=== PATIENT | female | born 1955 | race Caucasian/White ===

== ENCOUNTER 2024-10-19 10:37 | Emergency (ER) | payer MEDICARE, MEDICAID, SELFPAY ==
[2024-10-19] VITALS (18 sets, daily range): BP systolic 134–159; BP diastolic 71–91; PULSE 70–93; RESP 16–22; TEMP 36.4; O2SAT 94–100
--- NOTE | ~2024-10-19 | US_ITS ---
EXAMINATION: US right upper quadrant DATE: 10/19/2024 16:01 INDICATION: cholelithiasis TECHNIQUE: Multiple grayscale and Doppler ultrasound images of the right upper quadrant were obtained . COMPARISON: CT abdomen pelvis, same date. FINDINGS: The pancreas is not well visualized. The liver is normal with normal echogenicity and echot exture. No surface nodularity. Normal hepatopetal flow in the main portal vein. Multiple gallstones. Gallbladder wall thickness 4 mm. No pericholecystic fluid. The common bile duct measures 3 mm. There was no sonographic Castellanos sign. IMPRESSION: Cholelithiasis with gallbladder wall thickening. Negative sonographic Castellanos sign. Reviewed, dictated and finalized at location K. IMPRESSION: Cholelithiasis with gallbladder wall thickening. Negative sonographic Castellanos si gn.
--- NOTE | ~2024-10-19 | CT_ITS ---
EXAMINATION: CT abdomen pelvis w con DATE: 10/19/2024 13:56 INDICATION: epigastric pain TECHNIQUE: Computed tomography (CT) of the abdomen and pelvis was performed with 100 mL Omnipaque-350 intravenous contrast. Automated exposure control and iterative reconstruction technique were employe d. The dose-length product was 1720.79 mGy-cm. COMPARISON: None. FINDINGS: Exam is limited by beam hardening from arm down positioning, motion, and body habitus. Lower thorax: Coronary artery calcification. Mild cardiomegaly. Septal thickening. Segmental left bas ilar consolidation. Minimal dependent right basilar atelectasis. Small volume bilateral pleural fluid collections with pleural thickening on the left. Liver: Normal. Biliary/Gallbladder: Cholelithiasis. Possible gallbladder wall thickening, noting that evaluation is limited by above-mentioned artifacts. No bile duct dilation. Pancreas: Fatty replacement. Spleen: Normal. Adrenals:No mass. Kidneys: No suspicious mass, obstructing stone, or hydronephrosis. GI tract: No small or large bowel dilation. Normal appendix. Diverticulosis without diverticulitis. Mesentery/Peritoneum: No ascites, mass, or free air. Retroperitoneum: No mass. Atherosclerotic calcifications of intra-abdominal arterial vessels. Pelvis: Distended urinary bladder without wall thickening. Absent uterus. Bilateral ovaries not confi dently identified. Soft Tissues: Soft tissues and body wall unremarkable. Bones: No acute osseous finding. Multilevel severe degenerative disc disease and facet arthropathy. Multilevel severe bilateral neural foraminal narrowing and central canal narrowing secondary to degen erative changes. IMPRESSION: Mild interstitial edema. Segmental left basilar atelectasis/consolidation. Small bilateral pleural effusions. The left effusion is accompanied by pleural thickening. Cholelithiasis, with possible gallbladder wall thickening. Consider right upper quadrant ultrasound. Distended urinary bladder, correlate for symptoms of urinary retention. Reviewed, dictated and finalized at location K.
--- NOTE | 2024-10-19 10:41 | ECG_ITS ---
Test Date: 2024-10-19 10:44:47 Measurements Intervals [place] Rate: 80 P: 67 ND: 167 QRS: 3 QRSD: 88 T: 64 QT: 372 QTc: 430 Interpretive Statements SINUS RHYTHM INFERIOR MYOCARDIAL INFARCTION , PROBABLY OLD [40+ ms Q WAVE AND/OR ST/T ABNORMALITY IN II/aVF] No previous ECG available for comparison Electronically Signed On 10-19-2024 16:06:06 CDT by Charo Day
--- OUTSIDE RECORDS SUMMARY | 2024-10-19 10:52 | XMS_ITS ---
Author Organization [facility] Care Team Providers Care Student Life Vice President Name Role Phone Jami Fried Unavailable Unavailable Jack Castillo Unavailable Unavailable Allergies and adverse reactions Code CodeSystem Substance Reaction Severity StartDate Concern Status 6809 RXNORM metFORMIN Unknown 01/09/2023 active 3355 RXNORM Diclofenac Unknown 01/09/2023 active Care Team Name Role Address Phone Organization Dates Jack Castillo PCP [address] [place], [place], [facility], [facility] (Office): : [facility] 02/25/2023 - 03/29/2023 Jami Fried Attending Physician [address] [place] [address], [facility] (Office): [facility] 02/25/2023 - 03/29/2023 Immunizations Immunization Status Vaccine Details Vaccine Code CodeSystem Edgardo e Notes Influenza completed Influenza, high- dose, split virus, quadrivalent, injectable, preservative free lotNumber: [id number] expiry: 12/16/2023 Mfg: [employer] Given 0.5 ml Left Deltoid intramuscularly 197 CVX created date: 03/27/2023 consent date: 03/27/2023 administered date: 03/27/2023 Influenza cancelled Influenza, high- dose, split virus, quadrivalent, injectable, preservative free 197 CVX created date: 01/10/2023 consent date: 01/10/2023 Prevnar 20 completed Pneumococcal conjugate vaccine 20-valent (PCV20), polysaccharide [id number] conjugate, adjuvant, preservative free 216 CVX created date: 01/10/2023 consent date: 01/10/2023 administered date: 01/16/2023 Mental Status Section Date Assessment Total Score Description 03/29/2023 BIMS 15 cognitively int act CAM 0 No delirium ind icated PHQ-9 14 moderate depres reinaldo 02/21/2023 CAM 0 No delirium ind icated Problems Problem # Description Date of onset Resolved Date Code CodeSystem Concern Status 1 COVID-19 03/18/[address] active 2 INFECTION FOLLOWING A PROCEDURE, OTHER SURGICAL SITE, SUBSEQUENT ENCOUNTER 02/01/[address] active 3 ANXIETY DISORDER, UNSPECIFIED 01/11/[address] active 4 ANEMIA, UNSPECIFIED 01/10/[address] active 5 CHRONIC KIDNEY DISEASE, STAGE 3 UNSPECIFIED 01/10/[address] active 6 CONSTIPATION, UNSPECIFIED 01/10/[address] active 7 DEPRESSION, UNSPECIFIED 01/10/[address] active 8 DIVERTICULOSIS OF INTESTINE, PART UNSPECIFIED, WITHOUT PERFORATION OR ABSCESS WITHOUT BLEEDING 01/10/[address] active 9 ESSENTIAL (PRIMARY) HYPERTENSION 01/10/[address] active 10 FATTY (CHANGE OF) LIVER, NOT ELSEWHERE CLASSIFIED 01/10/[address] active 11 GOUT, UNSPECIFIED 01/10/[address] active 12 HYPOKALEMIA 01/10/[address] active 13 HYPOTHYROIDISM, UNSPECIFIED 01/10/[address] active 14 MORBID (SEVERE) OBESITY DUE TO EXCESS CALORIES 01/10/[address] active 15 OTHER INTERVERTEBRAL DISC DEGENERATION, LUMBAR REGION 01/10/[address] active 16 OVERACTIVE BLADDER 01/10/[address] active 17 PERIPHERAL VASCULAR DISEASE, UNSPECIFIED 01/10/[address] active 18 PERSONAL HISTORY OF COVID-19 01/10/[address] active 19 TYPE 2 DIABETES MELLITUS WITHOUT COMPLICATIONS 01/10/[address] active 20 UNSPECIFIED ASTHMA, UNCOMPLICATED 01/10/[address] active 21 ARTHRITIS DUE TO OTHER BACTERIA, RIGHT KNEE 01/09/[address] active 22 INFECTION FOLLOWING A PROCEDURE, OTHER SURGICAL SITE, SUBSEQUENT ENCOUNTER 01/09/20 23 01/31/[address] completed 23 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, SUBSEQUENT ENCOUNTER 01/09/[address] active Reason for Referral No Reasons for Referral Entered Social History Social History Observation Description Start Date End Date Code Code System Current Smoking Status Tobacco smoking consumption unknown 982190224 SNOMED CT Sex Assigned At Female 1955 15973-6 [facility] Vital Signs Code Code System Vitals Name Values and Units Timing Information 9279-1 [facility] Respiratory Rate Value=18.0 Units=/m in 03/29/2023 8462-4 [facility] Blood Pressure-Diastolic Value=72 Un its=mmHg 03/29/2023 8480-6 [facility] Blood Pressure-Systolic Qveck=301 Un its=mmHg 03/29/2023 8310-5 [facility] Body Temperature Value=98.2 Units= F 03/29/2023 8867-4 [facility] Heart rate Value=80.0 Units=/min 05/2023 30874-9 [facility] O2 % BldC Oximetry Value=97.0 Units= % 03/29/2023 12463-9 [facility] Pain Level Value=0.0 03/29/2023 73084-9 [facility] Weight Ofoov=784.8 Units=Lbs 04/2023 8302-2 [facility] Height Value=66.0 Units=Inches 02/25/2023 2339-0 [facility] Blood Sugar Dgcin=260.0 Units=mg/dL 02/05/2023
--- OUTSIDE RECORDS SUMMARY | 2024-10-19 10:52 | XMS_ITS | Encounter Summary ---
Author Organization [facility] Address [address] [place] [address] Care Team Providers Care Health Information Management Director Name Role Phone Lion Feliciano MD Primary Care Provider [phone] Encounter Details Date Type Department Care Team (Latest Contact Info) Description 10/13/2024 Scan [facility] Scanned, Doc Med Group Social History Tobacco Use Types Packs/Day Years Used Date Smoking Tobacco: Never Smokeless Tobacco: Never Alcohol Use Standard Drinks/Week Comments Not Currently 0 (1 standard drink = 0.6 oz pur e alcohol) OASIS D0700: Social Isolation Answer Da te Recorded Frequency of experiencing loneliness or isolatio n Rarely 02/22/2024 OASIS A1250: Transportation Answer Date Recorded Lack of Transportation (Medical) No 02/22/2024 Lack of Transportation (Non-Medical) Yes 02/22/2024 Patient Unable or Declines to Respond No 02/22/2024 OASIS B1300: Health Literacy Answer Edgardo e Recorded Frequency of needing help to read materials from doctor or pharmacy Rarely 02/22/2024 Humiliation, Afraid, Rape, and Kick questionnair e Answer Date Recorded Within the last year, have y ou been afraid of your partner or ex-partner? No 01/23/2023 Within the last year, have y ou been humiliated or emotionally abused in other ways by your partner or ex-partner? No Within the last year, have y ou been kicked, hit, slapped, or otherwise physically hurt by your partner or ex-partner? No 01/23/2023 Within the last year, have y ou been raped or forced to have any kind of sexual activity by your partner or ex-partner? No 01/23/2023 Social Connection and Isolation Panel [NHANES] A nswer Date Recorded In a typical week, how many times do you talk on the phone with family, friends, or neighbors? Twice a week 01/23/2023 How often do you get together with friends or re latives? Twice a week 01/23/2023 How often do you attend yarsani or sabianism serv ices? Never 01/23/2023 Do you belong to any clubs o r organizations such as yarsani groups, unions, fraternal or athletic groups, or school groups? No 01/23/2023 How often do you attend meet ings of the clubs or organizations you belong to? Never 01/23/2023 Are you , , di vorced, , never , or living with a partner? 01/23/2023 AUDIT-C Answer Date Recorded Q1: How often do you have a drink containing alc ohol? Monthly or less 01/23/2023 Q2: How many drinks containi ng alcohol do you have on a typical day when you are drinking? 1 or 2 01/23/2023 Q3: How often do you have si x or more drinks on one occasion? Never 01/23/2023 Overall Financial Resource Strain (CARDIA) Answe r Date Recorded How hard is it for you to pa y for the very basics like food, housing, medical care, and heating? Not hard at all 01/23/2023 [facility] - Occupational Stress Questionnaire Answer Date Recorded Do you feel stress - tense, restless, nervous, or anxious, or unable to sleep at night because your mind is troubled all the time - these days? Rather much 01/23/2023 Exercise Vital Sign Answer Date Recorde d On average, how many days pe r week do you engage in moderate to strenuous exercise (like a brisk walk)? 0 days 01/23/2023 On average, how many minutes do you engage in exercise at this level? 0 min 01/23/2023 Hunger Vital Sign Answer Date Recorded Within the past 12 months, y ou worried that your food would run out before you got the money to buy more. Never true 01/24/20 23 Within the past 12 months, t he food you bought just didn't last and you didn't have money to get more. Never true 01/23/2023 PRAPARE - Transportation Answer Date Re corded In the past 12 months, has l ack of transportation kept you from medical appointments or from getting medications? No 01/2023 In the past 12 months, has l ack of transportation kept you from meetings, work, or from getting things needed for daily living? No 01/23/2023 Housing Stability Vital Sign Answer Edgardo e Recorded In the last 12 months, was t here a time when you were not able to pay the mortgage or rent on time? No 01/23/2023 In the last 12 months, how many places have you lived? 1 01/23/2023 In the last 12 months, was t here a time when you did not have a steady place to sleep or slept in a correction (including now)? 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 [employer] Gender Identity Not on file Sexual Orientation Not on file documented as of this encounter Functional Status * Are you deaf or do you have serious difficulty hearing Answer Date of Assessment Author Status No 01/23/2023 9:51 PM Crissy Reyes RN Active * Are you blind or do you have serious difficulty seeing, even when wearing glasses? Answer Date of Assessment Author Status No 01/23/2023 9:51 PM Crissy Reyes RN Active * Do you have serious difficulty walking or climbing stairs? Answer Date of Assessment Author Status Yes 01/23/2023 9:51 PM Crissy Reyes RN Active * Do you have difficulty dressing or bathing? Answer Date of Assessment Author Status Yes 01/23/2023 9:51 PM Crissy Reyes RN Active * Because of a physical, mental, or emotional condition, do you have difficulty doing errands alone such as visiting a doctor's office or shopping? Answer Date of Assessment Author Status Yes 01/23/2023 9:51 PM CDT Schniepp, Crissy M, RN Active documented as of this encounter Mental Status * Because of a physical, mental, or emotional condition, do you have serious difficulty concentrating, remembering, or making decisions? Answer Entry Date Author Status No 01/23/2023 9:51 PM CDT Crissy Torres RN Active documented in this encounter Plan of Treatment Not on file documented as of this encounter Visit Diagnoses Not on filedocumented in this encounter Care Teams Health Information Management Director Relationship Specialty Start Date End Date Lion Feliciano MD [address] [place] [id number] PCP - General INTERNAL MEDICINE 12/26/22 documented as of this encounter
--- OUTSIDE RECORDS SUMMARY | 2024-10-19 10:52 | XMS_ITS | Encounter Summary ---
Author Organization [facility] Address [address] [facility] [address] [place] [address] Phone Care Team Providers Care Snow Blower Name Role Phone Lion Feliciano MD Primary Care Provider [phone] Encounter Details Date Type Department Care Team (Late Contact Info) Description 10/16/2024 Orders Only [facility] [address] [place] [address] July May [address] [place] [address] Social History Tobacco Use Types Packs/Day Years Used Date Smoking Tobacco: Never Smokeless Tobacco: Never Tobacco Cessation:Counseling Given: Not Answered Alcohol Use Standard Drinks/Week Comments Never 0 (1 standard drink = 0.6 oz pur e alcohol) Comments Unknown Sex and Gender Information Value Date Recorded Sex Assigned at Not on file Legal Sex Female 10:59 AM EDT Gender Identity Not on file Sexual Orientation Not on file documented as of this encounter Plan of Treatment Upcoming Encounters Date Type Department Care Team (Late Contact Info) Description 10/21/2024 2:00 PM CDT Office Visit [facility] [address] [place] [address] Pasha Wilhelm MD [address] [place] [address] documented as of this encounter Visit Diagnoses Not on filedocumented in this encounter Care Teams Snow Blower Relationship Specialty Start Date End Date Lion Feliciano MD [address] [place] [id number] PCP - General Internal Medicine 10/01/24 documented as of this encounter
--- OUTSIDE RECORDS SUMMARY | 2024-10-19 10:52 | XMS_ITS | Clinical Summary ---
Author Organization [facility] Address [address] [place] [address] Care Team Providers Care Verifying Machine Operator Name Role Phone Lion Feliciano MD Primary Care Provider [phone] Allergies Active Allergy Reactions Criticality Noted Date Comments Diclofenac Sodium Unknown Low 12/26/2022 Pt does not recall reaction. Is not entirely sure if she is allergic or not. Can take Ibuprofen and Naproxen without issues. Metformin Hcl Unknown 12/26/2022 12/26/22 - attempted to clarify with pt, she does not recall why but they took her off medication. Medications docusate sodium (COLACE) 100 MG capsuleIndicat ions:constipat ion Take 1 capsule by mouth 2 (two) times daily as needed for Constipation. Indications: constipation Active ferrous sulfate EC 324 (65 Fe) MG tabletIndicati ons:supplement Take 1 tablet by mouth 3 (three) times daily with meals. Indications: supplement Active metoprolol tartrate (LOPRESSOR) 50 MG tabletIndicati ons:HTN Take 1 tablet by mouth 2 (two) times daily. Indications: HTN Active cilostazol (PLETAL) 100 MG tabletIndicati ons:antiplatel et Take 1 tablet by mouth 2 (two) times daily. Indications: antiplatelet Active levothyroxine (SYNTHROID) 50 MCG tabletIndicati ons:hypothyroi dism Take 50 mcg by mouth see administration instructions. Indications: hypothyroidism Mon, Tu, Wed, Th, Sun, 4 Active levothyroxine (SYNTHROID) 100 MCG tabletIndicati ons:hypothyroi dism Take 100 mcg by mouth see administration instructions. Indications: hypothyroidism Sunday 4 Active allopurinol (ZYLOPRIM) 100 MG tabletIndicati ons:gout Take 2 tablets by mouth daily. Indications: gout Active oxybutynin XL (DITROPAN-XL) 5 MG 24 hr tabletIndicati ons:bladder spasms Take 1 tablet by mouth daily. Indications: bladder spasms Active nystatin (MYCOSTATIN) powderIndicati ons:gaulding/r edness Apply topically 2 (two) times daily. 15 g 3 Active Additional Information Patient not taking.Reported on 02/27/2023 hydrocortisone (CORTIZONE) 1 % creamIndicatio ns:itching/red ness Apply topically 2 (two) times daily. Indications: itching/redness Active fluticasone propionate (FLONASE) 50 MCG/ACT nasal sprayIndicatio ns:allergies 1 spray by Each Nostril route daily. Indications: allergies 3 Active potassium chloride CR (KLOR-CON M) 20 MEQ tabletIndicati ons:supplement Take 20 mEq by mouth daily. Indications: supplement 3 Active traMADol (ULTRAM) 50 MG tabletIndicati ons:pain Take 50 mg by mouth 2 (two) times daily. Indications: pain 3 Active cyclobenzaprin e (FLEXERIL) 10 MG tabletIndicati ons:muscle relaxer Take 10 mg by mouth 3 (three) times daily. Indications: muscle relaxer 3 Active acetaminophen CR (TYLENOL) 650 MG Tab CR 8 hr tabletIndicati ons:mild pain Take 650 mg by mouth 3 (three) times daily as needed (mild pain). Indications: mild pain 3 Active lactobacillus (CULTURELLE) capsuleIndicat ions:bowel health Take 1 capsule by mouth daily. Indications: bowel health 3 Active Magnesium Oxide 400 MG CapIndications :supplement Take 400 mg by mouth 3 (three) times daily. Indications: supplement 3 Active zolpidem (AMBIEN) 10 MG tabletIndicati ons:Restless Sleep Take 10 mg by mouth nightly as needed for Sleep. Indications: Restless Sleep 3 Active ALPRAZolam (XANAX) 0.5 MG tabletIndicati ons:Anxiety Take 0.5 mg by mouth daily as needed for Anxiety. Indications: Feeling Anxious 3 Active escitalopram (LEXAPRO) 20 MG tabletIndicati ons:Depression Take 20 mg by mouth daily. Indications: Depression 4 Active metFORMIN (GLUCOPHAGE) 500 MG tabletIndicati ons:Diabetes Take 500 mg by mouth 2 (two) times daily with meals. Indications: Diabetes 4 Active Esomeprazole Magnesium 20 MG PackIndication s:Stomach Take one tablet by mouth Daily for Stomach Indications: Stomach 4 Active aspirin 325 MG tabletIndicati ons:Antiplatle t Take 325 mg by mouth daily. Indications: Antiplatlet 4 Active vancomycin 750 mg in sodium chloride 0.9 % SOLN 250 mLIndications: Infection Admisnter 750mg in Elastomir Ball via PICC line once Daily for 6 weeks. 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, subsequent encounter 02/28/2023 Hypertension 02/28/2023 Hypothyroidism 02/28/2023 Diabetes mellitus, type II ([facility]) Peripheral vascular disease, unspecified 023 Rash 01/23/2023 Acute heart failure with pre served ejection fraction (HFpEF) ([facility]) 01/18/2023 Septic arthritis ([facility]) 12/26/2022 Encounters Date Type Department Care Team Description 10/13/2024 Scan [facility] INFO SRVCS Scanned, Doc Med Group from Last 3 Months Immunizations Immunization Administration Dates Next Due Influenza (Generic) 06/18/2019,05/18/2012 Family History Medical History Relation Comments Hypertension Mother Relation Status Comments Mother Social History Tobacco Use Types Packs/Day Years Used Date Smoking Tobacco: Never Smokeless Tobacco: Never Tobacco Cessation:Counseling Given: No Alcohol Use Standard Drinks/Week Comments Not Currently [...] week 01/23/2023 How often do you attend sabianist or faith serv ices? Never 01/23/2023 Do you belong to any clubs o r organizations such as sabianist groups, unions, fraternal or athletic groups, or [...] and heating? Not hard at all 01/23/2023 [facility] - Occupational Stress Questionnaire Answer Date Recorded [...] place to sleep or slept in a skilled nursing (including now)? 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 Gender Identity Not on file Sexual Orientation Not on file Last Filed Vital Signs Vital Sign Reading Time Taken Comments Blood Pressure 122/62 02/22/2024 2:12 PM CDT Pulse 72 02/22/2024 2:12 PM CDT Temperature 36.3 C (97.4 F) 02/22/2024 2:12 PM CDT Respiratory Rate 18 02/22/2024 2:12 PM CDT Oxygen Saturation 98% 02/22/2024 2:12 PM CDT Inhaled Oxygen Concentration - - Weight 148.8 kg (328 lb) 04/05/2023 12: 06 PM CDT per pt report Height 167.6 cm (5' 6 ) 03/21/2023 10:0 7 AM CDT Body Mass Index 52.94 03/21/2023 10:07 AM CDT Plan of Treatment Health Maintenance Due Date Last Done Comments Kidney Health Evaluation 1953 Diabetes: Retinopathy Eye Exam 1971 Hepatitis C 1971 DTaP, Tdap and Td Vaccines ( 1 - Tdap) 02/27/1972 Mammogram Screening 1993 Zoster Vaccines (1 of 2) 2003 RSV Immunization or 60+ Years (1 - Risk 60-74 years 1-dose series) 2013 Annual Medicare Wellness Visit 2018 Dexa Scan (General) 2018 Hemoglobin A1C 08/08/2023 02/05/2023, 12/26/2022 Lipid Panel 12/28/2023 12/27/2022 Colorectal Cancer Screening FIT/FOBT (1 Year) 01/20/2024 01/19/2023 COVID-19 Vaccine (2 - 2023-2 5 season) 2024 11/24/2020 PHQ-2 ([facility]) 06/18/2024 Pneumococcal Vaccine: 50+ Years Completed 01/16/2023 Meningococcal B Vaccine Aged Out No l onger eligible based on patient's age to complete this topic Meningococcal Vaccine Aged Out No primo paz eligible based on patient's age to complete this topic RSV Immunizations Under 20 Months Aged Out No longer eligible b ased on patient's age to complete this topic Medical Devices Implanted Type Area Transport Coordinator Device Identifier Shelf Expiration Date Model / Serial / Lot Cement Bone Refobacin - [id number] Implanted:Qty: 2 on 12/30/2022 by Yoel Saldaña MD at [facility] Cement Implant Right: Knee [employer] [id number] 01/15/2025 [id number] / / [id number] Cement Bone Refobacin - [id number] Implanted:Qty: 1 on 12/30/2022 by Yoel Saldaña MD at [facility] Cement Implant Right: Knee [employer] [id number] 12/15/2024 [id number] / / [id number] Xtrafix 11mm Bar X 250mm Implanted:Qty: 1 on 12/30/2022 by Yoel Saldaña MD at [facility] Right: Knee [employer] [id number] / / Procedures Procedure Name Priority Date/Time Associated Diagnosis Comments HEMOGLOBIN, GLYCOSYLATED Routine 02/05/2023 7:20 AM CDT Antibiotics causing adverse effect in therapeutic use OCCULT BLOOD, FECES Routine 01/19/2023 1 :00 PM CDT LIPID PANEL Routine 12/27/2022 5:14 AM CDT from Last 3 Months or Most Recently Relevant to Health Maintenance Results * HEMOGLOBIN, GLYCOSYLATED (02/05/2023 7:20 AM CDT) HGB A1C 5.1 <5.7 % 02/05/2023 10:[address] [facility] Comment: INCREASED RISK OF DIABETES <5.7% NON-DIABETES 5.7-6.4% INCREASED RISK FOR FUTURE DIABETES > OR = 6.5 CONSISTENT WITH DIABETES STANDARDS OF MEDICAL CARE IN DIABETES-2010 DIABETES CARE, 33(SUPP 1): S1-S61,2010 ESTIMATED AVG GLUCOSE 100 mg/dL 02/05/2023 10:[address] [facility] 02/05/2023 7:20 AM CDT us Jack Castillo MD LABORATORY Final Resul t [facility] [address] [place] [address], * OCCULT BLOOD, FECES (01/19/2023 1:00 PM CDT) OCCULT BLOOD FECAL NEGATIVE NEGATIVE 01/19/2023 2:[address] [facility] STOOL SPECIMEN / Unknown 01/19/2023 1:00 PM CDT us Lupillo Engel MD BODY FLUIDS AND STOOLS ORDERABLES Final Result Performing Organization Address [facility]/ZIP Co de Phone Number [facility] [address] [place] [address], * (ABNORMAL) LIPID PANEL (12/27/2022 5:14 AM CDT) CHOLESTEROL 117 MG/DL 12/27/2022 6:[address] [facility] Comment:DESIRABLE: <200 TRIGLYCERIDES 122 MG/DL 12/27/2022 6:[address] [facility] Comment:<150 NORMAL HDL 36(L) >49 MG/DL 12/27/2022 6:[address] [facility] LDL (CALCULATED) 57 MG/DL 12/28/19 6:[address] [facility] Comment:<100 OPTIMAL VLDL CALCULATION 24 MG/DL 12/28/19 6:[address] [facility] Comment:REFERENCE RANGE NOT ESTABLISHED CHOL/HDL RATIO 3.2 12/27/2022 6:[address] [facility] Comment:REFERENCE RANGE NOT ESTABLISHED LDL/HDL 1.6 12/27/2022 6:[address] [facility] Comment:REFERENCE RANGE NOT ESTABLISHED NON HDL CHOLESTEROL 81 MG/DL 12/27/2022 6:[address] [facility] Comment:REFERENCE RANGE NOT ESTABLISHED 12/27/2022 5:14 AM CDT Brien Glez MD LABORATORY Final Result [facility] [address] [place] [address], [id number] from Last 3 Months or Most Recently Relevant to Health Maintenance Insurance [facility] Advance Directives Documents on File Type Date Recorded Patient Liquor Rectifier Expl anation Advance Directives and Living Will 01/19/2023 10:27 AM 01/12/2023 POLST * Full Code (Latest Code Status on File) Date Activated Date Inactivated Comments 01/17/2024 1:47 PM * Full Code Date Activated Date Inactivated Comments 04/03/2023 5:32 PM 05/08/2023 1:16 PM * Full Code Date Activated Date Inactivated Comments 01/18/2023 7:10 PM 01/22/2023 4:14 PM * Full Code Date Activated Date Inactivated Comments 12/26/2022 6:55 PM 01/09/2023 2:52 PM Care Teams Verifying Machine Operator Relationship Specialty Start Date End Date Lion Feliciano MD [address] [place] [address] PCP - General INTERNAL MEDICINE 12/26/22
--- OUTSIDE RECORDS SUMMARY | 2024-10-19 10:52 | XMS_ITS | Clinical Summary ---
Author Organization [facility] Address [address] [facility] [address] [place] [address] Phone Care Team Providers Care Monitoring Specialist Name Role Phone Lion Feliciano MD Primary Care Provider [phone] Allergies Active Allergy Reactions Criticality Noted Date Comments Diclofenac Other (see comments) Low 12/26/2022 Pt does not recall reaction. Is not entirely sure if she is allergic or not. Can take Ibuprofen and Naproxen without issues. Metformin Hcl Other (see comments) 12/26/2022 12/26/22 - attempted to clarify with pt, she does not recall why but they took her off medication. Medications acetaminophen (TYLENOL 8 HOUR) 650 MG 8 hr tablet Take 650 mg by mouth 3 times daily as needed 3 Active allopurinol (ZYLOPRIM) 100 MG tablet Take 200 mg by mouth 1 (one) time each day Active ALPRAZolam (XANAX) 0.5 MG tablet Take 0.5 mg by mouth if needed 3 Active aspirin 325 MG tablet Take 325 mg by mouth in the morning. 4 Active cilostazol (PLETAL) 100 MG tablet Take 100 mg by mouth in the morning and 100 mg in the evening. Active cyclobenzaprin e (FLEXERIL) 10 MG tablet Take 10 mg by mouth in the morning and 10 mg at noon and 10 mg in the evening. Active Docusate Sodium (DSS) 100 MG capsule Take 1 capsule by mouth 2 times daily as needed Active escitalopram (LEXAPRO) 20 MG tablet Take 20 mg by mouth 1 (one) time each day Active ferrous sulfate 324 (65 Fe) MG EC tablet Take 324 mg by mouth in the morning and 324 mg at noon and 324 mg in the evening. Active fluticasone (FLONASE) 50 MCG/ACT nasal spray Administer 1 spray into affected nostril(s) in the morning. 3 Active Lactobacillus Rhamnosus, GG, capsule Take 1 capsule by mouth in the morning. 3 Active levothyroxine (SYNTHROID, LEVOTHROID) 50 MCG tablet Take 50 mcg by mouth 1 (one) time each day TAKE 1 TABLET BY MOUTH ONCE DAILY SUNDAY THRU SUNDAY AND TAKE 2 TABS ON SATURDAYS AND SUNDAYS Active levothyroxine (SYNTHROID, LEVOTHROID) 100 MCG tablet Take 100 mcg by mouth Take 100 mcg by mouth see administration instructions. Indications: hypothyroidism Sunday 4 Active losartan (COZAAR) 50 MG tablet Take 50 mg by mouth 1 (one) time each day 5 Active MAGnesium-Oxid e 400 (240 Mg) MG tablet Take 1 tablet by mouth in the morning and 1 tablet at noon and 1 tablet in the evening. 5 Active metFORMIN (GLUCOPHAGE) 500 MG tablet Take 500 mg by mouth in the morning and 500 mg in the evening. 4 Active metoprolol tartrate (LOPRESSOR) 50 MG tablet Take 50 mg by mouth in the morning and 50 mg in the evening. Active oxybutynin (DITROPAN) 5 MG tablet Take 5 mg by mouth 1 (one) time each day 5 Active potassium chloride (KLOR-CON M20) 20 MEQ CR tablet Take 20 mEq by mouth 1 (one) time each day Active traMADol (ULTRAM) 50 MG tablet Take 50 mg by mouth in the morning and 50 mg in the evening. Active Active Problems Problem Noted Date Diagnosed Date Urinary tract infectious disease 10/16/2024 Acute heart failure co-occur rent with normal ejection fraction 01/18/2023 Chronic kidney disease stage 3 01/09/2023 Hypertension 01/09/2023 Type 2 diabetes mellitus 01/09/2023 Resolved Problems Problem Noted Date Diagnosed Date Resolved Date Hypercalcemia 10/16/2024 10/16/2024 Hypoglycemia 10/16/2024 10/16/2024 Infection following a proced ure, other surgical site, subsequent encounter 02/28/2023 05/0 06/2024 Surgical site infection 01/31/2023 05/0 06/2024 Rash 01/23/2023 10/16/2024 Anxiety disorder 01/10/2023 10/16/2024 Anemia 01/09/2023 10/16/2024 Constipation 01/09/2023 10/16/2024 COVID-19 01/09/2023 10/16/2024 Degeneration of lumbar intervertebral disc 01/09/2023 10/16/2024 Depressive disorder 01/09/2023 10/17/19 Diverticular disease 01/09/2023 025 Gout 01/09/2023 10/16/2024 Peripheral vascular disease 01/09/2023 10/16/2024 Hypokalemia 01/09/2023 10/16/2024 Hypothyroidism 01/09/2023 10/16/2024 Morbid obesity 01/09/2023 10/16/2024 Overactive urinary bladder 01/09/2023 0 10/16/2024 Steatotic liver disease 01/09/2023 0506/2024 Uncomplicated asthma 01/09/2023 025 Other mechanical complicatio n of internal right knee prosthesis, subsequent encounter 01/08/2023 10/16/2024 Infective arthritis 12/26/2022 10/17/19 Encounters Date Type Department Care Team Description 10/16/2024 Orders Only [facility] [address] [place] [id number] July May 10/07/2024 Telephone [facility] [address] [place] [id number] Pasha Wilhelm MD from Last 3 Months Immunizations Immunization Administration Dates Next Due Influenza, Unspecified 06/18/2019,05/18/2012 Social History Tobacco Use Types Packs/Day Years [...] on file Sexual Orientation Not on file Plan of Treatment Upcoming Encounters Date Type Department Care Team (Late st Contact Info) Description 10/21/2024 2:00 PM CDT Office Visit [facility] [address] [place] [address] Pasha Wilhelm MD [address] [place] [address] Health Maintenance Due Date Last Done Comments Breast Cancer Screening 1955 Pneumococcal Vaccine: 50+ Years (1 of 2 - PCV) 02/27/1972 Colorectal Cancer Screening: Annual FOBT 2002 Colorectal Cancer Screening: Colonoscopy 2002 Colorectal Cancer Screening: Sigmoidoscopy 2002 Diabetes: Hemoglobin A1C 10/01/2024 02/05/2023 Diabetes: Ophthalmology Exam 10/01/2024 Diabetes: Pedal Pulse Checked 10/01/2024 Diabetes: Sensory Foot Exam 10/01/2024 Diabetes: Visual Foot Exam 10/01/2024 Influenza Vaccine (Season Ended) 2025 06/18/2019, 05/18/2012 Hepatitis B Vaccine Aged Out No longe r eligible based on patient's age to complete this topic Insurance Medicare Member Subscriber Plan / Payer (Ef fective 2024-Present) Name:Ashley Gardner Relation to Subscriber:Self Name:Ashley Gardner Payer ID:[id number] (NAIC) Type:Not on file Address: [place] [phone] Medicare Member Subscriber Plan / Payer (Ef fective 2024-) Name:Ashley Gardner Angel Relation to Subscriber:Self Name:Ashley Gardner Payer ID:[id number] (NAIC) Type:Not on file Address: [place] [phone] [facility] [place] [address] Care Teams Monitoring Specialist Relationship Specialty Start Date End Date Lion Feliciano MD [address] [address] PCP - General Internal Medicine 10/01/24
[2024-10-19] MEDS: ONDANSETRON INJ 4 MG/2 ML VIAL IV PUSH (10:55)
[2024-10-19] MEDS: SODIUM CHLORIDE 0.9% IV 1,000 ML 999 ML IV CONT (10:56)
[2024-10-19 11:18] LABS: Basophils Percent Auto 0.1 % (0.2-1.2); Eosinophils Percent Auto 0.1 % (0-4.4); Hematocrit 36.9 % (37.0-47.0); Hemoglobin 11.7 g/dL (12.0-15.0); Immature Granulocyte Absolute 0.07 K/mm3 (0.00-0.031); Immature Granulocyte Percent A 0.5 % (0-0.5); Lymphocytes Absolute Auto 1.14 K/mm3 (0.9-3.2); Lymphocytes Percent Auto 7.8 % (18.3-44.2); Mean Corpuscular HGB Conc 31.7 g/dl (32-36); Mean Corpuscular Hemoglobin 31.7 pg (26-34); Mean Platelet Volume 10.2 fl (7.4-10.4); Monocytes Absolute Auto 0.6 K/mm3 (0.1-0.6); Monocytes Percent Auto 4.3 % (2.6-8.5); Neutrophils Absolute Auto 12.7 K/mm3 (1.3-6.7); Neutrophils Percent Auto 87.2 % (45.5-73.1); Platelet Count Result 261 k/mm3 (150-375); Red Blood Count 3.69 M/mm3 (4.2-5.4); Red Cell Distribution Width 16.6 % (11.5-14.5); White Blood Count 14.6 K/mm3 (4.5-10.0)
[2024-10-19 11:37] LABS: Alanine Aminotransferase 12 U/L (6-35); Albumin Level 3.5 g/dL (3.5-5.1); Alkaline Phosphatase 109 U/L (38-126); Anion Gap 8 mmol/L (4-12); Aspartate Amino Transferase 26 U/L (14-36); Bilirubin,Total 0.4 mg/dL (0.2-1.3); Blood Urea Nitrogen 14 mg/dL (7-17); Calcium 8.9 mg/dL (8.4-10.2); Carbon Dioxide 28 mmol/L (22-30); Chloride 98 mmol/L (98-107); Estimated CRCL calculation 57 ml/min; Estimated Glomerular Filt Rate 47; Glucose 126 mg/dL (65-110); Lipase 51 U/L (23-300); Potassium 4.4 mmol/L (3.4-5.0); Sodium 134 mmol/L (137-145)
[2024-10-19 11:37] LABS: Lactic Acid Reflex 1.6 mmol/L (0.7-2.0)
[2024-10-19] MEDS: BELLADONNA ALK/PHENOB ELIX 10 ML, MAG HYDROX/ALUMINUM HYD/SIMETH 30 ML, LIDOCAINE 2% VI... PO (11:59)
--- NOTE | 2024-10-19 16:58 | ED.GENADULT ---
HPI - General Adult General Chief complaint: Nausea/Vomiting/Diarrhea Stated complaint: N/V Time Seen by Provider: 10/19/24 10:40 Related Data Allergies Allergy/AdvReac Type Severity Reaction Status Date / Time No Known Allergies Allergy Verified 10/19/24 10:38 [facility] Past Medical History Medical History (Updated 10/19/24 @ 17:10 by Juan J Nixon MD) Spinal stenosis Depression Hypertension Gout Diverticulitis Cognitive communication deficit Anxiety Hyperlipidemia Hypothyroidism C. difficile colitis Surgical History Surgical History (Updated 10/19/24 @ 17:07 by Juan J Nixon MD) History of knee replacement, total Right Exam Narrative: GENERAL: Chronically ill-appearing, morbidly obese, and in no acute distress. HEAD: Normocephalic, atraumatic. ENT: Mucous membranes moist. NECK: Supple. CHEST: Clear to auscultation. No respiratory distress. HEART: Regular rate and rhythm. Normal peripheral pulses. ABDOMEN: Soft, nontender, nondistended. EXTREMITIES: Normal range of motion. No edema. SKIN: Warm, dry, no rash. NEURO: Alert and oriented x3. PSYCH: Normal mood and affect. Course Course Emergency Course: Abdomen remains soft nontender. Patient with cholelithiasis and gallbladder wall thickening. Discussed with General surgery. Refer for outpatient follow-up. Patient had a GI cocktail which improved her discomfort in her chest. Recommend low-fat diet. Discharge with pain control and nausea control. Vital Signs Vital signs: Vital Signs Temperature 97.6 F 10/19/24 10:38 Pulse Rate 87 10/19/24 10:38 Respiratory Rate 20 10/19/24 10:38 Blood Pressure 159/73 H 10/19/24 10:38 Pulse Oximetry 96 10/19/24 10:38 Oxygen Delivery Room Air 10/19/24 10:38 Temperature 97.6 F 10/19/24 10:38 Pulse Rate 84 10/19/24 13:02 Respiratory Rate 21 H 10/19/24 13:02 Blood Pressure 154/74 H 10/19/24 13:02 Pulse Oximetry 97 10/19/24 13:02 Oxygen Delivery Room Air 10/19/24 10:38 Medical Decision Making Vital Signs Vital Signs: Vital Signs Temperature 97.6 F 10/19/24 10:38 Pulse Rate 87 10/19/24 10:38 Respiratory Rate 20 10/19/24 10:38 Blood Pressure 159/73 H 10/19/24 10:38 Pulse Oximetry 96 10/19/24 10:38 Oxygen Delivery Room Air 10/19/24 10:38 Temperature 97.6 F 10/19/24 10:38 Pulse Rate 84 10/19/24 13:02 Respiratory Rate 21 H 10/19/24 13:02 Blood Pressure 154/74 H 10/19/24 13:02 Pulse Oximetry 97 10/19/24 13:02 Oxygen Delivery Room Air 10/19/24 10:38 Lab Data 10/19/24 11:01 10/19/24 11:01 Labs: Lab Results 10/19/24 10/19/24 Range/Units 11:01 11:11 WBC 14.6 H (4.5-10.0) K/mm3 RBC 3.69 L (4.2-5.4) M/mm3 Hgb 11.7 L (12.0-15.0) g/dL Hct 36.9 L (37.0-47.0) % MCV 100.0 (80-100) fl MCH 31.7 (26-34) pg MCHC 31.7 L (32-36) g/dl RDW 16.6 H (11.5-14.5) % Plt Count 261 (150-375) k/mm3 MPV 10.2 (7.4-10.4) fl Immature Gran % (Auto) 0.5 (0-0.5) % Neut % (Auto) 87.2 H (45.5-73.1) % Lymph % (Auto) 7.8 L (18.3-44.2) % [place] % (Auto) 4.3 (2.6-8.5) % Eos % (Auto) 0.1 (0-4.4) % Baso % (Auto) 0.1 L (0.2-1.2) % Lymph # (Auto) 1.14 (0.9-3.2) K/mm3 [place] # (Auto) 0.6 (0.1-0.6) K/mm3 Eos # (Auto) 0.0 (0-0.3) K/mm3 Baso # (Auto) 0.0 (0.0-0.1) K/mm3 Abs Immat Gran (auto) 0.07 H (0.00-0.031) K/mm3 Absolute Neuts (auto) 12.7 H (1.3-6.7) K/mm3 Absolute Nucleated RBC 0.000 (0.0-0.012) K/mm3 Nucleated RBC % 0.0 (0.0-0.2) % Sodium 134 L (137-145) mmol/L Potassium 4.4 (3.4-5.0) mmol/L Chloride 98 (98-107) mmol/L Carbon Dioxide 28 (22-30) mmol/L Anion Gap 8 (4-12) mmol/L BUN 14 (7-17) mg/dL Creatinine 1.15 H (0.7-1.0) mg/dL Estim Creat Clear Calc 57 ml/min Estimated GFR 47 L (59 - ) Glucose 126 H (65-110) mg/dL Lactic Acid 1.6 (0.7-2.0) mmol/L Calcium 8.9 (8.4-10.2) mg/dL Total Bilirubin 0.4 (0.2-1.3) mg/dL AST 26 (14-36) U/L ALT 12 (6-35) U/L Alkaline Phosphatase 109 (38-126) U/L Total Protein 7.0 (6.3-8.2) g/dL Albumin 3.5 (3.5-5.1) g/dL Lipase 51 (23-300) U/L Imaging Data Radiologist's impression: ITS Impressions Abdomen/Pelvis CT 10/19/24 14:57 IMPRESSION: Mild interstitial edema. Segmental left basilar atelectasis/consolidation. Small bilateral pleural effusions. The left effusion is accompanied by pleural thickening. Cholelithiasis, with possible gallbladder wall thickening. Consider right upper quadrant ultrasound. Distended urinary bladder, correlate for symptoms of urinary retention. Upper Quadrant Ultrasound 10/19/24 16:42 IMPRESSION: Cholelithiasis with gallbladder wall thickening. Negative sonographic Castellanos sign. Discharge Plan Discharge Clinical Impression: Cholelithiasis, Nausea & vomiting Patient Disposition: Home Condition: Stable Instructions: Gallstones (ED), Low Fat Diet (ED) Additional Instructions: Return to the emergency department if you develop severe abdominal pain, severe nausea and vomiting to the point where you are unable to keep down fluids, if you develop chest pain or difficulty breathing, blood in your stool, dizziness or fainting, or if you develop any other new or concerning symptoms as these could be signs of more serious medical illness. Try to stay well hydrated. Patient Language: Macedonian Prescriptions: New hydrocodone-acetaminophen 5-325 mg tablet 1 tablet PO Q6H PRN (Reason: pain) Qty: 12 0RF ondansetron 4 mg tablet,disintegrating 4 mg PO Q6H PRN (Reason: nausea and vomiting) Qty: 10 0RF Follow-up/Referrals: UNKNOWN,DOCTOR [Primary Care Provider] - Lux Jimenez MD [Physician] - 1 Week
== END 2024-10-19 18:41 | disposition home or self-care (01) ==
PROVIDERS: Emergency Provider Emergency Medicine
DX: K80.20 Calculus of gallbladder without cholecystitis without obstruction (principal); R11.2 Nausea with vomiting, unspecified; I10 Essential (primary) hypertension; E78.5 Hyperlipidemia, unspecified; E03.9 Hypothyroidism, unspecified; M10.9 Gout, unspecified; M48.00 Spinal stenosis, site unspecified; Z86.19 Personal history of other infectious and parasitic diseases; Z96.651 Presence of right artificial knee joint
CPT/HCPCS: 36415; 74177; 76705; 80053; 83605; 83690; 85025; 93005; 96361; 96374; 99284; A9270; J2405; J7030; Q9967

== ENCOUNTER 2024-10-20 06:33 | Inpatient (IN) | payer MEDICARE, MEDICAID, SELFPAY ==
[2024-10-20] VITALS (19 sets, daily range): BP systolic 135–173; BP diastolic 72–91; PULSE 86–108; RESP 12–22; TEMP 36.1–36.5; O2SAT 95–100; BMI 51.7
--- NOTE | ~2024-10-20 | NM_ITS ---
EXAMINATION: NM hepatobiliary w pharm DATE: 10/21/2024 13:10 INDICATION: Cholelithiasis and epigastric pain COMPARISON: None. TECHNIQUE: 4.9 mCi Tc-99 mebrofenin (Choletec) was administered intravenously. Scintigraphic images of the abdomen were obtained for one hour. 3 morphine was administered by slow intravenous infusion, and imaging was continued for 30 minutes. Gallbladder ejection fraction was calculated by the technol ogist. FINDINGS: There is normal clearance of radiotracer from the blood pool. There is homogeneous tracer uptake by t he liver. Activity progresses to the gallbladder and bowel. No gallbladder activity identified eithe r in the initial 60 minutes of imaging on the 30 minutes following morphine administration consistent with acute cholecystitis. IMPRESSION: 1. No evident gallbladder activity consistent with acute cholecystitis. Reviewed, dictated and finalized at location A.
--- NOTE | ~2024-10-20 | CT_ITS ---
CTA chest Ordering provider: Akash Walden PA-C History: 69 years Female with . chest pain . Comparison: None. Technique: CT angiogram chest was performed following timed intravenous injection of contrast. Thin s lice axial images and reformatted coronal images were obtained. Three dimensional reformatted images of the chest were also obtained using a [employer] workstation. . Automated exposure control and iterati ve reconstruction technique were employed. The dose-length product was 1002.14 mGy-cm. 100 mL Omnipaque 350 was given IV. Findings: PULMONARY ARTERIES: No pulmonary embolus. VISUALIZED THORACIC INLET: Normal. Retropharyngeal position of the carotid arteries. MEDIASTINUM: Aorta/coronary arteries: Mild atheromatous disease. Heart/other: The heart is not enlarged. Lymph nodes: No mediastinal or hilar adenopathy. LUNGS: Bilateral pleural effusion more on the right side with adjacent atelectasis. Small nodule seen in the right lower lobe measuring 6 mm. 6 months follow-up CT is advised. No pulmonary masses. No pneumotho rax. Narrowing of the trachea and main bronchi. VISUALIZED UPPER ABDOMEN: Small sliding hiatus hernia. Atrophic pancreas. Small cyst in the right kid cristina. Otherwise, the visualized upper abdomen is normal. MUSCULOSKELETAL: Soft tissues: The superficial soft tissues are normal. Bones: Severe degenerative changes of the spine. Severe bilateral shoulder osteoarthritic changes. IMPRESSION: 1. No pulmonary embolus or aortic dissection seen. 2. Moderate Bilateral pleural effusion with adjacent atelectasis versus pneumonia. 3. Tracheobronchomalacia. 4. Nodule in the right lower lobe. 6 months follow-up CT is advised. Reviewed, dictated and finalized at location A. IMPRESSION: 1. No pulmonary embolus or aortic dissection seen. 2. Moderate Bilateral pleural effusion with adjacent atelectasis versus pneumo sridevi. 3. Tracheobronchomalacia. 4. Nodule in the right lower lobe. 6 months follow-up CT is advised.
--- NOTE | ~2024-10-20 | US_ITS ---
EXAMINATION: US perc cholecystostomy w imag DATE: 10/21/2024 16:45 INDICATION: Acute cholecystitis TECHNIQUE: The procedure including the risks and benefits was discussed with the patient. Risks discu ssed included bleeding including hemorrhage and bile peritonitis. Oral and written consent were obtai josseline. The patient was confirmed to be receiving appropriate antibiotic coverage. The skin overlying t he liver and gallbladder was prepped and draped in usual sterile fashion. Anesthetic was administere d with 1% lidocaine subcutaneously. An 8.5 Fr catheter was inserted into the gallbladder by trocar t echnique. The metal stiffener and trocar needle were removed, and the pigtail tip was locked. Bile wa s aspirated and sent for culture. The catheter was stitched to the skin with suture. Sterile dressing was applied. The catheter was then attached to gravity drainage. There were no immediate complicatio ns. FINDINGS: The gallbladder is dilated with echogenic and shadowing stones and sludge, consistent with acute cholecystitis. Ultrasound images demonstrate the catheter entering into the gallbladder. 50 mL bile was aspirated and sent to lab for Gram stain and cultures. Final images show decreased size of the gallbladder. The tube is obscured by the gallstones. IMPRESSION: 1. Successful ultrasound-guided cholecystostomy tube placement. 2. 50 mL bile was sent for aerobic, anaerobic, and fungal cultures. 3. The catheter will be managed by Dr. Marquez. A catheter cholangiogram may be performed not less than 48 hours after tube placement if clinically indicated to assess cystic duct patency. If cholecystec janeth is not eventually performed and the infectious episode has resolved, the tube may be removed ove r a guidewire, preferably not less than 3 weeks after placement to allow time for a mature catheter t ract to form to prevent bile leakage and peritonitis. Reviewed, dictated and finalized at location A. IMPRESSION: 1. Successful ultrasound-guided cholecystostomy tube placement. 2. 50 mL bile was sent for aerobic, anaerobic, and fungal cultures. 3. The catheter will be managed by Dr. Marquez. A catheter cholangiogram may be p erformed not less than 48 hours after tube placement if clinically indicated to assess cystic duct patency. If cholecystectomy is not eventually performed an d the infectious episode has resolved, the tube may be removed over a guidewire , preferably not less than 3 weeks after placement to allow time for a mature c atheter tract to form to prevent bile leakage and peritonitis.
--- NOTE | 2024-10-20 05:47 | ECG_ITS ---
Test Date: 2024-10-20 05:51:26 Measurements Intervals [place] Rate: 96 P: 58 NH: 174 QRS: -3 QRSD: 91 T: 91 QT: 296 QTc: 375 Interpretive Statements SINUS RHYTHM NONSPECIFIC ST & T-WAVE ABNORMALITY Compared to ECG 10/19/2024 10:44:47 T-wave abnormality now present Myocardial infarct finding no longer present Electronically Signed On 10-20-2024 06:43:04 CDT by Taiwo Chacon M.D.
[2024-10-20 06:06] LABS: Basophils Percent Auto 0.2 % (0.2-1.2); Eosinophils Absolute Auto 0.1 K/mm3 (0-0.3); Eosinophils Percent Auto 0.5 % (0-4.4); Hematocrit 37.2 % (37.0-47.0); Hemoglobin 11.5 g/dL (12.0-15.0); Immature Granulocyte Absolute 0.09 K/mm3 (0.00-0.031); Immature Granulocyte Percent A 0.6 % (0-0.5); Lymphocytes Absolute Auto 1.25 K/mm3 (0.9-3.2); Lymphocytes Percent Auto 8.4 % (18.3-44.2); Mean Corpuscular HGB Conc 30.9 g/dl (32-36); Mean Corpuscular Hemoglobin 31.2 pg (26-34); Mean Corpuscular Volume 100.8 fl (80-100); Mean Platelet Volume 9.6 fl (7.4-10.4); Monocytes Absolute Auto 0.7 K/mm3 (0.1-0.6); Neutrophils Absolute Auto 12.8 K/mm3 (1.3-6.7); Neutrophils Percent Auto 85.3 % (45.5-73.1); Platelet Count Result 235 k/mm3 (150-375); Red Blood Count 3.69 M/mm3 (4.2-5.4); Red Cell Distribution Width 16.8 % (11.5-14.5); White Blood Count 14.9 K/mm3 (4.5-10.0)
[2024-10-20 06:15] LABS: Lactic Acid Reflex 0.8 mmol/L (0.7-2.0)
[2024-10-20 06:16] LABS: Alanine Aminotransferase 10 U/L (6-35); Albumin Level 3.4 g/dL (3.5-5.1); Alkaline Phosphatase 103 U/L (38-126); Anion Gap 5 mmol/L (4-12); Aspartate Amino Transferase 29 U/L (14-36); Bilirubin,Total 0.4 mg/dL (0.2-1.3); Blood Urea Nitrogen 13 mg/dL (7-17); Calcium 8.8 mg/dL (8.4-10.2); Carbon Dioxide 29 mmol/L (22-30); Chloride 99 mmol/L (98-107); Estimated CRCL calculation 58 ml/min; Estimated Glomerular Filt Rate 47; Glucose 105 mg/dL (65-110); Lipase 43 U/L (23-300); Potassium 4.5 mmol/L (3.4-5.0); Sodium 133 mmol/L (137-145)
[2024-10-20 06:25] LABS: INR 1.1; Partial Thromboplastin Time 32.9 Seconds (22.3-36.8); Prothrombin Time 14.3 Seconds (11.1-14.7)
--- OUTSIDE RECORDS SUMMARY | 2024-10-20 07:12 | XMS_ITS | Encounter Summary ---
Author Organization [facility] Address [address] [place] [address] Care Team Providers Care Car Shagger Name Role Phone Lion Feliciano MD Primary Care Provider [phone] Encounter Details Date Type Department Care Team [...] week 01/23/2023 How often do you attend roman catholic or mandaeism serv ices? Never 01/23/2023 Do you belong to any clubs o r organizations such as roman catholic groups, unions, fraternal or athletic groups, or [...] and heating? Not hard at all 01/23/2023 [facility] - Occupational Stress [...] place to sleep or slept in a usp (including now)? 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
--- OUTSIDE RECORDS SUMMARY | 2024-10-20 07:12 | XMS_ITS ---
Author Organization [facility] Care Team Providers Care Acute Care Nursing Assistant Name Role Phone Jaim Fried Unavailable Unavailable Jack Castillo Unavailable Unavailable Allergies and adverse reactions Code CodeSystem Substance Reaction Severity StartDate Concern Status 6809 RXNORM metFORMIN Unknown 01/09/2023 active 3355 RXNORM Diclofenac Unknown 01/09/2023 active Care Team Name Role Address Phone Organization Dates Jack Castillo PCP [address], [place], [facility], [facility] (Office): : [facility] 02/25/2023 - 03/29/2023 Jami Fried Attending Physician [address] [place] [address], [facility] (Office): [facility] 02/25/2023 - 03/29/2023 Immunizations Immunization Status Vaccine Details Vaccine Code CodeSystem Edgardo e Notes Influenza completed Influenza, high- dose, split virus, quadrivalent, injectable, preservative free lotNumber: [id number] expiry: 12/16/2023 Mfg: [employer] Given 0.5 ml Left Deltoid intramuscularly 197 CVX created date: 03/27/2023 consent date: 03/27/2023 administered date: 03/27/2023 Influenza cancelled Influenza, high- dose, split virus, quadrivalent, injectable, preservative free 197 CVX created date: 01/10/2023 consent date: 01/10/2023 Prevnar 20 completed Pneumococcal conjugate vaccine 20-valent (PCV20), polysaccharide DOT631 conjugate, adjuvant, preservative free 216 CVX created date: 01/10/2023 consent date: 01/10/2023 administered date: 01/16/2023 Mental Status Section Date Assessment Total Score Description 03/29/2023 BIMS 15 cognitively int act CAM 0 No delirium ind icated PHQ-9 14 moderate depres reinaldo 02/21/2023 CAM 0 No delirium ind icated Problems Problem # Description Date of onset Resolved Date Code CodeSystem Concern Status 1 COVID-19 03/18/[address] active 2 INFECTION FOLLOWING A PROCEDURE, OTHER SURGICAL SITE, SUBSEQUENT ENCOUNTER 02/01/[address] active 3 ANXIETY DISORDER, UNSPECIFIED 01/11/[address] active 4 ANEMIA, UNSPECIFIED 01/10/[address] active 5 CHRONIC KIDNEY DISEASE, STAGE 3 UNSPECIFIED 01/10/[address] active 6 CONSTIPATION, UNSPECIFIED 01/10/[address] active 7 DEPRESSION, UNSPECIFIED 01/10/[address] active 8 DIVERTICULOSIS OF INTESTINE, PART UNSPECIFIED, WITHOUT PERFORATION OR ABSCESS WITHOUT BLEEDING 01/10/[address] active 9 ESSENTIAL (PRIMARY) HYPERTENSION 01/10/[address] active 10 FATTY (CHANGE OF) LIVER, NOT ELSEWHERE CLASSIFIED 01/10/[address] active 11 GOUT, UNSPECIFIED 01/10/[address] active 12 HYPOKALEMIA 01/10/[address] active 13 HYPOTHYROIDISM, UNSPECIFIED 01/10/[address] active 14 MORBID (SEVERE) OBESITY DUE TO EXCESS CALORIES 01/10/[address] active 15 OTHER INTERVERTEBRAL DISC DEGENERATION, LUMBAR REGION 01/10/[address] active 16 OVERACTIVE BLADDER 01/10/[address] active 17 PERIPHERAL VASCULAR DISEASE, UNSPECIFIED 01/10/[address] active 18 PERSONAL HISTORY OF COVID-19 01/10/[address] active 19 TYPE 2 DIABETES MELLITUS WITHOUT COMPLICATIONS 01/10/[address] active 20 UNSPECIFIED ASTHMA, UNCOMPLICATED 01/10/[address] active 21 ARTHRITIS DUE TO OTHER BACTERIA, RIGHT KNEE 01/09/[address] active 22 INFECTION FOLLOWING A PROCEDURE, OTHER SURGICAL SITE, SUBSEQUENT ENCOUNTER 01/09/20 23 01/31/[address] completed 23 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, SUBSEQUENT ENCOUNTER 01/09/[address] active Reason for Referral No Reasons for Referral Entered Social History Social History Observation Description Start Date End Date Code Code System Current Smoking Status Tobacco smoking consumption unknown 036176005 SNOMED CT Sex Assigned At Female 1955 92512-3 [facility] Vital Signs Code Code System Vitals Name Values and Units Timing Information 9279-1 [facility] Respiratory Rate Value=18.0 Units=/m in 03/29/2023 8462-4 [facility] Blood Pressure-Diastolic Value=72 Un its=mmHg 03/29/2023 8480-6 [facility] Blood Pressure-Systolic Agrxs=746 Un its=mmHg 03/29/2023 8310-5 [facility] Body Temperature Value=98.2 Units= F 03/29/2023 8867-4 [facility] Heart rate Value=80.0 Units=/min 05/2023 04000-4 [facility] O2 % BldC Oximetry Value=97.0 Units= % 03/29/2023 14447-8 [facility] Pain Level Value=0.0 03/29/2023 97926-1 [facility] Weight Yvpri=895.8 Units=Lbs 04/2023 8302-2 [facility] Height Value=66.0 Units=Inches 02/25/2023 2339-0 [facility] Blood Sugar Swgsc=188.0 Units=mg/dL 02/05/2023
--- OUTSIDE RECORDS SUMMARY | 2024-10-20 07:12 | XMS_ITS | Clinical Summary ---
Author Organization [facility] Address [address] [place] [address] Care Team Providers Care Heavy Equipment Engine Mechanic Name Role Phone Lion Feliciano MD Primary Care Provider [phone] Allergies Active Allergy Reactions Criticality Noted Date [...] 02/28/2023 Hypothyroidism 02/28/2023 Diabetes mellitus, type II ([facility]) Peripheral vascular disease, unspecified 023 Rash 01/23/2023 Acute heart failure with pre served ejection fraction (HFpEF) ([facility]) 01/18/2023 Septic arthritis ([facility]) 12/26/2022 Encounters Date Type Department Care Team [...] week 01/23/2023 How often do you attend buddhism or presybeterian serv ices? Never 01/23/2023 Do you belong to any clubs o r organizations such as buddhism groups, unions, fraternal or athletic groups, or [...] and heating? Not hard at all 01/23/2023 [facility]ational Stress Questionnaire Answer [...] place to sleep or slept in a custodial (including now)? 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 Device Identifier Shelf Expiration Date Model / Serial / Lot Cement Bone Refobacin - [id number] Implanted:Qty: 2 on 12/30/2022 by Yoel Saldaña MD at [facility] Cement Implant Right: Knee [employer] [id number] 01/15/2025 [id number] / / [id number] Cement Bone Refobacin - [id number] Implanted:Qty: 1 on 12/30/2022 by Yoel Saldaña MD at [facility] Cement Implant Right: Knee [employer] [id number] 12/15/2024 [id number] / / [id number] Xtrafix 11mm Bar X 250mm Implanted:Qty: 1 on 12/30/2022 by Yoel Saldaña MD at [facility] Right: Knee [employer] [id number] / [...] 5.1 <5.7 % 02/05/2023 10:40 AM CDT [facility] Comment: INCREASED RISK OF DIABETES <5.7% NON-DIABETES 5.7-6.4% INCREASED RISK FOR FUTURE DIABETES > OR = 6.5 CONSISTENT WITH DIABETES STANDARDS OF MEDICAL CARE IN DIABETES-2010 DIABETES CARE, 33(SUPP 1): S1-S61,2010 ESTIMATED AVG GLUCOSE 100 mg/dL 02/05/2023 10:40 AM CDT [facility] 02/05/2023 7:20 AM CDT us Jack Castillo MD LABORATORY Final Resul t [facility] [address] [place] [address], * OCCULT BLOOD, FECES (01/19/2023 1:00 PM CDT) OCCULT BLOOD FECAL NEGATIVE NEGATIVE 01/19/2023 2:01 PM CDT [facility] STOOL SPECIMEN / Unknown 01/19/2023 1:00 PM CDT us Lupillo Engel MD BODY FLUIDS AND STOOLS ORDERABLES Final Result Performing Organization Address [facility]/ZIP Co de Phone Number [facility] [address] [place] [address], * (ABNORMAL) LIPID PANEL (12/27/2022 5:14 AM CDT) CHOLESTEROL 117 MG/DL 12/27/2022 6:27 AM CDT [facility] Comment:DESIRABLE: <200 TRIGLYCERIDES 122 MG/DL 12/27/2022 6:27 AM CDT [facility] Comment:<150 NORMAL HDL 36(L) >49 MG/DL 12/27/2022 6:27 AM CDT [facility] LDL (CALCULATED) 57 MG/DL 12/28/19 6:27 AM CDT [facility] Comment:<100 OPTIMAL VLDL CALCULATION 24 MG/DL 12/28/19 6:27 AM CDT [facility] Comment:REFERENCE RANGE NOT ESTABLISHED CHOL/HDL RATIO 3.2 12/27/2022 6:27 AM CDT [facility] Comment:REFERENCE RANGE NOT ESTABLISHED LDL/HDL 1.6 12/27/2022 6:27 AM CDT [facility] Comment:REFERENCE RANGE NOT ESTABLISHED NON HDL CHOLESTEROL 81 MG/DL 12/27/2022 6:27 AM CDT [facility] Comment:REFERENCE RANGE NOT ESTABLISHED 12/27/2022 5:14 AM CDT Brien Glez MD LABORATORY Final Result [facility] [address] 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
--- OUTSIDE RECORDS SUMMARY | 2024-10-20 07:12 | XMS_ITS | Encounter Summary ---
Author Organization [facility] Address [address] [facility] [facility] [address] [place] [address] Phone Care Team Providers Care Electronic Train Control Technician Name Role Phone Lion Feliciano MD Primary Care Provider [phone] Encounter Details Date Type Department Care Team (Late Contact Info) Description 10/16/2024 Orders Only [facility] [address] [place] [address] July May [address] [place] [address] Social History Tobacco Use Types [...] [facility] [address] [place] [address] Pasha Wilhelm MD [address] [place] [address] documented as of this encounter Visit Diagnoses Not on filedocumented in this encounter Care Teams Electronic Train Control Technician Relationship Specialty Start Date End Date Lion Feliciano MD [address] [place] [address] PCP - General Internal Medicine 10/01/24 documented as of this encounter
--- OUTSIDE RECORDS SUMMARY | 2024-10-20 07:13 | XMS_ITS | Clinical Summary ---
Author Organization [facility] Address [address] [facility] [address] [place] [address] Phone Care Team Providers Care Leno Sewer Name Role Phone Lion Feliciano MD Primary Care Provider [phone] Allergies Active Allergy Reactions Criticality Noted Date [...] [facility] [address] [place] [address] July May 10/07/2024 Telephone [facility] [address] [place] [address] Pasha Wilhelm MD from Last 3 Months [...] [facility] [address] [place] [address] Pasha Wilhelm MD [address] [place] [address] Health Maintenance Due Date Last [...] 2024-Present) Name:Ashley Gardner Relation to Subscriber:Self Name:Ashley Gradner Payer ID:[id number] (NAIC) Type:Not on file Address: [place] [phone] Medicare Member Subscriber Plan / Payer (Ef fective 2024-) Name:Ashley Gardner Angel Relation to Subscriber:Self Name:Ashley Gardner Payer ID:[id number] (NAIC) Type:Not on file Address: [place] [phone] Medicare [facility] [place] [address] Care Teams Leno Sewer Relationship Specialty Start Date End Date Lion Feliciano MD [address] [place] [address] [address] PCP - General Internal Medicine 10/01/24
--- NOTE | 2024-10-20 07:19 | ED_ITS ---
HPI - Abdominal Pain General Chief Complaint: Abdominal Pain Stated Complaint: EPIGASTRIC PAIN, GALLSTONES DX YESTERDAY Time Seen by Provider: 10/20/24 07:00 History of Present Illness HPI narrative: 69-year-old female presenting with abdominal pain. Patient was here yesterday and diagnosed with cholelithiasis and was able to be discharged home with plans for outpatient management. Unfortunately, she has continued to have uncontrollable pain and vomiting. States that despite taking the prescribed medications she has been unable to keep anything down. Related Data Allergies Allergy/AdvReac Type Severity Reaction Status Date / Time No Known Allergies Allergy Verified 10/19/24 10:38 Review of Systems 2 Review of Systems: All systems reviewed & are unremarkable except as noted in HPI and below PMFSH Past Medical History Medical History Asthma Type 2 diabetes mellitus Fatty liver Overactive bladder Peripheral vascular disease Anemia Chronic kidney disease Spinal stenosis Depression Hypertension Gout Diverticulitis Cognitive communication deficit Anxiety Hyperlipidemia Hypothyroidism C. difficile colitis Surgical History Surgical History History of hysterectomy History of knee replacement, total Right Exam 2 Narrative: GENERAL: Ill-appearing but nontoxic, no acute distress HEAD: Normocephalic, atraumatic. EYES: PERRLA and EOMI. ENT: Mucous membranes tacky NECK: Supple. CHEST: Clear to auscultation. No respiratory distress. HEART: Regular rate and rhythm. ABDOMEN: Soft, +RUQ/epigastric tenderness w/o guarding or rebound EXTREMITIES: Normal range of motion. SKIN: Warm, dry, no rash. NEURO: Alert and oriented x3. PSYCH: Normal mood and affect. Course Vital Signs Vital signs: Vital Signs Temperature 97.7 F 10/20/24 05:41 Pulse Rate 95 10/20/24 05:41 Respiratory Rate 14 10/20/24 05:41 Blood Pressure 173/91 H 10/20/24 05:41 Pulse Oximetry 98 10/20/24 05:41 Oxygen Delivery Room Air 10/20/24 05:41 Temperature 97.7 F 10/20/24 05:41 Pulse Rate 99 10/20/24 07:16 Respiratory Rate 17 10/20/24 07:16 Blood Pressure 162/81 H 10/20/24 07:16 Pulse Oximetry 99 10/20/24 07:16 Oxygen Delivery Room Air 10/20/24 05:41 MDM - Abdominal Pain MDM Narrative Medical decision making narrative: 69-year-old female presenting with abdominal pain. She was a here yesterday with the same symptoms. Imaging showed cholelithiasis with gallbladder wall thickening. Her symptoms were well controlled and plan was for outpatient management. Unfortunately, her symptoms have returned despite using the p.o. medications. States she has been unable to keep anything down. Spoke with surgery who will follow along. Spoke with medicine was accepted her for admission. IV antibiotics and fluids are ongoing. Differential Diagnosis Differential diagnosis: Likely abdominal pain, acute appendicitis, diverticulitis, gastroenteritis, pancreatitis and other (Cholecystitis) Medical Records Attestation: I reviewed the patient's medical records. Lab Data Attestation: I reviewed the patient's lab results. 10/20/24 05:54 10/20/24 05:54 Labs: Lab Results 10/20/24 10/20/24 Range/Units 05:49 05:54 WBC 14.9 H (4.5-10.0) K/mm3 RBC 3.69 L (4.2-5.4) M/mm3 Hgb 11.5 L (12.0-15.0) g/dL Hct 37.2 (37.0-47.0) % MCV 100.8 H (80-100) fl MCH 31.2 (26-34) pg MCHC 30.9 L (32-36) g/dl RDW 16.8 H (11.5-14.5) % Plt Count 235 (150-375) k/mm3 MPV 9.6 (7.4-10.4) fl Immature Gran % (Auto) 0.6 H (0-0.5) % Neut % (Auto) 85.3 H (45.5-73.1) % Lymph % (Auto) 8.4 L (18.3-44.2) % Beadle % (Auto) 5.0 (2.6-8.5) % Eos % (Auto) 0.5 (0-4.4) % Baso % (Auto) 0.2 (0.2-1.2) % Lymph # (Auto) 1.25 (0.9-3.2) K/mm3 Beadle # (Auto) 0.7 H (0.1-0.6) K/mm3 Eos # (Auto) 0.1 (0-0.3) K/mm3 Baso # (Auto) 0.0 (0.0-0.1) K/mm3 Abs Immat Gran (auto) 0.09 H (0.00-0.031) K/mm3 Absolute Neuts (auto) 12.8 H (1.3-6.7) K/mm3 Absolute Nucleated RBC 0.000 (0.0-0.012) K/mm3 Nucleated RBC % 0.0 (0.0-0.2) % PT 14.3 (11.1-14.7) Seconds INR 1.1 APTT 32.9 (22.3-36.8) Seconds Sodium 133 L (137-145) mmol/L Potassium 4.5 (3.4-5.0) mmol/L Chloride 99 (98-107) mmol/L Carbon Dioxide 29 (22-30) mmol/L Anion Gap 5 (4-12) mmol/L BUN 13 (7-17) mg/dL Creatinine 1.14 H (0.7-1.0) mg/dL Estim Creat Clear Calc 58 ml/min Estimated GFR 47 L (59 - ) Glucose 105 (65-110) mg/dL Lactic Acid 0.8 (0.7-2.0) mmol/L Calcium 8.8 (8.4-10.2) mg/dL Total Bilirubin 0.4 (0.2-1.3) mg/dL AST 29 (14-36) U/L ALT 10 (6-35) U/L Alkaline Phosphatase 103 (38-126) U/L Total Protein 7.0 (6.3-8.2) g/dL Albumin 3.4 L (3.5-5.1) g/dL Lipase 43 (23-300) U/L Critical Care Time Critical Care Time Critical Care Time: No Discharge Plan Discharge Clinical Impression: Cholelithiasis with acute cholecystitis Patient Disposition: Still a Patient Condition: Stable Instructions: Antibiotic Form Patient Language: New [place]al[place] Prescriptions: No Action hydrocodone-acetaminophen 5-325 mg tablet 1 tablet PO Q6H PRN (Reason: pain) Qty: 12 0RF ondansetron 4 mg tablet,disintegrating 4 mg PO Q6H PRN (Reason: nausea and vomiting) Qty: 10 0RF Follow-up/Referrals: usman rodriguez [Other]
[2024-10-20] MEDS: SODIUM CHLORIDE 0.9% IV 1,000 ML 999 ML IV CONT (07:42)
[2024-10-20] MEDS: ONDANSETRON INJ 4 MG/2 ML VIAL IV PUSH (07:42)
[2024-10-20] MEDS: MORPHINE SULFATE (*CRX) 4 MG/ML INJ IV PUSH (09:44)
--- NOTE | 2024-10-20 10:16 | P.CONGS_ITS ---
Assessment and Plan Assessment and plan (1) Cholelithiasis with acute cholecystitis: Code(s): K80.00 - Calculus of gallbladder with acute cholecystitis without obstruction Status: Acute Assessment and Plan: Patient presents with epigastric abdominal pain, nausea, vomiting x 5 days. She was brought into the ED yesterday and discharged back to the group home, but rebounded back to the ED today for abdominal pain. CT scan and ultrasound yesterday showed cholelithiasis with gallbladder wall thickening. Her exam reveals focal tenderness in the RUQ. Her clinical picture correlates with acute cholecystitis. I discussed the case with Dr. Marquez in detail. I then spoke with the patient and her via phone, regarding options of proceeding with a laparoscopic cholecystectomy, possible open, versus attempting more conservative treatment with antibiotics percutaneous cholecystostomy tube placement. We discussed that she has increased risks for surgery given her morbid obesity and multiple comorbidities. She would also have an increased risk for conversion to an open procedure. We discussed the risks of bile leak and bile duct injury, liver/bowel injury, bleeding, and infection. We also discussed the details of more conservative treatment, which would involve antibiotics and percutaneous cholecystostomy tube placement. Both the patient and the has been would prefer to proceed with surgery. Will start IV antibiotics, keep her NPO, and continue IV fluids. Dr. Marquez will add her onto the surgery schedule accordingly. (2) Morbid obesity: Code(s): E66.01 - Morbid (severe) obesity due to excess calories Status: Chronic (3) Fatty liver: Code(s): K76.0 - Fatty (change of) liver, not elsewhere classified Status: Chronic (4) Type 2 diabetes mellitus: Code(s): E11.9 - Type 2 diabetes mellitus without complications Status: Chronic (5) Peripheral vascular disease: Code(s): I73.9 - Peripheral vascular disease, unspecified Status: Chronic (6) Asthma: Code(s): J45.909 - Unspecified asthma, uncomplicated Status: Chronic (7) Chronic kidney disease: Code(s): N18.9 - Chronic kidney disease, unspecified Status: Chronic (8) Anemia: Code(s): D64.9 - Anemia, unspecified Status: Chronic Plan I have discussed the patient's case and plan of care with Dr. Marquez. History of Present Illness Consult details Consult date: 05/05/25 Reason for consult: other (Cholecystitis) Requesting physician: Indu Jerome MD Narrative: This is a 69-year-old female with PMH of cognitive impairment, type 2 DM, fatty liver, HTN, CKD, PVD, morbid obesity, and multiple other medical problems, who we have been asked to see in surgical consultation for cholecystitis. The patient resides at [facility]. She is a poor historian, therefore history is obtained by review of the EMR, partially from the patient, and partially from discussion with her via phone with the patient's permission. She previously lived at home with her and was independent up until about a year ago. 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 Since then, she has been in rehab trying to regain strength and mobility. Her states she has not been ambulatory for the past year. Over the past 5 days, the patient has had nausea, vomiting, and abdominal pain. She cannot give any details regarding her recent symptoms. Her reports she has actually been having issues with not eating well over the past 2 weeks. She was brought into the ED yesterday for nausea, vomiting, and epigastric pain. Workup showed [place] [id number], normal LFTs, and CT scan and right upper quadrant ultrasound demonstrating cholelithiasis and gallbladder wall thickening. She was discharged with antiemetics and pain medication. She was brought back today for persistent abdominal pain. She is now seen in the ED and is having difficulty even concentrating on our conversation due to the pain. She reports feeling very uncomfortable and nauseous. She is dry heaving during our conversation. She reports her pain is in the epigastric area. Labs were repeated and showed normal LFTs and white blood cell count still at 14,900. Review of Systems 2 Review of Systems: ROS unobtainable: Yes unobtainable due to mental status PMFSH Past Medical History Medical History Asthma Type 2 diabetes mellitus Fatty liver Overactive bladder Peripheral vascular disease Anemia Chronic kidney disease Spinal stenosis Depression Hypertension Gout Diverticulitis Cognitive communication deficit Anxiety Hyperlipidemia Hypothyroidism C. difficile colitis Surgical History Surgical History History of hysterectomy History of knee replacement, total Right Meds Home Medications and Allergies Home Medications Medication Instructions Recorded Confirmed Type hydrocodone 5 mg-acetaminophen 325 1 tablet PO Q6H PRN pain #12 tabs 10/19/24 Rx mg tablet ondansetron 4 mg disintegrating 4 mg PO Q6H PRN nausea and 10/19/24 Rx tablet vomiting #10 tabs Allergies Allergy/AdvReac Type Severity Reaction Status Date / Time No Known Allergies Allergy Verified 10/19/24 10:38 Vital Signs Vital Signs - 24 hr 10/20/24 05:41 10/20/24 06:01 10/20/24 06:31 Temperature 97.7 F Pulse Rate 95 104 H 98 Respiratory Rate 14 17 18 Blood Pressure 173/91 H 160/79 H 165/86 H Pulse Oximetry 98 Oxygen Delivery Room Air 10/20/24 06:46 10/20/24 07:01 10/20/24 07:16 Temperature Pulse Rate 98 98 99 Respiratory Rate 17 18 17 Blood Pressure 156/82 H 161/85 H 162/81 H Pulse Oximetry 98 99 Oxygen Delivery Exam 2 Const: General: awake and uncomfortable (Due to pain) Nutritional Appearance: obese centrally obese Orientation/consciousness: confusion (Answers orientation questions appropriately, but confused with history) HENMT: Head: normocephalic and atraumatic Ears: hearing grossly normal bilaterally Mouth: Yes moist mucous membranes Eyes: General: appearance normal, both eyes and all related structures P upils: Equal, round and reactive pupils present Neck: Neck: normal visual inspection and full ROM Resp: Effort & Inspection: no respiratory distress Auscultation: clear to auscultation bilaterally Cardio: Rate: regular rate Rhythm: regular rhythm Peripheral pulses: P eripheral pulses 2+ throughout GI: Inspection: non-distended, Pannus present and obesity GI Palp: Yes Soft to palpation, Yes Tenderness to palpation present (GI) (focal RUQ tenderness), Yes Guarding due to palpation present (GI) (RUQ), No Rebound tenderness present and Yes Other GI palpation findings present (limited due to body habitus) A uscultation: normal bowel sounds Skin: General skin exam: normal color Neuro: General: moves all extremities and no focal motor deficits Speech: n ormal speech Motor exam (neuro): 5/5 motor strength present throughout Extrem: General: normal to inspection and edema (scarring on bilateral knees from previous surgery) bilateral (mild diffuse) Psych: Insight: Poor insight present (Psych) Judgement: Poor judgement present (Psych) Results Labs 10/20/24 05:54 10/20/24 05:54 Labs: Abnormal lab results 10/20/24 Range/Units 05:54 WBC 14.9 H (4.5-10.0) K/mm3 RBC 3.69 L (4.2-5.4) M/mm3 Hgb 11.5 L (12.0-15.0) g/dL MCV 100.8 H (80-100) fl MCHC 30.9 L (32-36) g/dl RDW 16.8 H (11.5-14.5) % Immature Gran % (Auto) 0.6 H (0-0.5) % Neut % (Auto) 85.3 H (45.5-73.1) % Lymph % (Auto) 8.4 L (18.3-44.2) % Zavala # (Auto) 0.7 H (0.1-0.6) K/mm3 Abs Immat Gran (auto) 0.09 H (0.00-0.031) K/mm3 Absolute Neuts (auto) 12.8 H (1.3-6.7) K/mm3 Sodium 133 L (137-145) mmol/L Creatinine 1.14 H (0.7-1.0) mg/dL Estimated GFR 47 L (59 - ) Albumin 3.4 L (3.5-5.1) g/dL Diabetes panel 10/20/24 Range/Units 05:54 Sodium 133 L (137-145) mmol/L Potassium 4.5 (3.4-5.0) mmol/L Chloride 99 (98-107) mmol/L Carbon Dioxide 29 (22-30) mmol/L BUN 13 (7-17) mg/dL Creatinine 1.14 H (0.7-1.0) mg/dL Glucose 105 (65-110) mg/dL Calcium 8.8 (8.4-10.2) mg/dL AST 29 (14-36) U/L ALT 10 (6-35) U/L Alkaline Phosphatase 103 (38-126) U/L Total Protein 7.0 (6.3-8.2) g/dL Albumin 3.4 L (3.5-5.1) g/dL Calcium panel 10/20/24 Range/Units 05:54 Calcium 8.8 (8.4-10.2) mg/dL Albumin 3.4 L (3.5-5.1) g/dL Pituitary panel 10/20/24 Range/Units 05:54 Sodium 133 L (137-145) mmol/L Potassium 4.5 (3.4-5.0) mmol/L Chloride 99 (98-107) mmol/L Carbon Dioxide 29 (22-30) mmol/L BUN 13 (7-17) mg/dL Creatinine 1.14 H (0.7-1.0) mg/dL Glucose 105 (65-110) mg/dL Calcium 8.8 (8.4-10.2) mg/dL Adrenal panel 10/20/24 Range/Units 05:54 Sodium 133 L (137-145) mmol/L Potassium 4.5 (3.4-5.0) mmol/L Chloride 99 (98-107) mmol/L Carbon Dioxide 29 (22-30) mmol/L BUN 13 (7-17) mg/dL Creatinine 1.14 H (0.7-1.0) mg/dL Glucose 105 (65-110) mg/dL Calcium 8.8 (8.4-10.2) mg/dL Total Bilirubin 0.4 (0.2-1.3) mg/dL AST 29 (14-36) U/L ALT 10 (6-35) U/L Alkaline Phosphatase 103 (38-126) U/L Total Protein 7.0 (6.3-8.2) g/dL Albumin 3.4 L (3.5-5.1) g/dL All other labs normal.
[2024-10-20] MEDS: cefTRIAXone 2 GM/NS 100 ML 2 GM/100 ML BAG IVPB (11:21)
--- NOTE | 2024-10-20 11:40 | P.HP_ITS ---
H&P: HPI History of Present Illness Date/Time: 10/20/24 11:40 Chief Complaint: Abdominal pain Narrative: 69-year-old female presenting with abdominal pain. Patient was here yesterday and diagnosed with cholelithiasis and was able to be discharged home with plans for outpatient management. Unfortunately, she has continued to have uncontrollable pain and vomiting. States that despite taking the prescribed med ications she has been unable to keep anything down. Review of Systems Review of Systems: - CONSTITUTIONAL: Denies weight loss, fe juliet and chills. - HEENT: Denies changes in vision and he aring - RESPIRATORY: Denies SOB and cough. - CV: Denies palpitations and CP. - GI: Reports abdominal pain, nausea, v omiting and denies diarrhea. - : Denies dysuria and urinary frequen cy. - MSK: Denies myalgia and joint pain. - SKIN: Denies rash and pruritus. - NEUROLOGICAL: Denies headache and sync ope. - PSYCHIATRIC: Denies recent changes in mood. Denies anxiety and depression. [facility] Past Medical History Medical History Asthma Type 2 diabetes mellitus Fatty liver Overactive bladder Peripheral vascular disease Anemia Chronic kidney disease Spinal stenosis Depression Hypertension Gout Diverticulitis Cognitive communication deficit Anxiety Hyperlipidemia Hypothyroidism C. difficile colitis Surgical History Surgical History History of hysterectomy History of knee replacement, total Right Meds Home Medications and Allergies Home Medications Medication Instructions Recorded Confirmed Type hydrocodone 5 mg-acetaminophen 325 1 tablet PO Q6H PRN pain #12 tabs 10/19/24 Rx mg tablet ondansetron 4 mg disintegrating 4 mg PO Q6H PRN nausea and 10/19/24 Rx tablet vomiting #10 tabs Allergies Allergy/AdvReac Type Severity Reaction Status Date / Time No Known Allergies Allergy Verified 10/19/24 10:38 Vital Signs Vital Signs - 24 hr 10/20/24 05:41 10/20/24 06:01 10/20/24 06:31 Temperature 97.7 F Pulse Rate 95 104 H 98 Respiratory Rate 14 17 18 Blood Pressure 173/91 H 160/79 H 165/86 H Pulse Oximetry 98 Oxygen Delivery Room Air 10/20/24 06:46 10/20/24 07:01 10/20/24 07:16 Temperature Pulse Rate 98 98 99 Respiratory Rate 17 18 17 Blood Pressure 156/82 H 161/85 H 162/81 H Pulse Oximetry 98 99 Oxygen Delivery 10/20/24 07:31 10/20/24 07:46 10/20/24 08:01 Temperature Pulse Rate 95 97 99 Respiratory Rate 16 19 12 Blood Pressure 157/82 H 170/82 H 156/77 H Pulse Oximetry 96 100 Oxygen Delivery 10/20/24 08:16 10/20/24 08:31 10/20/24 08:46 Temperature Pulse Rate 108 H 97 95 Respiratory Rate 20 17 17 Blood Pressure 135/80 140/72 155/79 H Pulse Oximetry 96 98 99 Oxygen Delivery 10/20/24 09:01 10/20/24 09:16 10/20/24 09:31 Temperature Pulse Rate 97 97 93 Respiratory Rate 19 20 21 H Blood Pressure 157/79 H 158/80 H 167/82 H Pulse Oximetry 98 97 Oxygen Delivery 10/20/24 10:16 10/20/24 11:01 Temperature Pulse Rate 91 95 Respiratory Rate 13 18 Blood Pressure 167/73 H 164/83 H Pulse Oximetry 96 100 Oxygen Delivery Exam Narrative: GENERAL: Ill-appearing but nontoxic, no acute distress HEAD: Normocephalic, atraumatic. EYES: PERRLA and EOMI. ENT: Mucous membranes tacky NECK: Supple. CHEST: Clear to auscultation. No respiratory distress. HEART: Regular rate and rhythm. ABDOMEN: Soft, +RUQ/epigastric tenderness w/o guarding or rebound EXTREMITIES: Normal range of motion. SKIN: Warm, dry, no rash. NEURO: Alert and oriented x3. PSYCH: Normal mood and affect. H&P: Results Labs Labs: Short CBC 10/20/24 Range/Units 05:54 WBC 14.9 H (4.5-10.0) K/mm3 Hgb 11.5 L (12.0-15.0) g/dL Hct 37.2 (37.0-47.0) % Plt Count 235 (150-375) k/mm3 BMP 10/20/24 05:54 Sodium 133 L Potassium 4.5 Chloride 99 Carbon Dioxide 29 BUN 13 Creatinine 1.14 H Glucose 105 Calcium 8.8 Liver Function 05/05/25 Range/Units 05:54 Total Bilirubin 0.4 (0.2-1.3) mg/dL AST 29 (14-36) U/L ALT 10 (6-35) U/L Alkaline Phosphatase 103 (38-126) U/L Albumin 3.4 L (3.5-5.1) g/dL Assessment and Plan Assessment and plan (1) Cholelithiasis with acute cholecystitis: Code(s): K80.00 - Calculus of gallbladder with acute cholecystitis without obstruction Status: Acute (2) Chronic kidney disease: Code(s): N18.9 - Chronic kidney disease, unspecified Status: Chronic (3) Anemia: Code(s): D64.9 - Anemia, unspecified Status: Chronic (4) Asthma: Code(s): J45.909 - Unspecified asthma, uncomplicated Status: Chronic (5) Type 2 diabetes mellitus: Code(s): E11.9 - Type 2 diabetes mellitus without complications Status: Chronic (6) Peripheral vascular disease: Code(s): I73.9 - Peripheral vascular disease, unspecified Status: Chronic (7) Morbid obesity: Code(s): E66.01 - Morbid (severe) obesity due to excess calories Status: Chronic Plan 69-year-old female presenting with abdominal pain. Patient was here yesterday and diagnosed with cholelithiasis and was able to be discharged home with plans for outpatient management. Unfortunately, she has continued to have uncontrollable pain and vomiting. States that despite taking the prescribed medications she has been unable to keep anything down. Her vitals were stable except for mild hypertension. Imaging showed cholelithiasis with gallbladder wall thickening. IV fluids started. Laboratory workup revealed WBC of 14.9 hemoglobin of 11.5 sodium mildly low at 133 creatinine 1.14. Lactate was normal lipase was normal LFTs were within normal limit. General surgery has been consulted. IV antibiotics started along with IV fluid keep NPO. IV analgesics and anti emetics Acute cholecystitis Asthma Type 2 diabetes and SSI Overactive bladder Peripheral vascular disease CKD stage 3 Spinal stenosis Anxiety depression Hypertension Hyperlipidemia Hypothyroidism DVT prophylaxis SCDs Code status full code Hospitalist MIPS Advance Care Plan I have confirmed that the patient's Advanced Care Plan is present, code status is documented, or surrogate decision maker is listed in patient medical record.: Yes Medication Reconciliation I have utilized all available resources to obtain, update and review the patients current medications (includes all prescriptions, OTC, herbals, cannabis, and nutritional supplements).: Yes
[2024-10-20] MEDS: metroNIDAZOLE 500 MG/ISO 100ML 500 MG/100 ML BAG 100 MG IVPB (11:42)
[2024-10-20 12:18] LABS: Hemoglobin A1C 4.8 % (<5.7)
--- NOTE | 2024-10-20 12:24 | WPDHPUPDATE1 ---
History and Physical Update Update Date/Time: 10/20/24 12:24 History and Physical has been reviewed, including an updated exam of the patient. There are NO changes in the patient's condition. Risks, benefits, and alternatives have been discussed and questions answered. Patient agrees to proceed with procedure.
[2024-10-20 12:37] LABS: Glucose Point of Care 95 mg/dl (65-105)
[2024-10-20] MEDS: MORPHINE SULFATE (*CRX) 2 MG/ML INJ IV PUSH ×2 (13:42→20:17)
[2024-10-20 16:58] LABS: Glucose Point of Care 84 mg/dl (65-105)
[2024-10-20] MEDS: DEXTROSE 5%/0.9% SOD CHL 1,000 ML 100 ML IV CONT (17:30)
[2024-10-20 21:18] LABS: Glucose Point of Care 104 mg/dl (65-105)
[2024-10-21] LABS: Glucose Point of Care 108 mg/dl (65-105)
[2024-10-21] MEDS: DEXTROSE 5%/0.9% SOD CHL 1,000 ML 100 ML IV CONT ×2 (03:33→19:18)
[2024-10-21 04:21] VITALS: BP 154/77; PULSE 98; RESP 20; TEMP 36.5; O2SAT 98
[2024-10-21] MEDS: ONDANSETRON INJ 4 MG/2 ML VIAL IV PUSH ×3 (05:23→19:57)
[2024-10-21] MEDS: MORPHINE SULFATE (*CRX) 2 MG/ML INJ IV PUSH ×4 (05:24→19:57)
[2024-10-21 06:41] LABS: Basophils Percent Auto 0.2 % (0.2-1.2); Eosinophils Absolute Auto 0.3 K/mm3 (0-0.3); Eosinophils Percent Auto 2.3 % (0-4.4); Hematocrit 33.6 % (37.0-47.0); Hemoglobin 10.1 g/dL (12.0-15.0); Immature Granulocyte Absolute 0.08 K/mm3 (0.00-0.031); Immature Granulocyte Percent A 0.7 % (0-0.5); Lymphocytes Absolute Auto 1.07 K/mm3 (0.9-3.2); Lymphocytes Percent Auto 9.7 % (18.3-44.2); Mean Corpuscular HGB Conc 30.1 g/dl (32-36); Mean Corpuscular Hemoglobin 31.2 pg (26-34); Mean Corpuscular Volume 103.7 fl (80-100); Mean Platelet Volume 10.3 fl (7.4-10.4); Monocytes Absolute Auto 0.7 K/mm3 (0.1-0.6); Monocytes Percent Auto 6.4 % (2.6-8.5); Neutrophils Absolute Auto 8.9 K/mm3 (1.3-6.7); Neutrophils Percent Auto 80.7 % (45.5-73.1); Platelet Count Result 203 k/mm3 (150-375); Red Blood Count 3.24 M/mm3 (4.2-5.4); Red Cell Distribution Width 16.9 % (11.5-14.5)
[2024-10-21 06:45] LABS: Glucose Point of Care 97 mg/dl (65-105)
[2024-10-21 06:51] LABS: Alanine Aminotransferase 11 U/L (6-35); Albumin Level 2.9 g/dL (3.5-5.1); Alkaline Phosphatase 76 U/L (38-126); Anion Gap 5 mmol/L (4-12); Aspartate Amino Transferase 22 U/L (14-36); Bilirubin,Total 0.2 mg/dL (0.2-1.3); Blood Urea Nitrogen 12 mg/dL (7-17); Calcium 8.1 mg/dL (8.4-10.2); Carbon Dioxide 25 mmol/L (22-30); Chloride 104 mmol/L (98-107); Estimated CRCL calculation 61 ml/min; Estimated Glomerular Filt Rate 50; Glucose 99 mg/dL (65-110); Magnesium 2.1 mg/dL (1.6-2.3); Potassium 4.2 mmol/L (3.4-5.0); Sodium 134 mmol/L (137-145)
[2024-10-21 07:48] VITALS: RESP 20; O2SAT 98
[2024-10-21 08:23] LABS: Glucose Point of Care 94 mg/dl (65-105)
[2024-10-21 09:03] VITALS: O2SAT 94
--- NOTE | 2024-10-21 11:17 | P.PNIM_ITS ---
Progress Note: A&P Assessment and Plan (1) Cholelithiasis with acute cholecystitis: Code(s): K80.00 - Calculus of gallbladder with acute cholecystitis without obstruction Status: Acute (2) Chronic kidney disease: Code(s): N18.9 - Chronic kidney disease, unspecified Status: Chronic (3) Anemia: Code(s): D64.9 - Anemia, unspecified Status: Chronic (4) Asthma: Code(s): J45.909 - Unspecified asthma, uncomplicated Status: Chronic (5) Type 2 diabetes mellitus: Code(s): E11.9 - Type 2 diabetes mellitus without complications Status: Chronic (6) Peripheral vascular disease: Code(s): I73.9 - Peripheral vascular disease, unspecified Status: Chronic (7) Morbid obesity: Code(s): E66.01 - Morbid (severe) obesity due to excess calories Status: Chronic Plan 69-year-old female presenting with abdominal pain. Patient was here yesterday and diagnosed with cholelithiasis and was able to be discharged home with plans for outpatient management. Unfortunately, she has continued to have uncontrollable pain and vomiting. States that despite taking the prescribed medications she has been unable to keep anything down. Her vitals were stable except for mild hypertension. Imaging showed cholelithiasis with gallbladder wall thickening. IV fluids started. Laboratory workup revealed WBC of 14.9 hemoglobin of 11.5 sodium mildly low at 133 creatinine 1.14. Lactate was normal lipase was normal LFTs were within normal limit. General surgery has been consulted. IV antibiotics started along with IV fluid keep NPO. IV analgesics and anti emetics. S surgery planning to do HIDA scan and cholecystostomy tube placement. Acute cholecystitis Asthma Type 2 diabetes and SSI Overactive bladder Peripheral vascular disease CKD stage 3 Spinal stenosis Anxiety depression Hypertension Hyperlipidemia Hypothyroidism DVT prophylaxis SCDs Code status full code Subjective Date/time seen: 10/21/24 11:17 Interval history: Patient continues to have right upper quadrant pain and nausea. No vomiting. Remains NPO. Plan for cholecystostomy tube placement. Review of Systems Review of Systems: All systems reviewed & are unremarkable except as noted in HPI and below Exam Narrative: GENERAL: Ill-appearing but nontoxic, no acute distress HEAD: Normocephalic, atraumatic. EYES: PERRLA and EOMI. ENT: Mucous membranes tacky NECK: Supple. CHEST: Clear to auscultation. No respiratory distress. HEART: Regular rate and rhythm. ABDOMEN: Soft, +RUQ/epigastric tenderness w/o guarding or rebound EXTREMITIES: Normal range of motion. SKIN: Warm, dry, no rash. NEURO: Alert and oriented x3. PSYCH: Normal mood and affect. Objective Data Vital Signs Vital Signs: Vital Signs - 24 hr 10/20/24 12:37 10/20/24 12:37 10/20/24 19:57 Temperature 96.9 F L 97.7 F Pulse Rate 97 86 Respiratory Rate 22 H 20 Blood Pressure 158/73 H 147/80 H Pulse Oximetry 99 95 Oxygen Delivery Room Air 10/20/24 20:00 10/21/24 04:21 10/21/24 07:48 Temperature 97.7 F Pulse Rate 98 Respiratory Rate 20 20 Blood Pressure 154/77 H Pulse Oximetry 98 98 Oxygen Delivery Room Air Room Air 10/21/24 09:03 Temperature Pulse Rate Respiratory Rate Blood Pressure Pulse Oximetry 94 Oxygen Delivery Room Air Intake/Output Intake/Output: Intake & Output 10/18/24 10/19/24 10/20/24 10/21/24 23:59 23:59 23:59 23:59 Intake Total 1100 1000 Output Total 400 0 Balance 700 1000 Meds/Results Medications: Active Medications Generic Name Dose Route Start Last Admin Trade Name Freq PRN Reason Stop Dose Admin Dextrose 12.5 gm 10/20/24 11:43 Dextrose 50% 25 Gm/50 Ml Syringe IV PUSH PRN PRN Hypoglycemia Protocol Glucagon 1 mg 10/20/24 11:43 Glucagon For Inj 1 Mg Vial IM PRN PRN Hypoglycemia Protocol Glucose 15 gm 10/20/24 11:43 Glucose Oral Gel 15 Gm Of Glucse In 37.5 Gm Tube PO PRN PRN Hypoglycemia Protocol Dextrose 1,000 mls @ 100 mls/hr 10/20/24 11:43 Dextrose 5% 1,000 Ml IVPB PRN PRN Hypoglycemia Protocol Dextrose/Sodium Chloride 1,000 mls @ 100 mls/hr 10/20/24 15:20 10/21/24 03:33 Dextrose 5% Sodium Chloride 0.9% IV CONT 100 mls/hr .Q10H CYNDI Administration Insulin Aspart 2 - 5 units 10/20/24 12:00 10/21/24 08:23 Insulin Aspart (*Bkc) 100 Units/Ml SUB-Q Not Given TIDWM COUNTS INCLUDE 234 BEDS AT [facility] Protocol Insulin Aspart 1 - 2 units 10/20/24 21:00 10/20/24 20:19 Insulin Aspart (*Bkc) 100 Units/Ml SUB-Q Not Given HS COUNTS INCLUDE 234 BEDS AT THE [facility] Protocol Morphine Sulfate 2 mg 10/20/24 11:44 10/21/24 05:24 Morphine Sulfate (*Crx) 2 Mg/Ml Inj IV PUSH 2 mg Q4H PRN Administration Pain Ondansetron HCl 4 mg 10/20/24 11:45 10/21/24 05:23 Ondansetron Inj 4 Mg/2 Ml Vial IV PUSH 4 mg Q6H PRN Administration Nausea Tamsulosin HCl 0.4 mg 10/21/24 09:00 10/21/24 08:32 Tamsulosin Hcl 0.4 Mg Capsule PO Not Given QAM COUNTS INCLUDE 234 BEDS AT THE [facility] Labs Labs: Laboratory Results - last 24 hr 10/20/24 10/20/24 10/20/24 05:48 12:32 16:53 WBC RBC Hgb Hct MCV MCH MCHC RDW Plt Count MPV Immature Gran % (Auto) Neut % (Auto) Lymph % (Auto) [place] % (Auto) Eos % (Auto) Baso % (Auto) Lymph # (Auto) [place] # (Auto) Eos # (Auto) Baso # (Auto) Abs Immat Gran (auto) Absolute Neuts (auto) Absolute Nucleated RBC Nucleated RBC % Sodium Potassium Chloride Carbon Dioxide Anion Gap BUN Creatinine Estim Creat Clear Calc Estimated GFR Glucose POC Capillary Glucose 95 84 Hemoglobin A1c 4.8 Calcium Magnesium Total Bilirubin AST ALT Alkaline Phosphatase Total Protein Albumin 10/20/24 10/20/24 10/21/24 20:15 23:51 04:29 WBC RBC Hgb Hct MCV MCH MCHC RDW Plt Count MPV Immature Gran % (Auto) Neut % (Auto) Lymph % (Auto) [place] % (Auto) Eos % (Auto) Baso % (Auto) Lymph # (Auto) [place] # (Auto) Eos # (Auto) Baso # (Auto) Abs Immat Gran (auto) Absolute Neuts (auto) Absolute Nucleated RBC Nucleated RBC % Sodium Potassium Chloride Carbon Dioxide Anion Gap BUN Creatinine Estim Creat Clear Calc Estimated GFR Glucose POC Capillary Glucose 104 108 H 97 Hemoglobin A1c Calcium Magnesium Total Bilirubin AST ALT Alkaline Phosphatase Total Protein Albumin 10/21/24 10/21/24 06:33 08:20 WBC 11.0 H RBC 3.24 L Hgb 10.1 L Hct 33.6 L MCV 103.7 H MCH 31.2 MCHC 30.1 L RDW 16.9 H Plt Count 203 MPV 10.3 Immature Gran % (Auto) 0.7 H Neut % (Auto) 80.7 H Lymph % (Auto) 9.7 L [place] % (Auto) 6.4 Eos % (Auto) 2.3 Baso % (Auto) 0.2 Lymph # (Auto) 1.07 [place] # (Auto) 0.7 H Eos # (Auto) 0.3 Baso # (Auto) 0.0 Abs Immat Gran (auto) 0.08 H Absolute Neuts (auto) 8.9 H Absolute Nucleated RBC 0.000 Nucleated RBC % 0.0 Sodium 134 L Potassium 4.2 Chloride 104 Carbon Dioxide 25 Anion Gap 5 BUN 12 Creatinine 1.08 H Estim Creat Clear Calc 61 Estimated GFR 50 L Glucose 99 POC Capillary Glucose 94 Hemoglobin A1c Calcium 8.1 L Magnesium 2.1 Total Bilirubin 0.2 AST 22 ALT 11 Alkaline Phosphatase 76 Total Protein 6.0 L Albumin 2.9 L
[2024-10-21 11:26] LABS: Glucose Point of Care 99 mg/dl (65-105)
[2024-10-21] MEDS: metroNIDAZOLE 500 MG/ISO 100ML 500 MG/100 ML BAG 100 MG IVPB ×2 (13:45→21:09)
[2024-10-21 14:00] VITALS: BP 126/73; PULSE 115; RESP 20; O2SAT 99
[2024-10-21] MEDS: cefTRIAXone 2 GM/NS 100 ML 2 GM/100 ML BAG IVPB (14:44)
--- NOTE | 2024-10-21 14:58 | P.PNGS_ITS ---
Progress Note: A&P Assessment and Plan (1) Cholelithiasis with acute cholecystitis: Code(s): K80.00 - Calculus of gallbladder with acute cholecystitis without obstruction Status: Acute Assessment and Plan: will setup for perc salma tube, cont IV abx Subjective Subjective Date/Time Seen: 10/21/24 14:58 Interval history: more alert today, still quite uncomfortable Review of Systems Review of Systems: All systems reviewed & are unremarkable except as noted in HPI and below Exam Const: General: cooperative, no acute distress, ill appearing and uncomfortable Resp: Auscultation: clear to auscultation bilaterally Cardio: Rate: regular rate Rhythm: regular rhythm GI: Inspection: normal to inspection and distended GI Palp: Yes abdominal tenderness, Yes Soft to palpation, Yes Tenderness to palpation present (GI), No Guarding due to palpation present (GI) and No Rigid due to palpation Objective Data Vital Signs Vital Signs: Vital Signs - 24 hr 10/20/24 19:57 10/20/24 20:00 10/21/24 04:21 Temperature 36.5 C 36.5 C Pulse Rate 86 98 Respiratory Rate 20 20 Blood Pressure 147/80 H 154/77 H Pulse Oximetry 95 98 Oxygen Delivery Room Air 10/21/24 07:48 10/21/24 09:03 10/21/24 14:00 Temperature Pulse Rate 115 H Respiratory Rate 20 20 Blood Pressure 126/73 Pulse Oximetry 98 94 99 Oxygen Delivery Room Air Room Air Intake/Output Intake/Output: Intake & Output 10/18/24 10/19/24 10/20/24 10/21/24 23:59 23:59 23:59 23:59 Intake Total 1100 1878.3 Output Total 400 0 Balance 700 1878.3 Meds/Results Medications: Active Medications Generic Name Dose Route Start Last Admin Trade Name Freq PRN Reason Stop Dose Admin Allopurinol 200 mg 10/22/24 09:00 Allopurinol 100 Mg Tablet PO DAILY CYNDI Alprazolam 0.25 mg 10/21/24 21:00 Alprazolam (*Crx) 0.25 Mg Tablet PO HS CYNDI Bisacodyl 10 mg 10/21/24 11:18 Bisacodyl 10 Mg Suppository RECTAL DAILY PRN constipation Cilostazol 100 mg 10/21/24 17:00 Cilostazol 100 Mg Tablet PO BID CYNDI Dextrose 12.5 gm 10/20/24 11:43 Dextrose 50% 25 Gm/50 Ml Syringe IV PUSH PRN PRN Hypoglycemia Protocol Docusate Sodium 200 mg 10/21/24 11:18 Docusate Sodium 100 Mg Capsule PO Q12H PRN constipation Escitalopram Oxalate 20 mg 10/22/24 09:00 Escitalopram Oxalate 10 Mg Tablet PO DAILY CYNDI Ferrous Sulfate 325 mg 10/21/24 13:00 10/21/24 12:19 Ferrous Sulfate [address] BY MOUTH Not Given TID CYNDI Fluticasone Propionate 2 spray 10/22/24 09:00 Fluticasone Propionate 0.05% Na Spr 16 Gm Btl (*Bkc) NASAL DAILY CYNDI Glucagon 1 mg 10/20/24 11:43 Glucagon For Inj 1 Mg Vial IM PRN PRN Hypoglycemia Protocol Glucose 15 gm 10/20/24 11:43 Glucose Oral Gel 15 Gm Of Glucse In 37.5 Gm Tube PO PRN PRN Hypoglycemia Protocol Dextrose 1,000 mls @ 100 mls/hr 10/20/24 11:43 Dextrose 5% 1,000 Ml IVPB PRN PRN Hypoglycemia Protocol Dextrose/Sodium Chloride 1,000 mls @ 100 mls/hr 10/20/24 15:20 10/21/24 11:20 Dextrose 5% Sodium Chloride 0.9% IV CONT 0 mls/hr .Q10H CYNDI Infusion Ceftriaxone Sodium 2 gm in 100 mls @ 200 mls/hr 10/21/24 12:00 10/21/24 14:44 Rocephin 2 Gm/Ns 100 Ml IVPB 200 mls/hr Q24H CYNDI Administration Metronidazole 500 mg in 100 mls @ 100 mls/hr 10/21/24 14:00 10/21/24 14:44 Flagyl 500 Mg/Iso Soln 100 Ml IVPB Infused Q8H CYNDI Infusion Insulin Aspart 2 - 5 units 10/20/24 12:00 10/21/24 11:28 Insulin Aspart (*Bkc) 100 Units/Ml SUB-Q Not Given TIDWM CYNDI Protocol Insulin Aspart 1 - 2 units 10/20/24 21:00 10/20/24 20:19 Insulin Aspart (*Bkc) 100 Units/Ml SUB-Q Not Given HS CYNDI Protocol Levothyroxine Sodium 50 mcg 10/22/24 06:30 Levothyroxine Sodium 50 Mcg Tablet PO [id number] [facility] Levothyroxine Sodium 100 mcg 10/25/24 06:30 Levothyroxine Sodium 100 Mcg Tablet PO [email or web address] [facility] Loratadine 10 mg 10/22/24 09:00 Loratadine 10 Mg Tablet PO QAM [facility] Magnesium Citrate 296 ml 10/21/24 11:18 Magnesium Citrate 300 Ml Btl PO DAILY PRN constipation Magnesium Hydroxide 30 ml 10/21/24 11:18 Magnesium Hydroxide Susp 30 Ml Udc PO HS PRN constipation Magnesium Oxide 400 mg 10/21/24 13:00 10/21/24 12:19 Magnesium Oxide 400 Mg Tablet PO Not Given TID [facility] Metoprolol Tartrate 50 mg 10/21/24 17:00 Metoprolol Tartrate 50 Mg Tab PO BID [facility] Miscellaneous Information 1 each 10/22/24 09:00 Fleets Enema XX 10/23/24 08:59 DAILY [facility] Morphine Sulfate 2 mg 10/20/24 11:44 10/21/24 05:24 Morphine Sulfate (*Crx) 2 Mg/Ml Inj IV PUSH 2 mg Q4H PRN Administration Pain Ondansetron HCl 4 mg 10/20/24 11:45 10/21/24 12:45 Ondansetron Inj 4 Mg/2 Ml Vial IV PUSH 4 mg Q6H PRN Administration Nausea Ondansetron HCl 4 mg 10/21/24 11:18 Ondansetron Hcl Odt 4 Mg Tablet PO Q6H PRN nausea and vomiting Oxybutynin Chloride 5 mg 10/22/24 09:00 Oxybutynin Chloride Xl 5 Mg Tab.Er.24 PO DAILY [facility] Potassium Chloride 20 meq 10/22/24 09:00 Potassium Chloride 20 Meq Er Tablet PO DAILY [facility] Tamsulosin HCl 0.4 mg 10/21/24 09:00 10/21/24 08:32 Tamsulosin Hcl 0.4 Mg Capsule PO Not Given QAM [facility] Radiology Results: ITS Impressions Hepatobiliary Scan Nuclear Medicine 10/21/24 14:02 IMPRESSION: 1. No evident gallbladder activity consistent with acute cholecystitis. Labs Labs: Laboratory Results - last 24 hr 10/20/24 10/20/24 10/20/24 16:53 20:15 23:51 WBC RBC Hgb Hct MCV MCH MCHC RDW Plt Count MPV Immature Gran % (Auto) Neut % (Auto) Lymph % (Auto) [place] % (Auto) Eos % (Auto) Baso % (Auto) Lymph # (Auto) [place] # (Auto) Eos # (Auto) Baso # (Auto) Abs Immat Gran (auto) Absolute Neuts (auto) Absolute Nucleated RBC Nucleated RBC % Sodium Potassium Chloride Carbon Dioxide Anion Gap BUN Creatinine Estim Creat Clear Calc Estimated GFR Glucose POC Capillary Glucose 84 104 108 H Calcium Magnesium Total Bilirubin AST ALT Alkaline Phosphatase Total Protein Albumin 10/21/24 10/21/24 10/21/24 04:29 06:33 08:20 WBC 11.0 H RBC 3.24 L Hgb 10.1 L Hct 33.6 L MCV 103.7 H MCH 31.2 MCHC 30.1 L RDW 16.9 H Plt Count 203 MPV 10.3 Immature Gran % (Auto) 0.7 H Neut % (Auto) 80.7 H Lymph % (Auto) 9.7 L [place] % (Auto) 6.4 Eos % (Auto) 2.3 Baso % (Auto) 0.2 Lymph # (Auto) 1.07 [place] # (Auto) 0.7 H Eos # (Auto) 0.3 Baso # (Auto) 0.0 Abs Immat Gran (auto) 0.08 H Absolute Neuts (auto) 8.9 H Absolute Nucleated RBC 0.000 Nucleated RBC % 0.0 Sodium 134 L Potassium 4.2 Chloride 104 Carbon Dioxide 25 Anion Gap 5 BUN 12 Creatinine 1.08 H Estim Creat Clear Calc 61 Estimated GFR 50 L Glucose 99 POC Capillary Glucose 97 94 Calcium 8.1 L Magnesium 2.1 Total Bilirubin 0.2 AST 22 ALT 11 Alkaline Phosphatase 76 Total Protein 6.0 L Albumin 2.9 L 10/21/24 11:22 WBC RBC Hgb Hct MCV MCH MCHC RDW Plt Count MPV Immature Gran % (Auto) Neut % (Auto) Lymph % (Auto) [place] % (Auto) Eos % (Auto) Baso % (Auto) Lymph # (Auto) [place] # (Auto) Eos # (Auto) Baso # (Auto) Abs Immat Gran (auto) Absolute Neuts (auto) Absolute Nucleated RBC Nucleated RBC % Sodium Potassium Chloride Carbon Dioxide Anion Gap BUN Creatinine Estim Creat Clear Calc Estimated GFR Glucose POC Capillary Glucose 99 Calcium Magnesium Total Bilirubin AST ALT Alkaline Phosphatase Total Protein Albumin Imaging My impression: HIDA shows no GB activity
[2024-10-21 16:50] VITALS: PULSE 113
[2024-10-21] MEDS: METOPROLOL TARTRATE 50 MG TAB PO (16:50)
[2024-10-21 17:39] LABS: Glucose Point of Care 98 mg/dl (65-105)
[2024-10-21] MEDS: ALPRAZolam (*CRX) 0.25 MG TABLET PO (20:04)
[2024-10-21 20:33] VITALS: BP 125/69; PULSE 89; RESP 20; TEMP 36.8; O2SAT 92
[2024-10-21 21:15] LABS: Glucose Point of Care 97 mg/dl (65-105)
[2024-10-22] MEDS: MORPHINE SULFATE (*CRX) 2 MG/ML INJ IV PUSH ×4 (00:37→12:32)
[2024-10-22 01:30] LABS: Glucose Point of Care 97 mg/dl (65-105)
[2024-10-22 04:06] VITALS: BP 136/67; PULSE 92; RESP 20; TEMP 36.5; O2SAT 93
[2024-10-22] MEDS: ONDANSETRON INJ 4 MG/2 ML VIAL IV PUSH (04:12)
[2024-10-22 05:30] LABS: Glucose Point of Care 96 mg/dl (65-105)
[2024-10-22] MEDS: metroNIDAZOLE 500 MG/ISO 100ML 500 MG/100 ML BAG 100 MG IVPB ×3 (05:37→21:04)
[2024-10-22] MEDS: DEXTROSE 5%/0.9% SOD CHL 1,000 ML 100 ML IV CONT ×2 (05:37→17:52)
[2024-10-22] MEDS: LEVOTHYROXINE SODIUM 50 MCG TABLET PO (05:37)
[2024-10-22 06:16] LABS: Basophils Absolute Auto 0.1 K/mm3 (0.0-0.1); Basophils Percent Auto 0.6 % (0.2-1.2); Eosinophils Absolute Auto 0.3 K/mm3 (0-0.3); Eosinophils Percent Auto 3.7 % (0-4.4); Hematocrit 33.8 % (37.0-47.0); Hemoglobin 10.1 g/dL (12.0-15.0); Immature Granulocyte Absolute 0.08 K/mm3 (0.00-0.031); Lymphocytes Absolute Auto 1.06 K/mm3 (0.9-3.2); Lymphocytes Percent Auto 13.5 % (18.3-44.2); Mean Corpuscular HGB Conc 29.9 g/dl (32-36); Mean Corpuscular Volume 103.7 fl (80-100); Mean Platelet Volume 10.1 fl (7.4-10.4); Monocytes Absolute Auto 0.5 K/mm3 (0.1-0.6); Monocytes Percent Auto 5.7 % (2.6-8.5); Neutrophils Absolute Auto 5.9 K/mm3 (1.3-6.7); Neutrophils Percent Auto 75.5 % (45.5-73.1); Platelet Count Result 190 k/mm3 (150-375); Red Blood Count 3.26 M/mm3 (4.2-5.4); Red Cell Distribution Width 16.7 % (11.5-14.5); White Blood Count 7.9 K/mm3 (4.5-10.0)
[2024-10-22 06:29] LABS: Alanine Aminotransferase 9 U/L (6-35); Albumin Level 2.7 g/dL (3.5-5.1); Alkaline Phosphatase 78 U/L (38-126); Anion Gap 4 mmol/L (4-12); Aspartate Amino Transferase 19 U/L (14-36); Bilirubin,Total 0.2 mg/dL (0.2-1.3); Blood Urea Nitrogen 12 mg/dL (7-17); Carbon Dioxide 25 mmol/L (22-30); Chloride 107 mmol/L (98-107); Estimated CRCL calculation 52 ml/min; Estimated Glomerular Filt Rate 41; Glucose 101 mg/dL (65-110); Magnesium 2.2 mg/dL (1.6-2.3); Potassium 3.5 mmol/L (3.4-5.0); Sodium 136 mmol/L (137-145)
[2024-10-22 06:46] LABS: Anisocytosis 1+; Helmet Cells 1+; Platelet Estimate Adequate (Adequate)
[2024-10-22 06:47] LABS: Crenated RBC 1+; Schistocytes None Seen
--- NOTE | 2024-10-22 07:05 | PM.IMPN ---
Progress Note: A&P Assessment and Plan (1) Cholelithiasis with acute cholecystitis: Code(s): K80.00 - Calculus of gallbladder with acute cholecystitis without obstruction Status: Acute Assessment and Plan: Monitor vital signs, I and O's Monitor serum electrolytes and CBC IV pain management Gentle IV fluid resuscitation POD 1 Cholecystotomy, Gen Surg following Continue Flagyl and Rocephin Diet: Liquids, advance to low fat diabetic today (2) Chronic kidney disease: Code(s): N18.9 - Chronic kidney disease, unspecified Status: Chronic Assessment and Plan: -Creatinine: 1.28, GFR: 41, BUN: 12 -Trend renal function -trend electrolytes, correct as needed -Stable (3) Anemia: Code(s): D64.9 - Anemia, unspecified Status: Chronic Assessment and Plan: - Hgb 10.1 - transfuse if <7 - trend H&H - Stable (4) Asthma: Code(s): J45.909 - Unspecified asthma, uncomplicated Status: Chronic Assessment and Plan: - Oxygen requirement: None - Stable (5) Type 2 diabetes mellitus: Code(s): E11.9 - Type 2 diabetes mellitus without complications Status: Chronic Assessment and Plan: - hypoglycemia protocol - POC blood glucose ACHS - home medication - Metformin 500mg - A1C 4.8 (6) Morbid obesity: Code(s): E66.01 - Morbid (severe) obesity due to excess calories Status: Chronic Assessment and Plan: - BMI 51.7 kg/m Time Spent With Patient Time: -25 Subjective Date/time seen: 10/22/24 07:05 Interval history: 69-year-old female presenting with abdominal pain. Patient was here yesterday and diagnosed with cholelithiasis and was able to be discharged home with plans for outpatient management. 10/22/2024 Patient sitting comfortably in bed at time of exam. General surgery continues to follow. Physical exam and blood work continues to improve status post cholecystotomy tube placement on 10/21. Culture still pending at this time. Will attempt to advance diet to low-fat diabetic diet. Review of Systems Review of Systems: - CONSTITUTIONAL: Denies weight loss, fever and chills. - HEENT: Denies changes in vision and hearing - RESPIRATORY: Denies SOB and cough. - CV: Denies palpitations and CP. - GI: Improving abdominal pain, denies nausea, vomiting or diarrhea. - : Denies dysuria and urinary frequency. - MSK: Denies myalgia and joint pain. - SKIN: Denies rash and pruritus. - NEUROLOGICAL: Denies headache and syncope. - PSYCHIATRIC: Denies recent changes in mood. Denies anxiety and depression. All systems reviewed & are unremarkable except as noted in HPI and below Exam Narrative: GENERAL: Ill-appearing but nontoxic, no acute distress HEAD: Normocephalic, atraumatic. EYES: PERRLA and EOMI. ENT: Mucous membranes tacky NECK: Supple. CHEST: Clear to auscultation. No respiratory distress. HEART: Regular rate and rhythm. ABDOMEN: Soft, RUQ tenderness to palpation, but improved. No Rebound tenderness or guarding EXTREMITIES: Normal range of motion. SKIN: Warm, dry, no rash. NEURO: Alert and oriented x3. PSYCH: Normal mood and affect. Objective Data Vital Signs Vital Signs: Vital Signs - 24 hr 10/21/24 07:48 10/21/24 09:03 10/21/24 14:00 Temperature Pulse Rate 115 H Respiratory Rate 20 20 Blood Pressure 126/73 Pulse Oximetry 98 94 99 Oxygen Delivery Room Air Room Air 10/21/24 16:50 10/21/24 20:00 10/21/24 20:33 Temperature 98.2 F Pulse Rate 113 H 89 Respiratory Rate 20 Blood Pressure 125/69 Pulse Oximetry 92 Oxygen Delivery Room Air 10/22/24 04:06 Temperature 97.7 F Pulse Rate 92 Respiratory Rate 20 Blood Pressure 136/67 Pulse Oximetry 93 Oxygen Delivery Intake/Output Intake/Output: Intake & Output 10/19/24 10/20/24 10/21/24 10/22/24 23:59 23:59 23:59 23:59 Intake Total 1100 2300.0 1120 Output Total 400 620 380 Balance 700 1680.0 740 Meds/Results Medications: Active Medications Generic Name Dose Route Start Last Admin Trade Name Freq PRN Reason Stop Dose Admin Allopurinol 200 mg 10/22/24 09:00 Allopurinol 100 Mg Tablet PO DAILY CYNDI Alprazolam 0.25 mg 10/21/24 21:00 10/21/24 20:04 Alprazolam (*Crx) 0.25 Mg Tablet PO 0.25 mg HS CYNDI Administration Bisacodyl 10 mg 10/21/24 11:18 Bisacodyl 10 Mg Suppository RECTAL DAILY PRN constipation Cilostazol 100 mg 10/21/24 17:00 10/21/24 16:48 Cilostazol 100 Mg Tablet PO Not Given BID CYNDI Dextrose 12.5 gm 10/20/24 11:43 Dextrose 50% 25 Gm/50 Ml Syringe IV PUSH PRN PRN Hypoglycemia Protocol Docusate Sodium 200 mg 10/21/24 11:18 Docusate Sodium 100 Mg Capsule PO Q12H PRN constipation Escitalopram Oxalate 20 mg 10/22/24 09:00 Escitalopram Oxalate 10 Mg Tablet PO DAILY CYNDI Ferrous Sulfate 325 mg 10/21/24 13:00 10/21/24 16:48 Ferrous Sulfate [address] BY MOUTH Not Given TID CYNDI Fluticasone Propionate 2 spray 10/22/24 09:00 Fluticasone Propionate 0.05% Na Spr 16 Gm Btl (*Bkc) NASAL DAILY CYNDI Glucagon 1 mg 10/20/24 11:43 Glucagon For Inj 1 Mg Vial IM PRN PRN Hypoglycemia Protocol Glucose 15 gm 10/20/24 11:43 Glucose Oral Gel 15 Gm Of Glucse In 37.5 Gm Tube PO PRN PRN Hypoglycemia Protocol Dextrose 1,000 mls @ 100 mls/hr 10/20/24 11:43 Dextrose 5% 1,000 Ml IVPB PRN PRN Hypoglycemia Protocol Dextrose/Sodium Chloride 1,000 mls @ 100 mls/hr 10/20/24 15:20 10/22/24 05:37 Dextrose 5% Sodium Chloride 0.9% IV CONT 100 mls/hr .Q10H CYNDI Administration Ceftriaxone Sodium 2 gm in 100 mls @ 200 mls/hr 10/21/24 12:00 10/21/24 15:14 Rocephin 2 Gm/Ns 100 Ml IVPB Infused Q24H CYNDI Infusion Metronidazole 500 mg in 100 mls @ 100 mls/hr 10/21/24 14:00 10/22/24 05:37 Flagyl 500 Mg/Iso Soln 100 Ml IVPB 100 mls/hr Q8H CYNDI Administration Insulin Aspart 2 - 5 units 10/20/24 12:00 10/21/24 17:39 Insulin Aspart (*Bkc) 100 Units/Ml SUB-Q Not Given TIDWM [facility] Protocol Insulin Aspart 1 - 2 units 10/20/24 21:00 10/21/24 20:04 Insulin Aspart (*Bkc) 100 Units/Ml SUB-Q Not Given [facility] Protocol Levothyroxine Sodium 50 mcg 10/22/24 06:30 10/22/24 05:37 Levothyroxine Sodium 50 Mcg Tablet PO 50 mcg [id number] CYNDI Administration Levothyroxine Sodium 100 mcg 10/25/24 06:30 Levothyroxine Sodium 100 Mcg Tablet PO [id number] [facility] Loratadine 10 mg 10/22/24 09:00 Loratadine 10 Mg Tablet PO QAM [facility] Magnesium Citrate 296 ml 10/21/24 11:18 Magnesium Citrate 300 Ml Btl PO DAILY PRN constipation Magnesium Hydroxide 30 ml 10/21/24 11:18 Magnesium Hydroxide Susp 30 Ml Udc PO HS PRN constipation Magnesium Oxide 400 mg 10/21/24 13:00 10/21/24 16:48 Magnesium Oxide 400 Mg Tablet PO Not Given TID [facility] Metoprolol Tartrate 50 mg 10/21/24 17:00 10/21/24 16:50 Metoprolol Tartrate 50 Mg Tab PO 50 mg BID [facility] Administration Miscellaneous Information 1 each 10/22/24 09:00 Fleets Enema XX 10/23/24 08:59 DAILY [facility] Morphine Sulfate 2 mg 10/20/24 11:44 10/22/24 04:13 Morphine Sulfate (*Crx) 2 Mg/Ml Inj IV PUSH 2 mg Q4H PRN Administration Pain Ondansetron HCl 4 mg 10/20/24 11:45 10/22/24 04:12 Ondansetron Inj 4 Mg/2 Ml Vial IV PUSH 4 mg Q6H PRN Administration Nausea Ondansetron HCl 4 mg 10/21/24 11:18 Ondansetron Hcl Odt 4 Mg Tablet PO Q6H PRN nausea and vomiting Oxybutynin Chloride 5 mg 10/22/24 09:00 Oxybutynin Chloride Xl 5 Mg Tab.Er.24 PO DAILY [facility] Potassium Chloride 20 meq 10/22/24 09:00 Potassium Chloride 20 Meq Er Tablet PO DAILY [facility] Tamsulosin HCl 0.4 mg 10/21/24 09:00 10/21/24 08:32 Tamsulosin Hcl 0.4 Mg Capsule PO [facility] [place] [place] [facility] Impressions Hepatobiliary Scan Nuclear Medicine 10/21/24 14:02 IMPRESSION: 1. No evident gallbladder activity consistent with acute cholecystitis. Cholecystostomy 10/21/24 16:48 IMPRESSION: 1. Successful ultrasound-guided cholecystostomy tube placement. 2. 50 mL bile was sent for aerobic, anaerobic, and fungal cultures. 3. The catheter will be managed by Dr. Marquez. A catheter cholangiogram may be performed not less than 48 hours after tube placement if clinically indicated to assess cystic duct patency. If cholecystectomy is not eventually performed and the infectious episode has resolved, the tube may be removed over a guidewire, preferably not less than 3 weeks after placement to allow time for a mature catheter tract to form to prevent bile leakage and peritonitis. Labs Labs: Laboratory Results - last 24 hr 10/21/24 10/21/24 10/21/24 08:20 11:22 17:36 WBC RBC Hgb Hct MCV MCH MCHC RDW Plt Count MPV Immature Gran % (Auto) Neut % (Auto) Lymph % (Auto) [place] % (Auto) Eos % (Auto) Baso % (Auto) Lymph # (Auto) [place] # (Auto) Eos # (Auto) Baso # (Auto) Abs Immat Gran (auto) Absolute Neuts (auto) Absolute Nucleated RBC Band Neutrophils % Nucleated RBC % Platelet Estimate Anisocytosis Helmet Cells Crenated Cell Schistocytes Sodium Potassium Chloride Carbon Dioxide Anion Gap BUN Creatinine Estim Creat Clear Calc Estimated GFR Glucose POC Capillary Glucose 94 99 98 Calcium Magnesium Total Bilirubin AST ALT Alkaline Phosphatase Total Protein Albumin 10/21/24 10/21/24 10/22/24 20:03 23:47 04:21 WBC RBC Hgb Hct MCV MCH MCHC RDW Plt Count MPV Immature Gran % (Auto) Neut % (Auto) Lymph % (Auto) [place] % (Auto) Eos % (Auto) Baso % (Auto) Lymph # (Auto) [place] # (Auto) Eos # (Auto) Baso # (Auto) Abs Immat Gran (auto) Absolute Neuts (auto) Absolute Nucleated RBC Band Neutrophils % Nucleated RBC % Platelet Estimate Anisocytosis Helmet Cells Crenated Cell Schistocytes Sodium Potassium Chloride Carbon Dioxide Anion Gap BUN Creatinine Estim Creat Clear Calc Estimated GFR Glucose POC Capillary Glucose 97 97 96 Calcium Magnesium Total Bilirubin AST ALT Alkaline Phosphatase Total Protein Albumin 10/22/24 05:31 WBC 7.9 RBC 3.26 L Hgb 10.1 L Hct 33.8 L MCV 103.7 H MCH 31.0 MCHC 29.9 L RDW 16.7 H Plt Count 190 MPV 10.1 Immature Gran % (Auto) 1.0 H Neut % (Auto) 75.5 H Lymph % (Auto) 13.5 L [place] % (Auto) 5.7 Eos % (Auto) 3.7 Baso % (Auto) 0.6 Lymph # (Auto) 1.06 [place] # (Auto) 0.5 Eos # (Auto) 0.3 Baso # (Auto) 0.1 Abs Immat Gran (auto) 0.08 H Absolute Neuts (auto) 5.9 Absolute Nucleated RBC 0.000 Band Neutrophils % Not Reportable Nucleated RBC % 0.0 Platelet Estimate Adequate Anisocytosis 1+ Helmet Cells 1+ Crenated Cell 1+ Schistocytes None seen Sodium 136 L Potassium 3.5 Chloride 107 Carbon Dioxide 25 Anion Gap 4 BUN 12 Creatinine 1.28 H Estim Creat Clear Calc 52 Estimated GFR 41 L Glucose 101 POC Capillary Glucose Calcium 8.0 L Magnesium 2.2 Total Bilirubin 0.2 AST 19 ALT 9 Alkaline Phosphatase 78 Total Protein 6.0 L Albumin 2.7 L Quality VTE Prophylaxis VTE prophylaxis: mechanical ordered
[2024-10-22 07:36] LABS: Glucose Point of Care 77 mg/dl (65-105)
[2024-10-22] MEDS: MAGNESIUM OXIDE 400 MG TABLET PO ×3 (09:36→17:50)
[2024-10-22] MEDS: POTASSIUM CHLORIDE 20 MEQ ER TABLET PO (09:36)
[2024-10-22] MEDS: TAMSULOSIN HCL 0.4 MG CAPSULE PO (09:36)
[2024-10-22] MEDS: LORATADINE 10 MG TABLET PO (09:36)
[2024-10-22] MEDS: FERROUS SULFATE 325 MG TABLET DR BY MOUTH ×3 (09:36→17:49)
[2024-10-22 09:37] VITALS: PULSE 92
[2024-10-22] MEDS: allopurinoL 100 MG TABLET 200 MG PO (09:37)
[2024-10-22] MEDS: METOPROLOL TARTRATE 50 MG TAB PO ×2 (09:37→17:50)
[2024-10-22] MEDS: oxyBUTYnin CHLORIDE XL 5 MG TAB.ER.24 PO (09:37)
[2024-10-22] MEDS: FLUTICASONE PROPIONATE 0.05% NA SPR 16 GM BTL (*BKC) 2 SPRAY NASAL (09:37)
[2024-10-22] MEDS: cilostazoL 100 MG TABLET PO ×2 (09:37→17:49)
[2024-10-22] MEDS: ESCITALOPRAM OXALATE 10 MG TABLET 20 MG PO (09:37)
--- NOTE | 2024-10-22 11:07 | P.PNGS_ITS ---
Progress Note: A&P Assessment and Plan (1) Cholelithiasis with acute cholecystitis: Code(s): K80.00 - Calculus of gallbladder with acute cholecystitis without obstruction Status: Acute Assessment and Plan: * S/p cholecystostomy tube placement 10/21/24. Monitor drain and continue IV antibiotics. WBC normalized. Cultures pending. Advance diet as tolerated to diabetic low fat diet. Plan I have discussed the patient's case and plan of care with Dr. Marquez. Subjective Subjective Date/Time Seen: 10/22/24 11:07 Patient reports: still having pain and tolerating liquids well Interval history: Patient is still having right upper quadrant pain. She appears more comfortable today. White blood cell count normal. No nausea or vomiting. Tolerating clear liquids well without issues. Cholecystostomy tube with nearly 400 cc out since placement yesterday. Exam Const: General: comfortable and no acute distress Nutritional Appearance: obese Orientation/consciousness: patient oriented x3 GI: Inspection: non-distended GI Palp: Yes Soft to palpation, Yes Tenderness to palpation present (GI) (Right upper quadrant, but improved), No Guarding due to palpation present (GI) and No Rebound tenderness present Auscultation: normal bowel sounds Other: Right upper quadrant cholecystostomy tube with bilious drainage Objective Data Vital Signs Vital Signs: Vital Signs - 24 hr 10/21/24 14:00 10/21/24 16:50 10/21/24 20:00 Temperature Pulse Rate 115 H 113 H Respiratory Rate 20 Blood Pressure 126/73 Pulse Oximetry 99 Oxygen Delivery Room Air 10/21/24 20:33 10/22/24 04:06 10/22/24 09:37 Temperature 98.2 F 97.7 F Pulse Rate 89 92 92 Respiratory Rate 20 20 Blood Pressure 125/69 136/67 Pulse Oximetry 92 93 Oxygen Delivery Intake/Output Intake/Output: Intake & Output 10/19/24 10/20/24 10/21/24 10/22/24 23:59 23:59 23:59 23:59 Intake Total 1100 2300.0 1120 Output Total 400 620 640 Balance 700 1680.0 480 Meds/Results Medications: Active Medications Generic Name Dose Route Start Last Admin Trade Name Freq PRN Reason Stop Dose Admin Allopurinol 200 mg 10/22/24 09:00 10/22/24 09:37 Allopurinol 100 Mg Tablet PO 200 mg DAILY CYNDI Administration Alprazolam 0.25 mg 10/21/24 21:00 10/21/24 20:04 Alprazolam (*Crx) 0.25 Mg Tablet PO 0.25 mg HS CYNDI Administration Bisacodyl 10 mg 10/21/24 11:18 Bisacodyl 10 Mg Suppository RECTAL DAILY PRN constipation Cilostazol 100 mg 10/21/24 17:00 10/22/24 09:37 Cilostazol 100 Mg Tablet PO 100 mg BID CYNDI Administration Dextrose 12.5 gm 10/20/24 11:43 Dextrose 50% 25 Gm/50 Ml Syringe IV PUSH PRN PRN Hypoglycemia Protocol Docusate Sodium 200 mg 10/21/24 11:18 Docusate Sodium 100 Mg Capsule PO Q12H PRN constipation Escitalopram Oxalate 20 mg 10/22/24 09:00 10/22/24 09:37 Escitalopram Oxalate 10 Mg Tablet PO 20 mg DAILY CYNDI Administration Ferrous Sulfate 325 mg 10/21/24 13:00 10/22/24 09:36 Ferrous Sulfate [address] BY MOUTH 325 mg TID CYNDI Administration Fluticasone Propionate 2 spray 10/22/24 09:00 10/22/24 09:37 Fluticasone Propionate 0.05% Na Spr 16 Gm Btl (*Bkc) NASAL 2 spray DAILY CYNDI Administration Glucagon 1 mg 10/20/24 11:43 Glucagon For Inj 1 Mg Vial IM PRN PRN Hypoglycemia Protocol Glucose 15 gm 10/20/24 11:43 Glucose Oral Gel 15 Gm Of Glucse In 37.5 Gm Tube PO PRN PRN Hypoglycemia Protocol Dextrose 1,000 mls @ 100 mls/hr 10/20/24 11:43 Dextrose 5% 1,000 Ml IVPB PRN PRN Hypoglycemia Protocol Dextrose/Sodium Chloride 1,000 mls @ 100 mls/hr 10/20/24 15:20 10/22/24 05:37 Dextrose 5% Sodium Chloride 0.9% IV CONT 100 mls/hr .Q10H CNYDI Administration Ceftriaxone Sodium 2 gm in 100 mls @ 200 mls/hr 10/21/24 12:00 10/21/24 15:14 Rocephin 2 Gm/Ns 100 Ml IVPB Infused Q24H CYNDI Infusion Metronidazole 500 mg in 100 mls @ 100 mls/hr 10/21/24 14:00 10/22/24 05:37 Flagyl 500 Mg/Iso Soln 100 Ml IVPB 100 mls/hr Q8H [facility] Administration Insulin Aspart 2 - 5 units 10/20/24 12:00 10/22/24 09:36 Insulin Aspart (*Bkc) 100 Units/Ml SUB-Q Not Given TIDWM [facility] Protocol Insulin Aspart 1 - 2 units 10/20/24 21:00 10/21/24 20:04 Insulin Aspart (*Bkc) 100 Units/Ml SUB-Q Not Given HS [facility] Protocol Levothyroxine Sodium 50 mcg 10/22/24 06:30 10/22/24 05:37 Levothyroxine Sodium 50 Mcg Tablet PO 50 mcg [id number] [facility] Administration Levothyroxine Sodium 100 mcg 10/25/24 06:30 Levothyroxine Sodium 100 Mcg Tablet PO [id number] [facility] Loratadine 10 mg 10/22/24 09:00 10/22/24 09:36 Loratadine 10 Mg Tablet PO 10 mg QAM [facility] Administration Magnesium Citrate 296 ml 10/21/24 11:18 Magnesium Citrate 300 Ml Btl PO DAILY PRN constipation Magnesium Hydroxide 30 ml 10/21/24 11:18 Magnesium Hydroxide Susp 30 Ml Udc PO HS PRN constipation Magnesium Oxide 400 mg 10/21/24 13:00 10/22/24 09:36 Magnesium Oxide 400 Mg Tablet PO 400 mg TID [facility] Administration Metoprolol Tartrate 50 mg 10/21/24 17:00 10/22/24 09:37 Metoprolol Tartrate 50 Mg Tab PO 50 mg BID [facility] Administration Miscellaneous Information 1 each 10/22/24 09:00 Fleets Enema XX 10/23/24 08:59 DAILY [facility] Morphine Sulfate 2 mg 10/20/24 11:44 10/22/24 09:42 Morphine Sulfate (*Crx) 2 Mg/Ml Inj IV PUSH 2 mg Q4H PRN Administration Pain Ondansetron HCl 4 mg 10/20/24 11:45 10/22/24 04:12 Ondansetron Inj 4 Mg/2 Ml Vial IV PUSH 4 mg Q6H PRN Administration Nausea Ondansetron HCl 4 mg 10/21/24 11:18 Ondansetron Hcl Odt 4 Mg Tablet PO Q6H PRN nausea and vomiting Oxybutynin Chloride 5 mg 10/22/24 09:00 10/22/24 09:37 Oxybutynin Chloride Xl 5 Mg Tab.Er.24 PO 5 mg DAILY CYNDI Administration Potassium Chloride 20 meq 10/22/24 09:00 10/22/24 09:36 Potassium Chloride 20 Meq Er Tablet PO 20 meq DAILY CYNDI Administration Tamsulosin HCl 0.4 mg 10/21/24 09:00 10/22/24 09:36 Tamsulosin Hcl 0.4 Mg Capsule PO 0.4 mg QAM CYNDI Administration Radiology Results: ITS Impressions Hepatobiliary Scan Nuclear Medicine 10/21/24 14:02 IMPRESSION: 1. No evident gallbladder activity consistent with acute cholecystitis. Cholecystostomy 10/21/24 16:48 IMPRESSION: 1. Successful ultrasound-guided cholecystostomy tube placement. 2. 50 mL bile was sent for aerobic, anaerobic, and fungal cultures. 3. The catheter will be managed by Dr. Marquez. A catheter cholangiogram may be performed not less than 48 hours after tube placement if clinically indicated to assess cystic duct patency. If cholecystectomy is not eventually performed and the infectious episode has resolved, the tube may be removed over a guidewire, preferably not less than 3 weeks after placement to allow time for a mature catheter tract to form to prevent bile leakage and peritonitis. Labs Labs: Laboratory Results - last 24 hr 10/21/24 10/21/24 10/21/24 11:22 17:36 20:03 WBC RBC Hgb Hct MCV MCH MCHC RDW Plt Count MPV Immature Gran % (Auto) Neut % (Auto) Lymph % (Auto) [place] % (Auto) Eos % (Auto) Baso % (Auto) Lymph # (Auto) [place] # (Auto) Eos # (Auto) Baso # (Auto) Abs Immat Gran (auto) Absolute Neuts (auto) Absolute Nucleated RBC Band Neutrophils % Nucleated RBC % Platelet Estimate Anisocytosis Helmet Cells Crenated Cell Schistocytes Sodium Potassium Chloride Carbon Dioxide Anion Gap BUN Creatinine Estim Creat Clear Calc Estimated GFR Glucose POC Capillary Glucose 99 98 97 Calcium Magnesium Total Bilirubin AST ALT Alkaline Phosphatase Total Protein Albumin 10/21/24 10/22/24 10/22/24 23:47 04:21 05:31 WBC 7.9 RBC 3.26 L Hgb 10.1 L Hct 33.8 L MCV 103.7 H MCH 31.0 MCHC 29.9 L RDW 16.7 H Plt Count 190 MPV 10.1 Immature Gran % (Auto) 1.0 H Neut % (Auto) 75.5 H Lymph % (Auto) 13.5 L [place] % (Auto) 5.7 Eos % (Auto) 3.7 Baso % (Auto) 0.6 Lymph # (Auto) 1.06 [place] # (Auto) 0.5 Eos # (Auto) 0.3 Baso # (Auto) 0.1 Abs Immat Gran (auto) 0.08 H Absolute Neuts (auto) 5.9 Absolute Nucleated RBC 0.000 Band Neutrophils % Not Reportable Nucleated RBC % 0.0 Platelet Estimate Adequate Anisocytosis 1+ Helmet Cells 1+ Crenated Cell 1+ Schistocytes None seen Sodium 136 L Potassium 3.5 Chloride 107 Carbon Dioxide 25 Anion Gap 4 BUN 12 Creatinine 1.28 H Estim Creat Clear Calc 52 Estimated GFR 41 L Glucose 101 POC Capillary Glucose 97 96 Calcium 8.0 L Magnesium 2.2 Total Bilirubin 0.2 AST 19 ALT 9 Alkaline Phosphatase 78 Total Protein 6.0 L Albumin 2.7 L 10/22/24 07:28 WBC RBC Hgb Hct MCV MCH MCHC RDW Plt Count MPV Immature Gran % (Auto) Neut % (Auto) Lymph % (Auto) [place] % (Auto) Eos % (Auto) Baso % (Auto) Lymph # (Auto) [place] # (Auto) Eos # (Auto) Baso # (Auto) Abs Immat Gran (auto) Absolute Neuts (auto) Absolute Nucleated RBC Band Neutrophils % Nucleated RBC % Platelet Estimate Anisocytosis Helmet Cells Crenated Cell Schistocytes Sodium Potassium Chloride Carbon Dioxide Anion Gap BUN Creatinine Estim Creat Clear Calc Estimated GFR Glucose POC Capillary Glucose 77 Calcium Magnesium Total Bilirubin AST ALT Alkaline Phosphatase Total Protein Albumin
[2024-10-22 11:21] LABS: Glucose Point of Care 119 mg/dl (65-105)
[2024-10-22] MEDS: cefTRIAXone 2 GM/NS 100 ML 2 GM/100 ML BAG IVPB (12:16)
[2024-10-22 14:00] VITALS: BP 119/52; PULSE 81; RESP 20; TEMP 35.9; O2SAT 94
[2024-10-22 16:43] LABS: Glucose Point of Care 108 mg/dl (65-105)
[2024-10-22 17:50] VITALS: PULSE 81
[2024-10-22] MEDS: HYDROcodone/acetaminophen (*CRX) 5-325 MG TABLET 1 TAB PO (17:57)
[2024-10-22] MEDS: ALPRAZolam (*CRX) 0.25 MG TABLET PO (21:05)
[2024-10-22 21:13] LABS: Glucose Point of Care 134 mg/dl (65-105)
[2024-10-22 21:53] VITALS: PULSE 68; RESP 20; O2SAT 94
[2024-10-22 22:00] VITALS: BP 129/63; PULSE 82; RESP 18; TEMP 36.3; O2SAT 97
[2024-10-23] MEDS: DEXTROSE 5%/0.9% SOD CHL 1,000 ML 100 ML IV CONT ×2 (05:48→18:35)
[2024-10-23] MEDS: metroNIDAZOLE 500 MG/ISO 100ML 500 MG/100 ML BAG 100 MG IVPB (05:49)
[2024-10-23] MEDS: LEVOTHYROXINE SODIUM 50 MCG TABLET PO (05:51)
[2024-10-23] MEDS: HYDROcodone/acetaminophen (*CRX) 10-325 MG TABLET 1 TAB PO ×2 (05:51→12:10)
[2024-10-23 06:00] VITALS: BP 143/77; PULSE 80; RESP 18; TEMP 36.4; O2SAT 100
[2024-10-23 06:25] LABS: Glucose Point of Care 104 mg/dl (65-105)
--- NOTE | 2024-10-23 07:03 | P.PNIM_ITS ---
Progress Note: A&P Assessment and Plan (1) Cholelithiasis with acute cholecystitis: Code(s): K80.00 - Calculus of gallbladder with acute cholecystitis without obstruction Status: Acute Assessment and Plan: * Monitor vital signs, I and O's * Monitor serum electrolytes and CBC * IV pain management * Gentle IV fluid resuscitation * POD 2 Cholecystotomy, Gen Surg following * Continue Flagyl and Rocephin * Diet: Liquids, advance to low fat diabetic today * GI consulted, appreciate recommendations (2) Epigastric pain: Code(s): R10.13 - Epigastric pain Status: Acute Assessment and Plan: * Diagnosed with cholelithiasis upon arrival to ED on 10/19, originally disch arged but came back to ER on 10/20 * Cholecystotomy tube on 10/21, continues to complain of epigastric abdominal pain with meals * CTA: No PE or aortic dissection, moderate bilateral pleural effusion with adjacent atelectasis versus pneumonia, tracheobronchomalacia, nodule in the right lower lobe, recommend 6 months follow-up CT * EKG: NSR * Maalox ordered * GI consulted, pending at this time, appreciate recommendations (3) Chronic kidney disease: Code(s): N18.9 - Chronic kidney disease, unspecified Status: Chronic Assessment and Plan: -Creatinine: 1.28, GFR: 41, BUN: 12 -Trend renal function -trend electrolytes, correct as needed -Stable (4) Anemia: Code(s): D64.9 - Anemia, unspecified Status: Chronic Assessment and Plan: - Hgb 10.1 - transfuse if <7 - trend H&H - Stable (5) Asthma: Code(s): J45.909 - Unspecified asthma, uncomplicated Status: Chronic Assessment and Plan: - Oxygen requirement: None - Stable (6) Type 2 diabetes mellitus: Code(s): E11.9 - Type 2 diabetes mellitus without complications Status: Chronic Assessment and Plan: - hypoglycemia protocol - POC blood glucose ACHS - home medication - Metformin 500mg - A1C 4.8 (7) Morbid obesity: Code(s): E66.01 - Morbid (severe) obesity due to excess calories Status: Chronic Assessment and Plan: - BMI 51.7 kg/m Subjective Date/time seen: 10/23/24 07:03 Interval history: 69-year-old female presenting with abdominal pain. Patient was here yesterday and diagnosed with cholelithiasis and was able to be discharged home with plans for outpatient management. 10/23/2024 Patient sitting in bed at time of exam. General surgery continues to follow. Patient continues to endorse substernal/epigastric pain with eating/swallowing. Will switch Protonix to her Prevacid as she takes this at home. Will also add Tums today for additional support. Nursing staff reported that patient's pain had worsened, CTA, EKG and GI consult were ordered. CTA negative for PE or aortic dissection, but showed moderate pleural effusion the adjacent atelectasis versus pneumonia, tracheobronchomalacia, and nodule in the right lower lobe, recommend follow-up in 6 months. GI to determine if the EGD is next step, we will keep patient NPO until decision is made. Review of Systems Review of Systems: - CONSTITUTIONAL: Denies weight loss, fe juliet and chills. - HEENT: Denies changes in vision and he aring - RESPIRATORY: Denies SOB and cough. - CV: Denies palpitations and CP. - GI: Improving abdominal pain, denies nausea, vomiting or diarrhea. - : Denies dysuria and urinary frequen cy. - MSK: Denies myalgia and joint pain. - SKIN: Denies rash and pruritus. - NEUROLOGICAL: Denies headache and sync ope. - PSYCHIATRIC: Denies recent changes in mood. Denies anxiety and depression. All systems reviewed & are unremarkable except as noted in HPI and below Exam Narrative: GENERAL: Ill-appearing but nontoxic, no acute distress HEAD: Normocephalic, atraumatic. EYES: PERRLA and EOMI. ENT: Mucous membranes tacky NECK: Supple. CHEST: Clear to auscultation. No respiratory distress. HEART: Regular rate and rhythm. ABDOMEN: Soft, RUQ tenderness to palpation, but improved. No Rebound tenderness or guarding EXTREMITIES: Normal range of motion. SKIN: Warm, dry, no rash. NEURO: Alert and oriented x3. PSYCH: Normal mood and affect. Objective Data Vital Signs Vital Signs: Vital Signs - 24 hr 10/22/24 09:37 10/22/24 09:40 10/22/24 14:00 Temperature 96.7 F L Pulse Rate 92 81 Respiratory Rate 20 Blood Pressure 119/52 L Pulse Oximetry 94 Oxygen Delivery Room Air Fraction of Inspired Oxygen 10/22/24 17:50 10/22/24 20:00 10/22/24 21:53 Temperature Pulse Rate 81 68 Respiratory Rate 20 Blood Pressure Pulse Oximetry 94 Oxygen Delivery Room Air Room Air Fraction of Inspired Oxygen 21 10/22/24 22:00 10/23/24 06:00 Temperature 97.3 F L 97.5 F L Pulse Rate 82 80 Respiratory Rate 18 18 Blood Pressure 129/63 143/77 H Pulse Oximetry 97 100 Oxygen Delivery Fraction of Inspired Oxygen Intake/Output Intake/Output: Intake & Output 10/20/24 10/21/24 10/22/24 10/23/24 23:59 23:59 23:59 23:59 Intake Total 1100 2300.0 2420 1000 Output Total 400 620 910 250 Balance 700 1680.0 1510 750 Meds/Results Medications: Active Medications Generic Name Dose Route Start Last Admin Trade Name Freq PRN Reason Stop Dose Admin Acetaminophen 650 mg 10/22/24 14:00 Acetaminophen 325 Mg Tablet PO Q4H PRN Mild Pain (1-3) or Fever Hydrocodone Bitart/Acetaminophen 1 tab 10/22/24 14:00 10/22/24 17:57 Hydrocodone/Acetaminophen (*Crx) 5-325 Mg Tablet PO 1 tab Q4H PRN Administration Pain Rated 4-6 Hydrocodone Bitart/Acetaminophen 1 tab 10/22/24 14:00 10/23/24 05:51 Hydrocodone/Acetaminophen (*Crx) 10-325 Mg Tablet PO 1 tab Q6H PRN Administration Pain Rated 7-10 Allopurinol 200 mg 10/22/24 09:00 10/22/24 09:37 Allopurinol 100 Mg Tablet PO 200 mg DAILY [facility] Administration Alprazolam 0.25 mg 10/21/24 21:00 10/22/24 21:05 Alprazolam (*Crx) 0.25 Mg Tablet PO 0.25 mg HS [facility] Administration Bisacodyl 10 mg 10/21/24 11:18 Bisacodyl 10 Mg Suppository RECTAL DAILY PRN constipation Cilostazol 100 mg 10/21/24 17:00 10/22/24 17:49 Cilostazol 100 Mg Tablet PO 100 mg BID [facility] Administration Dextrose 12.5 gm 10/20/24 11:43 Dextrose 50% 25 Gm/50 Ml Syringe IV PUSH PRN PRN Hypoglycemia Protocol Docusate Sodium 200 mg 10/21/24 11:18 Docusate Sodium 100 Mg Capsule PO Q12H PRN constipation Escitalopram Oxalate 20 mg 10/22/24 09:00 10/22/24 09:37 Escitalopram Oxalate 10 Mg Tablet PO 20 mg DAILY [facility] Administration Ferrous Sulfate 325 mg 10/21/24 13:00 10/22/24 17:49 Ferrous Sulfate [address] BY MOUTH 325 mg TID [facility] Administration Fluticasone Propionate 2 spray 10/22/24 09:00 10/22/24 09:37 Fluticasone Propionate 0.05% Na Spr 16 Gm Btl (*Bkc) NASAL 2 spray DAILY [facility] Administration Glucagon 1 mg 10/20/24 11:43 Glucagon For Inj 1 Mg Vial IM PRN PRN Hypoglycemia Protocol Glucose 15 gm 10/20/24 11:43 Glucose Oral Gel 15 Gm Of Glucse In 37.5 Gm Tube PO PRN PRN Hypoglycemia Protocol Dextrose 1,000 mls @ 100 mls/hr 10/20/24 11:43 Dextrose 5% 1,000 Ml IVPB PRN PRN Hypoglycemia Protocol Dextrose/Sodium Chloride 1,000 mls @ 100 mls/hr 10/20/24 15:20 10/23/24 05:48 Dextrose 5% Sodium Chloride 0.9% IV CONT 100 mls/hr .Q10H [facility] Administration Ceftriaxone Sodium 2 gm in 100 mls @ 200 mls/hr 10/21/24 12:00 10/22/24 12:16 Rocephin 2 Gm/Ns 100 Ml IVPB 200 mls/hr Q24H [facility] Administration Metronidazole 500 mg in 100 mls @ 100 mls/hr 10/21/24 14:00 10/23/24 05:49 Flagyl 500 Mg/Iso Soln 100 Ml IVPB 100 mls/hr Q8H [facility] Administration Insulin Aspart 2 - 5 units 10/20/24 12:00 10/22/24 17:49 Insulin Aspart (*Bkc) 100 Units/Ml SUB-Q Not Given TIDWM [facility] Protocol Insulin Aspart 1 - 2 units 10/20/24 21:00 10/22/24 21:10 Insulin Aspart (*Bkc) 100 Units/Ml SUB-Q Not Given HS [facility] Protocol Levothyroxine Sodium 50 mcg 10/22/24 06:30 10/23/24 05:51 Levothyroxine Sodium 50 Mcg Tablet PO 50 mcg [id number] [facility] Administration Levothyroxine Sodium 100 mcg 10/25/24 06:30 Levothyroxine Sodium 100 Mcg Tablet PO [id number] [facility] Loratadine 10 mg 10/22/24 09:00 10/22/24 09:36 Loratadine 10 Mg Tablet PO 10 mg QAM [facility] Administration Magnesium Citrate 296 ml 10/21/24 11:18 Magnesium Citrate 300 Ml Btl PO DAILY PRN constipation Magnesium Hydroxide 30 ml 10/21/24 11:18 Magnesium Hydroxide Susp 30 Ml Udc PO HS PRN constipation Magnesium Oxide 400 mg 10/21/24 13:00 10/22/24 17:50 Magnesium Oxide 400 Mg Tablet PO 400 mg TID [facility] Administration Metoprolol Tartrate 50 mg 10/21/24 17:00 10/22/24 17:50 Metoprolol Tartrate 50 Mg Tab PO 50 mg BID [facility] Administration Miscellaneous Information 1 each 10/22/24 09:00 10/22/24 15:24 Fleets Enema XX 10/23/24 08:59 Not Given DAILY [facility] Morphine Sulfate 2 mg 10/20/24 11:44 10/22/24 12:32 Morphine Sulfate (*Crx) 2 Mg/Ml Inj IV PUSH 2 mg Q4H PRN Administration Pain Ondansetron HCl 4 mg 10/20/24 11:45 10/22/24 04:12 Ondansetron Inj 4 Mg/2 Ml Vial IV PUSH 4 mg Q6H PRN Administration Nausea Ondansetron HCl 4 mg 10/21/24 11:18 Ondansetron Hcl Odt 4 Mg Tablet PO Q6H PRN nausea and vomiting Oxybutynin Chloride 5 mg 10/22/24 09:00 10/22/24 09:37 Oxybutynin Chloride Xl 5 Mg Tab.Er.24 PO 5 mg DAILY [facility] Administration Potassium Chloride 20 meq 10/22/24 09:00 10/22/24 09:36 Potassium Chloride 20 Meq Er Tablet PO 20 meq DAILY [facility] Administration Tamsulosin HCl 0.4 mg 10/21/24 09:00 10/22/24 09:36 Tamsulosin Hcl 0.4 Mg Capsule PO 0.4 mg QAM [facility] Administration Radiology Results: ITS Impressions Hepatobiliary Scan Nuclear Medicine 10/21/24 14:02 IMPRESSION: 1. No evident gallbladder activity consistent with acute cholecystitis. Cholecystostomy 10/21/24 16:48 IMPRESSION: 1. Successful ultrasound-guided cholecystostomy tube placement. 2. 50 mL bile was sent for aerobic, anaerobic, and fungal cultures. 3. The catheter will be managed by Dr. Marquez. A catheter cholangiogram may be performed not less than 48 hours after tube placement if clinically indicated to assess cystic duct patency. If cholecystectomy is not eventually performed and the infectious episode has resolved, the tube may be removed over a guidewire, preferably not less than 3 weeks after placement to allow time for a mature catheter tract to form to prevent bile leakage and peritonitis. Labs Labs: Laboratory Results - last 24 hr 10/22/24 10/22/24 10/22/24 07:28 11:18 16:37 POC Capillary Glucose 77 119 H 108 H 10/22/24 10/23/24 21:07 06:21 POC Capillary Glucose 134 H 104
[2024-10-23 07:58] LABS: Glucose Point of Care 107 mg/dl (65-105)
[2024-10-23 08:00] LABS: Basophils Percent Auto 0.4 % (0.2-1.2); Eosinophils Absolute Auto 0.3 K/mm3 (0-0.3); Eosinophils Percent Auto 3.5 % (0-4.4); Hemoglobin 9.9 g/dL (12.0-15.0); Immature Granulocyte Absolute 0.07 K/mm3 (0.00-0.031); Immature Granulocyte Percent A 0.9 % (0-0.5); Lymphocytes Absolute Auto 0.92 K/mm3 (0.9-3.2); Lymphocytes Percent Auto 12.4 % (18.3-44.2); Mean Corpuscular Hemoglobin 31.3 pg (26-34); Mean Corpuscular Volume 104.4 fl (80-100); Mean Platelet Volume 10.2 fl (7.4-10.4); Monocytes Absolute Auto 0.4 K/mm3 (0.1-0.6); Monocytes Percent Auto 4.8 % (2.6-8.5); Neutrophils Absolute Auto 5.8 K/mm3 (1.3-6.7); Platelet Count Result 192 k/mm3 (150-375); Red Blood Count 3.16 M/mm3 (4.2-5.4); Red Cell Distribution Width 16.9 % (11.5-14.5); White Blood Count 7.4 K/mm3 (4.5-10.0)
[2024-10-23 08:15] LABS: Alanine Aminotransferase 8 U/L (6-35); Albumin Level 2.6 g/dL (3.5-5.1); Alkaline Phosphatase 77 U/L (38-126); Anion Gap 4 mmol/L (4-12); Aspartate Amino Transferase 15 U/L (14-36); Bilirubin,Total 0.2 mg/dL (0.2-1.3); Blood Urea Nitrogen 10 mg/dL (7-17); Carbon Dioxide 25 mmol/L (22-30); Chloride 109 mmol/L (98-107); Estimated CRCL calculation 55 ml/min; Estimated Glomerular Filt Rate 45; Glucose 109 mg/dL (65-110); Potassium 3.9 mmol/L (3.4-5.0); Sodium 138 mmol/L (137-145)
[2024-10-23 08:48] VITALS: PULSE 80
[2024-10-23] MEDS: PANTOPRAZOLE 40 MG TABLET PO (08:48)
[2024-10-23] MEDS: METOPROLOL TARTRATE 50 MG TAB PO ×2 (08:48→17:01)
[2024-10-23] MEDS: TAMSULOSIN HCL 0.4 MG CAPSULE PO (08:48)
[2024-10-23] MEDS: FERROUS SULFATE 325 MG TABLET DR BY MOUTH ×3 (08:52→17:01)
[2024-10-23] MEDS: POTASSIUM CHLORIDE 20 MEQ ER TABLET PO (08:52)
[2024-10-23] MEDS: ESCITALOPRAM OXALATE 10 MG TABLET 20 MG PO (08:52)
[2024-10-23] MEDS: LORATADINE 10 MG TABLET PO (08:52)
[2024-10-23] MEDS: cilostazoL 100 MG TABLET PO ×2 (08:53→17:00)
[2024-10-23] MEDS: MAGNESIUM OXIDE 400 MG TABLET PO ×3 (08:53→17:00)
[2024-10-23] MEDS: oxyBUTYnin CHLORIDE XL 5 MG TAB.ER.24 PO (08:53)
[2024-10-23] MEDS: allopurinoL 100 MG TABLET 200 MG PO (08:53)
[2024-10-23] MEDS: FLUTICASONE PROPIONATE 0.05% NA SPR 16 GM BTL (*BKC) 2 SPRAY NASAL (08:55)
--- NOTE | 2024-10-23 11:37 | P.PNGS_ITS ---
Progress Note: A&P Assessment and Plan (1) Cholelithiasis with acute cholecystitis: Code(s): K80.00 - Calculus of gallbladder with acute cholecystitis without obstruction Status: Acute Assessment and Plan: exam minimally improved, will advance to low fat diet, cont drain and abx Subjective Subjective Date/Time Seen: 10/23/24 11:37 Interval history: still c/o RUQ pain, slightly improved, patel clears but reports poor appetite Review of Systems Review of Systems: All systems reviewed & are unremarkable except as noted in HPI and below Exam Const: General: cooperative, no acute distress, tired appearing and uncomfortable Resp: Auscultation: clear to auscultation bilaterally Cardio: Rate: regular rate Rhythm: regular rhythm GI: Inspection: normal to inspection and non-distended GI Palp: Yes abdominal tenderness and Yes Soft to palpation Other: perc salma drain c bilious drainage Objective Data Vital Signs Vital Signs: Vital Signs - 24 hr 10/22/24 14:00 10/22/24 17:50 10/22/24 20:00 Temperature 35.9 C L Pulse Rate 81 81 Respiratory Rate 20 Blood Pressure 119/52 L Pulse Oximetry 94 Oxygen Delivery Room Air Fraction of Inspired Oxygen 10/22/24 21:53 10/22/24 22:00 10/23/24 06:00 Temperature 36.3 C L 36.4 C L Pulse Rate 68 82 80 Respiratory Rate 20 18 18 Blood Pressure 129/63 143/77 H Pulse Oximetry 94 97 100 Oxygen Delivery Room Air Fraction of Inspired Oxygen 21 10/23/24 08:48 10/23/24 09:00 Temperature Pulse Rate 80 Respiratory Rate Blood Pressure Pulse Oximetry Oxygen Delivery Room Air Fraction of Inspired Oxygen Intake/Output Intake/Output: Intake & Output 10/20/24 10/21/24 10/22/24 10/23/24 23:59 23:59 23:59 23:59 Intake Total 1100 2300.0 2420 1000 Output Total 400 620 910 250 Balance 700 1680.0 1510 750 Meds/Results Medications: Active Medications Generic Name Dose Route Start Last Admin Trade Name Freq PRN Reason Stop Dose Admin Acetaminophen 650 mg 10/22/24 14:00 Acetaminophen 325 Mg Tablet PO Q4H PRN Mild Pain (1-3) or Fever Hydrocodone Bitart/Acetaminophen 1 tab 10/22/24 14:00 10/22/24 17:57 Hydrocodone/Acetaminophen (*Crx) 5-325 Mg Tablet PO 1 tab Q4H PRN Administration Pain Rated 4-6 Hydrocodone Bitart/Acetaminophen 1 tab 10/22/24 14:00 10/23/24 05:51 Hydrocodone/Acetaminophen (*Crx) 10-325 Mg Tablet PO 1 tab Q6H PRN Administration Pain Rated 7-10 Allopurinol 200 mg 10/22/24 09:00 10/23/24 08:53 Allopurinol 100 Mg Tablet PO 200 mg DAILY [facility] Administration Alprazolam 0.25 mg 10/21/24 21:00 10/22/24 21:05 Alprazolam (*Crx) 0.25 Mg Tablet PO 0.25 mg HS [facility] Administration Bisacodyl 10 mg 10/21/24 11:18 Bisacodyl 10 Mg Suppository RECTAL DAILY PRN constipation Cilostazol 100 mg 10/21/24 17:00 10/23/24 08:53 Cilostazol 100 Mg Tablet PO 100 mg BID [facility] Administration Dextrose 12.5 gm 10/20/24 11:43 Dextrose 50% 25 Gm/50 Ml Syringe IV PUSH PRN PRN Hypoglycemia Protocol Docusate Sodium 200 mg 10/21/24 11:18 Docusate Sodium 100 Mg Capsule PO Q12H PRN constipation Escitalopram Oxalate 20 mg 10/22/24 09:00 10/23/24 08:52 Escitalopram Oxalate 10 Mg Tablet PO 20 mg DAILY [facility] Administration Ferrous Sulfate 325 mg 10/21/24 13:00 10/23/24 08:52 Ferrous Sulfate [address] BY MOUTH 325 mg TID [facility] Administration Fluticasone Propionate 2 spray 10/22/24 09:00 10/23/24 08:55 Fluticasone Propionate 0.05% Na Spr 16 Gm Btl (*Bkc) NASAL 2 spray DAILY [facility] Administration Glucagon 1 mg 10/20/24 11:43 Glucagon For Inj 1 Mg Vial IM PRN PRN Hypoglycemia Protocol Glucose 15 gm 10/20/24 11:43 Glucose Oral Gel 15 Gm Of Glucse In 37.5 Gm Tube PO PRN PRN Hypoglycemia Protocol Dextrose 1,000 mls @ 100 mls/hr 10/20/24 11:43 Dextrose 5% 1,000 Ml IVPB PRN PRN Hypoglycemia Protocol Dextrose/Sodium Chloride 1,000 mls @ 100 mls/hr 10/20/24 15:20 10/23/24 05:48 Dextrose 5% Sodium Chloride 0.9% IV CONT 100 mls/hr .Q10H [facility] Administration Ceftriaxone Sodium 2 gm in 100 mls @ 200 mls/hr 10/21/24 12:00 10/22/24 12:16 Rocephin 2 Gm/Ns 100 Ml IVPB 200 mls/hr Q24H [facility] Administration Metronidazole 500 mg in 100 mls @ 100 mls/hr 10/21/24 14:00 10/23/24 05:49 Flagyl 500 Mg/Iso Soln 100 Ml IVPB 100 mls/hr Q8H [facility] Administration Insulin Aspart 2 - 5 units 10/20/24 12:00 10/23/24 08:12 Insulin Aspart (*Bkc) 100 Units/Ml SUB-Q Not Given TIDWM [facility] Protocol Insulin Aspart 1 - 2 units 10/20/24 21:00 10/22/24 21:10 Insulin Aspart (*Bkc) 100 Units/Ml SUB-Q Not Given HS [facility] Protocol Levothyroxine Sodium 50 mcg 10/22/24 06:30 10/23/24 05:51 Levothyroxine Sodium 50 Mcg Tablet PO 50 mcg [id number] [facility] Administration Levothyroxine Sodium 100 mcg 10/25/24 06:30 Levothyroxine Sodium 100 Mcg Tablet PO [id number] [facility] Loratadine 10 mg 10/22/24 09:00 10/23/24 08:52 Loratadine 10 Mg Tablet PO 10 mg QAM [facility] Administration Magnesium Citrate 296 ml 10/21/24 11:18 Magnesium Citrate 300 Ml Btl PO DAILY PRN constipation Magnesium Hydroxide 30 ml 10/21/24 11:18 Magnesium Hydroxide Susp 30 Ml Udc PO HS PRN constipation Magnesium Oxide 400 mg 10/21/24 13:00 10/23/24 08:53 Magnesium Oxide 400 Mg Tablet PO 400 mg TID [facility] Administration Metoprolol Tartrate 50 mg 10/21/24 17:00 10/23/24 08:48 Metoprolol Tartrate 50 Mg Tab PO 50 mg BID [facility] Administration Morphine Sulfate 2 mg 10/20/24 11:44 10/22/24 12:32 Morphine Sulfate (*Crx) 2 Mg/Ml Inj IV PUSH 2 mg Q4H PRN Administration Pain Ondansetron HCl 4 mg 10/20/24 11:45 10/22/24 04:12 Ondansetron Inj 4 Mg/2 Ml Vial IV PUSH 4 mg Q6H PRN Administration Nausea Ondansetron HCl 4 mg 10/21/24 11:18 Ondansetron Hcl Odt 4 Mg Tablet PO Q6H PRN nausea and vomiting Oxybutynin Chloride 5 mg 10/22/24 09:00 10/23/24 08:53 Oxybutynin Chloride Xl 5 Mg Tab.Er.24 PO 5 mg DAILY [facility] Administration Pantoprazole Sodium 40 mg 10/23/24 09:00 10/23/24 08:48 Pantoprazole 40 Mg Tablet PO 11/22/24 08:59 40 mg QAM [facility] Administration Potassium Chloride 20 meq 10/22/24 09:00 10/23/24 08:52 Potassium Chloride 20 Meq Er Tablet PO 20 meq DAILY [facility] Administration Tamsulosin HCl 0.4 mg 10/21/24 09:00 10/23/24 08:48 Tamsulosin Hcl 0.4 Mg Capsule PO 0.4 mg QAM [facility] Administration Radiology Results: ITS Impressions Hepatobiliary Scan Nuclear Medicine 10/21/24 14:02 IMPRESSION: 1. No evident gallbladder activity consistent with acute cholecystitis. Cholecystostomy 10/21/24 16:48 IMPRESSION: 1. Successful ultrasound-guided cholecystostomy tube placement. 2. 50 mL bile was sent for aerobic, anaerobic, and fungal cultures. 3. The catheter will be managed by Dr. Marquez. A catheter cholangiogram may be performed not less than 48 hours after tube placement if clinically indicated to assess cystic duct patency. If cholecystectomy is not eventually performed and the infectious episode has resolved, the tube may be removed over a guidewire, preferably not less than 3 weeks after placement to allow time for a mature catheter tract to form to prevent bile leakage and peritonitis. Labs Labs: Laboratory Results - last 24 hr 10/22/24 10/22/24 10/23/24 16:37 21:07 06:21 WBC RBC Hgb Hct MCV MCH MCHC RDW Plt Count MPV Immature Gran % (Auto) Neut % (Auto) Lymph % (Auto) Cook % (Auto) Eos % (Auto) Baso % (Auto) Lymph # (Auto) Cook # (Auto) Eos # (Auto) Baso # (Auto) Abs Immat Gran (auto) Absolute Neuts (auto) Absolute Nucleated RBC Nucleated RBC % Sodium Potassium Chloride Carbon Dioxide Anion Gap BUN Creatinine Estim Creat Clear Calc Estimated GFR Glucose POC Capillary Glucose 108 H 134 H 104 Calcium Total Bilirubin AST ALT Alkaline Phosphatase Total Protein Albumin 10/23/24 10/23/24 07:45 07:49 WBC 7.4 RBC 3.16 L Hgb 9.9 L Hct 33.0 L MCV 104.4 H MCH 31.3 MCHC 30.0 L RDW 16.9 H Plt Count 192 MPV 10.2 Immature Gran % (Auto) 0.9 H Neut % (Auto) 78.0 H Lymph % (Auto) 12.4 L Cook % (Auto) 4.8 Eos % (Auto) 3.5 Baso % (Auto) 0.4 Lymph # (Auto) 0.92 Cook # (Auto) 0.4 Eos # (Auto) 0.3 Baso # (Auto) 0.0 Abs Immat Gran (auto) 0.07 H Absolute Neuts (auto) 5.8 Absolute Nucleated RBC 0.000 Nucleated RBC % 0.0 Sodium 138 Potassium 3.9 Chloride 109 H Carbon Dioxide 25 Anion Gap 4 BUN 10 Creatinine 1.19 H Estim Creat Clear Calc 55 Estimated GFR 45 L Glucose 109 POC Capillary Glucose 107 H Calcium 8.0 L Total Bilirubin 0.2 AST 15 ALT 8 Alkaline Phosphatase 77 Total Protein 6.0 L Albumin 2.6 L
[2024-10-23 12:08] LABS: Glucose Point of Care 122 mg/dl (65-105)
[2024-10-23] MEDS: cefTRIAXone 2 GM/NS 100 ML 2 GM/100 ML BAG IVPB (13:15)
[2024-10-23] MEDS: CALCIUM CARBONATE (TUMS) 500 MG (200 MG ELEMENTAL) PO (13:15)
--- NOTE | 2024-10-23 13:46 | ECG_ITS ---
Test Date: 2024-10-23 13:59:48 Measurements Intervals Interior Rate: 75 P: 56 NV: 192 QRS: -2 QRSD: 104 T: 23 QT: 408 QTc: 458 Interpretive Statements SINUS RHYTHM POSSIBLE ANTERIOR MYOCARDIAL INFARCTION , PROBABLY OLD [30 ms Q WAVE IN V3/V4, OR R < 0.2 mV IN V4] Compared to ECG 10/20/2024 05:51:26 Myocardial infarct finding now present T-wave abnormality no longer present Electronically Signed On 10-23-2024 14:16:36 CDT by Sydnee Belcher
[2024-10-23 14:00] VITALS: BP 122/72; PULSE 77; RESP 18; TEMP 36.4; O2SAT 100
--- NOTE | 2024-10-23 14:36 | WPDGICN ---
Assessment and Plan Assessment and plan (1) Epigastric pain: Code(s): R10.13 - Epigastric pain Status: Acute (2) Nausea: Code(s): R11.0 - Nausea Status: Acute (3) Morbid obesity: Code(s): E66.01 - Morbid (severe) obesity due to excess calories Status: Chronic (4) Cholelithiasis with acute cholecystitis: Qualifiers: Biliary obstruction: with biliary obstruction Qualified Code(s): K80.01 - Calculus of gallbladder with acute cholecystitis with obstruction Code(s): K80.00 - Calculus of gallbladder with acute cholecystitis without obstruction Status: Acute (5) Macrocytic anemia: Code(s): D53.9 - Nutritional anemia, unspecified Status: Acute (6) Appetite loss: Code(s): R63.0 - Anorexia Status: Acute (7) Constipation: Qualifiers: Constipation type: drug induced constipation Qualified Code(s): K59.03 - Drug induced constipation Code(s): K59.00 - Constipation, unspecified Status: Acute Plan 1. Epigastric pain/nausea/appetite loss: Patient unable to state she has ever had an EGD. Patient admits to longstanding history of abdominal pain. Labs today showed normal LFTs and normal lipase. Since her hospitalization she has been experiencing severe epigastric pain that she describes as a sharp burning sensation that increases with p.o. intake including foods, liquids or pills. She complains of frequent nausea but no vomiting. She was previously on Protonix but had no change in symptoms so has been changed back to Prevacid which she starts tomorrow. She complains of a decreased appetite but denies any early satiety or unexplained weight loss. DDX: Acid versus non acid reflux versus esophagitis versus peptic ulcer disease versus motility disorder versus pill esophagitis versus delayed gastric emptying NPO after midnight Plan for EGD tomorrow with Dr. Linder Continue acid suppression and antiemetic Further recommendations to follow endoscopy 2. Cholelithiasis/cholecystitis/cholecystostomy tube: CT showed cholelithiasis with gallbladder wall thickening. Surgery is on the patient's case. Gallbladder fluid positive for Enterococcus species. Patient had a cholecystostomy tube placed 10/22/2023 is currently on Flagyl and Rocephin. Patient's cholecystostomy tube draining dark green bile. Management per surgery 3. Macrocytic anemia: Labs today showed WBC 7, HGB 10, HCT 33, MCV 104, platelets 192. So signs of GI bleeding. Low protein and albumin may be dietary deficiency vs medication vs hypothyroidism. Will check B12 and folate, primary care team to supplement if deficient 4. Constipation: Patient states she has not had a bowel movement since admission on the . Patient is on opioid pain relievers and Zofran which are likely a contributing factor in combination with inactivity. CT on 10/19/2024 showed no small or large bowel dilation or signs of obstruction. Start Amitiza 24 mcg BID which patient should stay on as long as she is requiring opioid pain medications Thank you very much for allowing me to share in the care of this very nice patient. This report may have been done utilizing a voice recognition system. Attempts have been made to correct errors. However, there may be uncorrected grammatical, spelling, and recognition errors present. GI Consult Note Consult date/time: 10/23/24 14:36 Reason for consult: Epigastric pain HPI: Ashley Gardner is a 69 year old female with history of asthma, diabetes, fatty liver, PVD, CKD, spinal stenosis, depression, HTN, gout, diverticulitis, anxiety, HLD, hypothyroidism, history of C diff, and hysterectomy. Patient presented to the ER 10/20/2024 with complaints of abdominal pain. GI consulted for epigastric pain. Patient was seen in the ER 10/19/2024 at which time she was diagnosed with cholelithiasis and patient was discharged back to the intermediate with plans of outpatient management of gallstones. Patient presented back to the emergency room on the with worsening abdominal pain. Patient had a cholecystostomy tube placed 10/21/2024 but continues to complain of abdominal pain. Patient complains of severe epigastric pain that she describes as a burning stabbing sensation or a sharp pain. This pain occurs after any p.o. intake including food or liquids. She complains of frequent nausea without vomiting. She was previously on Protonix this admission but had no change in symptoms so was changed to Prevacid which she will restart tomorrow. She complains of a poor appetite and constipation. Patient states she has not had a bowel movement since her admission 3 days ago. Patient was unable to say if she has ever had a EGD. She denies bloating, odynophagia, dysphagia, regurgitation, unexplained weight loss, diarrhea, hematochezia, or melena. She denies any NSAID, aspirin, or anticoagulant use. She is a nondrinker nonsmoker denies marijuana use. ENDOSCOPY HISTORY: EGD: Patient does not believe she has ever had an EGD COLONOSCOPY: Per patient last colonoscopy around 5 years ago, results unknown LABS AND STOOL STUDIES: Labs 10/23/2024: Sodium 138, potassium 3.9, BUN 10, creatinine 1.19, GFR 45, calcium 8.0 WBC 7, HGB 10, HCT 33, MCV 104, platelets 192 Total bilirubin 0.2, AST 15, ALT 8, alkaline phosphatase 72, albumin 2.6 Lipase normal 43 IMAGING: Cholecystostomy : IMPRESSION: 1. Successful ultrasound-guided cholecystostomy tube placement. 2. 50 mL bile was sent for aerobic, anaerobic, and fungal cultures. 3. The catheter will be managed by Dr. Marquez. A catheter cholangiogram may be performed not less than 48 hours after tube placement if clinically indicated to assess cystic duct patency. If cholecystectomy is not eventually performed and the infectious episode has resolved, the tube may be removed over a guidewire, preferably not less than 3 weeks after placement to allow time for a mature catheter tract to form to prevent bile leakage and peritonitis. HIDA scan 10/21/2024: FINDINGS: There is normal clearance of radiotracer from the blood pool. There is homogeneous tracer uptake by the liver. Activity progresses to the gallbladder and bowel. No gallbladder activity identified either in the initial 60 minutes of imaging on the 30 minutes following morphine administration consistent with acute cholecystitis. IMPRESSION: 1. No evident gallbladder activity consistent with acute cholecystitis. [facility] ultrasound 10/19/2024: FINDINGS: The pancreas is not well visualized. The liver is normal with normal echogenicity and echotexture. No surface nodularity. Normal hepatopetal flow in the main portal vein. Multiple gallstones. Gallbladder wall thickness 4 mm. No pericholecystic fluid. The common bile duct measures 3 mm. There was no sonographic Castellanos sign. IMPRESSION: Cholelithiasis with gallbladder wall thickening. Negative sonographic Castellanos sign. CT abd/pelvis w/contrast 10/19/2024: FINDINGS: Exam is limited by beam hardening from arm down positioning, motion, and body habitus. Lower thorax: Coronary artery calcification. Mild cardiomegaly. Septal thickening. Segmental left basilar consolidation. Minimal dependent right basilar atelectasis. Small volume bilateral pleural fluid collections with pleural thickening on the left. Liver: Normal. Biliary/Gallbladder: Cholelithiasis. Possible gallbladder wall thickening, noting that evaluation is limited by above-mentioned artifacts. No bile duct dilation. Pancreas: Fatty replacement. Spleen: Normal. Adrenals:No mass. Kidneys: No suspicious mass, obstructing stone, or hydronephrosis. GI tract: No small or large bowel dilation. Normal appendix. Diverticulosis without diverticulitis. Mesentery/Peritoneum: No ascites, mass, or free air. Retroperitoneum: No mass. Atherosclerotic calcifications of intra-abdominal arterial vessels. Pelvis: Distended urinary bladder without wall thickening. Absent uterus. Bilateral ovaries not confidently identified. Soft Tissues: Soft tissues and body wall unremarkable. Bones: No acute osseous finding. Multilevel severe degenerative disc disease and facet arthropathy. Multilevel severe bilateral neural foraminal narrowing and central canal narrowing secondary to degenerative changes. IMPRESSION: Mild interstitial edema. Segmental left basilar atelectasis/consolidation. Small bilateral pleural effusions. The left effusion is accompanied by pleural thickening. Cholelithiasis, with possible gallbladder wall thickening. Consider right upper quadrant ultrasound. Distended urinary bladder, correlate for symptoms of urinary retention. Review of Systems Constitutional: Constitutional: Reports as per HPI ENT: Reports as per HPI Cardiovascular: Cardiovascular: Reports as per HPI, Denies chest pain and Denies dyspnea Respiratory: Respiratory: Denies cough, Denies dyspnea and Reports dyspnea on exertion Gastrointestinal: Gastrointestinal: Reports as per HPI Musculoskeletal: Musculoskeletal: Reports as per HPI Integumentary/Breasts: Skin/Breast: Reports as per HPI Psychiatric: Psychiatric: Reports as per HPI Endocrine: Endocrine: Reports no additional endocrine complaints Hematologic/Lymphatic: Hematologic/Lymphatic: Reports no additional hematologic/lymphatic complaints [facility], [facility] Past Medical History Medical History Asthma Type 2 diabetes mellitus Fatty liver Overactive bladder Peripheral vascular disease Anemia Chronic kidney disease Spinal stenosis Depression Hypertension Gout Diverticulitis Cognitive communication deficit Anxiety Hyperlipidemia Hypothyroidism C. difficile colitis Surgical History Surgical History History of hysterectomy History of knee replacement, total Right Social History Social History Smoking status: Unknown if ever smoked Alcohol intake: never Substance use: never Do You Feel Safe in your Home?: Yes Lack of Transportation: No Lack of Food: Never True Current Housing: I Have Housing Concerned About Future Housing: No Difficulty Paying Gas/Electric Bills: No Difficulty Paying for Meds: No Currently Unemployed: No Education: Don't Know Difficulty w/ Childcare or Family Care: No Spiritual care concerns: No Meds Home Medications and Allergies Home Medications Medication Instructions Recorded Confirmed Type hydrocodone 5 mg-acetaminophen 325 1 tablet PO Q6H PRN pain #12 tabs 10/19/24 10/20/24 Rx mg tablet ondansetron 4 mg disintegrating 4 mg PO Q6H PRN nausea and 10/19/24 10/20/24 Rx tablet vomiting #10 tabs Bacillus coagulans-inulin 1 1 cap PO DAILY 10/20/24 10/20/24 History billion cell-250 mg capsule allopurinol 100 mg tablet 200 mg PO DAILY 10/20/24 10/20/24 History alprazolam 0.5 mg tablet 0.25 mg PO HS 10/20/24 10/20/24 History biotin 1 mg capsule 1 mg PO DAILY 10/20/24 10/20/24 History bisacodyl 10 mg rectal suppository 10 mg RECTAL DAILY PRN constipation 10/20/24 10/20/24 History cetirizine 10 mg capsule 10 mg PO DAILY 10/20/24 10/20/24 History cilostazol 100 mg tablet 100 mg PO BID 10/20/24 10/20/24 History cinnamon bark 500 mg capsule 1,000 mg PO BID 10/20/24 10/20/24 History (Cinnamon) docusate sodium 100 mg capsule 200 mg PO Q12H PRN constipation 10/20/24 10/20/24 History (Colace) escitalopram oxalate 20 mg tablet 20 mg PO DAILY 10/20/24 10/20/24 History ferrous sulfate 324 mg (65 mg 325 mg PO TID 10/20/24 10/20/24 History iron) tablet,delayed release fluticasone propionate 50 2 spray intranasal DAILY 10/20/24 10/20/24 History mcg/actuation nasal spray,suspension levothyroxine 50 mcg tablet 50 mcg PO 5XW 10/20/24 10/20/24 History (Euthyrox) levothyroxine 50 mcg tablet 100 mcg PO .twice a week 10/20/24 10/20/24 History (Euthyrox) losartan 50 mg tablet 50 mg PO DAILY 10/20/24 10/20/24 History magnesium citrate 296 ml PO DAILY PRN constipation 10/20/24 10/20/24 History magnesium hydroxide 400 mg/5 mL 30 ml PO HS PRN constipation 10/20/24 10/20/24 History oral suspension (Milk of Magnesia) magnesium oxide 400 mg (241.3 mg 400 mg PO TID 10/20/24 10/20/24 History magnesium) tablet metformin 500 mg tablet 500 mg PO BID 10/20/24 10/20/24 History metoprolol tartrate 50 mg tablet 50 mg PO BID 10/20/24 10/20/24 History ondansetron 4 mg disintegrating 4 mg PO Q6H PRN nausea and vomiting 10/20/24 10/20/24 History tablet oxybutynin chloride 5 mg 5 mg PO DAILY 10/20/24 10/20/24 History tablet,extended release 24 hr potassium chloride 20 mEq 20 meq PO DAILY 10/20/24 10/20/24 History tablet,extended release(part/cryst) sodium phosphates 19 gram-7 118 ml RECTAL DAILY PRN 10/20/24 10/20/24 History gram/118 mL enema constipation lansoprazole 15 mg capsule,delayed 15 mg PO QAM 10/23/24 10/23/24 History release (Prevacid 24Hr) Allergies Allergy/AdvReac Type Severity Reaction Status Date / Time No Known Allergies Allergy Verified 10/19/24 10:38 Vital Signs Vital Signs - 24 hr 10/22/24 17:50 10/22/24 20:00 10/22/24 21:53 Temperature Pulse Rate 81 68 Respiratory Rate 20 Blood Pressure Pulse Oximetry 94 Oxygen Delivery Room Air Room Air Fraction of Inspired Oxygen 21 10/22/24 22:00 10/23/24 06:00 10/23/24 08:48 Temperature 97.3 F L 97.5 F L Pulse Rate 82 80 80 Respiratory Rate 18 18 Blood Pressure 129/63 143/77 H Pulse Oximetry 97 100 Oxygen Delivery Fraction of Inspired Oxygen 10/23/24 09:00 Temperature Pulse Rate Respiratory Rate Blood Pressure Pulse Oximetry Oxygen Delivery Room Air Fraction of Inspired Oxygen Exam Const: General: cooperative, healthy appearing, no acute distress, well developed, uncomfortable and obese Orientation/consciousness: oriented to person, oriented to place, oriented to time and patient oriented x3 HENMT: Head: normal to inspection, normocephalic and atraumatic Mouth: Yes Normal oral and palatal mucosa present and Yes moist mucous membranes Eyes: General: appearance normal, both eyes and all related structures Conjunctivae: conjunctivae normal Sclera: sclerae normal Pupils: Equal, round and reactive pupils present Neck: Neck: normal visual inspection Chest: Chest palpation & inspection: normal inspection of the chest Resp: Effort & Inspection: normal respiratory effort and able to speak in complete sentences Auscultation: clear to auscultation bilaterally Cardio: Jugular venous distension: no JVD Rate: regular rate Rhythm: regular rhythm Heart sounds: S1 normal heart sound present and S2 normal heart sound present GI: Inspection: normal to inspection GI Palp: Yes Soft to palpation and Yes No hepatosplenomegaly present Auscultation: normal bowel sounds Rectal Exam: deferred Other: Cholecystostomy tube and right upper quadrant draining dark green bile Skin: General skin exam: normal color and no rashes or lesions noted Other: bruising on stomach Neuro: General: oriented to person, oriented to place, oriented to time and patient oriented x3 Cranial nerves: Yes Equal, round and reactive pupils present Speech: normal speech Extrem: General: normal to inspection and no clubbing, cyanosis or edema Psych: Appearance: grossly normal and well kempt Affect: normal affect Results Labs 10/23/24 07:45 10/23/24 07:45 Labs: Short CBC 10/23/24 Range/Units 07:45 WBC 7.4 (4.5-10.0) K/mm3 Hgb 9.9 L (12.0-15.0) g/dL Hct 33.0 L (37.0-47.0) % Plt Count 192 (150-375) k/mm3 BMP 10/23/24 07:45 Sodium 138 Potassium 3.9 Chloride 109 H Carbon Dioxide 25 BUN 10 Creatinine 1.19 H Glucose 109 Calcium 8.0 L Liver Function 10/23/24 Range/Units 07:45 Total Bilirubin 0.2 (0.2-1.3) mg/dL AST 15 (14-36) U/L ALT 8 (6-35) U/L Alkaline Phosphatase 77 (38-126) U/L Albumin 2.6 L (3.5-5.1) g/dL
[2024-10-23] MEDS: MAG HYDROX/AL HYDROX/SIMETH 30 ML UDC PO (16:15)
[2024-10-23 17:01] VITALS: PULSE 80
[2024-10-23] MEDS: metroNIDAZOLE 500 MG TABLET PO ×2 (17:01→21:50)
[2024-10-23] MEDS: AMOXICILLIN/CLAVULANATE K 875-125 MG TAB 1 TABLET PO ×2 (17:01→23:59)
[2024-10-23 18:09] LABS: Glucose Point of Care 131 mg/dl (65-105)
[2024-10-23] MEDS: LUBIPROSTONE 24 MCG CAPSULE PO (18:10)
[2024-10-23] MEDS: ALPRAZolam (*CRX) 0.25 MG TABLET PO (20:25)
[2024-10-23 20:32] VITALS: BP 106/55; PULSE 76; RESP 20; TEMP 36.6; O2SAT 97
[2024-10-23 20:48] LABS: Glucose Point of Care 151 mg/dl (65-105)
[2024-10-24] VITALS (8 sets, daily range): BP systolic 90–127; BP diastolic 39–103; PULSE 77–95; RESP 16–22; TEMP 36.1–36.5; O2SAT 93–98
[2024-10-24] MEDS: DEXTROSE 5%/0.9% SOD CHL 1,000 ML 100 ML IV CONT ×2 (04:45→16:44)
[2024-10-24 04:59] LABS: Basophils Percent Auto 0.3 % (0.2-1.2); Eosinophils Absolute Auto 0.3 K/mm3 (0-0.3); Eosinophils Percent Auto 3.6 % (0-4.4); Hematocrit 31.2 % (37.0-47.0); Hemoglobin 9.6 g/dL (12.0-15.0); Immature Granulocyte Absolute 0.09 K/mm3 (0.00-0.031); Lymphocytes Absolute Auto 0.73 K/mm3 (0.9-3.2); Lymphocytes Percent Auto 8.4 % (18.3-44.2); Mean Corpuscular HGB Conc 30.8 g/dl (32-36); Mean Corpuscular Hemoglobin 31.9 pg (26-34); Mean Corpuscular Volume 103.7 fl (80-100); Mean Platelet Volume 10.2 fl (7.4-10.4); Monocytes Absolute Auto 0.6 K/mm3 (0.1-0.6); Monocytes Percent Auto 6.3 % (2.6-8.5); Neutrophils Percent Auto 80.4 % (45.5-73.1); Nucleated Red Blood Cells Perc 0.2 % (0.0-0.2); Platelet Count Result 196 k/mm3 (150-375); Red Blood Count 3.01 M/mm3 (4.2-5.4); Red Cell Distribution Width 16.7 % (11.5-14.5); White Blood Count 8.7 K/mm3 (4.5-10.0)
[2024-10-24 05:19] LABS: Alanine Aminotransferase 7 U/L (6-35); Albumin Level 2.4 g/dL (3.5-5.1); Alkaline Phosphatase 69 U/L (38-126); Anion Gap 4 mmol/L (4-12); Aspartate Amino Transferase 13 U/L (14-36); Bilirubin,Total 0.3 mg/dL (0.2-1.3); Blood Urea Nitrogen 8 mg/dL (7-17); Calcium 8.2 mg/dL (8.4-10.2); Carbon Dioxide 23 mmol/L (22-30); Chloride 111 mmol/L (98-107); Estimated CRCL calculation 58 ml/min; Estimated Glomerular Filt Rate 47; Glucose 117 mg/dL (65-110); Potassium 3.8 mmol/L (3.4-5.0); Sodium 138 mmol/L (137-145)
[2024-10-24 06:19] LABS: Folic Acid 8.7 ng/mL (2.76->20); Vitamin B12 > 1000.0 pg/mL (239-931)
--- NOTE | 2024-10-24 06:57 | PM.IMPN ---
Progress Note: A&P Assessment and Plan (1) Cholelithiasis with acute cholecystitis: Qualifiers: Biliary obstruction: with biliary obstruction Qualified Code(s): K80.01 - Calculus of gallbladder with acute cholecystitis with obstruction Code(s): K80.00 - Calculus of gallbladder with acute cholecystitis without obstruction Status: Acute Assessment and Plan: Monitor vital signs, I and O's Monitor serum electrolytes and CBC IV pain management Gentle IV fluid resuscitation POD 3 Cholecystotomy, Gen Surg following Continue Flagyl and Rocephin Diet: Liquids, advance to low fat diabetic today (2) Epigastric pain: Code(s): R10.13 - Epigastric pain Status: Acute Assessment and Plan: Diagnosed with cholelithiasis upon arrival to ED on 10/19, originally discharged but came back to ER on 10/20 Cholecystotomy tube on 10/21, continues to complain of epigastric abdominal pain with meals CTA: No PE or aortic dissection, moderate bilateral pleural effusion with adjacent atelectasis versus pneumonia, tracheobronchomalacia, nodule in the right lower lobe, recommend 6 months follow-up CT EKG: NSR Maalox ordered, symptoms resolved significantly GI consulted, recommend continuing as suppression, starting Amitiza 24 mcg b.i.d. and checking B12/folate EGD today: Reflux esophagitis, grade D. Few aphthous benign ulcers visualized in duodenal bulb. Multiple biopsies taken. (3) Chronic kidney disease: Code(s): N18.9 - Chronic kidney disease, unspecified Status: Chronic Assessment and Plan: -Creatinine: 1.13, GFR: 47, BUN: 8 -Trend renal function -trend electrolytes, correct as needed -Stable (4) Anemia: Code(s): D64.9 - Anemia, unspecified Status: Chronic Assessment and Plan: - Hgb 9.6 - transfuse if <7 - trend H&H - Stable (5) Asthma: Code(s): J45.909 - Unspecified asthma, uncomplicated Status: Chronic Assessment and Plan: - Oxygen requirement: None - Stable (6) Type 2 diabetes mellitus: Code(s): E11.9 - Type 2 diabetes mellitus without complications Status: Chronic Assessment and Plan: - hypoglycemia protocol - POC blood glucose ACHS - home medication - Metformin 500mg - A1C 4.8 (7) Morbid obesity: Code(s): E66.01 - Morbid (severe) obesity due to excess calories Status: Chronic Assessment and Plan: - BMI 51.7 kg/m Time Spent With Patient Time: Subjective Date/time seen: 10/24/24 06:57 Interval history: 69-year-old female presenting with abdominal pain. Patient was here yesterday and diagnosed with cholelithiasis and was able to be discharged home with plans for outpatient management. 10/24/2024 Patient sitting in bed at time of exam. Patient states that she is feeling much better today and her pain has mostly resolved. EGD today. Exam benign, recurrent continue low carb diet and antibiotics after procedure. Review of Systems Review of Systems: - CONSTITUTIONAL: Denies weight loss, fever and chills. - HEENT: Denies changes in vision and hearing - RESPIRATORY: Denies SOB and cough. - CV: Denies palpitations and CP. - GI: Improving abdominal pain, denies nausea, vomiting or diarrhea. - : Denies dysuria and urinary frequency. - MSK: Denies myalgia and joint pain. - SKIN: Denies rash and pruritus. - NEUROLOGICAL: Denies headache and syncope. - PSYCHIATRIC: Denies recent changes in mood. Denies anxiety and depression. All systems reviewed & are unremarkable except as noted in HPI and below Exam Narrative: GENERAL: Ill-appearing but nontoxic, no acute distress HEAD: Normocephalic, atraumatic. EYES: PERRLA and EOMI. ENT: Mucous membranes tacky NECK: Supple. CHEST: Clear to auscultation. No respiratory distress. HEART: Regular rate and rhythm. ABDOMEN: Soft, RUQ tenderness to palpation, but improved. No Rebound tenderness or guarding EXTREMITIES: Normal range of motion. SKIN: Warm, dry, no rash. NEURO: Alert and oriented x3. PSYCH: Normal mood and affect. Objective Data Vital Signs Vital Signs: Vital Signs - 24 hr 10/23/24 08:48 10/23/24 09:00 10/23/24 14:00 Temperature 97.5 F L Pulse Rate 80 77 Respiratory Rate 18 Blood Pressure 122/72 Pulse Oximetry 100 Oxygen Delivery Room Air 10/23/24 17:01 10/23/24 20:00 10/23/24 20:32 Temperature 97.8 F Pulse Rate 80 76 Respiratory Rate 20 Blood Pressure 106/55 L Pulse Oximetry 97 Oxygen Delivery Room Air 10/24/24 03:57 Temperature 97.7 F Pulse Rate 77 Respiratory Rate 20 Blood Pressure 124/63 Pulse Oximetry 98 Oxygen Delivery Intake/Output Intake/Output: Intake & Output 10/21/24 10/22/24 10/23/24 10/24/24 23:59 23:59 23:59 23:59 Intake Total 2300.0 2520 2000 1290 Output Total 961 356 6977 1030 Balance 1680.0 1610 640 260 Meds/Results Medications: Active Medications Generic Name Dose Route Start Last Admin Trade Name Freq PRN Reason Stop Dose Admin Acetaminophen 650 mg 10/22/24 14:00 Acetaminophen 325 Mg Tablet PO Q4H PRN Mild Pain (1-3) or Fever Hydrocodone Bitart/Acetaminophen 1 tab 10/22/24 14:00 10/22/24 17:57 Hydrocodone/Acetaminophen (*Crx) 5-325 Mg Tablet PO 1 tab Q4H PRN Administration Pain Rated 4-6 Hydrocodone Bitart/Acetaminophen 1 tab 10/22/24 14:00 10/23/24 12:10 Hydrocodone/Acetaminophen (*Crx) 10-325 Mg Tablet PO 1 tab Q6H PRN Administration Pain Rated 7-10 Allopurinol 200 mg 10/22/24 09:00 10/23/24 08:53 Allopurinol 100 Mg Tablet PO 200 mg DAILY CYNDI Administration Alprazolam 0.25 mg 10/21/24 21:00 10/23/24 20:25 Alprazolam (*Crx) 0.25 Mg Tablet PO 0.25 mg HS [facility]NDI Administration Amoxicillin/Clavulanate Potassium 1 tablet 10/23/24 14:30 10/23/24 23:59 Amoxicillin/Clavulanate K 875-125 Mg Tab PO 1 tablet Q12HR [facility] Administration Bisacodyl 10 mg 10/21/24 11:18 Bisacodyl 10 Mg Suppository RECTAL DAILY PRN constipation Calcium Carbonate 200 mg 10/23/24 13:00 10/23/24 13:15 Calcium Carbonate (Tums) 500 Mg (200 Mg Elemental) PO 200 mg Q6H PRN Administration Indigestion Cilostazol 100 mg 10/21/24 17:00 10/23/24 17:00 Cilostazol 100 Mg Tablet PO 100 mg BID CYNDI Administration Dextrose 12.5 gm 10/20/24 11:43 Dextrose 50% 25 Gm/50 Ml Syringe IV PUSH PRN PRN Hypoglycemia Protocol Docusate Sodium 200 mg 10/21/24 11:18 Docusate Sodium 100 Mg Capsule PO Q12H PRN constipation Escitalopram Oxalate 20 mg 10/22/24 09:00 10/23/24 08:52 Escitalopram Oxalate 10 Mg Tablet PO 20 mg DAILY [facility] Administration Ferrous Sulfate 325 mg 10/21/24 13:00 10/23/24 17:01 Ferrous Sulfate [address] BY MOUTH 325 mg TID [facility]I Administration Fluticasone Propionate 2 spray 10/22/24 09:00 10/23/24 08:55 Fluticasone Propionate 0.05% Na Spr 16 Gm Btl (*Bkc) NASAL 2 spray DAILY [facility] Administration Glucagon 1 mg 10/20/24 11:43 Glucagon For Inj 1 Mg Vial IM PRN PRN Hypoglycemia Protocol Glucose 15 gm 10/20/24 11:43 Glucose Oral Gel 15 Gm Of Glucse In 37.5 Gm Tube PO PRN PRN Hypoglycemia Protocol Dextrose 1,000 mls @ 100 mls/hr 10/20/24 11:43 Dextrose 5% 1,000 Ml IVPB PRN PRN Hypoglycemia Protocol Dextrose/Sodium Chloride 1,000 mls @ 100 mls/hr 10/20/24 15:20 10/24/24 04:45 Dextrose 5% Sodium Chloride 0.9% IV CONT 100 mls/hr .Q10H [facility] Administration Insulin Aspart 2 - 5 units 10/20/24 12:00 10/23/24 18:10 Insulin Aspart (*Bkc) 100 Units/Ml SUB-Q Not Given TIDWM [facility] Protocol Insulin Aspart 1 - 2 units 10/20/24 21:00 10/23/24 21:46 Insulin Aspart (*Bkc) 100 Units/Ml SUB-Q Not Given HS [facility] Protocol Lansoprazole 30 mg 10/24/24 06:30 Lansoprazole Odt 30 Mg Tab.Rap.Dr PO DAILY@30 [facility] Levothyroxine Sodium 50 mcg 10/22/24 06:30 10/23/24 05:51 Levothyroxine Sodium 50 Mcg Tablet PO 50 mcg MoTuWeThFr@0630 [facility] Administration Levothyroxine Sodium 100 mcg 10/25/24 06:30 Levothyroxine Sodium 100 Mcg Tablet PO SuSa@0630 [facility] Loratadine 10 mg 10/22/24 09:00 10/23/24 08:52 Loratadine 10 Mg Tablet PO 10 mg QAM [facility] Administration Lubiprostone 24 mcg 10/23/24 17:00 10/23/24 18:10 Lubiprostone 24 Mcg Capsule PO 24 mcg BID [facility] Administration Magnesium Citrate 296 ml 10/21/24 11:18 Magnesium Citrate 300 Ml Btl PO DAILY PRN constipation Magnesium Hydroxide 30 ml 10/21/24 11:18 Magnesium Hydroxide Susp 30 Ml Udc PO HS PRN constipation Magnesium Oxide 400 mg 10/21/24 13:00 10/23/24 17:00 Magnesium Oxide 400 Mg Tablet PO 400 mg TID [facility] Administration Metoprolol Tartrate 50 mg 10/21/24 17:00 10/23/24 17:01 Metoprolol Tartrate 50 Mg Tab PO 50 mg BID [facility] Administration Metronidazole 500 mg 10/23/24 14:00 10/23/24 21:50 Metronidazole 500 Mg Tablet PO 500 mg Q8HR [facility] Administration Morphine Sulfate 2 mg 10/20/24 11:44 10/22/24 12:32 Morphine Sulfate (*Crx) 2 Mg/Ml Inj IV PUSH 2 mg Q4H PRN Administration Pain Ondansetron HCl 4 mg 10/20/24 11:45 10/22/24 04:12 Ondansetron Inj 4 Mg/2 Ml Vial IV PUSH 4 mg Q6H PRN Administration Nausea Ondansetron HCl 4 mg 10/21/24 11:18 Ondansetron Hcl Odt 4 Mg Tablet PO Q6H PRN nausea and vomiting Oxybutynin Chloride 5 mg 10/22/24 09:00 10/23/24 08:53 Oxybutynin Chloride Xl 5 Mg Tab.Er.24 PO 5 mg DAILY [facility] Administration Potassium Chloride 20 meq 10/22/24 09:00 10/23/24 08:52 Potassium Chloride 20 Meq Er Tablet PO 20 meq DAILY [facility] Administration Tamsulosin HCl 0.4 mg 10/21/24 09:00 10/23/24 08:48 Tamsulosin Hcl 0.4 Mg Capsule PO 0.4 mg QAM [facility] Administration Radiology Results: ITS Impressions Hepatobiliary Scan Nuclear Medicine 10/21/24 14:02 IMPRESSION: 1. No evident gallbladder activity consistent with acute cholecystitis. Cholecystostomy 10/21/24 16:48 IMPRESSION: 1. Successful ultrasound-guided cholecystostomy tube placement. 2. 50 mL bile was sent for aerobic, anaerobic, and fungal cultures. 3. The catheter will be managed by Dr. Marquez. A catheter cholangiogram may be performed not less than 48 hours after tube placement if clinically indicated to assess cystic duct patency. If cholecystectomy is not eventually performed and the infectious episode has resolved, the tube may be removed over a guidewire, preferably not less than 3 weeks after placement to allow time for a mature catheter tract to form to prevent bile leakage and peritonitis. Chest CTA 10/23/24 14:42 IMPRESSION: 1. No pulmonary embolus or aortic dissection seen. 2. Moderate Bilateral pleural effusion with adjacent atelectasis versus pneumonia. 3. Tracheobronchomalacia. 4. Nodule in the right lower lobe. 6 months follow-up CT is advised. Labs Labs: Laboratory Results - last 24 hr 10/23/24 10/23/24 10/23/24 07:45 07:49 11:58 WBC 7.4 RBC 3.16 L Hgb 9.9 L Hct 33.0 L MCV 104.4 H MCH 31.3 MCHC 30.0 L RDW 16.9 H Plt Count 192 MPV 10.2 Immature Gran % (Auto) 0.9 H Neut % (Auto) 78.0 H Lymph % (Auto) 12.4 L [place] % (Auto) 4.8 Eos % (Auto) 3.5 Baso % (Auto) 0.4 Lymph # (Auto) 0.92 [place] # (Auto) 0.4 Eos # (Auto) 0.3 Baso # (Auto) 0.0 Abs Immat Gran (auto) 0.07 H Absolute Neuts (auto) 5.8 Absolute Nucleated RBC 0.000 Nucleated RBC % 0.0 Sodium 138 Potassium 3.9 Chloride 109 H Carbon Dioxide 25 Anion Gap 4 BUN 10 Creatinine 1.19 H Estim Creat Clear Calc 55 Estimated GFR 45 L Glucose 109 POC Capillary Glucose 107 H 122 H Calcium 8.0 L Total Bilirubin 0.2 AST 15 ALT 8 Alkaline Phosphatase 77 Total Protein 6.0 L Albumin 2.6 L Vitamin B12 Folate 10/23/24 10/23/24 10/24/24 18:06 20:36 04:46 WBC 8.7 RBC 3.01 L Hgb 9.6 L Hct 31.2 L MCV 103.7 H MCH 31.9 MCHC 30.8 L RDW 16.7 H Plt Count 196 MPV 10.2 Immature Gran % (Auto) 1.0 H Neut % (Auto) 80.4 H Lymph % (Auto) 8.4 L [place] % (Auto) 6.3 Eos % (Auto) 3.6 Baso % (Auto) 0.3 Lymph # (Auto) 0.73 L [place] # (Auto) 0.6 Eos # (Auto) 0.3 Baso # (Auto) 0.0 Abs Immat Gran (auto) 0.09 H Absolute Neuts (auto) 7.0 H Absolute Nucleated RBC 0.020 H Nucleated RBC % 0.2 Sodium 138 Potassium 3.8 Chloride 111 H Carbon Dioxide 23 Anion Gap 4 BUN 8 Creatinine 1.13 H Estim Creat Clear Calc 58 Estimated GFR 47 L Glucose 117 H POC Capillary Glucose 131 H 151 H Calcium 8.2 L Total Bilirubin 0.3 AST 13 L ALT 7 Alkaline Phosphatase 69 Total Protein 5.0 L Albumin 2.4 L Vitamin B12 > 1000.0 H Folate 8.7 Quality VTE Prophylaxis VTE prophylaxis: mechanical ordered
[2024-10-24] MEDS: FLUTICASONE PROPIONATE 0.05% NA SPR 16 GM BTL (*BKC) 2 SPRAY NASAL (07:45)
[2024-10-24 07:54] LABS: Glucose Point of Care 104 mg/dl (65-105)
--- NOTE | 2024-10-24 10:35 | P.PNGS_ITS ---
Progress Note: A&P Assessment and Plan (1) Cholelithiasis with acute cholecystitis: Qualifiers: Biliary obstruction: with biliary obstruction Qualified Code(s): K80.01 - Calculus of gallbladder with acute cholecystitis with obstruction Code(s): K80.00 - Calculus of gallbladder with acute cholecystitis without obstruction Status: Acute Assessment and Plan: exam benign, cont low fat diet after procedure, cont drain and abx (2) Epigastric pain: Code(s): R10.13 - Epigastric pain Status: Acute Assessment and Plan: GI planning EGD today to r/o other etiologies Subjective Subjective Date/Time Seen: 10/24/24 10:35 Interval history: feeling much better today, pain largely resolved Review of Systems Review of Systems: All systems reviewed & are unremarkable except as noted in HPI and below Exam Const: General: cooperative, comfortable, no acute distress, ill appearing and obese Resp: Auscultation: diminished lung sounds Cardio: Rate: regular rate Rhythm: regular rhythm GI: Inspection: normal to inspection, non-distended, Pannus present and obesity GI Palp: No abdominal tenderness and Yes Soft to palpation Objective Data Vital Signs Vital Signs: Vital Signs - 24 hr 10/23/24 14:00 10/23/24 17:01 10/23/24 20:00 Temperature 36.4 C L Pulse Rate 77 80 Respiratory Rate 18 Blood Pressure 122/72 Pulse Oximetry 100 Oxygen Delivery Room Air 10/23/24 20:32 10/24/24 03:57 10/24/24 07:55 Temperature 36.6 C 36.5 C Pulse Rate 76 77 Respiratory Rate 20 20 Blood Pressure 106/55 L 124/63 Pulse Oximetry 97 98 Oxygen Delivery Room Air Intake/Output Intake/Output: Intake & Output 10/21/24 10/22/24 10/23/24 10/24/24 23:59 23:59 23:59 23:59 Intake Total 2300.0 2520 2000 1290 Output Total 746 113 5061 1080 Balance 1680.0 1610 640 210 Meds/Results Medications: Active Medications Generic Name Dose Route Start Last Admin Trade Name Freq PRN Reason Stop Dose Admin Acetaminophen 650 mg 10/22/24 14:00 Acetaminophen 325 Mg Tablet PO Q4H PRN Mild Pain (1-3) or Fever Hydrocodone Bitart/Acetaminophen 1 tab 10/22/24 14:00 10/22/24 17:57 Hydrocodone/Acetaminophen (*Crx) 5-325 Mg Tablet PO 1 tab Q4H PRN Administration Pain Rated 4-6 Hydrocodone Bitart/Acetaminophen 1 tab 10/22/24 14:00 10/23/24 12:10 Hydrocodone/Acetaminophen (*Crx) 10-325 Mg Tablet PO 1 tab Q6H PRN Administration Pain Rated 7-10 Allopurinol 200 mg 10/22/24 09:00 10/23/24 08:53 Allopurinol 100 Mg Tablet PO 200 mg DAILY [facility] Administration Alprazolam 0.25 mg 10/21/24 21:00 10/23/24 20:25 Alprazolam (*Crx) 0.25 Mg Tablet PO 0.25 mg HS [facility] Administration Amoxicillin/Clavulanate Potassium 1 tablet 10/23/24 14:30 10/24/24 07:42 Amoxicillin/Clavulanate K 875-125 Mg Tab PO Not Given Q12HR [facility] Bisacodyl 10 mg 10/21/24 11:18 Bisacodyl 10 Mg Suppository RECTAL DAILY PRN constipation Calcium Carbonate 200 mg 10/23/24 13:00 10/23/24 13:15 Calcium Carbonate (Tums) 500 Mg (200 Mg Elemental) PO 200 mg Q6H PRN Administration Indigestion Cilostazol 100 mg 10/21/24 17:00 10/24/24 07:42 Cilostazol 100 Mg Tablet PO Not Given BID CYNDI Dextrose 12.5 gm 10/20/24 11:43 Dextrose 50% 25 Gm/50 Ml Syringe IV PUSH PRN PRN Hypoglycemia Protocol Docusate Sodium 200 mg 10/21/24 11:18 Docusate Sodium 100 Mg Capsule PO Q12H PRN constipation Escitalopram Oxalate 20 mg 10/22/24 09:00 10/23/24 08:52 Escitalopram Oxalate 10 Mg Tablet PO 20 mg DAILY [facility] Administration Ferrous Sulfate 325 mg 10/21/24 13:00 10/24/24 07:43 Ferrous Sulfate [address] BY MOUTH Not Given TID [facility] Fluticasone Propionate 2 spray 10/22/24 09:00 10/24/24 07:45 Fluticasone Propionate 0.05% Na Spr 16 Gm Btl (*Bkc) NASAL 2 spray DAILY [facility] Administration Glucagon 1 mg 10/20/24 11:43 Glucagon For Inj 1 Mg Vial IM PRN PRN Hypoglycemia Protocol Glucose 15 gm 10/20/24 11:43 Glucose Oral Gel 15 Gm Of Glucse In 37.5 Gm Tube PO PRN PRN Hypoglycemia Protocol Dextrose 1,000 mls @ 100 mls/hr 10/20/24 11:43 Dextrose 5% 1,000 Ml IVPB PRN PRN Hypoglycemia Protocol Dextrose/Sodium Chloride 1,000 mls @ 100 mls/hr 10/20/24 15:20 10/24/24 07:41 Dextrose 5% Sodium Chloride 0.9% IV CONT Not Given .Q10H [facility] Insulin Aspart 2 - 5 units 10/20/24 12:00 10/24/24 07:42 Insulin Aspart (*Bkc) 100 Units/Ml SUB-Q Not Given TIDWM [facility] Protocol Insulin Aspart 1 - 2 units 10/20/24 21:00 10/23/24 21:46 Insulin Aspart (*Bkc) 100 Units/Ml SUB-Q Not Given HS [facility] Protocol Lansoprazole 30 mg 10/24/24 06:30 10/24/24 07:42 Lansoprazole Odt 30 Mg Tab.Rap.Dr PO Not Given DAILY@0630 [facility] Levothyroxine Sodium 50 mcg 10/22/24 06:30 10/24/24 07:42 Levothyroxine Sodium 50 Mcg Tablet PO Not Given MoTuWeThFr@0630 [facility] Levothyroxine Sodium 100 mcg 10/25/24 06:30 Levothyroxine Sodium 100 Mcg Tablet PO SuSa@0630 [facility] Loratadine 10 mg 10/22/24 09:00 10/23/24 08:52 Loratadine 10 Mg Tablet PO 10 mg QAM [facility] Administration Lubiprostone 24 mcg 10/23/24 17:00 10/24/24 07:43 Lubiprostone 24 Mcg Capsule PO Not Given BID [facility]ND[facility] Magnesium Citrate 296 ml 10/21/24 11:18 Magnesium Citrate 300 Ml Btl PO DAILY PRN constipation Magnesium Hydroxide 30 ml 10/21/24 11:18 Magnesium Hydroxide Susp 30 Ml Udc PO HS PRN constipation Magnesium Oxide 400 mg 10/21/24 13:00 10/24/24 07:43 Magnesium Oxide 400 Mg Tablet PO Not Given TID CYNDI Metoprolol Tartrate 50 mg 10/21/24 17:00 10/24/24 07:43 Metoprolol Tartrate 50 Mg Tab PO Not Given BID [facility] Metronidazole 500 mg 10/23/24 14:00 10/24/24 07:41 Metronidazole 500 Mg Tablet PO Not Given Q8HR [facility] Morphine Sulfate 2 mg 10/20/24 11:44 10/22/24 12:32 Morphine Sulfate (*Crx) 2 Mg/Ml Inj IV PUSH 2 mg Q4H PRN Administration Pain Ondansetron HCl 4 mg 10/20/24 11:45 10/22/24 04:12 Ondansetron Inj 4 Mg/2 Ml Vial IV PUSH 4 mg Q6H PRN Administration Nausea Ondansetron HCl 4 mg 10/21/24 11:18 Ondansetron Hcl Odt 4 Mg Tablet PO Q6H PRN nausea and vomiting Oxybutynin Chloride 5 mg 10/22/24 09:00 10/23/24 08:53 Oxybutynin Chloride Xl 5 Mg Tab.Er.24 PO 5 mg DAILY [facility] Administration Potassium Chloride 20 meq 10/22/24 09:00 10/23/24 08:52 Potassium Chloride 20 Meq Er Tablet PO 20 meq DAILY [facility] Administration Tamsulosin HCl 0.4 mg 10/21/24 09:00 10/23/24 08:48 Tamsulosin Hcl 0.4 Mg Capsule PO 0.4 mg QAM [facility] Administration Radiology Results: ITS Impressions Hepatobiliary Scan Nuclear Medicine 10/21/24 14:02 IMPRESSION: 1. No evident gallbladder activity consistent with acute cholecystitis. Cholecystostomy 10/21/24 16:48 IMPRESSION: 1. Successful ultrasound-guided cholecystostomy tube placement. 2. 50 mL bile was sent for aerobic, anaerobic, and fungal cultures. 3. The catheter will be managed by Dr. Marquez. A catheter cholangiogram may be performed not less than 48 hours after tube placement if clinically indicated to assess cystic duct patency. If cholecystectomy is not eventually performed and the infectious episode has resolved, the tube may be removed over a guidewire, preferably not less than 3 weeks after placement to allow time for a mature catheter tract to form to prevent bile leakage and peritonitis. Chest CTA 10/23/24 14:42 IMPRESSION: 1. No pulmonary embolus or aortic dissection seen. 2. Moderate Bilateral pleural effusion with adjacent atelectasis versus pneumonia. 3. Tracheobronchomalacia. 4. Nodule in the right lower lobe. 6 months follow-up CT is advised. Labs Labs: Laboratory Results - last 24 hr 10/23/24 10/23/24 10/23/24 11:58 18:06 20:36 WBC RBC Hgb Hct MCV MCH MCHC RDW Plt Count MPV Immature Gran % (Auto) Neut % (Auto) Lymph % (Auto) [place] % (Auto) Eos % (Auto) Baso % (Auto) Lymph # (Auto) [place] # (Auto) Eos # (Auto) Baso # (Auto) Abs Immat Gran (auto) Absolute Neuts (auto) Absolute Nucleated RBC Nucleated RBC % Sodium Potassium Chloride Carbon Dioxide Anion Gap BUN Creatinine Estim Creat Clear Calc Estimated GFR Glucose POC Capillary Glucose 122 H 131 H 151 H Calcium Total Bilirubin AST ALT Alkaline Phosphatase Total Protein Albumin Vitamin B12 Folate 10/24/24 10/24/24 04:46 07:50 WBC 8.7 RBC 3.01 L Hgb 9.6 L Hct 31.2 L MCV 103.7 H MCH 31.9 MCHC 30.8 L RDW 16.7 H Plt Count 196 MPV 10.2 Immature Gran % (Auto) 1.0 H Neut % (Auto) 80.4 H Lymph % (Auto) 8.4 L [place] % (Auto) 6.3 Eos % (Auto) 3.6 Baso % (Auto) 0.3 Lymph # (Auto) 0.73 L [place] # (Auto) 0.6 Eos # (Auto) 0.3 Baso # (Auto) 0.0 Abs Immat Gran (auto) 0.09 H Absolute Neuts (auto) 7.0 H Absolute Nucleated RBC 0.020 H Nucleated RBC % 0.2 Sodium 138 Potassium 3.8 Chloride 111 H Carbon Dioxide 23 Anion Gap 4 BUN 8 Creatinine 1.13 H Estim Creat Clear Calc 58 Estimated GFR 47 L Glucose 117 H POC Capillary Glucose 104 Calcium 8.2 L Total Bilirubin 0.3 AST 13 L ALT 7 Alkaline Phosphatase 69 Total Protein 5.0 L Albumin 2.4 L Vitamin B12 > 1000.0 H Folate 8.7
[2024-10-24 11:25] LABS: Glucose Point of Care 109 mg/dl (65-105)
[2024-10-24] MEDS: LACTATED RINGERS 1,000 ML 150 ML IV CONT (12:29)
--- NOTE | 2024-10-24 12:30 | WPDANESEPPF ---
Anes - Initial Pre Proc Eval Procedure: Operation Date: 10/20/24 15:00 Proposed Procedures p Laparoscopic Cholecystectomy - Alexandra Marquez MD Operation Date: 10/24/24 15:00 Proposed Procedures p Esophagogastroduodenoscopy - Yakov Ragsdale MD Date/Time: 10/24/24 12:30 Surgeon: Akash Walden PA-C Pre Op Diagnosis: cholecystits Patient Data Age: 69 Gender: F Height: 1.65 m Weight: 141 kg Last Vital Signs Temp 97.7 F 10/24/24 03:57 Pulse 77 10/24/24 03:57 Resp 20 10/24/24 03:57 BP 124/63 10/24/24 03:57 Pulse Ox 98 10/24/24 03:57 O2 Del Method Room Air 10/24/24 10:27 FiO2 21 10/22/24 21:53 Allergies Allergy/AdvReac Type Severity Reaction Status Date / Time No Known Allergies Allergy Verified 10/24/24 12:31 Home Medications Medication Instructions Recorded Confirmed Type hydrocodone 5 mg-acetaminophen 325 1 tablet PO Q6H PRN pain #12 tabs 10/19/24 10/20/24 Rx mg tablet ondansetron 4 mg disintegrating 4 mg PO Q6H PRN nausea and 10/19/24 10/20/24 Rx tablet vomiting #10 tabs Bacillus coagulans-inulin 1 1 cap PO DAILY 10/20/24 10/20/24 History billion cell-250 mg capsule allopurinol 100 mg tablet 200 mg PO DAILY 10/20/24 10/20/24 History alprazolam 0.5 mg tablet 0.25 mg PO HS 10/20/24 10/20/24 History biotin 1 mg capsule 1 mg PO DAILY 10/20/24 10/20/24 History bisacodyl 10 mg rectal suppository 10 mg RECTAL DAILY PRN constipation 10/20/24 10/20/24 History cetirizine 10 mg capsule 10 mg PO DAILY 10/20/24 10/20/24 History cilostazol 100 mg tablet 100 mg PO BID 10/20/24 10/20/24 History cinnamon bark 500 mg capsule 1,000 mg PO BID 10/20/24 10/20/24 History (Cinnamon) docusate sodium 100 mg capsule 200 mg PO Q12H PRN constipation 10/20/24 10/20/24 History (Colace) escitalopram oxalate 20 mg tablet 20 mg PO DAILY 10/20/24 10/20/24 History ferrous sulfate 324 mg (65 mg 325 mg PO TID 10/20/24 10/20/24 History iron) tablet,delayed release fluticasone propionate 50 2 spray intranasal DAILY 10/20/24 10/20/24 History mcg/actuation nasal spray,suspension levothyroxine 50 mcg tablet 50 mcg PO 5XW 10/20/24 10/20/24 History (Euthyrox) levothyroxine 50 mcg tablet 100 mcg PO .twice a week 10/20/24 10/20/24 History (Euthyrox) losartan 50 mg tablet 50 mg PO DAILY 10/20/24 10/20/24 History magnesium citrate 296 ml PO DAILY PRN constipation 10/20/24 10/20/24 History magnesium hydroxide 400 mg/5 mL 30 ml PO HS PRN constipation 10/20/24 10/20/24 History oral suspension (Milk of Magnesia) magnesium oxide 400 mg (241.3 mg 400 mg PO TID 10/20/24 10/20/24 History magnesium) tablet metformin 500 mg tablet 500 mg PO BID 10/20/24 10/20/24 History metoprolol tartrate 50 mg tablet 50 mg PO BID 10/20/24 10/20/24 History ondansetron 4 mg disintegrating 4 mg PO Q6H PRN nausea and vomiting 10/20/24 10/20/24 History tablet oxybutynin chloride 5 mg 5 mg PO DAILY 10/20/24 10/20/24 History tablet,extended release 24 hr potassium chloride 20 mEq 20 meq PO DAILY 10/20/24 10/20/24 History tablet,extended release(part/cryst) sodium phosphates 19 gram-7 118 ml RECTAL DAILY PRN 10/20/24 10/20/24 History gram/118 mL enema constipation lansoprazole 15 mg capsule,delayed 15 mg PO QAM 10/23/24 10/23/24 History release (Prevacid 24Hr) Laboratory Tests 10/23/24 10/23/24 10/24/24 18:06 20:36 04:46 WBC 8.7 K/mm3 (4.5-10.0) RBC 3.01 L M/mm3 (4.2-5.4) Hgb 9.6 L g/dL (12.0-15.0) Hct 31.2 L % (37.0-47.0) MCV 103.7 H fl (80-100) MCH 31.9 pg (26-34) MCHC 30.8 L g/dl (32-36) RDW 16.7 H % (11.5-14.5) Plt Count 196 k/mm3 (150-375) MPV 10.2 fl (7.4-10.4) Immature Gran % (Auto) 1.0 H % (0-0.5) Neut % (Auto) 80.4 H % (45.5-73.1) Lymph % (Auto) 8.4 L % (18.3-44.2) Republic % (Auto) 6.3 % (2.6-8.5) Eos % (Auto) 3.6 % (0-4.4) Baso % (Auto) 0.3 % (0.2-1.2) Lymph # (Auto) 0.73 L K/mm3 (0.9-3.2) Republic # (Auto) 0.6 K/mm3 (0.1-0.6) Eos # (Auto) 0.3 K/mm3 (0-0.3) Baso # (Auto) 0.0 K/mm3 (0.0-0.1) Abs Immat Gran (auto) 0.09 H K/mm3 (0.00-0.031) Absolute Neuts (auto) 7.0 H K/mm3 (1.3-6.7) Absolute Nucleated RBC 0.020 H K/mm3 (0.0-0.012) Nucleated RBC % 0.2 % (0.0-0.2) Sodium 138 mmol/L (137-145) Potassium 3.8 mmol/L (3.4-5.0) Chloride 111 H mmol/L (98-107) Carbon Dioxide 23 mmol/L (22-30) Anion Gap 4 mmol/L (4-12) BUN 8 mg/dL (7-17) Creatinine 1.13 H mg/dL (0.7-1.0) Estim Creat Clear Calc 58 ml/min Estimated GFR 47 L (59 - ) Glucose 117 H mg/dL (65-110) POC Capillary Glucose 131 H mg/dl 151 H mg/dl (65-105) (65-105) Calcium 8.2 L mg/dL (8.4-10.2) Total Bilirubin 0.3 mg/dL (0.2-1.3) AST 13 L U/L (14-36) ALT 7 U/L (6-35) Alkaline Phosphatase 69 U/L (38-126) Total Protein 5.0 L g/dL (6.3-8.2) Albumin 2.4 L g/dL (3.5-5.1) Vitamin B12 > 1000.0 H pg/mL (239-931) Folate 8.7 ng/mL (2.76->20) 10/24/24 10/24/24 07:50 11:20 WBC RBC Hgb Hct MCV MCH MCHC RDW Plt Count MPV Immature Gran % (Auto) Neut % (Auto) Lymph % (Auto) Republic % (Auto) Eos % (Auto) Baso % (Auto) Lymph # (Auto) Republic # (Auto) Eos # (Auto) Baso # (Auto) Abs Immat Gran (auto) Absolute Neuts (auto) Absolute Nucleated RBC Nucleated RBC % Sodium Potassium Chloride Carbon Dioxide Anion Gap BUN Creatinine Estim Creat Clear Calc Estimated GFR Glucose POC Capillary Glucose 104 mg/dl 109 H mg/dl (65-105) (65-105) Calcium Total Bilirubin AST ALT Alkaline Phosphatase Total Protein Albumin Vitamin B12 Folate Patient hx anesthesia problems: none Family hx anesthesia problems: none Results Review: All pre-operative results and documents have been reviewed as part of the pre-operative evaluation. [facility] Past Medical History Medical History Asthma Type 2 diabetes mellitus Fatty liver Overactive bladder Peripheral vascular disease Anemia Chronic kidney disease Spinal stenosis Depression Hypertension Gout Diverticulitis Cognitive communication deficit Anxiety Hyperlipidemia Hypothyroidism C. difficile colitis Surgical History Surgical History History of hysterectomy History of knee replacement, total Right Social History Social History Smoking status: Unknown if ever smoked Alcohol intake: never Substance use: never Do You Feel Safe in your Home?: Yes Lack of Transportation: No Lack of Food: Never True Current Housing: I Have Housing Concerned About Future Housing: No Difficulty Paying Gas/Electric Bills: No Difficulty Paying for Meds: No Currently Unemployed: No Education: Don't Know Difficulty w/ Childcare or Family Care: No Spiritual care concerns: No Anes - Eval Final PreProcedure Day of Procedure 10/24/24 12:30 Patient weight: super morbidly obese Heart: regular rate and rhythm Lungs: clear to auscultation Airway: Mallampati scale class III Neurological: alert and oriented Last oral intake: >/= 8 hours ASA classification: IV Emergent: no Anesthetic plan: proceed Anesthesia type and monitoring: general GIVS and standard monitoring Results Review: All pre-operative results and documents have been reviewed as part of the pre-operative evaluation. Informed Consent: The patient's anesthetic plan and its attendant risks and benefits were discussed with the patient/family/POA. Questions were solicited and answers provided to the satisfaction of the patient/family/POA.
[2024-10-24] MEDS: BENZOCAINE (*SP) 60 ML SPRAY CAN (HURRICAINE) 1 SPRAY MUCOUS MEM (12:40)
[2024-10-24] MEDS: ESCITALOPRAM OXALATE 10 MG TABLET 20 MG PO (14:22)
[2024-10-24] MEDS: LORATADINE 10 MG TABLET PO (14:22)
[2024-10-24] MEDS: allopurinoL 100 MG TABLET 200 MG PO (14:22)
[2024-10-24] MEDS: POTASSIUM CHLORIDE 20 MEQ ER TABLET PO (14:23)
[2024-10-24] MEDS: oxyBUTYnin CHLORIDE XL 5 MG TAB.ER.24 PO (14:23)
[2024-10-24] MEDS: TAMSULOSIN HCL 0.4 MG CAPSULE PO (14:23)
[2024-10-24] MEDS: metroNIDAZOLE 500 MG TABLET PO ×2 (14:25→20:37)
[2024-10-24] MEDS: SUCRALFATE SUSP 100 MG/ML 10 ML UDC 1000 MG PO ×2 (16:44→20:35)
[2024-10-24] MEDS: METOPROLOL TARTRATE 50 MG TAB PO (16:45)
[2024-10-24] MEDS: MAGNESIUM OXIDE 400 MG TABLET PO (16:45)
[2024-10-24] MEDS: cilostazoL 100 MG TABLET PO (16:45)
[2024-10-24] MEDS: FERROUS SULFATE 325 MG TABLET DR BY MOUTH (16:46)
[2024-10-24] MEDS: LUBIPROSTONE 24 MCG CAPSULE PO (16:46)
[2024-10-24 17:25] LABS: Glucose Point of Care 150 mg/dl (65-105)
[2024-10-24] MEDS: PANTOPRAZOLE 40 MG TABLET PO (20:35)
[2024-10-24] MEDS: ALPRAZolam (*CRX) 0.25 MG TABLET PO (20:35)
[2024-10-24] MEDS: AMOXICILLIN/CLAVULANATE K 875-125 MG TAB 1 TABLET PO (20:35)
[2024-10-24] MEDS: HYDROcodone/acetaminophen (*CRX) 10-325 MG TABLET 1 TAB PO (20:41)
[2024-10-24 20:47] LABS: Glucose Point of Care 126 mg/dl (65-105)
[2024-10-25] MEDS: DEXTROSE 5%/0.9% SOD CHL 1,000 ML 100 ML IV CONT ×2 (02:50→13:24)
[2024-10-25 04:51] VITALS: BP 98/48; PULSE 78; RESP 20; TEMP 36.5; O2SAT 98
[2024-10-25] MEDS: LANSOPRAZOLE ODT 30 MG TAB.RAP.DR PO (06:16)
[2024-10-25] MEDS: metroNIDAZOLE 500 MG TABLET PO ×2 (06:16→13:25)
[2024-10-25] MEDS: SUCRALFATE SUSP 100 MG/ML 10 ML UDC 1000 MG PO ×4 (06:16→20:59)
[2024-10-25] MEDS: HYDROcodone/acetaminophen (*CRX) 10-325 MG TABLET 1 TAB PO ×2 (06:18→21:03)
[2024-10-25] MEDS: LEVOTHYROXINE SODIUM 100 MCG TABLET PO (06:21)
--- NOTE | 2024-10-25 07:05 | PM.IMPN ---
Progress Note: A&P Assessment and Plan (1) Cholelithiasis with acute cholecystitis: Qualifiers: Biliary obstruction: with biliary obstruction Qualified Code(s): K80.01 - Calculus of gallbladder with acute cholecystitis with obstruction Code(s): K80.00 - Calculus of gallbladder with acute cholecystitis without obstruction Status: Acute Assessment and Plan: Monitor vital signs, I and O's Monitor serum electrolytes and CBC IV pain management Gentle IV fluid resuscitation POD 3 Cholecystotomy, Gen Surg following Continue Flagyl and Rocephin Diet: Liquids, advance to low fat diabetic today (2) Epigastric pain: Code(s): R10.13 - Epigastric pain Status: Acute Assessment and Plan: Diagnosed with cholelithiasis upon arrival to ED on 10/19, originally discharged but came back to ER on 10/20 Cholecystotomy tube on 10/21, continues to complain of epigastric abdominal pain with meals CTA: No PE or aortic dissection, moderate bilateral pleural effusion with adjacent atelectasis versus pneumonia, tracheobronchomalacia, nodule in the right lower lobe, recommend 6 months follow-up CT EKG: NSR Maalox ordered, symptoms resolved significantly GI consulted, recommend continuing as suppression, starting Amitiza 24 mcg b.i.d. and checking B12/folate EGD today: Reflux esophagitis, grade D. Few aphthous benign ulcers visualized in duodenal bulb. Multiple biopsies taken. (3) Ulcerative esophagitis: Code(s): K22.10 - Ulcer of esophagus without bleeding Status: Acute Assessment and Plan: EGD report 10/24: Reflux esophagitis, grade D. No gastritis, a few aphthous benign ulcers in duodenal bulb Continue with Protonix Add Carafate w/ meals Advance diet as tolerated GI following (4) Chronic kidney disease: Code(s): N18.9 - Chronic kidney disease, unspecified Status: Chronic Assessment and Plan: -Creatinine: 1.13, GFR: 47, BUN: 8 -Trend renal function -trend electrolytes, correct as needed -Stable (5) Anemia: Code(s): D64.9 - Anemia, unspecified Status: Chronic Assessment and Plan: - Hgb 9.6 - transfuse if <7 - trend H&H - Stable (6) Asthma: Code(s): J45.909 - Unspecified asthma, uncomplicated Status: Chronic Assessment and Plan: - Oxygen requirement: None - Stable (7) Type 2 diabetes mellitus: Code(s): E11.9 - Type 2 diabetes mellitus without complications Status: Chronic Assessment and Plan: - hypoglycemia protocol - POC blood glucose ACHS - home medication - Metformin 500mg - A1C 4.8 (8) Morbid obesity: Code(s): E66.01 - Morbid (severe) obesity due to excess calories Status: Chronic Assessment and Plan: - BMI 51.7 kg/m Subjective Date/time seen: 10/25/24 07:05 Interval history: 69-year-old female presenting with abdominal pain. Patient was here yesterday and diagnosed with cholelithiasis and was able to be discharged home with plans for outpatient management. 10/25/2024 Patient sitting in bed at time of exam. EGD yesterday, showed severe erosive esophagitis Review of Systems Review of Systems: - CONSTITUTIONAL: Denies weight loss, fever and chills. - HEENT: Denies changes in vision and hearing - RESPIRATORY: Denies SOB and cough. - CV: Denies palpitations and CP. - GI: Improving abdominal pain, denies nausea, vomiting or diarrhea. - : Denies dysuria and urinary frequency. - MSK: Denies myalgia and joint pain. - SKIN: Denies rash and pruritus. - NEUROLOGICAL: Denies headache and syncope. - PSYCHIATRIC: Denies recent changes in mood. Denies anxiety and depression. All systems reviewed & are unremarkable except as noted in HPI and below Exam Narrative: GENERAL: Ill-appearing but nontoxic, no acute distress HEAD: Normocephalic, atraumatic. EYES: PERRLA and EOMI. ENT: Mucous membranes tacky NECK: Supple. CHEST: Clear to auscultation. No respiratory distress. HEART: Regular rate and rhythm. ABDOMEN: Soft, RUQ tenderness to palpation, but improved. No Rebound tenderness or guarding EXTREMITIES: Normal range of motion. SKIN: Warm, dry, no rash. NEURO: Alert and oriented x3. PSYCH: Normal mood and affect. Objective Data Vital Signs Vital Signs: Vital Signs - 24 hr 10/24/24 07:55 10/24/24 10:27 10/24/24 11:48 Temperature Pulse Rate Respiratory Rate Blood Pressure Pulse Oximetry Oxygen Delivery Room Air Room Air Room Air 10/24/24 12:34 10/24/24 12:42 10/24/24 12:52 Temperature 97 F L Pulse Rate 93 88 92 Respiratory Rate 20 22 H 20 Blood Pressure 127/103 H 90/39 L 99/44 L Pulse Oximetry 95 95 96 Oxygen Delivery Room Air Room Air Room Air 10/24/24 13:02 10/24/24 13:50 10/24/24 16:45 Temperature 97.6 F Pulse Rate 89 82 95 Respiratory Rate 16 18 Blood Pressure 119/60 Pulse Oximetry 96 97 Oxygen Delivery Room Air 10/24/24 20:00 10/24/24 20:27 10/25/24 04:51 Temperature 97.7 F 97.7 F Pulse Rate 79 78 Respiratory Rate 18 20 Blood Pressure 98/48 L 98/48 L Pulse Oximetry 93 98 Oxygen Delivery Room Air Intake/Output Intake/Output: Intake & Output 10/22/24 10/23/24 10/24/24 10/25/24 23:59 23:59 23:59 23:59 Intake Total 2520 1999 2290 1390 Output Total 910 1360 1941 740 Balance 1610 640 349 650 Meds/Results Medications: Active Medications Generic Name Dose Route Start Last Admin Trade Name Freq PRN Reason Stop Dose Admin Acetaminophen 650 mg 10/22/24 14:00 Acetaminophen 325 Mg Tablet PO Q4H PRN Mild Pain (1-3) or Fever Hydrocodone Bitart/Acetaminophen 1 tab 10/22/24 14:00 10/22/24 17:57 Hydrocodone/Acetaminophen (*Crx) 5-325 Mg Tablet PO 1 tab Q4H PRN Administration Pain Rated 4-6 Hydrocodone Bitart/Acetaminophen 1 tab 10/22/24 14:00 10/25/24 06:18 Hydrocodone/Acetaminophen (*Crx) 10-325 Mg Tablet PO 1 tab Q6H PRN Administration Pain Rated 7-10 Allopurinol 200 mg 10/22/24 09:00 10/24/24 14:22 Allopurinol 100 Mg Tablet PO 200 mg DAILY CYNDI Administration Alprazolam 0.25 mg 10/21/24 21:00 10/24/24 20:35 Alprazolam (*Crx) 0.25 Mg Tablet PO 0.25 mg HS CYNDI Administration Amoxicillin/Clavulanate Potassium 1 tablet 10/23/24 14:30 10/24/24 20:35 Amoxicillin/Clavulanate K 875-125 Mg Tab PO 1 tablet Q12HR CYNDI Administration Bisacodyl 10 mg 10/21/24 11:18 Bisacodyl 10 Mg Suppository RECTAL DAILY PRN constipation Calcium Carbonate 200 mg 10/23/24 13:00 10/23/24 13:15 Calcium Carbonate (Tums) 500 Mg (200 Mg Elemental) PO 200 mg Q6H PRN Administration Indigestion Cilostazol 100 mg 10/21/24 17:00 10/24/24 16:45 Cilostazol 100 Mg Tablet PO 100 mg BID CYNDI Administration Dextrose 12.5 gm 10/20/24 11:43 Dextrose 50% 25 Gm/50 Ml Syringe IV PUSH PRN PRN Hypoglycemia Protocol Docusate Sodium 200 mg 10/21/24 11:18 Docusate Sodium 100 Mg Capsule PO Q12H PRN constipation Escitalopram Oxalate 20 mg 10/22/24 09:00 10/24/24 14:22 Escitalopram Oxalate 10 Mg Tablet PO 20 mg DAILY CYNDI Administration Ferrous Sulfate 325 mg 10/21/24 13:00 10/24/24 16:46 Ferrous Sulfate [address] BY MOUTH 325 mg TID CYNDI Administration Fluticasone Propionate 2 spray 10/22/24 09:00 10/24/24 07:45 Fluticasone Propionate 0.05% Na Spr 16 Gm Btl (*Bkc) NASAL 2 spray DAILY CYNDI Administration Glucagon 1 mg 10/20/24 11:43 Glucagon For Inj 1 Mg Vial IM PRN PRN Hypoglycemia Protocol Glucose 15 gm 10/20/24 11:43 Glucose Oral Gel 15 Gm Of Glucse In 37.5 Gm Tube PO PRN PRN Hypoglycemia Protocol Dextrose 1,000 mls @ 100 mls/hr 10/20/24 11:43 Dextrose 5% 1,000 Ml IVPB PRN PRN Hypoglycemia Protocol Dextrose/Sodium Chloride 1,000 mls @ 100 mls/hr 10/20/24 15:20 10/25/24 02:50 Dextrose 5% Sodium Chloride 0.9% IV CONT 100 mls/hr .Q10H CYNDI Administration Insulin Aspart 2 - 5 units 10/20/24 12:00 10/24/24 17:29 Insulin Aspart (*Bkc) 100 Units/Ml SUB-Q Not Given TIDWM CYNDI Protocol Insulin Aspart 1 - 2 units 10/20/24 21:00 10/24/24 22:11 Insulin Aspart (*Bkc) 100 Units/Ml SUB-Q Not Given HS COUNT INCLUDES THE [facility] Protocol Lansoprazole 30 mg 10/24/24 06:30 10/25/24 06:16 Lansoprazole Odt 30 Mg Tab.Rap.Dr PO 30 mg DAILY@0630 COUNT INCLUDES THE [facility] Administration Levothyroxine Sodium 50 mcg 10/22/24 06:30 10/24/24 07:42 Levothyroxine Sodium 50 Mcg Tablet PO Not Given MoTuWeThFr@0630 COUNT INCLUDES THE [facility] Levothyroxine Sodium 100 mcg 10/25/24 06:30 10/25/24 06:21 Levothyroxine Sodium 100 Mcg Tablet PO 100 mcg SuSa@30 COUNT INCLUDES THE [facility] Administration Loratadine 10 mg 10/22/24 09:00 10/24/24 14:22 Loratadine 10 Mg Tablet PO 10 mg QAM COUNT INCLUDES THE [facility] Administration Lubiprostone 24 mcg 10/23/24 17:00 10/24/24 16:46 Lubiprostone 24 Mcg Capsule PO 24 mcg BID COUNT INCLUDES THE [facility] Administration Magnesium Citrate 296 ml 10/21/24 11:18 Magnesium Citrate 300 Ml Btl PO DAILY PRN constipation Magnesium Hydroxide 30 ml 10/21/24 11:18 Magnesium Hydroxide Susp 30 Ml Udc PO HS PRN constipation Magnesium Oxide 400 mg 10/21/24 13:00 10/24/24 16:45 Magnesium Oxide 400 Mg Tablet PO 400 mg TID COUNT INCLUDES THE [facility] Administration Metoprolol Tartrate 50 mg 10/21/24 17:00 10/24/24 16:45 Metoprolol Tartrate 50 Mg Tab PO 50 mg BID COUNT INCLUDES THE [facility] Administration Metronidazole 500 mg 10/23/24 14:00 10/25/24 06:16 Metronidazole 500 Mg Tablet PO 500 mg Q8HR COUNT INCLUDES THE [facility] Administration Morphine Sulfate 2 mg 10/20/24 11:44 10/22/24 12:32 Morphine Sulfate (*Crx) 2 Mg/Ml Inj IV PUSH 2 mg Q4H PRN Administration Pain Ondansetron HCl 4 mg 10/20/24 11:45 10/22/24 04:12 Ondansetron Inj 4 Mg/2 Ml Vial IV PUSH 4 mg Q6H PRN Administration Nausea Ondansetron HCl 4 mg 10/21/24 11:18 Ondansetron Hcl Odt 4 Mg Tablet PO Q6H PRN nausea and vomiting Oxybutynin Chloride 5 mg 10/22/24 09:00 10/24/24 14:23 Oxybutynin Chloride Xl 5 Mg Tab.Er.24 PO 5 mg DAILY CYNDI Administration Pantoprazole Sodium 40 mg 10/24/24 21:00 10/24/24 20:35 Pantoprazole 40 Mg Tablet PO 40 mg Q12HR CYNDI Administration Potassium Chloride 20 meq 10/22/24 09:00 10/24/24 14:23 Potassium Chloride 20 Meq Er Tablet PO 20 meq DAILY CYNDI Administration Sucralfate 1,000 mg 10/24/24 16:30 10/25/24 06:16 Sucralfate Susp 100 Mg/Ml 10 Ml Udc PO 1,000 mg ACHS CYNDI Administration Tamsulosin HCl 0.4 mg 10/21/24 09:00 10/24/24 14:23 Tamsulosin Hcl 0.4 Mg Capsule PO 0.4 mg QAM CYNDI Administration Radiology Results: ITS Impressions Hepatobiliary Scan Nuclear Medicine 10/21/24 14:02 IMPRESSION: 1. No evident gallbladder activity consistent with acute cholecystitis. Cholecystostomy 10/21/24 16:48 IMPRESSION: 1. Successful ultrasound-guided cholecystostomy tube placement. 2. 50 mL bile was sent for aerobic, anaerobic, and fungal cultures. 3. The catheter will be managed by Dr. Marquez. A catheter cholangiogram may be performed not less than 48 hours after tube placement if clinically indicated to assess cystic duct patency. If cholecystectomy is not eventually performed and the infectious episode has resolved, the tube may be removed over a guidewire, preferably not less than 3 weeks after placement to allow time for a mature catheter tract to form to prevent bile leakage and peritonitis. Chest CTA 10/23/24 14:42 IMPRESSION: 1. No pulmonary embolus or aortic dissection seen. 2. Moderate Bilateral pleural effusion with adjacent atelectasis versus pneumonia. 3. Tracheobronchomalacia. 4. Nodule in the right lower lobe. 6 months follow-up CT is advised. Labs Labs: Laboratory Results - last 24 hr 10/24/24 10/24/24 10/24/24 07:50 11:20 17:22 POC Capillary Glucose 104 109 H 150 H 10/24/24 20:31 POC Capillary Glucose 126 H Quality VTE Prophylaxis VTE prophylaxis: mechanical ordered
[2024-10-25 08:04] LABS: Alanine Aminotransferase 7 U/L (6-35); Albumin Level 2.4 g/dL (3.5-5.1); Alkaline Phosphatase 70 U/L (38-126); Anion Gap 5 mmol/L (4-12); Aspartate Amino Transferase 12 U/L (14-36); Bilirubin,Total 0.3 mg/dL (0.2-1.3); Blood Urea Nitrogen 5 mg/dL (7-17); Calcium 8.2 mg/dL (8.4-10.2); Carbon Dioxide 22 mmol/L (22-30); Chloride 112 mmol/L (98-107); Estimated CRCL calculation 60 ml/min; Estimated Glomerular Filt Rate 49; Glucose 108 mg/dL (65-110); Potassium 3.6 mmol/L (3.4-5.0); Sodium 139 mmol/L (137-145)
[2024-10-25 08:16] LABS: Basophils Percent Auto 0.6 % (0.2-1.2); Eosinophils Absolute Auto 0.3 K/mm3 (0-0.3); Eosinophils Percent Auto 4.2 % (0-4.4); Hematocrit 31.2 % (37.0-47.0); Hemoglobin 9.5 g/dL (12.0-15.0); Immature Granulocyte Absolute 0.12 K/mm3 (0.00-0.031); Immature Granulocyte Percent A 1.7 % (0-0.5); Lymphocytes Absolute Auto 1.11 K/mm3 (0.9-3.2); Mean Corpuscular HGB Conc 30.4 g/dl (32-36); Mean Corpuscular Hemoglobin 31.4 pg (26-34); Mean Platelet Volume 10.6 fl (7.4-10.4); Monocytes Absolute Auto 0.5 K/mm3 (0.1-0.6); Monocytes Percent Auto 6.9 % (2.6-8.5); Neutrophils Absolute Auto 4.9 K/mm3 (1.3-6.7); Neutrophils Percent Auto 70.6 % (45.5-73.1); Platelet Count Result 179 k/mm3 (150-375); Red Blood Count 3.03 M/mm3 (4.2-5.4); Red Cell Distribution Width 16.8 % (11.5-14.5); White Blood Count 6.9 K/mm3 (4.5-10.0)
[2024-10-25 08:30] LABS: Glucose Point of Care 110 mg/dl (65-105)
[2024-10-25] MEDS: ESCITALOPRAM OXALATE 10 MG TABLET 20 MG PO (09:48)
[2024-10-25] MEDS: oxyBUTYnin CHLORIDE XL 5 MG TAB.ER.24 PO (09:48)
[2024-10-25] MEDS: allopurinoL 100 MG TABLET 200 MG PO (09:48)
[2024-10-25 09:49] VITALS: PULSE 78
[2024-10-25] MEDS: cilostazoL 100 MG TABLET PO ×2 (09:49→16:40)
[2024-10-25] MEDS: AMOXICILLIN/CLAVULANATE K 875-125 MG TAB 1 TABLET PO ×2 (09:49→20:59)
[2024-10-25] MEDS: POTASSIUM CHLORIDE 20 MEQ ER TABLET PO (09:49)
[2024-10-25] MEDS: TAMSULOSIN HCL 0.4 MG CAPSULE PO (09:49)
[2024-10-25] MEDS: LUBIPROSTONE 24 MCG CAPSULE PO ×2 (09:49→16:40)
[2024-10-25] MEDS: FLUTICASONE PROPIONATE 0.05% NA SPR 16 GM BTL (*BKC) 2 SPRAY NASAL (09:49)
[2024-10-25] MEDS: FERROUS SULFATE 325 MG TABLET DR BY MOUTH ×3 (09:49→16:40)
[2024-10-25] MEDS: METOPROLOL TARTRATE 50 MG TAB PO ×2 (09:49→16:40)
[2024-10-25] MEDS: LORATADINE 10 MG TABLET PO (09:49)
[2024-10-25] MEDS: PANTOPRAZOLE 40 MG TABLET PO ×2 (09:49→20:59)
[2024-10-25] MEDS: MAGNESIUM OXIDE 400 MG TABLET PO ×3 (09:50→16:40)
--- NOTE | 2024-10-25 11:25 | WPDGIPROGNO ---
Progress Note: A&P Assessment and Plan (1) Ulcerative esophagitis: Code(s): K22.10 - Ulcer of esophagus without bleeding Status: Acute Assessment and Plan: noted ulcerative esophagitis, this can explain part of symptom, she also has cholecystitis for which she has right now cholecystostomy tube managed by surgical team continue with protonix bid, also carafate with meals diet as tolerated, still poor appetite (2) Epigastric pain: Code(s): R10.13 - Epigastric pain Status: Acute (3) Nausea: Code(s): R11.0 - Nausea Status: Acute (4) Cholelithiasis with acute cholecystitis: Qualifiers: Biliary obstruction: with biliary obstruction Qualified Code(s): K80.01 - Calculus of gallbladder with acute cholecystitis with obstruction Code(s): K80.00 - Calculus of gallbladder with acute cholecystitis without obstruction Status: Acute (5) Morbid obesity: Code(s): E66.01 - Morbid (severe) obesity due to excess calories Status: Chronic (6) Type 2 diabetes mellitus: Code(s): E11.9 - Type 2 diabetes mellitus without complications Status: Chronic (7) Anemia: Code(s): D64.9 - Anemia, unspecified Status: Chronic Subjective Date/time seen: 10/25/24 11:25 Interval history: egd with severe erosive esophagitis still with discomfort after eating also pain at site of cholecystostomy tube Review of Systems Review of Systems: All systems reviewed & are unremarkable except as noted in HPI and below Exam Const: General: cooperative, comfortable, no acute distress, ill appearing and obese HENMT: Face/Nose/Sinus: Normal nares present Eyes: Sclera: sclerae normal Neck: Neck: supple Resp: Auscultation: diminished lung sounds Cardio: Rate: regular rate Rhythm: regular rhythm GI: Inspection: normal to inspection, non-distended, Pannus present and obesity GI Palp: No abdominal tenderness, Yes Soft to palpation and Yes Tenderness to palpation present (GI) (epigastric, ruq, no rebound) Other: tube in place Skin: General skin exam: normal color Neuro: Speech: normal speech Extrem: General: normal to inspection Psych: Affect: Anxious affect present Objective Data Vital Signs Vital Signs: Vital Signs - 24 hr 10/24/24 11:48 10/24/24 12:34 10/24/24 12:42 Temperature 97 F L Pulse Rate 93 88 Respiratory Rate 20 22 H Blood Pressure 127/103 H 90/39 L Pulse Oximetry 95 95 Oxygen Delivery Room Air Room Air Room Air 10/24/24 12:52 10/24/24 13:02 10/24/24 13:50 Temperature 97.6 F Pulse Rate 92 89 82 Respiratory Rate 20 16 18 Blood Pressure 99/44 L 119/60 Pulse Oximetry 96 96 97 Oxygen Delivery Room Air Room Air 10/24/24 16:45 10/24/24 20:00 10/24/24 20:27 Temperature 97.7 F Pulse Rate 95 79 Respiratory Rate 18 Blood Pressure 98/48 L Pulse Oximetry 93 Oxygen Delivery Room Air 10/25/24 04:51 10/25/24 09:49 Temperature 97.7 F Pulse Rate 78 78 Respiratory Rate 20 Blood Pressure 98/48 L Pulse Oximetry 98 Oxygen Delivery Intake/Output Intake/Output: Intake & Output 10/22/24 10/23/24 10/24/24 10/25/24 23:59 23:59 23:59 23:59 Intake Total 2520 1999 2290 1630 Output Total 910 1360 1941 740 Balance 1610 640 349 890 Meds/Results Medications: Active Medications Generic Name Dose Route Start Last Admin Trade Name Freq PRN Reason Stop Dose Admin Acetaminophen 650 mg 10/22/24 14:00 Acetaminophen 325 Mg Tablet PO Q4H PRN Mild Pain (1-3) or Fever Hydrocodone Bitart/Acetaminophen 1 tab 10/22/24 14:00 10/22/24 17:57 Hydrocodone/Acetaminophen (*Crx) 5-325 Mg Tablet PO 1 tab Q4H PRN Administration Pain Rated 4-6 Hydrocodone Bitart/Acetaminophen 1 tab 10/22/24 14:00 10/25/24 06:18 Hydrocodone/Acetaminophen (*Crx) 10-325 Mg Tablet PO 1 tab Q6H PRN Administration Pain Rated 7-10 Allopurinol 200 mg 10/22/24 09:00 10/25/24 09:48 Allopurinol 100 Mg Tablet PO 200 mg DAILY CYNDI Administration Alprazolam 0.25 mg 10/21/24 21:00 10/24/24 20:35 Alprazolam (*Crx) 0.25 Mg Tablet PO 0.25 mg HS CYNDI Administration Amoxicillin/Clavulanate Potassium 1 tablet 10/23/24 14:30 10/25/24 09:49 Amoxicillin/Clavulanate K 875-125 Mg Tab PO 1 tablet Q12HR CYNDI Administration Bisacodyl 10 mg 10/21/24 11:18 Bisacodyl 10 Mg Suppository RECTAL DAILY PRN constipation Calcium Carbonate 200 mg 10/23/24 13:00 10/23/24 13:15 Calcium Carbonate (Tums) 500 Mg (200 Mg Elemental) PO 200 mg Q6H PRN Administration Indigestion Cilostazol 100 mg 10/21/24 17:00 10/25/24 09:49 Cilostazol 100 Mg Tablet PO 100 mg BID CYNDI Administration Dextrose 12.5 gm 10/20/24 11:43 Dextrose 50% 25 Gm/50 Ml Syringe IV PUSH PRN PRN Hypoglycemia Protocol Docusate Sodium 200 mg 10/21/24 11:18 Docusate Sodium 100 Mg Capsule PO Q12H PRN constipation Escitalopram Oxalate 20 mg 10/22/24 09:00 10/25/24 09:48 Escitalopram Oxalate 10 Mg Tablet PO 20 mg DAILY CYNDI Administration Ferrous Sulfate 325 mg 10/21/24 13:00 10/25/24 09:49 Ferrous Sulfate [address] BY MOUTH 325 mg TID CYNDI Administration Fluticasone Propionate 2 spray 10/22/24 09:00 10/25/24 09:49 Fluticasone Propionate 0.05% Na Spr 16 Gm Btl (*Bkc) NASAL 2 spray DAILY CYNDI Administration Glucagon 1 mg 10/20/24 11:43 Glucagon For Inj 1 Mg Vial IM PRN PRN Hypoglycemia Protocol Glucose 15 gm 10/20/24 11:43 Glucose Oral Gel 15 Gm Of Glucse In 37.5 Gm Tube PO PRN PRN Hypoglycemia Protocol Dextrose 1,000 mls @ 100 mls/hr 10/20/24 11:43 Dextrose 5% 1,000 Ml IVPB PRN PRN Hypoglycemia Protocol Dextrose/Sodium Chloride 1,000 mls @ 100 mls/hr 10/20/24 15:20 10/25/24 02:50 Dextrose 5% Sodium Chloride 0.9% IV CONT 100 mls/hr .Q10H CYNDI Administration Insulin Aspart 2 - 5 units 10/20/24 12:00 10/25/24 09:47 Insulin Aspart (*Bkc) 100 Units/Ml SUB-Q Not Given TIDWM [facility] Protocol Insulin Aspart 1 - 2 units 10/20/24 21:00 10/24/24 22:11 Insulin Aspart (*Bkc) 100 Units/Ml SUB-Q Not Given HS [facility] Protocol Lansoprazole 30 mg 10/24/24 06:30 10/25/24 06:16 Lansoprazole Odt 30 Mg Tab.Rap.Dr PO 30 mg DAILY@0630 [facility] Administration Levothyroxine Sodium 50 mcg 10/22/24 06:30 10/24/24 07:42 Levothyroxine Sodium 50 Mcg Tablet PO Not Given MoTuWeThFr@0630 [facility] Levothyroxine Sodium 100 mcg 10/25/24 06:30 10/25/24 06:21 Levothyroxine Sodium 100 Mcg Tablet PO 100 mcg SuSa@0630 [facility] Administration Loratadine 10 mg 10/22/24 09:00 10/25/24 09:49 Loratadine 10 Mg Tablet PO 10 mg QAM [facility] Administration Lubiprostone 24 mcg 10/23/24 17:00 10/25/24 09:49 Lubiprostone 24 Mcg Capsule PO 24 mcg BID [facility] Administration Magnesium Citrate 296 ml 10/21/24 11:18 Magnesium Citrate 300 Ml Btl PO DAILY PRN constipation Magnesium Hydroxide 30 ml 10/21/24 11:18 Magnesium Hydroxide Susp 30 Ml Udc PO HS PRN constipation Magnesium Oxide 400 mg 10/21/24 13:00 10/25/24 09:50 Magnesium Oxide 400 Mg Tablet PO 400 mg TID [facility] Administration Metoprolol Tartrate 50 mg 10/21/24 17:00 10/25/24 09:49 Metoprolol Tartrate 50 Mg Tab PO 50 mg BID [facility] Administration Metronidazole 500 mg 10/23/24 14:00 10/25/24 06:16 Metronidazole 500 Mg Tablet PO 500 mg Q8HR [facility] Administration Morphine Sulfate 2 mg 10/20/24 11:44 10/22/24 12:32 Morphine Sulfate (*Crx) 2 Mg/Ml Inj IV PUSH 2 mg Q4H PRN Administration Pain Ondansetron HCl 4 mg 10/20/24 11:45 10/22/24 04:12 Ondansetron Inj 4 Mg/2 Ml Vial IV PUSH 4 mg Q6H PRN Administration Nausea Ondansetron HCl 4 mg 10/21/24 11:18 Ondansetron Hcl Odt 4 Mg Tablet PO Q6H PRN nausea and vomiting Oxybutynin Chloride 5 mg 10/22/24 09:00 10/25/24 09:48 Oxybutynin Chloride Xl 5 Mg Tab.Er.24 PO 5 mg DAILY CYNDI Administration Pantoprazole Sodium 40 mg 10/24/24 21:00 10/25/24 09:49 Pantoprazole 40 Mg Tablet PO 40 mg Q12HR [facility] Administration Potassium Chloride 20 meq 10/22/24 09:00 10/25/24 09:49 Potassium Chloride 20 Meq Er Tablet PO 20 meq DAILY CYNDI Administration Sucralfate 1,000 mg 10/24/24 16:30 10/25/24 06:16 Sucralfate Susp 100 Mg/Ml 10 Ml Udc PO 1,000 mg ACHS CY[facility]I Administration Tamsulosin HCl 0.4 mg 10/21/24 09:00 10/25/24 09:49 Tamsulosin Hcl 0.4 Mg Capsule PO 0.4 mg QAM CYNDI Administration Radiology Results: ITS Impressions Hepatobiliary Scan Nuclear Medicine 10/21/24 14:02 IMPRESSION: 1. No evident gallbladder activity consistent with acute cholecystitis. Cholecystostomy 10/21/24 16:48 IMPRESSION: 1. Successful ultrasound-guided cholecystostomy tube placement. 2. 50 mL bile was sent for aerobic, anaerobic, and fungal cultures. 3. The catheter will be managed by Dr. Marquez. A catheter cholangiogram may be performed not less than 48 hours after tube placement if clinically indicated to assess cystic duct patency. If cholecystectomy is not eventually performed and the infectious episode has resolved, the tube may be removed over a guidewire, preferably not less than 3 weeks after placement to allow time for a mature catheter tract to form to prevent bile leakage and peritonitis. Chest CTA 10/23/24 14:42 IMPRESSION: 1. No pulmonary embolus or aortic dissection seen. 2. Moderate Bilateral pleural effusion with adjacent atelectasis versus pneumonia. 3. Tracheobronchomalacia. 4. Nodule in the right lower lobe. 6 months follow-up CT is advised. Labs Labs: Laboratory Results - last 24 hr 10/24/24 10/24/24 10/24/24 11:20 17:22 20:31 WBC RBC Hgb Hct MCV MCH MCHC RDW Plt Count MPV Immature Gran % (Auto) Neut % (Auto) Lymph % (Auto) [place] % (Auto) Eos % (Auto) Baso % (Auto) Lymph # (Auto) [place] # (Auto) Eos # (Auto) Baso # (Auto) Abs Immat Gran (auto) Absolute Neuts (auto) Absolute Nucleated RBC Nucleated RBC % Sodium Potassium Chloride Carbon Dioxide Anion Gap BUN Creatinine Estim Creat Clear Calc Estimated GFR Glucose POC Capillary Glucose 109 H 150 H 126 H Calcium Total Bilirubin AST ALT Alkaline Phosphatase Total Protein Albumin 10/25/24 10/25/24 07:28 08:09 WBC 6.9 RBC 3.03 L Hgb 9.5 L Hct 31.2 L MCV 103.0 H MCH 31.4 MCHC 30.4 L RDW 16.8 H Plt Count 179 MPV 10.6 H Immature Gran % (Auto) 1.7 H Neut % (Auto) 70.6 Lymph % (Auto) 16.0 L [place] % (Auto) 6.9 Eos % (Auto) 4.2 Baso % (Auto) 0.6 Lymph # (Auto) 1.11 [place] # (Auto) 0.5 Eos # (Auto) 0.3 Baso # (Auto) 0.0 Abs Immat Gran (auto) 0.12 H Absolute Neuts (auto) 4.9 Absolute Nucleated RBC 0.000 Nucleated RBC % 0.0 Sodium 139 Potassium 3.6 Chloride 112 H Carbon Dioxide 22 Anion Gap 5 BUN 5 L Creatinine 1.09 H Estim Creat Clear Calc 60 Estimated GFR 49 L Glucose 108 POC Capillary Glucose 110 H Calcium 8.2 L Total Bilirubin 0.3 AST 12 L ALT 7 Alkaline Phosphatase 70 Total Protein 5.0 L Albumin 2.4 L
[2024-10-25 11:43] LABS: Glucose Point of Care 131 mg/dl (65-105)
--- NOTE | 2024-10-25 12:11 | P.PNGS_ITS ---
Progress Note: A&P Assessment and Plan (1) Cholelithiasis with acute cholecystitis: Qualifiers: Biliary obstruction: with biliary obstruction Qualified Code(s): K80.01 - Calculus of gallbladder with acute cholecystitis with obstruction Code(s): K80.00 - Calculus of gallbladder with acute cholecystitis without obstruction Status: Acute Assessment and Plan: exam benign, continue drain and antibiotics, low-fat diet (2) Ulcerative esophagitis: Code(s): K22.10 - Ulcer of esophagus without bleeding Status: Acute Assessment and Plan: continue PPI and Carafate per GI Subjective Subjective Date/Time Seen: 10/25/24 12:11 Interval history: reports significant upper abdominal pain with eating and drinking, otherwise pain largely resolved Review of Systems Review of Systems: All systems reviewed & are unremarkable except as noted in HPI and below Exam Const: General: cooperative, no acute distress, uncomfortable and obese Resp: Auscultation: clear to auscultation bilaterally Cardio: Rate: regular rate Rhythm: regular rhythm GI: Inspection: normal to inspection and non-distended GI Palp: No abdominal tenderness and Yes Soft to palpation Other: cholecystostomy tube with bilious drainage Objective Data Vital Signs Vital Signs: Vital Signs - 24 hr 10/24/24 12:34 10/24/24 12:42 10/24/24 12:52 Temperature 36.1 C L Pulse Rate 93 88 92 Respiratory Rate 20 22 H 20 Blood Pressure 127/103 H 90/39 L 99/44 L Pulse Oximetry 95 95 96 Oxygen Delivery Room Air Room Air Room Air 10/24/24 13:02 10/24/24 13:50 10/24/24 16:45 Temperature 36.4 C Pulse Rate 89 82 95 Respiratory Rate 16 18 Blood Pressure 119/60 Pulse Oximetry 96 97 Oxygen Delivery Room Air 10/24/24 20:00 10/24/24 20:27 10/25/24 04:51 Temperature 36.5 C 36.5 C Pulse Rate 79 78 Respiratory Rate 18 20 Blood Pressure 98/48 L 98/48 L Pulse Oximetry 93 98 Oxygen Delivery Room Air 10/25/24 09:49 Temperature Pulse Rate 78 Respiratory Rate Blood Pressure Pulse Oximetry Oxygen Delivery Intake/Output Intake/Output: Intake & Output 10/22/24 10/23/24 10/24/24 10/25/24 23:59 23:59 23:59 23:59 Intake Total 2520 1999 2290 1630 Output Total 910 1360 1941 740 Balance 1610 535 146 890 Meds/Results Medications: Active Medications Generic Name Dose Route Start Last Admin Trade Name Freq PRN Reason Stop Dose Admin Acetaminophen 650 mg 10/22/24 14:00 Acetaminophen 325 Mg Tablet PO Q4H PRN Mild Pain (1-3) or Fever Hydrocodone Bitart/Acetaminophen 1 tab 10/22/24 14:00 10/22/24 17:57 Hydrocodone/Acetaminophen (*Crx) 5-325 Mg Tablet PO 1 tab Q4H PRN Administration Pain Rated 4-6 Hydrocodone Bitart/Acetaminophen 1 tab 10/22/24 14:00 10/25/24 06:18 Hydrocodone/Acetaminophen (*Crx) 10-325 Mg Tablet PO 1 tab Q6H PRN Administration Pain Rated 7-10 Allopurinol 200 mg 10/22/24 09:00 10/25/24 09:48 Allopurinol 100 Mg Tablet PO 200 mg DAILY CYNDI Administration Alprazolam 0.25 mg 10/21/24 21:00 10/24/24 20:35 Alprazolam (*Crx) 0.25 Mg Tablet PO 0.25 mg HS CYNDI Administration Amoxicillin/Clavulanate Potassium 1 tablet 10/23/24 14:30 10/25/24 09:49 Amoxicillin/Clavulanate K 875-125 Mg Tab PO 1 tablet Q12HR CYNDI Administration Bisacodyl 10 mg 10/21/24 11:18 Bisacodyl 10 Mg Suppository RECTAL DAILY PRN constipation Calcium Carbonate 200 mg 10/23/24 13:00 10/23/24 13:15 Calcium Carbonate (Tums) 500 Mg (200 Mg Elemental) PO 200 mg Q6H PRN Administration Indigestion Cilostazol 100 mg 10/21/24 17:00 10/25/24 09:49 Cilostazol 100 Mg Tablet PO 100 mg BID CYNDI Administration Dextrose 12.5 gm 10/20/24 11:43 Dextrose 50% 25 Gm/50 Ml Syringe IV PUSH PRN PRN Hypoglycemia Protocol Docusate Sodium 200 mg 10/21/24 11:18 Docusate Sodium 100 Mg Capsule PO Q12H PRN constipation Escitalopram Oxalate 20 mg 10/22/24 09:00 10/25/24 09:48 Escitalopram Oxalate 10 Mg Tablet PO 20 mg DAILY CYNDI Administration Ferrous Sulfate 325 mg 10/21/24 13:00 10/25/24 09:49 Ferrous Sulfate [address] BY MOUTH 325 mg TID CYNDI Administration Fluticasone Propionate 2 spray 10/22/24 09:00 10/25/24 09:49 Fluticasone Propionate 0.05% Na Spr 16 Gm Btl (*Bkc) NASAL 2 spray DAILY CYNDI Administration Glucagon 1 mg 10/20/24 11:43 Glucagon For Inj 1 Mg Vial IM PRN PRN Hypoglycemia Protocol Glucose 15 gm 10/20/24 11:43 Glucose Oral Gel 15 Gm Of Glucse In 37.5 Gm Tube PO PRN PRN Hypoglycemia Protocol Dextrose 1,000 mls @ 100 mls/hr 10/20/24 11:43 Dextrose 5% 1,000 Ml IVPB PRN PRN Hypoglycemia Protocol Dextrose/Sodium Chloride 1,000 mls @ 100 mls/hr 10/20/24 15:20 10/25/24 02:50 Dextrose 5% Sodium Chloride 0.9% IV CONT 100 mls/hr .Q10H CYNDI Administration Insulin Aspart 2 - 5 units 10/20/24 12:00 10/25/24 09:47 Insulin Aspart (*Bkc) 100 Units/Ml SUB-Q Not Given TIDWM [facility] Protocol Insulin Aspart 1 - 2 units 10/20/24 21:00 10/24/24 22:11 Insulin Aspart (*Bkc) 100 Units/Ml SUB-Q Not Given HS [facility] Protocol Lansoprazole 30 mg 10/24/24 06:30 10/25/24 06:16 Lansoprazole Odt 30 Mg Tab.Rap.Dr PO 30 mg DAILY@0630 [facility] Administration Levothyroxine Sodium 50 mcg 10/22/24 06:30 10/24/24 07:42 Levothyroxine Sodium 50 Mcg Tablet PO Not Given MoTuWeThFr@0630 [facility] Levothyroxine Sodium 100 mcg 10/25/24 06:30 10/25/24 06:21 Levothyroxine Sodium 100 Mcg Tablet PO 100 mcg SuSa@0630 CYNDI Administration Loratadine 10 mg 10/22/24 09:00 10/25/24 09:49 Loratadine 10 Mg Tablet PO 10 mg QAM CYNDI Administration Lubiprostone 24 mcg 10/23/24 17:00 10/25/24 09:49 Lubiprostone 24 Mcg Capsule PO 24 mcg BID CYNDI Administration Magnesium Citrate 296 ml 10/21/24 11:18 Magnesium Citrate 300 Ml Btl PO DAILY PRN constipation Magnesium Hydroxide 30 ml 10/21/24 11:18 Magnesium Hydroxide Susp 30 Ml Udc PO HS PRN constipation Magnesium Oxide 400 mg 10/21/24 13:00 10/25/24 09:50 Magnesium Oxide 400 Mg Tablet PO 400 mg TID CYNDI Administration Metoprolol Tartrate 50 mg 10/21/24 17:00 10/25/24 09:49 Metoprolol Tartrate 50 Mg Tab PO 50 mg BID CYNDI Administration Metronidazole 500 mg 10/23/24 14:00 10/25/24 06:16 Metronidazole 500 Mg Tablet PO 500 mg Q8HR CYNDI Administration Morphine Sulfate 2 mg 10/20/24 11:44 10/22/24 12:32 Morphine Sulfate (*Crx) 2 Mg/Ml Inj IV PUSH 2 mg Q4H PRN Administration Pain Ondansetron HCl 4 mg 10/20/24 11:45 10/22/24 04:12 Ondansetron Inj 4 Mg/2 Ml Vial IV PUSH 4 mg Q6H PRN Administration Nausea Ondansetron HCl 4 mg 10/21/24 11:18 Ondansetron Hcl Odt 4 Mg Tablet PO Q6H PRN nausea and vomiting Oxybutynin Chloride 5 mg 10/22/24 09:00 10/25/24 09:48 Oxybutynin Chloride Xl 5 Mg Tab.Er.24 PO 5 mg DAILY CYNDI Administration Pantoprazole Sodium 40 mg 10/24/24 21:00 10/25/24 09:49 Pantoprazole 40 Mg Tablet PO 40 mg Q12HR CYNDI Administration Potassium Chloride 20 meq 10/22/24 09:00 10/25/24 09:49 Potassium Chloride 20 Meq Er Tablet PO 20 meq DAILY CYNDI Administration Sucralfate 1,000 mg 10/24/24 16:30 10/25/24 06:16 Sucralfate Susp 100 Mg/Ml 10 Ml Udc PO 1,000 mg ACHS CYNDI Administration Tamsulosin HCl 0.4 mg 10/21/24 09:00 10/25/24 09:49 Tamsulosin Hcl 0.4 Mg Capsule PO 0.4 mg QAM CYNDI Administration Radiology Results: ITS Impressions Hepatobiliary Scan Nuclear Medicine 10/21/24 14:02 IMPRESSION: 1. No evident gallbladder activity consistent with acute cholecystitis. Cholecystostomy 10/21/24 16:48 IMPRESSION: 1. Successful ultrasound-guided cholecystostomy tube placement. 2. 50 mL bile was sent for aerobic, anaerobic, and fungal cultures. 3. The catheter will be managed by Dr. Marquez. A catheter cholangiogram may be performed not less than 48 hours after tube placement if clinically indicated to assess cystic duct patency. If cholecystectomy is not eventually performed and the infectious episode has resolved, the tube may be removed over a guidewire, preferably not less than 3 weeks after placement to allow time for a mature catheter tract to form to prevent bile leakage and peritonitis. Chest CTA 10/23/24 14:42 IMPRESSION: 1. No pulmonary embolus or aortic dissection seen. 2. Moderate Bilateral pleural effusion with adjacent atelectasis versus pneumonia. 3. Tracheobronchomalacia. 4. Nodule in the right lower lobe. 6 months follow-up CT is advised. Labs Labs: Laboratory Results - last 24 hr 10/24/24 10/24/24 10/25/24 17:22 20:31 07:28 WBC 6.9 RBC 3.03 L Hgb 9.5 L Hct 31.2 L MCV 103.0 H MCH 31.4 MCHC 30.4 L RDW 16.8 H Plt Count 179 MPV 10.6 H Immature Gran % (Auto) 1.7 H Neut % (Auto) 70.6 Lymph % (Auto) 16.0 L [place] % (Auto) 6.9 Eos % (Auto) 4.2 Baso % (Auto) 0.6 Lymph # (Auto) 1.11 [place] # (Auto) 0.5 Eos # (Auto) 0.3 Baso # (Auto) 0.0 Abs Immat Gran (auto) 0.12 H Absolute Neuts (auto) 4.9 Absolute Nucleated RBC 0.000 Nucleated RBC % 0.0 Sodium 139 Potassium 3.6 Chloride 112 H Carbon Dioxide 22 Anion Gap 5 BUN 5 L Creatinine 1.09 H Estim Creat Clear Calc 60 Estimated GFR 49 L Glucose 108 POC Capillary Glucose 150 H 126 H Calcium 8.2 L Total Bilirubin 0.3 AST 12 L ALT 7 Alkaline Phosphatase 70 Total Protein 5.0 L Albumin 2.4 L 10/25/24 10/25/24 08:09 11:33 WBC RBC Hgb Hct MCV MCH MCHC RDW Plt Count MPV Immature Gran % (Auto) Neut % (Auto) Lymph % (Auto) [place] % (Auto) Eos % (Auto) Baso % (Auto) Lymph # (Auto) [place] # (Auto) Eos # (Auto) Baso # (Auto) Abs Immat Gran (auto) Absolute Neuts (auto) Absolute Nucleated RBC Nucleated RBC % Sodium Potassium Chloride Carbon Dioxide Anion Gap BUN Creatinine Estim Creat Clear Calc Estimated GFR Glucose POC Capillary Glucose 110 H 131 H Calcium Total Bilirubin AST ALT Alkaline Phosphatase Total Protein Albumin
[2024-10-25] MEDS: HYDROcodone/acetaminophen (*CRX) 5-325 MG TABLET 1 TAB PO (13:25)
[2024-10-25 14:00] VITALS: BP 96/55; PULSE 80; RESP 18; TEMP 36.1; O2SAT 97
[2024-10-25 16:38] VITALS: BP 112/58; PULSE 77
[2024-10-25 16:40] VITALS: PULSE 77
[2024-10-25 17:00] LABS: Glucose Point of Care 120 mg/dl (65-105)
[2024-10-25 20:49] LABS: Glucose Point of Care 125 mg/dl (65-105)
[2024-10-25] MEDS: ALPRAZolam (*CRX) 0.25 MG TABLET PO (20:58)
[2024-10-25 22:00] VITALS: BP 111/89; PULSE 74; RESP 18; TEMP 36.3; O2SAT 95
[2024-10-26] MEDS: metroNIDAZOLE 500 MG TABLET PO ×4 (00:49→21:13)
[2024-10-26] MEDS: DEXTROSE 5%/0.9% SOD CHL 1,000 ML 100 ML IV CONT ×2 (00:49→22:32)
[2024-10-26 05:14] LABS: Basophils Percent Auto 0.4 % (0.2-1.2); Eosinophils Absolute Auto 0.3 K/mm3 (0-0.3); Eosinophils Percent Auto 3.9 % (0-4.4); Hematocrit 31.3 % (37.0-47.0); Hemoglobin 9.7 g/dL (12.0-15.0); Immature Granulocyte Absolute 0.12 K/mm3 (0.00-0.031); Immature Granulocyte Percent A 1.5 % (0-0.5); Lymphocytes Absolute Auto 1.36 K/mm3 (0.9-3.2); Lymphocytes Percent Auto 17.5 % (18.3-44.2); Mean Corpuscular Hemoglobin 31.1 pg (26-34); Mean Corpuscular Volume 100.3 fl (80-100); Mean Platelet Volume 9.7 fl (7.4-10.4); Monocytes Absolute Auto 0.5 K/mm3 (0.1-0.6); Monocytes Percent Auto 5.9 % (2.6-8.5); Neutrophils Absolute Auto 5.5 K/mm3 (1.3-6.7); Neutrophils Percent Auto 70.8 % (45.5-73.1); Platelet Count Result 170 k/mm3 (150-375); Red Blood Count 3.12 M/mm3 (4.2-5.4); Red Cell Distribution Width 16.9 % (11.5-14.5); White Blood Count 7.8 K/mm3 (4.5-10.0)
[2024-10-26 05:30] LABS: Alanine Aminotransferase 7 U/L (6-35); Albumin Level 2.3 g/dL (3.5-5.1); Alkaline Phosphatase 65 U/L (38-126); Anion Gap 5 mmol/L (4-12); Aspartate Amino Transferase 13 U/L (14-36); Bilirubin,Total 0.3 mg/dL (0.2-1.3); Blood Urea Nitrogen 4 mg/dL (7-17); Calcium 8.2 mg/dL (8.4-10.2); Carbon Dioxide 22 mmol/L (22-30); Chloride 113 mmol/L (98-107); Estimated CRCL calculation 58 ml/min; Estimated Glomerular Filt Rate 47; Glucose 91 mg/dL (65-110); Potassium 3.4 mmol/L (3.4-5.0); Sodium 140 mmol/L (137-145)
[2024-10-26 06:00] VITALS: BP 122/50; PULSE 77; RESP 18; TEMP 36.4; O2SAT 97
[2024-10-26] MEDS: LANSOPRAZOLE ODT 30 MG TAB.RAP.DR PO (06:23)
[2024-10-26] MEDS: SUCRALFATE SUSP 100 MG/ML 10 ML UDC 1000 MG PO ×4 (06:23→21:13)
[2024-10-26] MEDS: LEVOTHYROXINE SODIUM 100 MCG TABLET PO (06:25)
--- NOTE | 2024-10-26 06:59 | P.PNIM_ITS ---
Progress Note: A&P Assessment and Plan (1) Cholelithiasis with acute cholecystitis: Qualifiers: Biliary obstruction: with biliary obstruction Qualified Code(s): K80.01 - Calculus of gallbladder with acute cholecystitis with obstruction Code(s): K80.00 - Calculus of gallbladder with acute cholecystitis without obstruction Status: Acute Assessment and Plan: * Monitor vital signs, I and O's * Monitor serum electrolytes and CBC * IV pain management * Gentle IV fluid resuscitation * POD 4 Cholecystotomy, Gen Surg following * Continue Flagyl and Rocephin * Diet: low fat diabetic today, advance as tolerated (2) Ulcerative esophagitis: Code(s): K22.10 - Ulcer of esophagus without bleeding Status: Acute Assessment and Plan: * EGD report 10/24: Reflux esophagitis, grade D. No gastritis, a few aphthous benign ulcers in duodenal bulb * Continue with Protonix * Add Carafate w/ meals * Advance diet as tolerated * GI following * EGD 10/24: Reflux esophagitis, grade D. Few aphthous benign ulcers visualized in duodenal bulb. * Continue Protonix, Prevacid and Carafate * Will look to d/c Protonix as symptoms improved (3) Epigastric pain: Code(s): R10.13 - Epigastric pain Status: Acute Assessment and Plan: * Diagnosed with cholelithiasis upon arrival to ED on 10/19, originally discharged but came back to ER on 10/20 * Cholecystotomy tube on 10/21, continues to complain of epigastric abdominal pain with meals * CTA: No PE or aortic dissection, moderate bilateral pleural effusion with adjacent atelectasis versus pneumonia, tracheobronchomalacia, nodule in the right lower lobe, recommend 6 months follow-up CT * EKG: NSR * See above (4) Chronic kidney disease: Code(s): N18.9 - Chronic kidney disease, unspecified Status: Chronic Assessment and Plan: -Creatinine: 1.14, GFR: 47, BUN: 4 -Trend renal function -trend electrolytes, correct as needed -Stable (5) Anemia: Code(s): D64.9 - Anemia, unspecified Status: Chronic Assessment and Plan: - Hgb 9.7 - transfuse if <7 - trend H&H - Stable (6) Asthma: Code(s): J45.909 - Unspecified asthma, uncomplicated Status: Chronic Assessment and Plan: - Oxygen requirement: None - Stable (7) Type 2 diabetes mellitus: Code(s): E11.9 - Type 2 diabetes mellitus without complications Status: Chronic Assessment and Plan: - hypoglycemia protocol - POC blood glucose ACHS - home medication - Metformin 500mg - A1C 4.8 (8) Morbid obesity: Code(s): E66.01 - Morbid (severe) obesity due to excess calories Status: Chronic Assessment and Plan: - BMI 51.7 kg/m Time Spent With Patient Time: 25 Subjective Date/time seen: 10/26/24 06:59 Interval history: 69-year-old female presenting with abdominal pain. EGD this visit showing ulcerative esophagitis. Here for cholecystotomy, being managed by surgery team. 10/26/2024 Patient sitting in bed at time of exam. Doing better today. Stomach pain largely resolved. Continue drain and antibiotics, as well as tx for ulcerative esophagitis. Continue to advance diet as tolerated but she is still having some pain while eating/drinking. Otherwise stable. Review of Systems Review of Systems: - CONSTITUTIONAL: Denies weight loss, fe juliet and chills. - HEENT: Denies changes in vision and he aring - RESPIRATORY: Denies SOB and cough. - CV: Denies palpitations and CP. - GI: Improving abdominal pain, denies nausea, vomiting or diarrhea. - : Denies dysuria and urinary frequen cy. - MSK: Denies myalgia and joint pain. - SKIN: Denies rash and pruritus. - NEUROLOGICAL: Denies headache and sync ope. - PSYCHIATRIC: Denies recent changes in mood. Denies anxiety and depression. All systems reviewed & are unremarkable except as noted in HPI and below Exam Narrative: GENERAL: Ill-appearing but nontoxic, no acute distress HEAD: Normocephalic, atraumatic. EYES: PERRLA and EOMI. ENT: Mucous membranes tacky NECK: Supple. CHEST: Clear to auscultation. No respiratory distress. HEART: Regular rate and rhythm. ABDOMEN: Soft, RUQ tenderness to palpation, but continues to improve. No Rebound tenderness or guarding EXTREMITIES: Normal range of motion. SKIN: Warm, dry, no rash. NEURO: Alert and oriented x3. PSYCH: Normal mood and affect. Objective Data Vital Signs Vital Signs: Vital Signs - 24 hr 10/25/24 08:00 10/25/24 09:49 10/25/24 14:00 Temperature 97 F L Pulse Rate 78 80 Respiratory Rate 18 Blood Pressure 96/55 L Pulse Oximetry 97 Oxygen Delivery Room Air 10/25/24 16:38 10/25/24 16:40 10/25/24 20:00 Temperature Pulse Rate 77 77 Respiratory Rate Blood Pressure 112/58 L Pulse Oximetry Oxygen Delivery Room Air 10/25/24 22:00 10/26/24 06:00 Temperature 97.4 F L 97.6 F Pulse Rate 74 77 Respiratory Rate 18 18 Blood Pressure 111/89 122/50 L Pulse Oximetry 95 97 Oxygen Delivery Intake/Output Intake/Output: Intake & Output 10/23/24 10/24/24 10/25/24 10/26/24 23:59 23:59 23:59 23:59 Intake Total 19990 3640 Output Total 1360 1941 1240 510 Balance 227 266 9419 -510 Meds/Results Medications: Active Medications Generic Name Dose Route Start Last Admin Trade Name Freq PRN Reason Stop Dose Admin Acetaminophen 650 mg 10/22/24 14:00 Acetaminophen 325 Mg Tablet PO Q4H PRN Mild Pain (1-3) or Fever Hydrocodone Bitart/Acetaminophen 1 tab 10/22/24 14:00 10/25/24 13:25 Hydrocodone/Acetaminophen (*Crx) 5-325 Mg Tablet PO 1 tab Q4H PRN Administration Pain Rated 4-6 Hydrocodone Bitart/Acetaminophen 1 tab 10/22/24 14:00 10/25/24 21:03 Hydrocodone/Acetaminophen (*Crx) 10-325 Mg Tablet PO 1 tab Q6H PRN Administration Pain Rated 7-10 Allopurinol 200 mg 10/22/24 09:00 10/25/24 09:48 Allopurinol 100 Mg Tablet PO 200 mg DAILY CYNDI Administration Alprazolam 0.25 mg 10/21/24 21:00 10/25/24 20:58 Alprazolam (*Crx) 0.25 Mg Tablet PO 0.25 mg HS CYNDI Administration Amoxicillin/Clavulanate Potassium 1 tablet 10/23/24 14:30 10/25/24 20:59 Amoxicillin/Clavulanate K 875-125 Mg Tab PO 1 tablet Q12HR CYNDI Administration Bisacodyl 10 mg 10/21/24 11:18 Bisacodyl 10 Mg Suppository RECTAL DAILY PRN constipation Calcium Carbonate 200 mg 10/23/24 13:00 10/23/24 13:15 Calcium Carbonate (Tums) 500 Mg (200 Mg Elemental) PO 200 mg Q6H PRN Administration Indigestion Cilostazol 100 mg 10/21/24 17:00 10/25/24 16:40 Cilostazol 100 Mg Tablet PO 100 mg BID CYNDI Administration Dextrose 12.5 gm 10/20/24 11:43 Dextrose 50% 25 Gm/50 Ml Syringe IV PUSH PRN PRN Hypoglycemia Protocol Docusate Sodium 200 mg 10/21/24 11:18 Docusate Sodium 100 Mg Capsule PO Q12H PRN constipation Escitalopram Oxalate 20 mg 10/22/24 09:00 10/25/24 09:48 Escitalopram Oxalate 10 Mg Tablet PO 20 mg DAILY CYNDI Administration Ferrous Sulfate 325 mg 10/21/24 13:00 10/25/24 16:40 Ferrous Sulfate [address] BY MOUTH 325 mg TID CYNDI Administration Fluticasone Propionate 2 spray 10/22/24 09:00 10/25/24 09:49 Fluticasone Propionate 0.05% Na Spr 16 Gm Btl (*Bkc) NASAL 2 spray DAILY CYNDI Administration Glucagon 1 mg 10/20/24 11:43 Glucagon For Inj 1 Mg Vial IM PRN PRN Hypoglycemia Protocol Glucose 15 gm 10/20/24 11:43 Glucose Oral Gel 15 Gm Of Glucse In 37.5 Gm Tube PO PRN PRN Hypoglycemia Protocol Dextrose 1,000 mls @ 100 mls/hr 10/20/24 11:43 Dextrose 5% 1,000 Ml IVPB PRN PRN Hypoglycemia Protocol Dextrose/Sodium Chloride 1,000 mls @ 100 mls/hr 10/20/24 15:20 10/26/24 00:49 Dextrose 5% Sodium Chloride 0.9% IV CONT 100 mls/hr .Q10H CYNDI Administration Insulin Aspart 2 - 5 units 10/20/24 12:00 10/25/24 16:40 Insulin Aspart (*Bkc) 100 Units/Ml SUB-Q Not Given TIDWM CYNDI Protocol Insulin Aspart 1 - 2 units 10/20/24 21:00 10/25/24 20:59 Insulin Aspart (*Bkc) 100 Units/Ml SUB-Q Not Given HS CYNDI Protocol Lansoprazole 30 mg 10/24/24 06:30 10/26/24 06:23 Lansoprazole Odt 30 Mg Tab.Rap.Dr PO 30 mg DAILY@30 [facility] Administration Levothyroxine Sodium 50 mcg 10/22/24 06:30 10/24/24 07:42 Levothyroxine Sodium 50 Mcg Tablet PO Not Given MoTuWeThFr@[id number] [facility] Levothyroxine Sodium 100 mcg 10/25/24 06:30 10/26/24 06:25 Levothyroxine Sodium 100 Mcg Tablet PO 100 mcg SuSa@30 [facility] Administration Loratadine 10 mg 10/22/24 09:00 10/25/24 09:49 Loratadine 10 Mg Tablet PO 10 mg QAM [facility] Administration Lubiprostone 24 mcg 10/23/24 17:00 10/25/24 16:40 Lubiprostone 24 Mcg Capsule PO 24 mcg BID [facility] Administration Magnesium Citrate 296 ml 10/21/24 11:18 Magnesium Citrate 300 Ml Btl PO DAILY PRN constipation Magnesium Hydroxide 30 ml 10/21/24 11:18 Magnesium Hydroxide Susp 30 Ml Udc PO HS PRN constipation Magnesium Oxide 400 mg 10/21/24 13:00 10/25/24 16:40 Magnesium Oxide 400 Mg Tablet PO 400 mg TID [facility] Administration Metoprolol Tartrate 50 mg 10/21/24 17:00 10/25/24 16:40 Metoprolol Tartrate 50 Mg Tab PO 50 mg BID [facility] Administration Metronidazole 500 mg 10/23/24 14:00 10/26/24 06:23 Metronidazole 500 Mg Tablet PO 500 mg Q8HR [facility] Administration Morphine Sulfate 2 mg 10/20/24 11:44 10/22/24 12:32 Morphine Sulfate (*Crx) 2 Mg/Ml Inj IV PUSH 2 mg Q4H PRN Administration Pain Ondansetron HCl 4 mg 10/20/24 11:45 10/22/24 04:12 Ondansetron Inj 4 Mg/2 Ml Vial IV PUSH 4 mg Q6H PRN Administration Nausea Ondansetron HCl 4 mg 10/21/24 11:18 Ondansetron Hcl Odt 4 Mg Tablet PO Q6H PRN nausea and vomiting Oxybutynin Chloride 5 mg 10/22/24 09:00 10/25/24 09:48 Oxybutynin Chloride Xl 5 Mg Tab.Er.24 PO 5 mg DAILY CYNDI Administration Pantoprazole Sodium 40 mg 10/24/24 21:00 10/25/24 20:59 Pantoprazole 40 Mg Tablet PO 40 mg Q12HR CYNDI Administration Potassium Chloride 20 meq 10/22/24 09:00 10/25/24 09:49 Potassium Chloride 20 Meq Er Tablet PO 20 meq DAILY CYNDI Administration Sucralfate 1,000 mg 10/24/24 16:30 10/26/24 06:23 Sucralfate Susp 100 Mg/Ml 10 Ml Udc PO 1,000 mg ACHS CYNDI Administration Tamsulosin HCl 0.4 mg 10/21/24 09:00 10/25/24 09:49 Tamsulosin Hcl 0.4 Mg Capsule PO 0.4 mg QAM CYNDI Administration Radiology Results: ITS Impressions Hepatobiliary Scan Nuclear Medicine 10/21/24 14:02 IMPRESSION: 1. No evident gallbladder activity consistent with acute cholecystitis. Cholecystostomy 10/21/24 16:48 IMPRESSION: 1. Successful ultrasound-guided cholecystostomy tube placement. 2. 50 mL bile was sent for aerobic, anaerobic, and fungal cultures. 3. The catheter will be managed by Dr. Marquez. A catheter cholangiogram may be performed not less than 48 hours after tube placement if clinically indicated to assess cystic duct patency. If cholecystectomy is not eventually performed and the infectious episode has resolved, the tube may be removed over a guidewire, preferably not less than 3 weeks after placement to allow time for a mature catheter tract to form to prevent bile leakage and peritonitis. Chest CTA 10/23/24 14:42 IMPRESSION: 1. No pulmonary embolus or aortic dissection seen. 2. Moderate Bilateral pleural effusion with adjacent atelectasis versus pneumonia. 3. Tracheobronchomalacia. 4. Nodule in the right lower lobe. 6 months follow-up CT is advised. Labs Labs: Laboratory Results - last 24 hr 10/25/24 10/25/24 10/25/24 07:28 08:09 11:33 WBC 6.9 RBC 3.03 L Hgb 9.5 L Hct 31.2 L MCV 103.0 H MCH 31.4 MCHC 30.4 L RDW 16.8 H Plt Count 179 MPV 10.6 H Immature Gran % (Auto) 1.7 H Neut % (Auto) 70.6 Lymph % (Auto) 16.0 L [place] % (Auto) 6.9 Eos % (Auto) 4.2 Baso % (Auto) 0.6 Lymph # (Auto) 1.11 [place] # (Auto) 0.5 Eos # (Auto) 0.3 Baso # (Auto) 0.0 Abs Immat Gran (auto) 0.12 H Absolute Neuts (auto) 4.9 Absolute Nucleated RBC 0.000 Nucleated RBC % 0.0 Sodium 139 Potassium 3.6 Chloride 112 H Carbon Dioxide 22 Anion Gap 5 BUN 5 L Creatinine 1.09 H Estim Creat Clear Calc 60 Estimated GFR 49 L Glucose 108 POC Capillary Glucose 110 H 131 H Calcium 8.2 L Total Bilirubin 0.3 AST 12 L ALT 7 Alkaline Phosphatase 70 Total Protein 5.0 L Albumin 2.4 L 10/25/24 10/25/24 10/26/24 16:51 20:29 04:39 WBC 7.8 RBC 3.12 L Hgb 9.7 L Hct 31.3 L MCV 100.3 H MCH 31.1 MCHC 31.0 L RDW 16.9 H Plt Count 170 MPV 9.7 Immature Gran % (Auto) 1.5 H Neut % (Auto) 70.8 Lymph % (Auto) 17.5 L [place] % (Auto) 5.9 Eos % (Auto) 3.9 Baso % (Auto) 0.4 Lymph # (Auto) 1.36 [place] # (Auto) 0.5 Eos # (Auto) 0.3 Baso # (Auto) 0.0 Abs Immat Gran (auto) 0.12 H Absolute Neuts (auto) 5.5 Absolute Nucleated RBC 0.000 Nucleated RBC % 0.0 Sodium 140 Potassium 3.4 Chloride 113 H Carbon Dioxide 22 Anion Gap 5 BUN 4 L Creatinine 1.14 H Estim Creat Clear Calc 58 Estimated GFR 47 L Glucose 91 POC Capillary Glucose 120 H 125 H Calcium 8.2 L Total Bilirubin 0.3 AST 13 L ALT 7 Alkaline Phosphatase 65 Total Protein 5.0 L Albumin 2.3 L Quality VTE Prophylaxis VTE prophylaxis: mechanical ordered
[2024-10-26 08:15] LABS: Glucose Point of Care 114 mg/dl (65-105)
[2024-10-26] MEDS: cilostazoL 100 MG TABLET PO ×2 (08:55→16:59)
[2024-10-26] MEDS: allopurinoL 100 MG TABLET 200 MG PO (08:55)
[2024-10-26] MEDS: ESCITALOPRAM OXALATE 10 MG TABLET 20 MG PO (08:56)
[2024-10-26] MEDS: LORATADINE 10 MG TABLET PO (08:56)
[2024-10-26] MEDS: HYDROcodone/acetaminophen (*CRX) 10-325 MG TABLET 1 TAB PO ×2 (08:56→21:13)
[2024-10-26] MEDS: PANTOPRAZOLE 40 MG TABLET PO ×2 (08:56→21:13)
[2024-10-26 08:57] VITALS: PULSE 90
[2024-10-26] MEDS: POTASSIUM CHLORIDE 20 MEQ ER TABLET PO (08:57)
[2024-10-26] MEDS: oxyBUTYnin CHLORIDE XL 5 MG TAB.ER.24 PO (08:57)
[2024-10-26] MEDS: MAGNESIUM OXIDE 400 MG TABLET PO ×3 (08:57→16:59)
[2024-10-26] MEDS: METOPROLOL TARTRATE 50 MG TAB PO ×2 (08:57→16:59)
[2024-10-26] MEDS: AMOXICILLIN/CLAVULANATE K 875-125 MG TAB 1 TABLET PO ×2 (08:57→21:12)
[2024-10-26] MEDS: TAMSULOSIN HCL 0.4 MG CAPSULE PO (08:57)
[2024-10-26] MEDS: FERROUS SULFATE 325 MG TABLET DR BY MOUTH ×3 (08:57→16:59)
[2024-10-26] MEDS: LUBIPROSTONE 24 MCG CAPSULE PO ×2 (08:58→16:59)
[2024-10-26] MEDS: FLUTICASONE PROPIONATE 0.05% NA SPR 16 GM BTL (*BKC) 2 SPRAY NASAL (08:58)
[2024-10-26] MEDS: MORPHINE SULFATE (*CRX) 2 MG/ML INJ IV PUSH (09:21)
--- NOTE | 2024-10-26 10:12 | PM.PNGS ---
Progress Note: A&P Assessment and Plan (1) Cholelithiasis with acute cholecystitis: Qualifiers: Biliary obstruction: with biliary obstruction Qualified Code(s): K80.01 - Calculus of gallbladder with acute cholecystitis with obstruction Code(s): K80.00 - Calculus of gallbladder with acute cholecystitis without obstruction Status: Acute Assessment and Plan: labs and exam normal, cont drain and abx, cont low fat diet (2) Ulcerative esophagitis: Code(s): K22.10 - Ulcer of esophagus without bleeding Status: Acute Assessment and Plan: more likely etiology of postprandial pain at this point, continue PPI and Carafate Subjective Subjective Date/Time Seen: 10/26/24 10:12 Interval history: still c/o pain after eating/drinking Review of Systems Review of Systems: All systems reviewed & are unremarkable except as noted in HPI and below Exam Const: General: cooperative, comfortable, no acute distress, ill appearing and obese Resp: Auscultation: diminished lung sounds Cardio: Rate: regular rate Rhythm: regular rhythm GI: Inspection: normal to inspection, non-distended and obesity GI Palp: No abdominal tenderness and Yes Soft to palpation Objective Data Vital Signs Vital Signs: Vital Signs - 24 hr 10/25/24 14:00 10/25/24 16:38 10/25/24 16:40 Temperature 36.1 C L Pulse Rate 80 77 77 Respiratory Rate 18 Blood Pressure 96/55 L 112/58 L Pulse Oximetry 97 Oxygen Delivery 10/25/24 20:00 10/25/24 22:00 10/26/24 06:00 Temperature 36.3 C L 36.4 C Pulse Rate 74 77 Respiratory Rate 18 18 Blood Pressure 111/89 122/50 L Pulse Oximetry 95 97 Oxygen Delivery Room Air 10/26/24 08:57 Temperature Pulse Rate 90 Respiratory Rate Blood Pressure Pulse Oximetry Oxygen Delivery Intake/Output Intake/Output: Intake & Output 10/23/24 10/24/24 10/25/24 10/26/24 23:59 23:59 23:59 23:59 Intake Total 1999 2290 3640 0 Output Total 1360 1941 1240 510 Balance 577 173 9839 -510 Meds/Results Medications: Active Medications Generic Name Dose Route Start Last Admin Trade Name Freq PRN Reason Stop Dose Admin Acetaminophen 650 mg 10/22/24 14:00 Acetaminophen 325 Mg Tablet PO Q4H PRN Mild Pain (1-3) or Fever Hydrocodone Bitart/Acetaminophen 1 tab 10/22/24 14:00 10/25/24 13:25 Hydrocodone/Acetaminophen (*Crx) 5-325 Mg Tablet PO 1 tab Q4H PRN Administration Pain Rated 4-6 Hydrocodone Bitart/Acetaminophen 1 tab 10/22/24 14:00 10/26/24 08:56 Hydrocodone/Acetaminophen (*Crx) 10-325 Mg Tablet PO 1 tab Q6H PRN Administration Pain Rated 7-10 Allopurinol 200 mg 10/22/24 09:00 10/26/24 08:55 Allopurinol 100 Mg Tablet PO 200 mg DAILY CYNDI Administration Alprazolam 0.25 mg 10/21/24 21:00 10/25/24 20:58 Alprazolam (*Crx) 0.25 Mg Tablet PO 0.25 mg HS CYNDI Administration Amoxicillin/Clavulanate Potassium 1 tablet 10/23/24 14:30 10/26/24 08:57 Amoxicillin/Clavulanate K 875-125 Mg Tab PO 1 tablet Q12HR CYNDI Administration Bisacodyl 10 mg 10/21/24 11:18 Bisacodyl 10 Mg Suppository RECTAL DAILY PRN constipation Calcium Carbonate 200 mg 10/23/24 13:00 10/23/24 13:15 Calcium Carbonate (Tums) 500 Mg (200 Mg Elemental) PO 200 mg Q6H PRN Administration Indigestion Cilostazol 100 mg 10/21/24 17:00 10/26/24 08:55 Cilostazol 100 Mg Tablet PO 100 mg BID CYNDI Administration Dextrose 12.5 gm 10/20/24 11:43 Dextrose 50% 25 Gm/50 Ml Syringe IV PUSH PRN PRN Hypoglycemia Protocol Docusate Sodium 200 mg 10/21/24 11:18 Docusate Sodium 100 Mg Capsule PO Q12H PRN constipation Escitalopram Oxalate 20 mg 10/22/24 09:00 10/26/24 08:56 Escitalopram Oxalate 10 Mg Tablet PO 20 mg DAILY CYNDI Administration Ferrous Sulfate 325 mg 10/21/24 13:00 10/26/24 08:57 Ferrous Sulfate [address] BY MOUTH 325 mg TID CYNDI Administration Fluticasone Propionate 2 spray 10/22/24 09:00 10/26/24 08:58 Fluticasone Propionate 0.05% Na Spr 16 Gm Btl (*Bkc) NASAL 2 spray DAILY CYNDI Administration Glucagon 1 mg 10/20/24 11:43 Glucagon For Inj 1 Mg Vial IM PRN PRN Hypoglycemia Protocol Glucose 15 gm 10/20/24 11:43 Glucose Oral Gel 15 Gm Of Glucse In 37.5 Gm Tube PO PRN PRN Hypoglycemia Protocol Dextrose 1,000 mls @ 100 mls/hr 10/20/24 11:43 Dextrose 5% 1,000 Ml IVPB PRN PRN Hypoglycemia Protocol Dextrose/Sodium Chloride 1,000 mls @ 100 mls/hr 10/20/24 15:20 10/26/24 00:49 Dextrose 5% Sodium Chloride 0.9% IV CONT 100 mls/hr .Q10H CYNDI Administration Insulin Aspart 2 - 5 units 10/20/24 12:00 10/26/24 08:17 Insulin Aspart (*Bkc) 100 Units/Ml SUB-Q Not Given TIDWM [facility] Protocol Insulin Aspart 1 - 2 units 10/20/24 21:00 10/25/24 20:59 Insulin Aspart (*Bkc) 100 Units/Ml SUB-Q Not Given HS [facility] Protocol Lansoprazole 30 mg 10/24/24 06:30 10/26/24 06:23 Lansoprazole Odt 30 Mg Tab.Rap.Dr PO 30 mg DAILY@0630 [facility] Administration Levothyroxine Sodium 50 mcg 10/22/24 06:30 10/24/24 07:42 Levothyroxine Sodium 50 Mcg Tablet PO Not Given MoTuWeThFr@0630 [facility] Levothyroxine Sodium 100 mcg 10/25/24 06:30 10/26/24 06:25 Levothyroxine Sodium 100 Mcg Tablet PO 100 mcg SuSa@0630 [facility] Administration Loratadine 10 mg 10/22/24 09:00 10/26/24 08:56 Loratadine 10 Mg Tablet PO 10 mg QAM CYNDI Administration Lubiprostone 24 mcg 10/23/24 17:00 10/26/24 08:58 Lubiprostone 24 Mcg Capsule PO 24 mcg BID CYNDI Administration Magnesium Citrate 296 ml 10/21/24 11:18 Magnesium Citrate 300 Ml Btl PO DAILY PRN constipation Magnesium Hydroxide 30 ml 10/21/24 11:18 Magnesium Hydroxide Susp 30 Ml Udc PO HS PRN constipation Magnesium Oxide 400 mg 10/21/24 13:00 10/26/24 08:57 Magnesium Oxide 400 Mg Tablet PO 400 mg TID CYNDI Administration Metoprolol Tartrate 50 mg 10/21/24 17:00 10/26/24 08:57 Metoprolol Tartrate 50 Mg Tab PO 50 mg BID CYNDI Administration Metronidazole 500 mg 10/23/24 14:00 10/26/24 06:23 Metronidazole 500 Mg Tablet PO 500 mg Q8HR CYNDI Administration Morphine Sulfate 2 mg 10/20/24 11:44 10/26/24 09:21 Morphine Sulfate (*Crx) 2 Mg/Ml Inj IV PUSH 2 mg Q4H PRN Administration Pain Ondansetron HCl 4 mg 10/20/24 11:45 10/22/24 04:12 Ondansetron Inj 4 Mg/2 Ml Vial IV PUSH 4 mg Q6H PRN Administration Nausea Ondansetron HCl 4 mg 10/21/24 11:18 Ondansetron Hcl Odt 4 Mg Tablet PO Q6H PRN nausea and vomiting Oxybutynin Chloride 5 mg 10/22/24 09:00 10/26/24 08:57 Oxybutynin Chloride Xl 5 Mg Tab.Er.24 PO 5 mg DAILY CYNDI Administration Pantoprazole Sodium 40 mg 10/24/24 21:00 10/26/24 08:56 Pantoprazole 40 Mg Tablet PO 40 mg Q12HR CY[facility]I Administration Potassium Chloride 20 meq 10/22/24 09:00 10/26/24 08:57 Potassium Chloride 20 Meq Er Tablet PO 20 meq DAILY CYNDI Administration Sucralfate 1,000 mg 10/24/24 16:30 10/26/24 06:23 Sucralfate Susp 100 Mg/Ml 10 Ml Udc PO 1,000 mg ACHS CYNDI Administration Tamsulosin HCl 0.4 mg 10/21/24 09:00 10/26/24 08:57 Tamsulosin Hcl 0.4 Mg Capsule PO 0.4 mg QAM CYNDI Administration Radiology Results: ITS Impressions Hepatobiliary Scan Nuclear Medicine 10/21/24 14:02 IMPRESSION: 1. No evident gallbladder activity consistent with acute cholecystitis. Cholecystostomy 10/21/24 16:48 IMPRESSION: 1. Successful ultrasound-guided cholecystostomy tube placement. 2. 50 mL bile was sent for aerobic, anaerobic, and fungal cultures. 3. The catheter will be managed by Dr. Marquez. A catheter cholangiogram may be performed not less than 48 hours after tube placement if clinically indicated to assess cystic duct patency. If cholecystectomy is not eventually performed and the infectious episode has resolved, the tube may be removed over a guidewire, preferably not less than 3 weeks after placement to allow time for a mature catheter tract to form to prevent bile leakage and peritonitis. Chest CTA 10/23/24 14:42 IMPRESSION: 1. No pulmonary embolus or aortic dissection seen. 2. Moderate Bilateral pleural effusion with adjacent atelectasis versus pneumonia. 3. Tracheobronchomalacia. 4. Nodule in the right lower lobe. 6 months follow-up CT is advised. Labs Labs: Laboratory Results - last 24 hr 10/25/24 10/25/24 10/25/24 11:33 16:51 20:29 WBC RBC Hgb Hct MCV MCH MCHC RDW Plt Count MPV Immature Gran % (Auto) Neut % (Auto) Lymph % (Auto) [place] % (Auto) Eos % (Auto) Baso % (Auto) Lymph # (Auto) [place] # (Auto) Eos # (Auto) Baso # (Auto) Abs Immat Gran (auto) Absolute Neuts (auto) Absolute Nucleated RBC Nucleated RBC % Sodium Potassium Chloride Carbon Dioxide Anion Gap BUN Creatinine Estim Creat Clear Calc Estimated GFR Glucose POC Capillary Glucose 131 H 120 H 125 H Calcium Total Bilirubin AST ALT Alkaline Phosphatase Total Protein Albumin 10/26/24 10/26/24 04:39 08:05 WBC 7.8 RBC 3.12 L Hgb 9.7 L Hct 31.3 L MCV 100.3 H MCH 31.1 MCHC 31.0 L RDW 16.9 H Plt Count 170 MPV 9.7 Immature Gran % (Auto) 1.5 H Neut % (Auto) 70.8 Lymph % (Auto) 17.5 L [place] % (Auto) 5.9 Eos % (Auto) 3.9 Baso % (Auto) 0.4 Lymph # (Auto) 1.36 [place] # (Auto) 0.5 Eos # (Auto) 0.3 Baso # (Auto) 0.0 Abs Immat Gran (auto) 0.12 H Absolute Neuts (auto) 5.5 Absolute Nucleated RBC 0.000 Nucleated RBC % 0.0 Sodium 140 Potassium 3.4 Chloride 113 H Carbon Dioxide 22 Anion Gap 5 BUN 4 L Creatinine 1.14 H Estim Creat Clear Calc 58 Estimated GFR 47 L Glucose 91 POC Capillary Glucose 114 H Calcium 8.2 L Total Bilirubin 0.3 AST 13 L ALT 7 Alkaline Phosphatase 65 Total Protein 5.0 L Albumin 2.3 L
[2024-10-26 12:26] LABS: Glucose Point of Care 143 mg/dl (65-105)
--- NOTE | 2024-10-26 13:14 | P.PNGI_ITS ---
Progress Note: A&P Assessment and Plan (1) Ulcerative esophagitis: Code(s): K22.10 - Ulcer of esophagus without bleeding Status: Acute Assessment and Plan: noted ulcerative esophagitis, this can explain part of symptom, she also has cholecystitis for which she has right now cholecystostomy tube managed by surgical team continue with protonix bid, also carafate with meals poor appetite but she is trying to eat more, add protein shakes will follow as needed (2) Epigastric pain: Code(s): R10.13 - Epigastric pain Status: Acute (3) Nausea: Code(s): R11.0 - Nausea Status: Acute Assessment and Plan: antiemetics prn (4) Cholelithiasis with acute cholecystitis: Qualifiers: Biliary obstruction: with biliary obstruction Qualified Code(s): K80.01 - Calculus of gallbladder with acute cholecystitis with obstruction Code(s): K80.00 - Calculus of gallbladder with acute cholecystitis without obstruction Status: Acute Assessment and Plan: cholecystostomy tube in place management by surgery to decide best timing of cholecystectomy (5) Morbid obesity: Code(s): E66.01 - Morbid (severe) obesity due to excess calories Status: Chronic (6) Type 2 diabetes mellitus: Code(s): E11.9 - Type 2 diabetes mellitus without complications Status: Chronic (7) Anemia: Code(s): D64.9 - Anemia, unspecified Status: Chronic Subjective Date/time seen: 10/26/24 13:14 Interval history: still discomfort but trying to eat more, she had yogurt earlier Review of Systems Review of Systems: All systems reviewed & are unremarkable except as noted in HPI and below Exam Const: General: cooperative, comfortable, no acute distress, ill appearing and obese HENMT: Face/Nose/Sinus: Normal nares present Eyes: Sclera: sclerae normal Neck: Neck: supple Resp: Auscultation: diminished lung sounds Cardio: Rate: regular rate GI: Inspection: normal to inspection, non-distended, Pannus present and obesity GI Palp: Yes Soft to palpation and Yes Tenderness to palpation present (GI) (epigastric, ruq, no rebound) Other: tube in place Skin: General skin exam: normal color Neuro: Speech: normal speech Extrem: General: normal to inspection Psych: Affect: Anxious affect present Objective Data Vital Signs Vital Signs: Vital Signs - 24 hr 10/25/24 14:00 10/25/24 16:38 10/25/24 16:40 Temperature 97 F L Pulse Rate 80 77 77 Respiratory Rate 18 Blood Pressure 96/55 L 112/58 L Pulse Oximetry 97 Oxygen Delivery 10/25/24 20:00 10/25/24 22:00 10/26/24 06:00 Temperature 97.4 F L 97.6 F Pulse Rate 74 77 Respiratory Rate 18 18 Blood Pressure 111/89 122/50 L Pulse Oximetry 95 97 Oxygen Delivery Room Air 10/26/24 08:00 10/26/24 08:57 Temperature Pulse Rate 90 Respiratory Rate Blood Pressure Pulse Oximetry Oxygen Delivery Room Air Intake/Output Intake/Output: Intake & Output 10/23/24 10/24/24 10/25/24 10/26/24 23:59 23:59 23:59 23:59 Intake Total 1999 2290 3640 0 Output Total 1360 1941 1240 510 Balance 822 629 4873 -510 Meds/Results Medications: Active Medications Generic Name Dose Route Start Last Admin Trade Name Freq PRN Reason Stop Dose Admin Acetaminophen 650 mg 10/22/24 14:00 Acetaminophen 325 Mg Tablet PO Q4H PRN Mild Pain (1-3) or Fever Hydrocodone Bitart/Acetaminophen 1 tab 10/22/24 14:00 10/25/24 13:25 Hydrocodone/Acetaminophen (*Crx) 5-325 Mg Tablet PO 1 tab Q4H PRN Administration Pain Rated 4-6 Hydrocodone Bitart/Acetaminophen 1 tab 10/22/24 14:00 10/26/24 08:56 Hydrocodone/Acetaminophen (*Crx) 10-325 Mg Tablet PO 1 tab Q6H PRN Administration Pain Rated 7-10 Allopurinol 200 mg 10/22/24 09:00 10/26/24 08:55 Allopurinol 100 Mg Tablet PO 200 mg DAILY CYNDI Administration Alprazolam 0.25 mg 10/21/24 21:00 10/25/24 20:58 Alprazolam (*Crx) 0.25 Mg Tablet PO 0.25 mg HS CYNDI Administration Amoxicillin/Clavulanate Potassium 1 tablet 10/23/24 14:30 10/26/24 08:57 Amoxicillin/Clavulanate K 875-125 Mg Tab PO 1 tablet Q12HR CYNDI Administration Bisacodyl 10 mg 10/21/24 11:18 Bisacodyl 10 Mg Suppository RECTAL DAILY PRN constipation Calcium Carbonate 200 mg 10/23/24 13:00 10/23/24 13:15 Calcium Carbonate (Tums) 500 Mg (200 Mg Elemental) PO 200 mg Q6H PRN Administration Indigestion Cilostazol 100 mg 10/21/24 17:00 10/26/24 08:55 Cilostazol 100 Mg Tablet PO 100 mg BID CYNDI Administration Dextrose 12.5 gm 10/20/24 11:43 Dextrose 50% 25 Gm/50 Ml Syringe IV PUSH PRN PRN Hypoglycemia Protocol Docusate Sodium 200 mg 10/21/24 11:18 Docusate Sodium 100 Mg Capsule PO Q12H PRN constipation Escitalopram Oxalate 20 mg 10/22/24 09:00 10/26/24 08:56 Escitalopram Oxalate 10 Mg Tablet PO 20 mg DAILY CYNDI Administration Ferrous Sulfate 325 mg 10/21/24 13:00 10/26/24 13:02 Ferrous Sulfate [address] BY MOUTH 325 mg TID CYNDI Administration Fluticasone Propionate 2 spray 10/22/24 09:00 10/26/24 08:58 Fluticasone Propionate 0.05% Na Spr 16 Gm Btl (*Bkc) NASAL 2 spray DAILY CYNDI Administration Glucagon 1 mg 10/20/24 11:43 Glucagon For Inj 1 Mg Vial IM PRN PRN Hypoglycemia Protocol Glucose 15 gm 10/20/24 11:43 Glucose Oral Gel 15 Gm Of Glucse In 37.5 Gm Tube PO PRN PRN Hypoglycemia Protocol Dextrose 1,000 mls @ 100 mls/hr 10/20/24 11:43 Dextrose 5% 1,000 Ml IVPB PRN PRN Hypoglycemia Protocol Dextrose/Sodium Chloride 1,000 mls @ 100 mls/hr 10/20/24 15:20 10/26/24 00:49 Dextrose 5% Sodium Chloride 0.9% IV CONT 100 mls/hr .Q10H CYNDI Administration Insulin Aspart 2 - 5 units 10/20/24 12:00 10/26/24 13:02 Insulin Aspart (*Bkc) 100 Units/Ml SUB-Q Not Given TIDWM [facility] Protocol Insulin Aspart 1 - 2 units 10/20/24 21:00 10/25/24 20:59 Insulin Aspart (*Bkc) 100 Units/Ml SUB-Q Not Given HS [facility] Protocol Lansoprazole 30 mg 10/24/24 06:30 10/26/24 06:23 Lansoprazole Odt 30 Mg Tab.Rap.Dr PO 30 mg DAILY@30 [facility] Administration Levothyroxine Sodium 50 mcg 10/22/24 06:30 10/24/24 07:42 Levothyroxine Sodium 50 Mcg Tablet PO Not Given [id number]@30 [facility] Levothyroxine Sodium 100 mcg 10/25/24 06:30 10/26/24 06:25 Levothyroxine Sodium 100 Mcg Tablet PO 100 mcg SuSa@629 [facility] Administration Loratadine 10 mg 10/22/24 09:00 10/26/24 08:56 Loratadine 10 Mg Tablet PO 10 mg QAM [facility] Administration Lubiprostone 24 mcg 10/23/24 17:00 10/26/24 08:58 Lubiprostone 24 Mcg Capsule PO 24 mcg BID [facility] Administration Magnesium Citrate 296 ml 10/21/24 11:18 Magnesium Citrate 300 Ml Btl PO DAILY PRN constipation Magnesium Hydroxide 30 ml 10/21/24 11:18 Magnesium Hydroxide Susp 30 Ml Udc PO HS PRN constipation Magnesium Oxide 400 mg 10/21/24 13:00 10/26/24 13:02 Magnesium Oxide 400 Mg Tablet PO 400 mg TID [facility] Administration Metoprolol Tartrate 50 mg 10/21/24 17:00 10/26/24 08:57 Metoprolol Tartrate 50 Mg Tab PO 50 mg BID [facility] Administration Metronidazole 500 mg 10/23/24 14:00 10/26/24 13:02 Metronidazole 500 Mg Tablet PO 500 mg Q8HR [facility] Administration Morphine Sulfate 2 mg 10/20/24 11:44 10/26/24 09:21 Morphine Sulfate (*Crx) 2 Mg/Ml Inj IV PUSH 2 mg Q4H PRN Administration Pain Ondansetron HCl 4 mg 10/20/24 11:45 10/22/24 04:12 Ondansetron Inj 4 Mg/2 Ml Vial IV PUSH 4 mg Q6H PRN Administration Nausea Ondansetron HCl 4 mg 10/21/24 11:18 Ondansetron Hcl Odt 4 Mg Tablet PO Q6H PRN nausea and vomiting Oxybutynin Chloride 5 mg 10/22/24 09:00 10/26/24 08:57 Oxybutynin Chloride Xl 5 Mg Tab.Er.24 PO 5 mg DAILY CYNDI Administration Pantoprazole Sodium 40 mg 10/24/24 21:00 10/26/24 08:56 Pantoprazole 40 Mg Tablet PO 40 mg Q12HR [facility]NDI Administration Potassium Chloride 20 meq 10/22/24 09:00 10/26/24 08:57 Potassium Chloride 20 Meq Er Tablet PO 20 meq DAILY CYNDI Administration Sucralfate 1,000 mg 10/24/24 16:30 10/26/24 13:03 Sucralfate Susp 100 Mg/Ml 10 Ml Udc PO 1,000 mg ACHS CYNDI Administration Tamsulosin HCl 0.4 mg 10/21/24 09:00 10/26/24 08:57 Tamsulosin Hcl 0.4 Mg Capsule PO 0.4 mg QAM CYNDI Administration Radiology Results: ITS Impressions Hepatobiliary Scan Nuclear Medicine 10/21/24 14:02 IMPRESSION: 1. No evident gallbladder activity consistent with acute cholecystitis. Cholecystostomy 10/21/24 16:48 IMPRESSION: 1. Successful ultrasound-guided cholecystostomy tube placement. 2. 50 mL bile was sent for aerobic, anaerobic, and fungal cultures. 3. The catheter will be managed by Dr. Marquez. A catheter cholangiogram may be performed not less than 48 hours after tube placement if clinically indicated to assess cystic duct patency. If cholecystectomy is not eventually performed and the infectious episode has resolved, the tube may be removed over a guidewire, preferably not less than 3 weeks after placement to allow time for a mature catheter tract to form to prevent bile leakage and peritonitis. Chest CTA 10/23/24 14:42 IMPRESSION: 1. No pulmonary embolus or aortic dissection seen. 2. Moderate Bilateral pleural effusion with adjacent atelectasis versus pneumonia. 3. Tracheobronchomalacia. 4. Nodule in the right lower lobe. 6 months follow-up CT is advised. Labs Labs: Laboratory Results - last 24 hr 10/25/24 10/25/24 10/26/24 16:51 20:29 04:39 WBC 7.8 RBC 3.12 L Hgb 9.7 L Hct 31.3 L MCV 100.3 H MCH 31.1 MCHC 31.0 L RDW 16.9 H Plt Count 170 MPV 9.7 Immature Gran % (Auto) 1.5 H Neut % (Auto) 70.8 Lymph % (Auto) 17.5 L [place] % (Auto) 5.9 Eos % (Auto) 3.9 Baso % (Auto) 0.4 Lymph # (Auto) 1.36 [place] # (Auto) 0.5 Eos # (Auto) 0.3 Baso # (Auto) 0.0 Abs Immat Gran (auto) 0.12 H Absolute Neuts (auto) 5.5 Absolute Nucleated RBC 0.000 Nucleated RBC % 0.0 Sodium 140 Potassium 3.4 Chloride 113 H Carbon Dioxide 22 Anion Gap 5 BUN 4 L Creatinine 1.14 H Estim Creat Clear Calc 58 Estimated GFR 47 L Glucose 91 POC Capillary Glucose 120 H 125 H Calcium 8.2 L Total Bilirubin 0.3 AST 13 L ALT 7 Alkaline Phosphatase 65 Total Protein 5.0 L Albumin 2.3 L 10/26/24 10/26/24 08:05 12:00 WBC RBC Hgb Hct MCV MCH MCHC RDW Plt Count MPV Immature Gran % (Auto) Neut % (Auto) Lymph % (Auto) [place] % (Auto) Eos % (Auto) Baso % (Auto) Lymph # (Auto) [place] # (Auto) Eos # (Auto) Baso # (Auto) Abs Immat Gran (auto) Absolute Neuts (auto) Absolute Nucleated RBC Nucleated RBC % Sodium Potassium Chloride Carbon Dioxide Anion Gap BUN Creatinine Estim Creat Clear Calc Estimated GFR Glucose POC Capillary Glucose 114 H 143 H Calcium Total Bilirubin AST ALT Alkaline Phosphatase Total Protein Albumin
[2024-10-26 14:00] VITALS: BP 134/63; PULSE 76; RESP 16; TEMP 36.6; O2SAT 96
[2024-10-26 16:59] VITALS: PULSE 88
[2024-10-26 17:06] LABS: Glucose Point of Care 118 mg/dl (65-105)
[2024-10-26 18:45] LABS: Toxigenic C. Diff NEGATIVE (NEGATIVE)
[2024-10-26 20:17] LABS: Glucose Point of Care 144 mg/dl (65-105)
[2024-10-26] MEDS: ALPRAZolam (*CRX) 0.25 MG TABLET PO (21:12)
[2024-10-26 22:00] VITALS: BP 119/68; PULSE 75; RESP 18; TEMP 36.4; O2SAT 95
[2024-10-27] MEDS: LEVOTHYROXINE SODIUM 50 MCG TABLET PO (05:56)
[2024-10-27] MEDS: metroNIDAZOLE 500 MG TABLET PO (05:56)
[2024-10-27] MEDS: HYDROcodone/acetaminophen (*CRX) 10-325 MG TABLET 1 TAB PO ×2 (05:56→20:41)
[2024-10-27] MEDS: LANSOPRAZOLE ODT 30 MG TAB.RAP.DR PO (05:56)
[2024-10-27] MEDS: SUCRALFATE SUSP 100 MG/ML 10 ML UDC 1000 MG PO ×4 (05:57→20:38)
[2024-10-27 06:00] VITALS: BP 144/69; PULSE 81; RESP 18; TEMP 36.4; O2SAT 99
[2024-10-27 07:51] LABS: Basophils Percent Auto 0.4 % (0.2-1.2); Eosinophils Absolute Auto 0.3 K/mm3 (0-0.3); Eosinophils Percent Auto 2.8 % (0-4.4); Hematocrit 31.4 % (37.0-47.0); Hemoglobin 9.5 g/dL (12.0-15.0); Immature Granulocyte Absolute 0.11 K/mm3 (0.00-0.031); Immature Granulocyte Percent A 1.2 % (0-0.5); Lymphocytes Absolute Auto 1.37 K/mm3 (0.9-3.2); Lymphocytes Percent Auto 14.8 % (18.3-44.2); Mean Corpuscular HGB Conc 30.3 g/dl (32-36); Mean Corpuscular Hemoglobin 31.1 pg (26-34); Mean Platelet Volume 10.2 fl (7.4-10.4); Monocytes Absolute Auto 0.5 K/mm3 (0.1-0.6); Monocytes Percent Auto 5.6 % (2.6-8.5); Neutrophils Absolute Auto 6.9 K/mm3 (1.3-6.7); Neutrophils Percent Auto 75.2 % (45.5-73.1); Platelet Count Result 164 k/mm3 (150-375); Red Blood Count 3.05 M/mm3 (4.2-5.4); White Blood Count 9.2 K/mm3 (4.5-10.0)
[2024-10-27 08:04] LABS: Alanine Aminotransferase 6 U/L (6-35); Albumin Level 2.2 g/dL (3.5-5.1); Alkaline Phosphatase 67 U/L (38-126); Anion Gap 3 mmol/L (4-12); Aspartate Amino Transferase 13 U/L (14-36); Bilirubin,Total 0.3 mg/dL (0.2-1.3); Blood Urea Nitrogen 4 mg/dL (7-17); Calcium 8.1 mg/dL (8.4-10.2); Carbon Dioxide 22 mmol/L (22-30); Chloride 115 mmol/L (98-107); Estimated CRCL calculation 57 ml/min; Estimated Glomerular Filt Rate 47; Glucose 122 mg/dL (65-110); Potassium 3.5 mmol/L (3.4-5.0); Sodium 140 mmol/L (137-145)
[2024-10-27 08:19] LABS: Glucose Point of Care 121 mg/dl (65-105)
--- NOTE | 2024-10-27 08:36 | PM.PNGS ---
Progress Note: A&P Assessment and Plan (1) Cholelithiasis with acute cholecystitis: Qualifiers: Biliary obstruction: with biliary obstruction Qualified Code(s): K80.01 - Calculus of gallbladder with acute cholecystitis with obstruction Code(s): K80.00 - Calculus of gallbladder with acute cholecystitis without obstruction Status: Acute Assessment and Plan: exam benign, labs normalized, continue to encourage diet, continue drain, okay to DC antibiotics at this point (2) Ulcerative esophagitis: Code(s): K22.10 - Ulcer of esophagus without bleeding Status: Acute Assessment and Plan: continue PPI and Carafate per GI Subjective Subjective Date/Time Seen: 10/27/24 08:36 Interval history: Still with postprandial pain, did eat a little more yesterday Review of Systems Review of Systems: All systems reviewed & are unremarkable except as noted in HPI and below Exam Const: General: cooperative, comfortable, no acute distress and ill appearing Resp: Auscultation: diminished lung sounds Cardio: Rate: regular rate Rhythm: regular rhythm GI: Inspection: normal to inspection and non-distended GI Palp: No abdominal tenderness and Yes Soft to palpation Other: perc cholecystostomy tube with bilious drainage Objective Data Vital Signs Vital Signs: Vital Signs - 24 hr 10/26/24 08:57 10/26/24 14:00 10/26/24 16:59 Temperature 36.6 C Pulse Rate 90 76 88 Respiratory Rate 16 Blood Pressure 134/63 Pulse Oximetry 96 Oxygen Delivery 10/26/24 20:00 10/26/24 22:00 10/27/24 06:00 Temperature 36.4 C L 36.4 C L Pulse Rate 75 81 Respiratory Rate 18 18 Blood Pressure 119/68 144/69 H Pulse Oximetry 95 99 Oxygen Delivery Room Air Intake/Output Intake/Output: Intake & Output 10/24/24 10/25/24 10/26/24 10/27/24 23:59 23:59 23:59 23:59 Intake Total 2290 3640 1120 Output Total 1941 1240 960 700 Balance 349 2400 160 -700 Meds/Results Medications: Active Medications Generic Name Dose Route Start Last Admin Trade Name Freq PRN Reason Stop Dose Admin Acetaminophen 650 mg 10/22/24 14:00 Acetaminophen 325 Mg Tablet PO Q4H PRN Mild Pain (1-3) or Fever Hydrocodone Bitart/Acetaminophen 1 tab 10/22/24 14:00 10/25/24 13:25 Hydrocodone/Acetaminophen (*Crx) 5-325 Mg Tablet PO 1 tab Q4H PRN Administration Pain Rated 4-6 Hydrocodone Bitart/Acetaminophen 1 tab 10/22/24 14:00 10/27/24 05:56 Hydrocodone/Acetaminophen (*Crx) 10-325 Mg Tablet PO 1 tab Q6H PRN Administration Pain Rated 7-10 Allopurinol 200 mg 10/22/24 09:00 10/26/24 08:55 Allopurinol 100 Mg Tablet PO 200 mg DAILY CYNDI Administration Alprazolam 0.25 mg 10/21/24 21:00 10/26/24 21:12 Alprazolam (*Crx) 0.25 Mg Tablet PO 0.25 mg HS CYNDI Administration Amoxicillin/Clavulanate Potassium 1 tablet 10/23/24 14:30 10/26/24 21:12 Amoxicillin/Clavulanate K 875-125 Mg Tab PO 1 tablet Q12HR CYNDI Administration Bisacodyl 10 mg 10/21/24 11:18 Bisacodyl 10 Mg Suppository RECTAL DAILY PRN constipation Calcium Carbonate 200 mg 10/23/24 13:00 10/23/24 13:15 Calcium Carbonate (Tums) 500 Mg (200 Mg Elemental) PO 200 mg Q6H PRN Administration Indigestion Cilostazol 100 mg 10/21/24 17:00 10/26/24 16:59 Cilostazol 100 Mg Tablet PO 100 mg BID CYNDI Administration Dextrose 12.5 gm 10/20/24 11:43 Dextrose 50% 25 Gm/50 Ml Syringe IV PUSH PRN PRN Hypoglycemia Protocol Docusate Sodium 200 mg 10/21/24 11:18 Docusate Sodium 100 Mg Capsule PO Q12H PRN constipation Escitalopram Oxalate 20 mg 10/22/24 09:00 10/26/24 08:56 Escitalopram Oxalate 10 Mg Tablet PO 20 mg DAILY CYNDI Administration Ferrous Sulfate 325 mg 10/21/24 13:00 10/26/24 16:59 Ferrous Sulfate [address] BY MOUTH 325 mg TID CYNDI Administration Fluticasone Propionate 2 spray 10/22/24 09:00 10/26/24 08:58 Fluticasone Propionate 0.05% Na Spr 16 Gm Btl (*Bkc) NASAL 2 spray DAILY CYNDI Administration Glucagon 1 mg 10/20/24 11:43 Glucagon For Inj 1 Mg Vial IM PRN PRN Hypoglycemia Protocol Glucose 15 gm 10/20/24 11:43 Glucose Oral Gel 15 Gm Of Glucse In 37.5 Gm Tube PO PRN PRN Hypoglycemia Protocol Dextrose 1,000 mls @ 100 mls/hr 10/20/24 11:43 Dextrose 5% 1,000 Ml IVPB PRN PRN Hypoglycemia Protocol Dextrose/Sodium Chloride 1,000 mls @ 100 mls/hr 10/20/24 15:20 10/26/24 22:32 Dextrose 5% Sodium Chloride 0.9% IV CONT 100 mls/hr .Q10H CYNDI Administration Insulin Aspart 2 - 5 units 10/20/24 12:00 10/26/24 17:00 Insulin Aspart (*Bkc) 100 Units/Ml SUB-Q Not Given TIDWM CYND[facility] Protocol Insulin Aspart 1 - 2 units 10/20/24 21:00 10/26/24 21:11 Insulin Aspart (*Bkc) 100 Units/Ml SUB-Q Not Given HS [facility] Protocol Lansoprazole 30 mg 10/24/24 06:30 10/27/24 05:56 Lansoprazole Odt 30 Mg Tab.Rap.Dr PO 30 mg DAILY@0630 [facility] Administration Levothyroxine Sodium 50 mcg 10/22/24 06:30 10/27/24 05:56 Levothyroxine Sodium 50 Mcg Tablet PO 50 mcg [id number] CYNDI Administration Levothyroxine Sodium 100 mcg 10/25/24 06:30 10/26/24 06:25 Levothyroxine Sodium 100 Mcg Tablet PO 100 mcg SuSa@0630 CYNDI Administration Loratadine 10 mg 10/22/24 09:00 10/26/24 08:56 Loratadine 10 Mg Tablet PO 10 mg QAM CYNDI Administration Lubiprostone 24 mcg 10/23/24 17:00 10/26/24 16:59 Lubiprostone 24 Mcg Capsule PO 24 mcg BID CYNDI Administration Magnesium Citrate 296 ml 10/21/24 11:18 Magnesium Citrate 300 Ml Btl PO DAILY PRN constipation Magnesium Hydroxide 30 ml 10/21/24 11:18 Magnesium Hydroxide Susp 30 Ml Udc PO HS PRN constipation Magnesium Oxide 400 mg 10/21/24 13:00 10/26/24 16:59 Magnesium Oxide 400 Mg Tablet PO 400 mg TID CYNDI Administration Metoprolol Tartrate 50 mg 10/21/24 17:00 10/26/24 16:59 Metoprolol Tartrate 50 Mg Tab PO 50 mg BID CYNDI Administration Metronidazole 500 mg 10/23/24 14:00 10/27/24 05:56 Metronidazole 500 Mg Tablet PO 500 mg Q8HR CYNDI Administration Morphine Sulfate 2 mg 10/20/24 11:44 10/26/24 09:21 Morphine Sulfate (*Crx) 2 Mg/Ml Inj IV PUSH 2 mg Q4H PRN Administration Pain Ondansetron HCl 4 mg 10/20/24 11:45 10/22/24 04:12 Ondansetron Inj 4 Mg/2 Ml Vial IV PUSH 4 mg Q6H PRN Administration Nausea Ondansetron HCl 4 mg 10/21/24 11:18 Ondansetron Hcl Odt 4 Mg Tablet PO Q6H PRN nausea and vomiting Oxybutynin Chloride 5 mg 10/22/24 09:00 10/26/24 08:57 Oxybutynin Chloride Xl 5 Mg Tab.Er.24 PO 5 mg DAILY CYNDI Administration Pantoprazole Sodium 40 mg 10/24/24 21:00 10/26/24 21:13 Pantoprazole 40 Mg Tablet PO 40 mg Q12HR CYNDI Administration Potassium Chloride 20 meq 10/22/24 09:00 10/26/24 08:57 Potassium Chloride 20 Meq Er Tablet PO 20 meq DAILY CYNDI Administration Sucralfate 1,000 mg 10/24/24 16:30 10/27/24 05:57 Sucralfate Susp 100 Mg/Ml 10 Ml Udc PO 1,000 mg ACHS CYNDI Administration Tamsulosin HCl 0.4 mg 10/21/24 09:00 10/26/24 08:57 Tamsulosin Hcl 0.4 Mg Capsule PO 0.4 mg QAM CYNDI Administration Radiology Results: ITS Impressions Hepatobiliary Scan Nuclear Medicine 10/21/24 14:02 IMPRESSION: 1. No evident gallbladder activity consistent with acute cholecystitis. Cholecystostomy 10/21/24 16:48 IMPRESSION: 1. Successful ultrasound-guided cholecystostomy tube placement. 2. 50 mL bile was sent for aerobic, anaerobic, and fungal cultures. 3. The catheter will be managed by Dr. Marquez. A catheter cholangiogram may be performed not less than 48 hours after tube placement if clinically indicated to assess cystic duct patency. If cholecystectomy is not eventually performed and the infectious episode has resolved, the tube may be removed over a guidewire, preferably not less than 3 weeks after placement to allow time for a mature catheter tract to form to prevent bile leakage and peritonitis. Chest CTA 10/23/24 14:42 IMPRESSION: 1. No pulmonary embolus or aortic dissection seen. 2. Moderate Bilateral pleural effusion with adjacent atelectasis versus pneumonia. 3. Tracheobronchomalacia. 4. Nodule in the right lower lobe. 6 months follow-up CT is advised. Labs Labs: Laboratory Results - last 24 hr 10/26/24 10/26/24 10/26/24 12:00 16:56 17:32 WBC RBC Hgb Hct MCV MCH MCHC RDW Plt Count MPV Immature Gran % (Auto) Neut % (Auto) Lymph % (Auto) [place] % (Auto) Eos % (Auto) Baso % (Auto) Lymph # (Auto) [place] # (Auto) Eos # (Auto) Baso # (Auto) Abs Immat Gran (auto) Absolute Neuts (auto) Absolute Nucleated RBC Nucleated RBC % Sodium Potassium Chloride Carbon Dioxide Anion Gap BUN Creatinine Estim Creat Clear Calc Estimated GFR Glucose POC Capillary Glucose 143 H 118 H Calcium Total Bilirubin AST ALT Alkaline Phosphatase Total Protein Albumin C. difficile (PCR) Negative 10/26/24 10/27/24 10/27/24 20:01 07:37 07:55 WBC 9.2 RBC 3.05 L Hgb 9.5 L Hct 31.4 L MCV 103.0 H MCH 31.1 MCHC 30.3 L RDW 17.0 H Plt Count 164 MPV 10.2 Immature Gran % (Auto) 1.2 H Neut % (Auto) 75.2 H Lymph % (Auto) 14.8 L [place] % (Auto) 5.6 Eos % (Auto) 2.8 Baso % (Auto) 0.4 Lymph # (Auto) 1.37 [place] # (Auto) 0.5 Eos # (Auto) 0.3 Baso # (Auto) 0.0 Abs Immat Gran (auto) 0.11 H Absolute Neuts (auto) 6.9 H Absolute Nucleated RBC 0.000 Nucleated RBC % 0.0 Sodium 140 Potassium 3.5 Chloride 115 H Carbon Dioxide 22 Anion Gap 3 L BUN 4 L Creatinine 1.15 H Estim Creat Clear Calc 57 Estimated GFR 47 L Glucose 122 H POC Capillary Glucose 144 H 121 H Calcium 8.1 L Total Bilirubin 0.3 AST 13 L ALT 6 Alkaline Phosphatase 67 Total Protein 5.0 L Albumin 2.2 L C. difficile (PCR)
[2024-10-27] MEDS: FERROUS SULFATE 325 MG TABLET DR BY MOUTH ×3 (09:53→17:12)
[2024-10-27] MEDS: oxyBUTYnin CHLORIDE XL 5 MG TAB.ER.24 PO (09:53)
[2024-10-27] MEDS: TAMSULOSIN HCL 0.4 MG CAPSULE PO (09:53)
[2024-10-27] MEDS: CALCIUM CARBONATE (TUMS) 500 MG (200 MG ELEMENTAL) PO (09:53)
[2024-10-27] MEDS: ESCITALOPRAM OXALATE 10 MG TABLET 20 MG PO (09:53)
[2024-10-27] MEDS: allopurinoL 100 MG TABLET 200 MG PO (09:53)
[2024-10-27 09:54] VITALS: PULSE 88
[2024-10-27] MEDS: LORATADINE 10 MG TABLET PO (09:54)
[2024-10-27] MEDS: PANTOPRAZOLE 40 MG TABLET PO ×2 (09:54→20:38)
[2024-10-27] MEDS: POTASSIUM CHLORIDE 20 MEQ ER TABLET PO (09:54)
[2024-10-27] MEDS: cilostazoL 100 MG TABLET PO ×2 (09:54→17:12)
[2024-10-27] MEDS: FLUTICASONE PROPIONATE 0.05% NA SPR 16 GM BTL (*BKC) 2 SPRAY NASAL (09:54)
[2024-10-27] MEDS: MAGNESIUM OXIDE 400 MG TABLET PO ×3 (09:54→17:12)
[2024-10-27] MEDS: METOPROLOL TARTRATE 50 MG TAB PO ×2 (09:54→17:12)
[2024-10-27] MEDS: LUBIPROSTONE 24 MCG CAPSULE PO ×2 (09:54→17:12)
[2024-10-27 12:03] LABS: Glucose Point of Care 103 mg/dl (65-105)
--- NOTE | 2024-10-27 13:03 | PCOTNOTE ---
Patient refused treatment this session due to pain. Patient states she is having pain from her ulcer in the chest. CYNDEE Chong Notified.
--- NOTE | 2024-10-27 13:43 | PCPTNOTE ---
Patient refused treatment this session due to pain and patient not feeling good. Encouraged patient for participation, patient continued to refuse.
[2024-10-27 14:00] VITALS: BP 133/71; PULSE 77; RESP 16; TEMP 36.4; O2SAT 98
--- NOTE | 2024-10-27 14:19 | P.PNIM_ITS ---
Progress Note: A&P Assessment and Plan (1) Cholelithiasis with acute cholecystitis: Qualifiers: Biliary obstruction: with biliary obstruction Qualified Code(s): K80.01 - Calculus of gallbladder with acute cholecystitis with obstruction Code(s): K80.00 - Calculus of gallbladder with acute cholecystitis without obstruction Status: Acute Assessment and Plan: * Monitor vital signs, I and O's * Monitor serum electrolytes and CBC * IV pain management * Gentle IV fluid resuscitation * POD 5 Cholecystotomy, Gen Surg following * Continue Flagyl and Rocephin * Diet: low fat diabetic today, advance as tolerated * Managed by General surgery * Discontinue antibiotics (2) Ulcerative esophagitis: Code(s): K22.10 - Ulcer of esophagus without bleeding Status: Acute Assessment and Plan: * EGD report 10/24: Reflux esophagitis, grade D. No gastritis, a few aphthous benign ulcers in duodenal bulb * Continue with Protonix * Add Carafate w/ meals * Advance diet as tolerated * GI following * EGD 10/24: Reflux esophagitis, grade D. Few aphthous benign ulcers visualized in duodenal bulb. * Continue Protonix, Prevacid and Carafate * Will look to d/c Protonix as symptoms improved * Continue Carafate and PPI * Symptoms improving today (3) Epigastric pain: Code(s): R10.13 - Epigastric pain Status: Acute Assessment and Plan: * Diagnosed with cholelithiasis upon arrival to ED on 10/19, originally discharged but came back to ER on 10/20 * Cholecystotomy tube on 10/21, continues to complain of epigastric abdominal pain with meals * CTA: No PE or aortic dissection, moderate bilateral pleural effusion with adjacent atelectasis versus pneumonia, tracheobronchomalacia, nodule in the right lower lobe, recommend 6 months follow-up CT * EKG: NSR * See above (4) Chronic kidney disease: Code(s): N18.9 - Chronic kidney disease, unspecified Status: Chronic Assessment and Plan: -Creatinine: 1.14, GFR: 47, BUN: 4 -Trend renal function -trend electrolytes, correct as needed -Stable (5) Anemia: Code(s): D64.9 - Anemia, unspecified Status: Chronic Assessment and Plan: - Hgb 9.7 - transfuse if <7 - trend H&H - Stable (6) Asthma: Code(s): J45.909 - Unspecified asthma, uncomplicated Status: Chronic Assessment and Plan: - Oxygen requirement: None - Stable (7) Type 2 diabetes mellitus: Code(s): E11.9 - Type 2 diabetes mellitus without complications Status: Chronic Assessment and Plan: - hypoglycemia protocol - POC blood glucose ACHS - home medication - Metformin 500mg - A1C 4.8 (8) Morbid obesity: Code(s): E66.01 - Morbid (severe) obesity due to excess calories Status: Chronic Assessment and Plan: - BMI 51.7 kg/m Time Spent With Patient Time: Subjective Date/time seen: 10/27/24 14:19 Interval history: 69-year-old female presenting with abdominal pain. EGD this visit showing ulcerative esophagitis. Here for cholecystotomy, being managed by surgery team. 10/27/2024 Patient continues to improve today. Able to increase her diet minimally improved epigastric pain. General surgery is still following regarding salma tube. Continue PPI and Carafate for ulcerative esophagitis. Will discontinue antibiotics. Likely discharge tomorrow Review of Systems Review of Systems: - CONSTITUTIONAL: Denies weight loss, fe juliet and chills. - HEENT: Denies changes in vision and he aring - RESPIRATORY: Denies SOB and cough. - CV: Denies palpitations and CP. - GI: Improving abdominal pain, denies nausea, vomiting or diarrhea. - : Denies dysuria and urinary frequen cy. - MSK: Denies myalgia and joint pain. - SKIN: Denies rash and pruritus. - NEUROLOGICAL: Denies headache and sync ope. - PSYCHIATRIC: Denies recent changes in mood. Denies anxiety and depression. All systems reviewed & are unremarkable except as noted in HPI and below Exam Narrative: GENERAL: Ill-appearing but nontoxic, no acute distress HEAD: Normocephalic, atraumatic. EYES: PERRLA and EOMI. ENT: Mucous membranes tacky NECK: Supple. CHEST: Clear to auscultation. No respiratory distress. HEART: Regular rate and rhythm. ABDOMEN: Soft, RUQ tenderness to palpation, but continues to improve. No Rebound tenderness or guarding EXTREMITIES: Normal range of motion. SKIN: Warm, dry, no rash. NEURO: Alert and oriented x3. PSYCH: Normal mood and affect. Objective Data Vital Signs Vital Signs: Vital Signs - 24 hr 10/26/24 16:59 10/26/24 20:00 10/26/24 22:00 Temperature 97.5 F L Pulse Rate 88 75 Respiratory Rate 18 Blood Pressure 119/68 Pulse Oximetry 95 Oxygen Delivery Room Air 10/27/24 06:00 10/27/24 09:54 Temperature 97.5 F L Pulse Rate 81 88 Respiratory Rate 18 Blood Pressure 144/69 H Pulse Oximetry 99 Oxygen Delivery Intake/Output Intake/Output: Intake & Output 10/24/24 10/25/24 10/26/24 10/27/24 23:59 23:59 23:59 23:59 Intake Total 2290 3640 1120 Output Total 1941 1240 960 700 Balance 349 2400 160 -700 Meds/Results Medications: Active Medications Generic Name Dose Route Start Last Admin Trade Name Freq PRN Reason Stop Dose Admin Acetaminophen 650 mg 10/22/24 14:00 Acetaminophen 325 Mg Tablet PO Q4H PRN Mild Pain (1-3) or Fever Hydrocodone Bitart/Acetaminophen 1 tab 10/22/24 14:00 10/25/24 13:25 Hydrocodone/Acetaminophen (*Crx) 5-325 Mg Tablet PO 1 tab Q4H PRN Administration Pain Rated 4-6 Hydrocodone Bitart/Acetaminophen 1 tab 10/22/24 14:00 10/27/24 05:56 Hydrocodone/Acetaminophen (*Crx) 10-325 Mg Tablet PO 1 tab Q6H PRN Administration Pain Rated 7-10 Allopurinol 200 mg 10/22/24 09:00 10/27/24 09:53 Allopurinol 100 Mg Tablet PO 200 mg DAILY [facility] Administration Alprazolam 0.25 mg 10/21/24 21:00 10/26/24 21:12 Alprazolam (*Crx) 0.25 Mg Tablet PO 0.25 mg HS [facility] Administration Bisacodyl 10 mg 10/21/24 11:18 Bisacodyl 10 Mg Suppository RECTAL DAILY PRN constipation Calcium Carbonate 200 mg 10/23/24 13:00 10/27/24 09:53 Calcium Carbonate (Tums) 500 Mg (200 Mg Elemental) PO 200 mg Q6H PRN Administration Indigestion Cilostazol 100 mg 10/21/24 17:00 10/27/24 09:54 Cilostazol 100 Mg Tablet PO 100 mg BID [facility] Administration Dextrose 12.5 gm 10/20/24 11:43 Dextrose 50% 25 Gm/50 Ml Syringe IV PUSH PRN PRN Hypoglycemia Protocol Docusate Sodium 200 mg 10/21/24 11:18 Docusate Sodium 100 Mg Capsule PO Q12H PRN constipation Escitalopram Oxalate 20 mg 10/22/24 09:00 10/27/24 09:53 Escitalopram Oxalate 10 Mg Tablet PO 20 mg DAILY [facility] Administration Ferrous Sulfate 325 mg 10/21/24 13:00 10/27/24 13:46 Ferrous Sulfate [address] BY MOUTH 325 mg TID [facility] Administration Fluticasone Propionate 2 spray 10/22/24 09:00 10/27/24 09:54 Fluticasone Propionate 0.05% Na Spr 16 Gm Btl (*Bkc) NASAL 2 spray DAILY [facility] Administration Glucagon 1 mg 10/20/24 11:43 Glucagon For Inj 1 Mg Vial IM PRN PRN Hypoglycemia Protocol Glucose 15 gm 10/20/24 11:43 Glucose Oral Gel 15 Gm Of Glucse In 37.5 Gm Tube PO PRN PRN Hypoglycemia Protocol Dextrose 1,000 mls @ 100 mls/hr 10/20/24 11:43 Dextrose 5% 1,000 Ml IVPB PRN PRN Hypoglycemia Protocol Dextrose/Sodium Chloride 1,000 mls @ 100 mls/hr 10/20/24 15:20 10/26/24 22:32 Dextrose 5% Sodium Chloride 0.9% IV CONT 100 mls/hr .Q10H [facility] Administration Insulin Aspart 2 - 5 units 10/20/24 12:00 10/27/24 12:38 Insulin Aspart (*Bkc) 100 Units/Ml SUB-Q Not Given TIDWM [facility] Protocol Insulin Aspart 1 - 2 units 10/20/24 21:00 10/26/24 21:11 Insulin Aspart (*Bkc) 100 Units/Ml SUB-Q Not Given HS [facility] Protocol Lansoprazole 30 mg 10/24/24 06:30 10/27/24 05:56 Lansoprazole Odt 30 Mg Tab.Rap.Dr PO 30 mg DAILY@0630 [facility] Administration Levothyroxine Sodium 50 mcg 10/22/24 06:30 10/27/24 05:56 Levothyroxine Sodium 50 Mcg Tablet PO 50 mcg MoTuWeThFr@0630 [facility] Administration Levothyroxine Sodium 100 mcg 10/25/24 06:30 10/26/24 06:25 Levothyroxine Sodium 100 Mcg Tablet PO 100 mcg SuSa@0630 [facility] Administration Loratadine 10 mg 10/22/24 09:00 10/27/24 09:54 Loratadine 10 Mg Tablet PO 10 mg QAM [facility] Administration Lubiprostone 24 mcg 10/23/24 17:00 10/27/24 09:54 Lubiprostone 24 Mcg Capsule PO 24 mcg BID [facility] Administration Magnesium Citrate 296 ml 10/21/24 11:18 Magnesium Citrate 300 Ml Btl PO DAILY PRN constipation Magnesium Hydroxide 30 ml 10/21/24 11:18 Magnesium Hydroxide Susp 30 Ml Udc PO HS PRN constipation Magnesium Oxide 400 mg 10/21/24 13:00 10/27/24 13:46 Magnesium Oxide 400 Mg Tablet PO 400 mg TID [facility] Administration Metoprolol Tartrate 50 mg 10/21/24 17:00 10/27/24 09:54 Metoprolol Tartrate 50 Mg Tab PO 50 mg BID [facility] Administration Morphine Sulfate 2 mg 10/20/24 11:44 10/26/24 09:21 Morphine Sulfate (*Crx) 2 Mg/Ml Inj IV PUSH 2 mg Q4H PRN Administration Pain Ondansetron HCl 4 mg 10/20/24 11:45 10/22/24 04:12 Ondansetron Inj 4 Mg/2 Ml Vial IV PUSH 4 mg Q6H PRN Administration Nausea Ondansetron HCl 4 mg 10/21/24 11:18 Ondansetron Hcl Odt 4 Mg Tablet PO Q6H PRN nausea and vomiting Oxybutynin Chloride 5 mg 10/22/24 09:00 10/27/24 09:53 Oxybutynin Chloride Xl 5 Mg Tab.Er.24 PO 5 mg DAILY [facility] Administration Pantoprazole Sodium 40 mg 10/24/24 21:00 10/27/24 09:54 Pantoprazole 40 Mg Tablet PO 40 mg Q12HR [facility] Administration Potassium Chloride 20 meq 10/22/24 09:00 10/27/24 09:54 Potassium Chloride 20 Meq Er Tablet PO 20 meq DAILY [facility] Administration Sucralfate 1,000 mg 10/24/24 16:30 10/27/24 13:46 Sucralfate Susp 100 Mg/Ml 10 Ml Udc PO 1,000 mg ACHS [facility] Administration Tamsulosin HCl 0.4 mg 10/21/24 09:00 10/27/24 09:53 Tamsulosin Hcl 0.4 Mg Capsule PO 0.4 mg QAM [facility] Administration Radiology Results: ITS Impressions Hepatobiliary Scan Nuclear Medicine 10/21/24 14:02 IMPRESSION: 1. No evident gallbladder activity consistent with acute cholecystitis. Cholecystostomy 10/21/24 16:48 IMPRESSION: 1. Successful ultrasound-guided cholecystostomy tube placement. 2. 50 mL bile was sent for aerobic, anaerobic, and fungal cultures. 3. The catheter will be managed by Dr. Marquez. A catheter cholangiogram may be performed not less than 48 hours after tube placement if clinically indicated to assess cystic duct patency. If cholecystectomy is not eventually performed and the infectious episode has resolved, the tube may be removed over a guidewire, preferably not less than 3 weeks after placement to allow time for a mature catheter tract to form to prevent bile leakage and peritonitis. Chest CTA 10/23/24 14:42 IMPRESSION: 1. No pulmonary embolus or aortic dissection seen. 2. Moderate Bilateral pleural effusion with adjacent atelectasis versus pneumonia. 3. Tracheobronchomalacia. 4. Nodule in the right lower lobe. 6 months follow-up CT is advised. Labs Labs: Laboratory Results - last 24 hr 10/26/24 10/26/24 10/26/24 16:56 17:32 20:01 WBC RBC Hgb Hct MCV MCH MCHC RDW Plt Count MPV Immature Gran % (Auto) Neut % (Auto) Lymph % (Auto) [place] % (Auto) Eos % (Auto) Baso % (Auto) Lymph # (Auto) [place] # (Auto) Eos # (Auto) Baso # (Auto) Abs Immat Gran (auto) Absolute Neuts (auto) Absolute Nucleated RBC Nucleated RBC % Sodium Potassium Chloride Carbon Dioxide Anion Gap BUN Creatinine Estim Creat Clear Calc Estimated GFR Glucose POC Capillary Glucose 118 H 144 H Calcium Total Bilirubin AST ALT Alkaline Phosphatase Total Protein Albumin C. difficile (PCR) Negative 10/27/24 10/27/24 10/27/24 07:37 07:55 12:00 WBC 9.2 RBC 3.05 L Hgb 9.5 L Hct 31.4 L MCV 103.0 H MCH 31.1 MCHC 30.3 L RDW 17.0 H Plt Count 164 MPV 10.2 Immature Gran % (Auto) 1.2 H Neut % (Auto) 75.2 H Lymph % (Auto) 14.8 L [place] % (Auto) 5.6 Eos % (Auto) 2.8 Baso % (Auto) 0.4 Lymph # (Auto) 1.37 [place] # (Auto) 0.5 Eos # (Auto) 0.3 Baso # (Auto) 0.0 Abs Immat Gran (auto) 0.11 H Absolute Neuts (auto) 6.9 H Absolute Nucleated RBC 0.000 Nucleated RBC % 0.0 Sodium 140 Potassium 3.5 Chloride 115 H Carbon Dioxide 22 Anion Gap 3 L BUN 4 L Creatinine 1.15 H Estim Creat Clear Calc 57 Estimated GFR 47 L Glucose 122 H POC Capillary Glucose 121 H 103 Calcium 8.1 L Total Bilirubin 0.3 AST 13 L ALT 6 Alkaline Phosphatase 67 Total Protein 5.0 L Albumin 2.2 L C. difficile (PCR) Quality VTE Prophylaxis VTE prophylaxis: mechanical ordered
[2024-10-27 14:30] VITALS: BMI 51.7
--- NOTE | 2024-10-27 14:35 | PCOTNOTE ---
Patient refuses all activities. Patient states she is in pain, I already said no earlier and I didn't change my mind, nothing today . Patient's daughter present in the room.
[2024-10-27 17:12] VITALS: PULSE 86
[2024-10-27 17:31] LABS: Glucose Point of Care 97 mg/dl (65-105)
[2024-10-27] MEDS: ONDANSETRON INJ 4 MG/2 ML VIAL IV PUSH (18:35)
[2024-10-27] MEDS: DEXTROSE 5%/0.9% SOD CHL 1,000 ML 100 ML IV CONT (20:38)
[2024-10-27] MEDS: ALPRAZolam (*CRX) 0.25 MG TABLET PO (20:38)
[2024-10-27 20:49] VITALS: BP 139/69; PULSE 79; RESP 18; TEMP 37; O2SAT 96
[2024-10-27 20:54] LABS: Glucose Point of Care 123 mg/dl (65-105)
[2024-10-28] MEDS: HYDROcodone/acetaminophen (*CRX) 10-325 MG TABLET 1 TAB PO (05:27)
[2024-10-28] MEDS: LANSOPRAZOLE ODT 30 MG TAB.RAP.DR PO (05:27)
[2024-10-28] MEDS: LEVOTHYROXINE SODIUM 50 MCG TABLET PO (05:27)
[2024-10-28] MEDS: DEXTROSE 5%/0.9% SOD CHL 1,000 ML 100 ML IV CONT (05:27)
[2024-10-28] MEDS: SUCRALFATE SUSP 100 MG/ML 10 ML UDC 1000 MG PO (05:28)
[2024-10-28 05:38] VITALS: BP 144/81; PULSE 97; RESP 17; TEMP 36.4; O2SAT 97
[2024-10-28 07:46] LABS: Basophils Absolute Auto 0.1 K/mm3 (0.0-0.1); Basophils Percent Auto 0.5 % (0.2-1.2); Eosinophils Absolute Auto 0.2 K/mm3 (0-0.3); Eosinophils Percent Auto 2.2 % (0-4.4); Hematocrit 33.6 % (37.0-47.0); Hemoglobin 10.1 g/dL (12.0-15.0); Lymphocytes Absolute Auto 1.41 K/mm3 (0.9-3.2); Lymphocytes Percent Auto 14.4 % (18.3-44.2); Mean Corpuscular HGB Conc 30.1 g/dl (32-36); Mean Corpuscular Hemoglobin 31.2 pg (26-34); Mean Corpuscular Volume 103.7 fl (80-100); Mean Platelet Volume 10.5 fl (7.4-10.4); Monocytes Absolute Auto 0.6 K/mm3 (0.1-0.6); Neutrophils Absolute Auto 7.4 K/mm3 (1.3-6.7); Neutrophils Percent Auto 75.9 % (45.5-73.1); Platelet Count Result 163 k/mm3 (150-375); Red Blood Count 3.24 M/mm3 (4.2-5.4); Red Cell Distribution Width 17.1 % (11.5-14.5); White Blood Count 9.8 K/mm3 (4.5-10.0)
[2024-10-28 07:57] LABS: Alanine Aminotransferase 7 U/L (6-35); Albumin Level 2.4 g/dL (3.5-5.1); Alkaline Phosphatase 72 U/L (38-126); Anion Gap 3 mmol/L (4-12); Aspartate Amino Transferase 13 U/L (14-36); Bilirubin,Total 0.3 mg/dL (0.2-1.3); Blood Urea Nitrogen 4 mg/dL (7-17); Calcium 8.3 mg/dL (8.4-10.2); Carbon Dioxide 22 mmol/L (22-30); Chloride 114 mmol/L (98-107); Estimated CRCL calculation 54 ml/min; Estimated Glomerular Filt Rate 44; Glucose 121 mg/dL (65-110); Potassium 3.5 mmol/L (3.4-5.0); Sodium 139 mmol/L (137-145)
[2024-10-28 07:59] LABS: Glucose Point of Care 132 mg/dl (65-105)
[2024-10-28] MEDS: FERROUS SULFATE 325 MG TABLET DR BY MOUTH ×2 (08:34→12:30)
[2024-10-28] MEDS: LORATADINE 10 MG TABLET PO (08:34)
[2024-10-28] MEDS: ESCITALOPRAM OXALATE 10 MG TABLET 20 MG PO (08:34)
[2024-10-28 08:35] VITALS: PULSE 92
[2024-10-28] MEDS: oxyBUTYnin CHLORIDE XL 5 MG TAB.ER.24 PO (08:35)
[2024-10-28] MEDS: POTASSIUM CHLORIDE 20 MEQ ER TABLET PO (08:35)
[2024-10-28] MEDS: allopurinoL 100 MG TABLET 200 MG PO (08:35)
[2024-10-28] MEDS: MAGNESIUM OXIDE 400 MG TABLET PO ×2 (08:35→12:30)
[2024-10-28] MEDS: METOPROLOL TARTRATE 50 MG TAB PO (08:35)
[2024-10-28] MEDS: PANTOPRAZOLE 40 MG TABLET PO (08:35)
[2024-10-28] MEDS: FLUTICASONE PROPIONATE 0.05% NA SPR 16 GM BTL (*BKC) 2 SPRAY NASAL (08:35)
[2024-10-28] MEDS: cilostazoL 100 MG TABLET PO (08:35)
[2024-10-28] MEDS: TAMSULOSIN HCL 0.4 MG CAPSULE PO (08:35)
[2024-10-28] MEDS: LUBIPROSTONE 24 MCG CAPSULE PO (08:35)
--- NOTE | 2024-10-28 10:36 | PCOTNOTE ---
Patient refused treatment this session due to not feeling well. Patient stated she wanted to rest because she got sick yesterday after dinner. Educated on importance of participating in therapy. Patient continued to refuse.
--- NOTE | 2024-10-28 10:46 | P.PNGS_ITS ---
Progress Note: A&P Assessment and Plan (1) Cholelithiasis with acute cholecystitis: Qualifiers: Biliary obstruction: with biliary obstruction Qualified Code(s): K80.01 - Calculus of gallbladder with acute cholecystitis with obstruction Code(s): K80.00 - Calculus of gallbladder with acute cholecystitis without obstruction Status: Acute Assessment and Plan: * Cholecystostomy tube draining well. WBC count normal. Persistent symptoms are more likely related to her GI issues and not her gallbladder. Stable from a surgical standpoint to discharge with the cholecystostomy tube when medically stable. We will sign off at this time. Follow-up with Dr. Marquez in our office in 2-3 weeks. (2) Ulcerative esophagitis: Code(s): K22.10 - Ulcer of esophagus without bleeding Status: Acute Assessment and Plan: * Continue management per GI. Plan I have discussed the patient's case and plan of care with Dr. Marquez. Subjective Subjective Date/Time Seen: 10/28/24 10:46 Interval history: No new complaints. Had another episode of vomiting after dinner last night. She was able to tolerate breakfast this morning. Still having epigastric pain, but overall slightly improved. Cholecystostomy tube draining well. Exam Const: General: comfortable and no acute distress Orientation/consciousness: patient oriented x3 GI: Inspection: non-distended, Pannus present and obesity GI Palp: Yes Soft to palpation, Yes Tenderness to palpation present (GI) ( Epigastric area), No Guarding due to palpation present (GI) and No Rebound tenderness present Auscultation: normal bowel sounds Other: percutaneous cholecystostomy tube with bilious output Objective Data Vital Signs Vital Signs: Vital Signs - 24 hr 10/27/24 14:00 10/27/24 17:12 10/27/24 20:49 Temperature 97.6 F 98.6 F Pulse Rate 77 86 79 Respiratory Rate 16 18 Blood Pressure 133/71 139/69 Pulse Oximetry 98 96 Oxygen Delivery 10/28/24 05:38 10/28/24 08:35 10/28/24 08:35 Temperature 97.6 F Pulse Rate 97 92 Respiratory Rate 17 Blood Pressure 144/81 H Pulse Oximetry 97 Oxygen Delivery Room Air Intake/Output Intake/Output: Intake & Output 10/25/24 10/26/24 10/27/24 10/28/24 23:59 23:59 23:59 23:59 Intake Total 3640 1120 1010 1120 Output Total 3898 933 3221 570 Balance 2400 160 -340 550 Meds/Results Medications: Active Medications Generic Name Dose Route Start Last Admin Trade Name Freq PRN Reason Stop Dose Admin Acetaminophen 650 mg 10/22/24 14:00 Acetaminophen 325 Mg Tablet PO Q4H PRN Mild Pain (1-3) or Fever Hydrocodone Bitart/Acetaminophen 1 tab 10/22/24 14:00 10/25/24 13:25 Hydrocodone/Acetaminophen (*Crx) 5-325 Mg Tablet PO 1 tab Q4H PRN Administration Pain Rated 4-6 Hydrocodone Bitart/Acetaminophen 1 tab 10/22/24 14:00 10/28/24 05:27 Hydrocodone/Acetaminophen (*Crx) 10-325 Mg Tablet PO 1 tab Q6H PRN Administration Pain Rated 7-10 Allopurinol 200 mg 10/22/24 09:00 10/28/24 08:35 Allopurinol 100 Mg Tablet PO 200 mg DAILY [facility] Administration Alprazolam 0.25 mg 10/21/24 21:00 10/27/24 20:38 Alprazolam (*Crx) 0.25 Mg Tablet PO 0.25 mg HS [facility] Administration Bisacodyl 10 mg 10/21/24 11:18 Bisacodyl 10 Mg Suppository RECTAL DAILY PRN constipation Calcium Carbonate 200 mg 10/23/24 13:00 10/27/24 09:53 Calcium Carbonate (Tums) 500 Mg (200 Mg Elemental) PO 200 mg Q6H PRN Administration Indigestion Cilostazol 100 mg 10/21/24 17:00 10/28/24 08:35 Cilostazol 100 Mg Tablet PO 100 mg BID [facility] Administration Dextrose 12.5 gm 10/20/24 11:43 Dextrose 50% 25 Gm/50 Ml Syringe IV PUSH PRN PRN Hypoglycemia Protocol Docusate Sodium 200 mg 10/21/24 11:18 Docusate Sodium 100 Mg Capsule PO Q12H PRN constipation Escitalopram Oxalate 20 mg 10/22/24 09:00 10/28/24 08:34 Escitalopram Oxalate 10 Mg Tablet PO 20 mg DAILY [facility] Administration Ferrous Sulfate 325 mg 10/21/24 13:00 10/28/24 08:34 Ferrous Sulfate [address] BY MOUTH 325 mg TID [facility] Administration Fluticasone Propionate 2 spray 10/22/24 09:00 10/28/24 08:35 Fluticasone Propionate 0.05% Na Spr 16 Gm Btl (*Bkc) NASAL 2 spray DAILY [facility] Administration Glucagon 1 mg 10/20/24 11:43 Glucagon For Inj 1 Mg Vial IM PRN PRN Hypoglycemia Protocol Glucose 15 gm 10/20/24 11:43 Glucose Oral Gel 15 Gm Of Glucse In 37.5 Gm Tube PO PRN PRN Hypoglycemia Protocol Dextrose 1,000 mls @ 100 mls/hr 10/20/24 11:43 Dextrose 5% 1,000 Ml IVPB PRN PRN Hypoglycemia Protocol Dextrose/Sodium Chloride 1,000 mls @ 100 mls/hr 10/20/24 15:20 10/28/24 09:33 Dextrose 5% Sodium Chloride 0.9% IV CONT Not Given .Q10H [facility] Insulin Aspart 2 - 5 units 10/20/24 12:00 10/28/24 08:36 Insulin Aspart (*Bkc) 100 Units/Ml SUB-Q Not Given TIDWM [facility] Protocol Insulin Aspart 1 - 2 units 10/20/24 21:00 10/27/24 20:43 Insulin Aspart (*Bkc) 100 Units/Ml SUB-Q Not Given HS [facility] Protocol Lansoprazole 30 mg 10/24/24 06:30 10/28/24 05:27 Lansoprazole Odt 30 Mg Tab.Rap.Dr PO 30 mg DAILY@0630 [facility] Administration Levothyroxine Sodium 50 mcg 10/22/24 06:30 10/28/24 05:27 Levothyroxine Sodium 50 Mcg Tablet PO 50 mcg [id number]@0630 [facility] Administration Levothyroxine Sodium 100 mcg 10/25/24 06:30 10/26/24 06:25 Levothyroxine Sodium 100 Mcg Tablet PO 100 mcg SuSa@0630 [facility] Administration Loratadine 10 mg 10/22/24 09:00 10/28/24 08:34 Loratadine 10 Mg Tablet PO 10 mg QAM [facility] Administration Lubiprostone 24 mcg 10/23/24 17:00 10/28/24 08:35 Lubiprostone 24 Mcg Capsule PO 24 mcg BID [facility] Administration Magnesium Citrate 296 ml 10/21/24 11:18 Magnesium Citrate 300 Ml Btl PO DAILY PRN constipation Magnesium Hydroxide 30 ml 10/21/24 11:18 Magnesium Hydroxide Susp 30 Ml Udc PO HS PRN constipation Magnesium Oxide 400 mg 10/21/24 13:00 10/28/24 08:35 Magnesium Oxide 400 Mg Tablet PO 400 mg TID [facility] Administration Metoprolol Tartrate 50 mg 10/21/24 17:00 10/28/24 08:35 Metoprolol Tartrate 50 Mg Tab PO 50 mg BID [facility] Administration Morphine Sulfate 2 mg 10/20/24 11:44 10/26/24 09:21 Morphine Sulfate (*Crx) 2 Mg/Ml Inj IV PUSH 2 mg Q4H PRN Administration Pain Ondansetron HCl 4 mg 10/20/24 11:45 10/27/24 18:35 Ondansetron Inj 4 Mg/2 Ml Vial IV PUSH 4 mg Q6H PRN Administration Nausea Ondansetron HCl 4 mg 10/21/24 11:18 Ondansetron Hcl Odt 4 Mg Tablet PO Q6H PRN nausea and vomiting Oxybutynin Chloride 5 mg 10/22/24 09:00 10/28/24 08:35 Oxybutynin Chloride Xl 5 Mg Tab.Er.24 PO 5 mg DAILY [facility] Administration Pantoprazole Sodium 40 mg 10/24/24 21:00 10/28/24 08:35 Pantoprazole 40 Mg Tablet PO 40 mg Q12HR [facility] Administration Potassium Chloride 20 meq 10/22/24 09:00 10/28/24 08:35 Potassium Chloride 20 Meq Er Tablet PO 20 meq DAILY [facility] Administration Sucralfate 1,000 mg 10/24/24 16:30 10/28/24 05:28 Sucralfate Susp 100 Mg/Ml 10 Ml Udc PO 1,000 mg ACHS [facility] Administration Tamsulosin HCl 0.4 mg 10/21/24 09:00 10/28/24 08:35 Tamsulosin Hcl 0.4 Mg Capsule PO 0.4 mg QAM [facility] Administration Radiology Results: ITS Impressions Hepatobiliary Scan Nuclear Medicine 10/21/24 14:02 IMPRESSION: 1. No evident gallbladder activity consistent with acute cholecystitis. Cholecystostomy 10/21/24 16:48 IMPRESSION: 1. Successful ultrasound-guided cholecystostomy tube placement. 2. 50 mL bile was sent for aerobic, anaerobic, and fungal cultures. 3. The catheter will be managed by Dr. Marquez. A catheter cholangiogram may be performed not less than 48 hours after tube placement if clinically indicated to assess cystic duct patency. If cholecystectomy is not eventually performed and the infectious episode has resolved, the tube may be removed over a guidewire, preferably not less than 3 weeks after placement to allow time for a mature catheter tract to form to prevent bile leakage and peritonitis. Chest CTA 10/23/24 14:42 IMPRESSION: 1. No pulmonary embolus or aortic dissection seen. 2. Moderate Bilateral pleural effusion with adjacent atelectasis versus pneumonia. 3. Tracheobronchomalacia. 4. Nodule in the right lower lobe. 6 months follow-up CT is advised. Labs Labs: Laboratory Results - last 24 hr 10/27/24 10/27/24 10/27/24 12:00 16:52 20:43 WBC RBC Hgb Hct MCV MCH MCHC RDW Plt Count MPV Immature Gran % (Auto) Neut % (Auto) Lymph % (Auto) [place] % (Auto) Eos % (Auto) Baso % (Auto) Lymph # (Auto) [place] # (Auto) Eos # (Auto) Baso # (Auto) Abs Immat Gran (auto) Absolute Neuts (auto) Absolute Nucleated RBC Nucleated RBC % Sodium Potassium Chloride Carbon Dioxide Anion Gap BUN Creatinine Estim Creat Clear Calc Estimated GFR Glucose POC Capillary Glucose 103 97 123 H Calcium Total Bilirubin AST ALT Alkaline Phosphatase Total Protein Albumin 10/28/24 10/28/24 07:41 07:55 WBC 9.8 RBC 3.24 L Hgb 10.1 L Hct 33.6 L MCV 103.7 H MCH 31.2 MCHC 30.1 L RDW 17.1 H Plt Count 163 MPV 10.5 H Immature Gran % (Auto) 1.0 H Neut % (Auto) 75.9 H Lymph % (Auto) 14.4 L [place] % (Auto) 6.0 Eos % (Auto) 2.2 Baso % (Auto) 0.5 Lymph # (Auto) 1.41 [place] # (Auto) 0.6 Eos # (Auto) 0.2 Baso # (Auto) 0.1 Abs Immat Gran (auto) 0.10 H Absolute Neuts (auto) 7.4 H Absolute Nucleated RBC 0.000 Nucleated RBC % 0.0 Sodium 139 Potassium 3.5 Chloride 114 H Carbon Dioxide 22 Anion Gap 3 L BUN 4 L Creatinine 1.21 H Estim Creat Clear Calc 54 Estimated GFR 44 L Glucose 121 H POC Capillary Glucose 132 H Calcium 8.3 L Total Bilirubin 0.3 AST 13 L ALT 7 Alkaline Phosphatase 72 Total Protein 5.0 L Albumin 2.4 L
[2024-10-28 11:43] LABS: Glucose Point of Care 128 mg/dl (65-105)
--- NOTE | 2024-10-28 11:53 | P.DS_ITS ---
DS: Admitting Diagnosis Discharge Date 10/28/2024 Admitting Diagnosis Cholelithiasis with acute cholecystitis Ulcerative esophagitis DS: Discharge Diagnosis Discharge Diagnosis (1) Cholelithiasis with acute cholecystitis: Qualifiers: Biliary obstruction: with biliary obstruction Qualified Code(s): K80.01 - Calculus of gallbladder with acute cholecystitis with obstruction Code(s): K80.00 - Calculus of gallbladder with acute cholecystitis without obstruction Status: Acute (2) Ulcerative esophagitis: Code(s): K22.10 - Ulcer of esophagus without bleeding Status: Acute (3) Epigastric pain: Code(s): R10.13 - Epigastric pain Status: Acute (4) Chronic kidney disease: Code(s): N18.9 - Chronic kidney disease, unspecified Status: Chronic (5) Anemia: Code(s): D64.9 - Anemia, unspecified Status: Chronic (6) Asthma: Code(s): J45.909 - Unspecified asthma, uncomplicated Status: Chronic (7) Type 2 diabetes mellitus: Code(s): E11.9 - Type 2 diabetes mellitus without complications Status: Chronic (8) Morbid obesity: Code(s): E66.01 - Morbid (severe) obesity due to excess calories Status: Chronic DS: Summary Hospital Course Reason for hospitalization: Abdominal pain Hospital Course: 69-year-old female presenting with abdominal pain. Patient was here yesterday and diagnosed with cholelithiasis and was able to be discharged home with plans for outpatient management. Unfortunately, she has continued to have uncontrollable pain and vomiting. States that despite taking the prescribed medications she has been unable to keep anything down.Her vitals were stable except for mild hypertension. Imaging showed cholelithiasis with gallbladder wall thickening. IV fluids started. Laboratory workup revealed WBC of 14.9 hemoglobin of 11.5 sodium mildly low at 133 creatinine 1.14. Lactate was normal lipase was normal LFTs were within normal limit. General surgery has been consulted. IV antibiotics started along with IV fluid keep NPO. IV analgesics and anti emetics. S surgery planning to do HIDA scan and cholecystostomy tube placement. Cholecystostomy tube was placed on 10/21 by General surgery. Throughout hospitalization, General surgery continued to follow the patient. After procedure was performed, physical exam and blood work continued to improve. During hospitalization, however, patient continued to have right upper quadrant pain. This did improve steadily over time. Patient then started experiencing epigastric abdominal pain. Patient does have a long standing history of abdominal pain and blood work on 10/23 showed normal LFTs and lipase. GI was consulted and an EGD was performed on 10/24 which showed ulcerative esophagitis. GI recommended continuing Protonix b.i.d. as well as adding Carafate with meals. Steadily, patient was able to increase her diet throughout hospitalization with decreasing frequency of epigastric abdominal pain after meals. This pain is likely secondary to the severe ulcerative esophagitis. General surgery also maintained cholecystotomy tube. On 10/28, patient was cleared by General surgery for discharge from their standpoint with appropriate follow-up in 1-2 weeks with General surgery for management of cholecystotomy tube. Patient will be advised to continue her Prevacid and Protonix for ulcerative esophagitis. Patient otherwise feels safe for discharge at this time. detention facility was recommended for further assistance with postsurgical care. Patient otherwise hemodynamically stable with stable blood work vital signs. Physical exam is benign and patient feels ready for discharge at this time. Plan for discharge to [facility]. Status at Discharge Functional status at discharge: wheelchair bound Overall status at discharge: patient is progressing back to baseline Time Spent with Patient Time attestation: Total time spent providing and/or coordinating discharge services: 45 Exam Narrative: GENERAL: Chronically Ill-appearing but nontoxic, no acute distress HEAD: Normocephalic, atraumatic. EYES: PERRLA and EOMI. ENT: Mucous membranes tacky NECK: Supple. CHEST: Clear to auscultation. No respiratory distress. HEART: Regular rate and rhythm. ABDOMEN: Soft, RUQ tenderness to palpation, but continues to improve. No Rebound tenderness or guarding. percutaneous cholecystostomy tube with bilious output EXTREMITIES: Normal range of motion. SKIN: Warm, dry, no rash. NEURO: Alert and oriented x3. PSYCH: Normal mood and affect. DS: Data Data Completed and Pending Pending studies at discharge: Pending at discharge 10/24/24 12:42 Surgical [PTH] Routine Labs on day of discharge: Labs from last 24 hours 10/28/24 10/28/24 10/28/24 11:38 07:55 07:41 WBC 9.8 RBC 3.24 L Hgb 10.1 L Hct 33.6 L MCV 103.7 H MCH 31.2 MCHC 30.1 L RDW 17.1 H Plt Count 163 MPV 10.5 H Immature Gran % (Auto) 1.0 H Neut % (Auto) 75.9 H Lymph % (Auto) 14.4 L [place] % (Auto) 6.0 Eos % (Auto) 2.2 Baso % (Auto) 0.5 Lymph # (Auto) 1.41 [place] # (Auto) 0.6 Eos # (Auto) 0.2 Baso # (Auto) 0.1 Abs Immat Gran (auto) 0.10 H Absolute Neuts (auto) 7.4 H Absolute Nucleated RBC 0.000 Nucleated RBC % 0.0 Sodium 139 Potassium 3.5 Chloride 114 H Carbon Dioxide 22 Anion Gap 3 L BUN 4 L Creatinine 1.21 H Estim Creat Clear Calc 54 Estimated GFR 44 L Glucose 121 H POC Capillary Glucose 128 H 132 H Calcium 8.3 L Total Bilirubin 0.3 AST 13 L ALT 7 Alkaline Phosphatase 72 Total Protein 5.0 L Albumin 2.4 L 10/27/24 10/27/24 10/27/24 20:43 16:52 12:00 WBC RBC Hgb Hct MCV MCH MCHC RDW Plt Count MPV Immature Gran % (Auto) Neut % (Auto) Lymph % (Auto) [place] % (Auto) Eos % (Auto) Baso % (Auto) Lymph # (Auto) [place] # (Auto) Eos # (Auto) Baso # (Auto) Abs Immat Gran (auto) Absolute Neuts (auto) Absolute Nucleated RBC Nucleated RBC % Sodium Potassium Chloride Carbon Dioxide Anion Gap BUN Creatinine Estim Creat Clear Calc Estimated GFR Glucose POC Capillary Glucose 123 H 97 103 Calcium Total Bilirubin AST ALT Alkaline Phosphatase Total Protein Albumin Preliminary micro results at discharge 10/21/24 16:15 Fungal Culture - Preliminary Gallbladder Fluid Discharge Plan Discharge Attending physician on discharge: Akash Walden Discharging Clinician: Akash Walden Anticipated Discharge Date/Time: 10/28/24 11:47 Patient Disposition: SNF Activity: other - see discharge instructions Diet: low fat Wound Care Instructions: keep dressing dry Discharge Instructions: Cholecystostomy tube care: * Empty and record output from drain 1-2 times daily * OK to sponge bathe/shower if you are able to keep the drain/dressing dry. * Change the gauze dressing every 3 days. * No heavy lifting. Keep the drain secured to your clothes to help avoid it being tugged on. * Call to schedule a follow-up appointment with Dr. Marquez in 2-3 weeks in our office. [phone] We will set up a cholangiogram as an outpatient to re- evaluate the drain and gallbladder. * Continue a low fat diet until your surgeon advances your diet * Call the office sooner if you develop a fever, have changes in the drainage, or see redness or drainage around the drain. Discharge disposition: Stable Take medications as prescribed Monitor blood pressures Take caution while standing, rising, or moving Change positions slowly taking a break between each position change If you standing feel dizzy sit back down and take a break Encouraged to continue with yearly vaccinations Return to the emergency department if he developed sudden shortness of breath, chest pain, nausea, vomiting, upset stomach or intractable diarrhea Return to the emergency department if you develop fever greater than 101.5 Follow-up with the primary care physician within 1-2 weeks Thank you for choosing [facility] for your healthcare needs Patient Instructions: Khoury Catheter Placement and Care (GEN) Patient Language: Cymro Stand Alone Forms: General Discharge Information Follow-up/Referrals: Alexandra Marquez MD [Physician] - 2 Weeks Discharge Medications: New pantoprazole [Protonix] 40 mg tablet,delayed release (DR/EC) 40 mg PO QAM 28 Days Qty: 28 0RF Continued ferrous sulfate 324 mg (65 mg iron) tablet,delayed release (DR/EC) 325 mg PO TID magnesium oxide 400 mg (241.3 mg magnesium) tablet 400 mg PO TID metformin 500 mg tablet 500 mg PO BID cilostazol 100 mg tablet 100 mg PO BID alprazolam 0.5 mg tablet 0.25 mg PO HS metoprolol tartrate 50 mg tablet 50 mg PO BID cinnamon bark [Cinnamon] 500 mg capsule 1,000 mg PO BID biotin 1 mg capsule 1 mg PO DAILY cetirizine 10 mg capsule 10 mg PO DAILY Bacillus coagulans-inulin 1 billion-250 cell-mg capsule 1 cap PO DAILY losartan 50 mg tablet 50 mg PO DAILY allopurinol 100 mg tablet 200 mg PO DAILY oxybutynin chloride 5 mg tablet extended release 24hr 5 mg PO DAILY escitalopram oxalate 20 mg tablet 20 mg PO DAILY potassium chloride 20 mEq tablet,ER particles/crystals 20 meq PO DAILY ondansetron 4 mg tablet,disintegrating 4 mg PO Q6H PRN (Reason: nausea and vomiting) levothyroxine [Euthyrox] 50 mcg tablet 100 mcg PO .twice a week Rx Instructions: give only on Sunday and Sunday fluticasone propionate 50 mcg/actuation spray,suspension 2 spray intranasal DAILY Rx Instructions: administer into each nostril levothyroxine [Euthyrox] 50 mcg tablet 50 mcg PO 5XW Rx Instructions: give on Sunday, Sunday, Sunday, and Sunday bisacodyl 10 mg suppository 10 mg RECTAL DAILY PRN (Reason: constipation) Rx Instructions: if no results from Milk of Magnesia sodium phosphates 19-7 gram/118 mL enema 118 ml RECTAL DAILY PRN (Reason: constipation) Rx Instructions: if no results 1 day after suppository magnesium citrate Solution 296 ml PO DAILY PRN (Reason: constipation) Rx Instructions: if no results after enema docusate sodium [Colace] 100 mg capsule 200 mg PO Q12H PRN (Reason: constipation) lansoprazole [Prevacid 24Hr] 15 mg capsule,delayed release(DR/EC) 15 mg PO QAM Discontinued hydrocodone-acetaminophen 5-325 mg tablet 1 tablet PO Q6H PRN (Reason: pain) Qty: 12 0RF ondansetron 4 mg tablet,disintegrating 4 mg PO Q6H PRN (Reason: nausea and vomiting) Qty: 10 0RF No Action magnesium hydroxide [Milk of Magnesia] 400 mg/5 mL suspension 30 ml PO HS PRN (Reason: constipation) Rx Instructions: if no BM in 3 days Date of admission: 10/20/24 10:56 Primary Care Provider: usman rodriguez Admitting Provider: Jose Arauz Attending physician on admission: Akash Walden Condition: Stable Quality VTE Prophylaxis VTE prophylaxis: mechanical ordered
[2024-10-28 14:00] VITALS: BP 147/70; PULSE 83; RESP 18; TEMP 36.4; O2SAT 98
== END 2024-10-28 15:30 | DRG 445 ==
LOC: ANHED 10:59 → ANH2MED 11:57
PROVIDERS: Emergency Medicine; Internal Medicine Gastroenterology; Admitting Provider Internal Medicine; Emergency Provider Emergency Medicine; Visit Provider Physician Assistant
PROC: 0DJ08ZZ Inspection of Upper Intestinal Tract, Via Natural or Artificial Opening Endoscopic (ICD-10-PCS; principal; 2024-10-24 15:00)
DX: K80.00 Calculus of gallbladder with acute cholecystitis without obstruction (principal); K22.10 Ulcer of esophagus without bleeding; Z68.43 Body mass index [BMI] 50.0-59.9, adult; E11.22 Type 2 diabetes mellitus with diabetic chronic kidney disease; I12.9 Hypertensive chronic kidney disease with stage 1 through stage 4 chronic kidney disease, or unspecified chronic kidney disease; N18.30 Chronic kidney disease, stage 3 unspecified; K21.00 Gastro-esophageal reflux disease with esophagitis, without bleeding; K26.9 Duodenal ulcer, unspecified as acute or chronic, without hemorrhage or perforation; J45.909 Unspecified asthma, uncomplicated; E66.01 Morbid (severe) obesity due to excess calories; I73.9 Peripheral vascular disease, unspecified; N32.81 Overactive bladder; M48.00 Spinal stenosis, site unspecified; K59.03 Drug induced constipation; T45.0X5A Adverse effect of antiallergic and antiemetic drugs, initial encounter; T40.2X5A Adverse effect of other opioids, initial encounter; E78.5 Hyperlipidemia, unspecified; E03.9 Hypothyroidism, unspecified; Z96.651 Presence of right artificial knee joint; R63.0 Anorexia; D53.9 Nutritional anemia, unspecified; Z90.710 Acquired absence of both cervix and uterus
CPT/HCPCS: 36415; 47490; 71275; 74177; 76705; 78227; 80053; 82607; 82746; 82948; 83036; 83605; 83690; 83735; 85025; 85610; 85730; 87070; 87075; 87102; 87181; 87205; 87206; 87493; 88305; 88342; 93005; 96361; 96374; 96375; 97162; 97166; 99284; 99285; A9270; A9537; C1729; J0696; J1836; J2003; J2270; J2405; J2704; J7030; J7042; J7120; Q9967

== ENCOUNTER 2024-11-14 09:19 | Emergency (ER) | payer MEDICARE, MEDICAID, SELFPAY ==
--- NOTE | ~2024-11-14 | CT_ITS ---
CLINICAL INDICATION: Nausea and vomiting Percutaneous cholecystostomy placed on 10/21/2024 -please appropriately for a positive HIDA scan and ri ght upper quadrant pain. COMPARISON: 10/19/2024. Reference is also made to a CTA of the chest dated 10/23/2024 TECHNIQUE: Multiple contiguous axial images of the abdomen and pelvis were performed without the admi nistration of intravenous contrast The dose-length product (DLP) was 1657.61 mGy-cm. Automated exposure control and iterative reconstruction technique were employed. FINDINGS/OBSERVATIONS: Visualized lower thorax: Redemonstration of a left-sided pleural effusion with adjacent consolidation. The right-sided pleural effusion, seen on previous examination has now resolved. Redemonstration of a calcified nodule within the superior segment of the right lower lobe suggesting prior granulomatous disease Calcified lymph nodes are also visualized within the mediastinum, also suggesting prior granulomatous disease. Interval development of a 6 mm nodule within the right lung base, likely obscured by prior pleural effusion (axial series, image 21). Follow-up as per Fleischner guidelines is recommended. The heart is enlarged, unchanged, without pericardial effusion. Small hiatal hernia is present. Liver: The liver demonstrates heterogeneous attenuation and is not enlarged. The heterogeneous attenuation is an interval change from previous examinations. Gallbladder and biliary system: A transperitoneal pigtail catheter is identified within the gallbladder, which is decompressed around multiple bulky lamellated stones. No intra or extrahepatic biliary ductal dilatation is identified. Pancreas: Fatty atrophy of the pancreas is demonstrated. Spleen: Punctate calcifications identified within the splenic parenchyma, suggesting prior granulomat ous disease. The remainder of the spleen demonstrates otherwise homogeneous attenuation and is not enlarged. Kidneys: The bilateral kidneys are atrophic in morphology and nodular in contour with multiple (likely) cysts. Exophytic from the lower pole of the right kidney is a focus of dense soft tissue attenuation measuri ng 16 x 19 x 17 mm (anterior to posterior x medial to lateral x cranial to caudal dimension), for whi ch focused ultrasound evaluation is suggested. This focus was not interrogated on the right upper dameon drant ultrasound of 10/19/2024. No hydronephrosis or renal calculi are demonstrated within the bilateral kidneys. Adrenal glands: Unremarkable. Gastrointestinal tract: Redemonstration of dense opacification of the base of the cecum, unchanged from 10/19/2024. This may re present medication, versus oral contrast. No findings to suggest bowel obstruction (as one would expect in this patient with bilious emesis). No gastric distention or small bowel dilatation. Colonic diverticulosis without surrounding inflammatory change. Appendix: The appendix is not definitively visualized. However, no pericecal inflammatory change is identified suggest the presence of acute appendicitis. Vasculature: Densely calcified atherosclerotic disease. Lymph nodes: No pathologically enlarged or morphologically suspicious lymph nodes within the retroperitoneum or at the root of the mesentery. Pelvic structures: The bladder is distended, and otherwise unremarkable. The prostate gland is not enlarged. The uterus is anteverted and anteflexed, and otherwise unremarkable. Body wall and musculoskeletal: Age advanced degenerative disease within the lower thoracic and lumbosacral spines. IMPRESSION: Transperitoneal cholecystostomy in good position. No intra or extrahepatic biliary ductal dilatation. No findings to suggest small bowel obstruction. Interval resolution of the right-sided pleural effusion, seen on previous examination. Left-sided pleural effusion persists, with adjacent compressive consolidation. 6 mm nodule within the right lower lobe (previously obscured) for which follow-up as per Cliff fitzgerald is recommended (CT at 6-[address] 24 months). Indeterminate focus, exophytic from the lower pole of the right kidney, for which ultrasound follow-u p is recommended, nonemergently, when the patient is clinically able. Bulky lamellated gallbladder stones persist. Reviewed, dictated and finalized at location A. IMPRESSION: Transperitoneal cholecystostomy in good position. No intra or extrahepatic biliary ductal dilatation. No findings to suggest small bowel obstruction. Interval resolution of the right-sided pleural effusion, seen on previous exami [facility]. Left-sided pleural effusion persists, with adjacent compressive consolidation. 6 mm nodule within the right lower lobe (previously obscured) for which follow- up as per Fleischner guidelines is recommended (CT at 6-[address] 2 4 months). Indeterminate focus, exophytic from the lower pole of the right kidney, for i ultrasound follow-up is recommended, nonemergently, when the patient is clin ically able. Bulky lamellated gallbladder stones persist.
[2024-11-14 09:23] VITALS: BP 111/62; PULSE 97; RESP 18; TEMP 36.4; O2SAT 100
[2024-11-14 09:40] LABS: Basophils Percent Auto 0.4 % (0.2-1.2); Eosinophils Absolute Auto 0.3 K/mm3 (0-0.3); Eosinophils Percent Auto 3.5 % (0-4.4); Hematocrit 35.4 % (37.0-47.0); Hemoglobin 11.1 g/dL (12.0-15.0); Immature Granulocyte Absolute 0.03 K/mm3 (0.00-0.031); Immature Granulocyte Percent A 0.4 % (0-0.5); Lymphocytes Absolute Auto 1.64 K/mm3 (0.9-3.2); Lymphocytes Percent Auto 21.2 % (18.3-44.2); Mean Corpuscular HGB Conc 31.4 g/dl (32-36); Mean Corpuscular Hemoglobin 31.5 pg (26-34); Mean Corpuscular Volume 100.6 fl (80-100); Mean Platelet Volume 10.7 fl (7.4-10.4); Monocytes Absolute Auto 0.6 K/mm3 (0.1-0.6); Monocytes Percent Auto 7.1 % (2.6-8.5); Neutrophils Absolute Auto 5.2 K/mm3 (1.3-6.7); Neutrophils Percent Auto 67.4 % (45.5-73.1); Platelet Count Result 217 k/mm3 (150-375); Red Blood Count 3.52 M/mm3 (4.2-5.4); Red Cell Distribution Width 15.9 % (11.5-14.5); White Blood Count 7.7 K/mm3 (4.5-10.0)
[2024-11-14 09:50] LABS: Alanine Aminotransferase 17 U/L (6-35); Albumin Level 2.9 g/dL (3.5-5.1); Alkaline Phosphatase 159 U/L (38-126); Anion Gap 5 mmol/L (4-12); Aspartate Amino Transferase 33 U/L (14-36); Bilirubin,Total 0.5 mg/dL (0.2-1.3); Blood Urea Nitrogen 19 mg/dL (7-17); Calcium 9.5 mg/dL (8.4-10.2); Carbon Dioxide 23 mmol/L (22-30); Chloride 105 mmol/L (98-107); Estimated CRCL calculation 36 ml/min; Estimated Glomerular Filt Rate 28; Glucose 84 mg/dL (65-110); Lipase 43 U/L (23-300); Sodium 133 mmol/L (137-145)
[2024-11-14] MEDS: SODIUM CHLORIDE 0.9% IV 1,000 ML 999 ML IV CONT (10:05)
[2024-11-14] MEDS: ONDANSETRON INJ 4 MG/2 ML VIAL IV PUSH (10:05)
--- OUTSIDE RECORDS SUMMARY | 2024-11-14 10:18 | XMS_ITS | Clinical Summary ---
Author Organization [facility] Address [address] [facility] [address] [place] [address] Phone Care Team Providers Care Channel Manager Name Role Phone Lion Feliciano MD Primary Care Provider [phone] Allergies Active Allergy Reactions Criticality Noted Date [...] [facility] [address] [place] [id number] July May 10/07/2024 Telephone [facility] [address] [place] [address] Pasha Wilhelm MD from Last 3 Months [...] Orientation Not on file Plan of Treatment Health Maintenance Due Date [...] age to complete this topic Insurance Medicare Medicare Medicare Medicare [facility] [place] [address] Care Teams Channel Manager Relationship Specialty Start Date End Date Lion Feliciano MD [address] [id number] PCP - General Internal Medicine 10/01/24
--- OUTSIDE RECORDS SUMMARY | 2024-11-14 10:18 | XMS_ITS ---
Author Organization [facility] Care Team Providers Care Shipping Support Name Role Phone Jami Fried Unavailable Unavailable Jack Castillo Unavailable Unavailable Allergies and adverse reactions Code CodeSystem Substance Reaction Severity StartDate Concern Status 6809 RXNORM metFORMIN Unknown 01/09/2023 active 3355 RXNORM Diclofenac Unknown 01/09/2023 active Care Team Name Role Address Phone Organization Dates Jack Castillo PCP [address] [place], [place], [facility], [facility] (Office): : [facility] 02/25/2023 - 03/29/2023 Jami Fried [address] [place] [address], [facility] (Office): [facility] 02/25/2023 - 03/29/2023 Immunizations Immunization Status Vaccine Details Vaccine Code CodeSystem Edgardo e Notes Influenza completed Influenza, high- dose, split virus, quadrivalent, injectable, preservative free lotNumber: [id number] expiry: 12/16/2023 Mfg: [employer] Given 0.5 ml Left Deltoid intramuscularly 197 CVX created date: 03/27/2023 consent date: 03/27/2023 administered date: 03/27/2023 Influenza cancelled Influenza, high- dose, split virus, quadrivalent, injectable, preservative free 197 CVX created date: 01/10/2023 consent date: 01/10/2023 Prevnar 20 completed Pneumococcal conjugate vaccine 20-valent (PCV20), polysaccharide [id number] conjugate, adjuvant, preservative free 216 CVX created date: 01/10/2023 consent date: 01/10/2023 administered date: 01/16/2023 Mental Status Section Date Assessment Total Score Description 03/29/2023 BIMS 15 cognitively int act CAM 0 No delirium ind icated PHQ-9 14 moderate depres reinaldo 02/21/2023 CAM 0 No delirium ind icated Problems Problem # Description Date of onset Resolved Date Code CodeSystem Concern Status 1 COVID-19 03/18/[address] active 2 INFECTION FOLLOWING A PROCEDURE, OTHER SURGICAL SITE, SUBSEQUENT ENCOUNTER 01/31/[address] active 3 ANXIETY DISORDER, UNSPECIFIED 01/10/[address] active 4 ANEMIA, UNSPECIFIED 01/09/[address] active 5 CHRONIC KIDNEY DISEASE, STAGE 3 UNSPECIFIED 01/09/[address] active 6 CONSTIPATION, UNSPECIFIED 01/09/[address] active 7 DEPRESSION, UNSPECIFIED 01/09/[address] active 8 DIVERTICULOSIS OF INTESTINE, PART UNSPECIFIED, WITHOUT PERFORATION OR ABSCESS WITHOUT BLEEDING 01/09/[address] active 9 ESSENTIAL (PRIMARY) HYPERTENSION 01/09/[address] active 10 FATTY (CHANGE OF) LIVER, NOT ELSEWHERE CLASSIFIED 01/09/[address] active 11 GOUT, UNSPECIFIED 01/09/[address] active 12 HYPOKALEMIA 01/09/[address] active 13 [address]YPOTHYROIDISM, UNSPECIFIED 01/09/[address] active 14 MORBID (SEVERE) OBESITY DUE TO EXCESS CALORIES 01/09/[address] active 15 OTHER INTERVERTEBRAL DISC DEGENERATION, LUMBAR REGION 01/09/[address] active 16 OVERACTIVE BLADDER 01/09/[address] T active 17 PERIPHERAL VASCULAR DISEASE, UNSPECIFIED 01/09/[address] active 18 PERSONAL HISTORY OF COVID-19 01/09/[address] active 19 TYPE 2 DIABETES MELLITUS WITHOUT COMPLICATIONS 01/09/[address] active 20 UNSPECIFIED ASTHMA, UNCOMPLICATED 01/09/[address] active 21 ARTHRITIS DUE TO OTHER BACTERIA, RIGHT KNEE 01/08/[address] active 22 INFECTION FOLLOWING A PROCEDURE, OTHER SURGICAL SITE, SUBSEQUENT ENCOUNTER 01/08/2023 01/31/[address] completed 23 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, SUBSEQUENT ENCOUNTER 01/08/[address] active Reason for Referral No Reasons for Referral Entered Social History Social History Observation Description Start Date End Date Code Code System Current Smoking Status Tobacco smoking consumption unknown 882698781 SNOMED CT Sex Assigned At Female 1955 07490-5 [facility] Gender Identity Vital Signs Code Code System Vitals Name Values and Units Timing Information 9279-1 [facility] Respiratory Rate Value=18.0 Units=/m in 03/29/2023 8462-4 [facility] Blood Pressure-Diastolic Value=72 Un its=mmHg 03/29/2023 8480-6 [facility] Blood Pressure-Systolic Gbdzt=977 Un its=mmHg 03/29/2023 8310-5 [facility] Body Temperature Value=98.2 Units= F 03/29/2023 8867-4 [facility] Heart rate Value=80.0 Units=/min 05/2023 10509-2 [facility] O2 % BldC Oximetry Value=97.0 Units= % 03/29/2023 30317-9 [facility] Pain Level Value=0.0 03/29/2023 98836-1 [facility] Weight Gnksf=072.8 Units=Lbs 04/2023 8302-2 [facility] Height Value=66.0 Units=Inches 02/25/2023 2339-0 [facility] Blood Sugar Vkipi=003.0 Units=mg/dL 02/05/2023
--- OUTSIDE RECORDS SUMMARY | 2024-11-14 10:18 | XMS_ITS | Clinical Summary ---
Author Organization [facility] [employer] Address [address] [place] [address] Care Team Providers Care Remote Mortgage Underwriter Name Role Phone Unavailable Primary Care Provider Unavailabl e Source Comments [facility] [employer],non-owned Affiliates and Associated Physician Practices is amultiple site organization consisting of ambulatory clinics and hospital sitesin [place], [place], [place] and [place]. This disclosure is being madepursuant to the Care Everywhere program and may not contain all information available regarding this patient. Last updated 18.[facility] [employer] Social History Tobacco Use Types Packs/Day Years Used Date Smoking Tobacco: Never Assessed Comments Unknown Sex and Gender Information Value Date Recorded Sex Assigned at Not on file Legal Sex Female 4:21 PM [employer] Gender Identity Not on file Sexual Orientation Not on file Plan of Treatment Health Maintenance Due Date Last Done Comments BONE DENSITY TESTING 1955 COLOGUARD (AGES 45-75) - COL ON CA SCREENING 1955 [place] MONITORING 1955 COLONOSCOPY - [place] CA SCREENING 1953 CT COLONOGRAPHY - [place] CA SCREENING 1953 Colorectal Cancer Screening 1953 FIT - [place] CA SCREENING 1955 FLEX SIG - [place] CA SCREENING 1955 LIPID TESTING 1955 MAMMOGRAM 1955 HEPATITIS C SCREENING 02/22/1971 DTAP/TDAP/TD VACCINES (1 - Tdap) 02/27/1972 PNEUMOCOCCAL VACCINE 50+ (1 of 1 - PCV) 2003 ZOSTER VACCINE (1 of 2) 2003 COVID-19 VACCINE ( - 2023-2 5 season) 2024 DEPRESSION SCREENING 06/18/2024 INFLUENZA VACCINE (Season Ended) 2025 Respiratory Syncytial Virus (RSV) Vaccine Pt: or over 60 yrs (1 - 1-dose 75+ series) 02/27/2028 HEPATITIS B VACCINE Aged Out No longe r eligible based on patient's age to complete this topic HIB VACCINE Aged Out No longer eligi ble based on patient's age to complete this topic HPV VACCINE Aged Out No longer eligi ble based on patient's age to complete this topic MENINGOCOCCAL (Group B) VACC INE SHARED DECISION-MAKING Aged Out No longer eligibl e based on patient's age to complete this topic MENINGOCOCCAL GROUPS A/C/Y/W VACCINE Aged Out No longer eligible b ased on patient's age to complete this topic Insurance MEDICARE MEDICAID [place] SELF PAY NO INSURANCE Member Subscriber Plan / Payer (Ef fective for All Dates) Name:Ashley Chandra Member ID:Not on file Relation to Subscriber:Not on file Name:ASHLEY CHANDRA Subscriber ID:Not on file (Home) Address: [address] [place] [id number] Payer ID:Not on file Group ID:Not on file Type:Self Pay Address: [place], [place]
--- OUTSIDE RECORDS SUMMARY | 2024-11-14 10:18 | XMS_ITS | Encounter Summary ---
Author Organization [facility] Address [address] [facility] [address] [place] [address] Phone Care Team Providers Care Assistant Professor Of English Name Role Phone Lion Feliciano MD Primary Care Provider [phone] Encounter Details Date Type Department Care Team ([facility] st Contact Info) Description 10/16/2024 Orders Only [facility] [address] [place] [address] July May [address] [place] [address] Social History Tobacco Use Types [...] as of this encounter Plan of Treatment Not on file documented as of this encounter Visit Diagnoses Not on filedocumented in this encounter Care Teams Assistant Professor Of English Relationship Specialty Start Date End Date Lion Feliciano MD [address] [place] [address] PCP - General Internal Medicine 10/01/24 documented as of this encounter
--- NOTE | 2024-11-14 10:32 | ED.NAVMDI ---
HPI - Nausea/Vomiting/Diarrhea General Chief complaint: Nausea/Vomiting/Diarrhea Stated complaint: vomiting green bile Time Seen by Provider: 11/14/24 09:48 History of Present Illness HPI Narrative: Patient is a 69-year-old female who presents ER with vomiting. Reports she had some bile come out while she is vomiting. She has a cholecystostomy tube in place with a significant amount of fluid in the bag. Mild discomfort around the tube site. No fevers or chills. No diarrhea. Related Data Home Medications ?Medication ?Instructions ?Recorded ?Confirmed ?Last Taken ?Type Bacillus coagulans-inulin 1 1 cap PO DAILY 10/20/24 11/12/24 Unknown History billion cell-250 mg capsule allopurinol 100 mg tablet 200 mg PO DAILY 10/20/24 11/12/24 Unknown History alprazolam 0.5 mg tablet 0.25 mg PO HS 10/20/24 11/12/24 Unknown History biotin 1 mg capsule 1 mg PO DAILY 10/20/24 11/12/24 Unknown History bisacodyl 10 mg rectal suppository 10 mg RECTAL DAILY PRN constipation 10/20/24 11/12/24 Unknown History cetirizine 10 mg capsule 10 mg PO DAILY 10/20/24 11/12/24 Unknown History cilostazol 100 mg tablet 100 mg PO BID 10/20/24 11/12/24 Unknown History cinnamon bark 500 mg capsule 1,000 mg PO BID 10/20/24 11/12/24 Unknown History (Cinnamon) docusate sodium 100 mg capsule 200 mg PO Q12H PRN constipation 10/20/24 11/12/24 Unknown History (Colace) escitalopram oxalate 20 mg tablet 20 mg PO DAILY 10/20/24 11/12/24 Unknown History ferrous sulfate 324 mg (65 mg 325 mg PO TID 10/20/24 11/12/24 Unknown History iron) tablet,delayed release fluticasone propionate 50 2 spray intranasal DAILY 10/20/24 11/12/24 Unknown History mcg/actuation nasal spray,suspension levothyroxine 50 mcg tablet 50 mcg PO 5XW 10/20/24 11/12/24 Unknown History (Euthyrox) levothyroxine 50 mcg tablet 100 mcg PO .twice a week 10/20/24 11/12/24 Unknown History (Euthyrox) losartan 50 mg tablet 50 mg PO DAILY 10/20/24 11/12/24 Unknown History magnesium citrate 296 ml PO DAILY PRN constipation 10/20/24 11/12/24 Unknown History magnesium hydroxide 400 mg/5 mL 30 ml PO HS PRN constipation 10/20/24 11/12/24 Unknown History oral suspension (Milk of Magnesia) magnesium oxide 400 mg (241.3 mg 400 mg PO TID 10/20/24 11/12/24 Unknown History magnesium) tablet metformin 500 mg tablet 500 mg PO BID 10/20/24 11/12/24 Unknown History metoprolol tartrate 50 mg tablet 50 mg PO BID 10/20/24 11/12/24 Unknown History ondansetron 4 mg disintegrating 4 mg PO Q6H PRN nausea and vomiting 10/20/24 11/12/24 Unknown History tablet oxybutynin chloride 5 mg 5 mg PO DAILY 10/20/24 11/12/24 Unknown History tablet,extended release 24 hr potassium chloride 20 mEq 20 meq PO DAILY 10/20/24 11/12/24 Unknown History tablet,extended release(part/cryst) sodium phosphates 19 gram-7 118 ml RECTAL DAILY PRN 10/20/24 11/12/24 Unknown History gram/118 mL enema constipation lansoprazole 15 mg capsule,delayed 15 mg PO QAM 10/23/24 11/12/24 Unknown History release (Prevacid 24Hr) amoxicillin 875 mg-potassium 1 tablet PO Q12H 11/12/24 11/12/24 Unknown History clavulanate 125 mg tablet doxycycline monohydrate 100 mg 100 mg PO DAILY 11/12/24 11/12/24 Unknown History capsule nystatin 100,000 unit/gram g topical 11/12/24 11/12/24 Unknown History powder-emollient combination no.88 gel pack triamcinolone acetonide 0.1 % 1 applic topical BID 11/12/24 11/12/24 Unknown History topical cream Allergies Allergy/AdvReac Type Severity Reaction Status Date / Time No Known Allergies Allergy Verified 11/12/24 10:02 Review of Systems Review of Systems: All systems reviewed & are unremarkable except as noted in HPI and below Constitutional: Constitutional: Reports no additional constitutional complaints ENT: Reports system reviewed and no additional complaints, except as documented Cardiovascular: Cardiovascular: Reports no additional cardiovascular complaints Respiratory: Respiratory: Reports no additional respiratory complaints Gastrointestinal: Gastrointestinal: Reports no additional gastrointestinal complaints [facility] Past Medical History Medical History Ulcerative esophagitis Asthma Type 2 diabetes mellitus Fatty liver Overactive bladder Peripheral vascular disease Anemia Chronic kidney disease Spinal stenosis Depression Hypertension Gout Diverticulitis Cognitive communication deficit Anxiety Hyperlipidemia Hypothyroidism C. difficile colitis Surgical History Surgical History History of hysterectomy History of knee replacement, total Right Social History Social History (Updated 11/12/24 @ 10:11 by Michaelle Sidhu MA) Smoking status: Unknown if ever smoked Alcohol intake: never Substance use: never Do You Feel Safe in your Home?: Yes Lack of Transportation: No Lack of Food: Never True Current Housing: I Have Housing Concerned About Future Housing: No Difficulty Paying Gas/Electric Bills: No Difficulty Paying for Meds: No Currently Unemployed: No Education: High School Diploma/GED Difficulty w/ Childcare or Family Care: No Spiritual care concerns: No Exam Narrative: GENERAL: Well-appearing, well-nourished, and in no acute distress. HEAD: Normocephalic, atraumatic. ENT: Mucous membranes moist. CHEST: Clear to auscultation. No respiratory distress. HEART: Regular rate and rhythm. Normal peripheral pulses. ABDOMEN: Soft, nontender, nondistended. Cholecystostomy tube site appears normal with bile in the bag. EXTREMITIES: Normal range of motion. No edema. SKIN: Warm, dry, no rash. NEURO: Alert and oriented x3. PSYCH: Normal mood and affect. Course Course Emergency Course: Tube in position. Mild dehydration. Hydrated. Appropriate for discharge back to facility. Liver enzymes within normal limits and no leukocytosis. Vital Signs Vital signs: Vital Signs Temperature 97.6 F 11/14/24 09:23 Pulse Rate 97 11/14/24 09:23 Respiratory Rate 18 11/14/24 09:23 Blood Pressure 111/62 11/14/24 09:23 Pulse Oximetry 100 11/14/24 09:23 Oxygen Delivery Room Air 11/14/24 09:23 Temperature 97.6 F 11/14/24 09:23 Pulse Rate 77 11/14/24 11:16 Respiratory Rate 18 11/14/24 11:16 Blood Pressure 123/58 L 11/14/24 11:16 Pulse Oximetry 99 11/14/24 11:16 Oxygen Delivery Room Air 11/14/24 09:23 MDM - Nausea/Vomiting/Diarrhea Lab Data 11/14/24 09:36 11/14/24 09:36 Labs: Lab Results 11/14/24 Range/Units 09:36 WBC 7.7 (4.5-10.0) K/mm3 RBC 3.52 L (4.2-5.4) M/mm3 Hgb 11.1 L (12.0-15.0) g/dL Hct 35.4 L (37.0-47.0) % MCV 100.6 H (80-100) fl MCH 31.5 (26-34) pg MCHC 31.4 L (32-36) g/dl RDW 15.9 H (11.5-14.5) % Plt Count 217 (150-375) k/mm3 MPV 10.7 H (7.4-10.4) fl Immature Gran % (Auto) 0.4 (0-0.5) % Neut % (Auto) 67.4 (45.5-73.1) % Lymph % (Auto) 21.2 (18.3-44.2) % [place] % (Auto) 7.1 (2.6-8.5) % Eos % (Auto) 3.5 (0-4.4) % Baso % (Auto) 0.4 (0.2-1.2) % Lymph # (Auto) 1.64 (0.9-3.2) K/mm3 [place] # (Auto) 0.6 (0.1-0.6) K/mm3 Eos # (Auto) 0.3 (0-0.3) K/mm3 Baso # (Auto) 0.0 (0.0-0.1) K/mm3 Abs Immat Gran (auto) 0.03 (0.00-0.031) K/mm3 Absolute Neuts (auto) 5.2 (1.3-6.7) K/mm3 Absolute Nucleated RBC 0.000 (0.0-0.012) K/mm3 Nucleated RBC % 0.0 (0.0-0.2) % Sodium 133 L (137-145) mmol/L Potassium 5.0 (3.4-5.0) mmol/L Chloride 105 (98-107) mmol/L Carbon Dioxide 23 (22-30) mmol/L Anion Gap 5 (4-12) mmol/L BUN 19 H D (7-17) mg/dL Creatinine 1.80 H (0.7-1.0) mg/dL Estim Creat Clear Calc 36 ml/min Estimated GFR 28 L (59 - ) Glucose 84 (65-110) mg/dL Calcium 9.5 (8.4-10.2) mg/dL Total Bilirubin 0.5 (0.2-1.3) mg/dL AST 33 (14-36) U/L ALT 17 (6-35) U/L Alkaline Phosphatase 159 H (38-126) U/L Total Protein 6.0 L (6.3-8.2) g/dL Albumin 2.9 L (3.5-5.1) g/dL Lipase 43 (23-300) U/L Imaging Data Radiologist's impression: ITS Impressions Abdomen/Pelvis CT 11/14/24 10:40 IMPRESSION: Transperitoneal cholecystostomy in good position. No intra or extrahepatic biliary ductal dilatation. No findings to suggest small bowel obstruction. Interval resolution of the right-sided pleural effusion, seen on previous examination. Left-sided pleural effusion persists, with adjacent compressive consolidation. 6 mm nodule within the right lower lobe (previously obscured) for which follow-up as per Fleischner guidelines is recommended (CT at 6-[address] 24 months). Indeterminate focus, exophytic from the lower pole of the right kidney, for which ultrasound follow-up is recommended, nonemergently, when the patient is clinically able. Bulky lamellated gallbladder stones persist. Discharge Plan Discharge Clinical Impression: Vomiting, Incidental lung nodule, Nodule of kidney Patient Disposition: Home Condition: Stable Instructions: Acute Nausea and Vomiting (ED) Additional Instructions: Return to the emergency department if you develop severe abdominal pain, severe nausea and vomiting to the point where you are unable to keep down fluids, if you develop chest pain or difficulty breathing, blood in your stool, dizziness or fainting, or if you develop any other new or concerning symptoms as these could be signs of more serious medical illness. Try to stay well hydrated. You also were found have an incidental nodule in your lung and bone your kidney. You will need an outpatient ultrasound for your kidney and possibly a follow-up CT on your chest. Speak with your primary doctor about these treatments. Patient Language: Malian Prescriptions: New ondansetron 4 mg tablet,disintegrating 4 mg PO Q6H PRN (Reason: nausea and vomiting) Qty: 10 0RF No Action amoxicillin-pot clavulanate 875-125 mg tablet 1 tablet PO Q12H doxycycline monohydrate 100 mg capsule 100 mg PO DAILY nystatin-emollient combo no.88 100,000 unit/gram combo pack,gel and powder topical triamcinolone acetonide 0.1 % cream 1 applic topical BID ferrous sulfate 324 mg (65 mg iron) tablet,delayed release (DR/EC) 325 mg PO TID magnesium oxide 400 mg (241.3 mg magnesium) tablet 400 mg PO TID metformin 500 mg tablet 500 mg PO BID cilostazol 100 mg tablet 100 mg PO BID alprazolam 0.5 mg tablet 0.25 mg PO HS metoprolol tartrate 50 mg tablet 50 mg PO BID cinnamon bark [Cinnamon] 500 mg capsule 1,000 mg PO BID biotin 1 mg capsule 1 mg PO DAILY cetirizine 10 mg capsule 10 mg PO DAILY Bacillus coagulans-inulin 1 billion-250 cell-mg capsule 1 cap PO DAILY losartan 50 mg tablet 50 mg PO DAILY allopurinol 100 mg tablet 200 mg PO DAILY oxybutynin chloride 5 mg tablet extended release 24hr 5 mg PO DAILY escitalopram oxalate 20 mg tablet 20 mg PO DAILY potassium chloride 20 mEq tablet,ER particles/crystals 20 meq PO DAILY ondansetron 4 mg tablet,disintegrating 4 mg PO Q6H PRN (Reason: nausea and vomiting) levothyroxine [Euthyrox] 50 mcg tablet 100 mcg PO .twice a week Rx Instructions: give only on Sunday and Sunday fluticasone propionate 50 mcg/actuation spray,suspension 2 spray intranasal DAILY Rx Instructions: administer into each nostril levothyroxine [Euthyrox] 50 mcg tablet 50 mcg PO 5XW Rx Instructions: give on Sunday, Sunday, Sunday, and Sunday magnesium hydroxide [Milk of Magnesia] 400 mg/5 mL suspension 30 ml PO HS PRN (Reason: constipation) Rx Instructions: if no BM in 3 days bisacodyl 10 mg suppository 10 mg RECTAL DAILY PRN (Reason: constipation) Rx Instructions: if no results from Milk of Magnesia sodium phosphates 19-7 gram/118 mL enema 118 ml RECTAL DAILY PRN (Reason: constipation) Rx Instructions: if no results 1 day after suppository magnesium citrate Solution 296 ml PO DAILY PRN (Reason: constipation) Rx Instructions: if no results after enema docusate sodium [Colace] 100 mg capsule 200 mg PO Q12H PRN (Reason: constipation) lansoprazole [Prevacid 24Hr] 15 mg capsule,delayed release(DR/EC) 15 mg PO QAM pantoprazole [Protonix] 40 mg tablet,delayed release (DR/EC) 40 mg PO QAM 28 Days Qty: 28 0RF Follow-up/Referrals: usman rodriguez [Other] - 1 Week
[2024-11-14 11:16] VITALS: BP 123/58; PULSE 77; RESP 18; O2SAT 99
--- NOTE | 2024-11-14 13:13 | PC.NURSE ---
report called to Teri dick and given to Mary COTTER. waiting for transport to be set up at this time
--- NOTE | 2024-11-14 13:35 | PC.NURSE ---
gallbladder drain bag emptied - 275 ml output
== END 2024-11-14 15:42 | disposition home or self-care (01) ==
PROVIDERS: Emergency Provider Emergency Medicine
DX: R11.2 Nausea with vomiting, unspecified (principal); R91.1 Solitary pulmonary nodule; N28.89 Other specified disorders of kidney and ureter; E11.9 Type 2 diabetes mellitus without complications; N18.9 Chronic kidney disease, unspecified; E78.5 Hyperlipidemia, unspecified; E03.9 Hypothyroidism, unspecified; J45.909 Unspecified asthma, uncomplicated; I12.9 Hypertensive chronic kidney disease with stage 1 through stage 4 chronic kidney disease, or unspecified chronic kidney disease
CPT/HCPCS: 36415; 74176; 80053; 83690; 85025; 96361; 96374; 99284; J2405; J7030

== ENCOUNTER 2024-12-01 10:32 | Inpatient (IN) | payer MEDICARE, MEDICAID, SELFPAY ==
[2024-12-01] VITALS (20 sets, daily range): BP systolic 88–112; BP diastolic 45–71; PULSE 67–123; RESP 12–26; TEMP 36.4–36.8; O2SAT 93–100; BMI 43.8
--- NOTE | 2024-12-01 | ECHO_ITS ---
Patient Info Name: Ashley Gardner Age: 69 years : 1955 Gender: Female Ht: 66 in Wt: 287 lbs BSA: 2.53 m2 HR: 91 bpm BP: 109 / 58 mmHg Heart Rhythm: Sinus Rhythm Technical Quality: Fair Exam Date: 12/01/2024 4:10 PM Patient Status: I Admit Date: 12/01/2024 Exam Type: CA echo dop color flow w con Complete two-dimensional, color flow and Doppler transthoracic echocardiogram is performed with contrast to opacify the left ventricle and to improve the deliniation of the left ventricle endocardial borders. Staff Referring Physician: Ely Clemons Video System Repairer: Sydnie Rodriguez Attending Provider: Jose Arauz Contrast/Agitated Saline Contrast/Ag. Saline: Definity Amount: 2.00 ml Administered By: Sydnie Rodriguez Existing IV Access: Yes IV Access Condition: patent with no signs of infiltration Summary 1. Left ventricular chamber dimension is normal. 2. Left ventricular systolic function is normal, estimated at 60-65. 3. The left ventricular diastolic function is grade I diastolic dysfunction. 4. Definity contrast administered improved wall motion interpretation. 5. E/e' 7 is not elevated. 6. There is mild aortic valve sclerosis. 7. The mitral valve has a moderately calcified annulus. 8. No pulmonary hypertension, estimated pulmonary arterial systolic pressure is 17 mmHg. Left Ventricle E/e' 7 is not elevated. Left ventricular chamber dimension is normal. Left ventricular systolic function is normal, estimated at 60-65. The left ventricular diastolic function is grade I diastolic dysfunction. Definity contrast administered improved wall motion interpretation. Right Ventricle Right ventricular chamber dimension is normal. Right ventricular systolic function is normal. Left Atria Left atrial chamber dimension is normal. Right Atria Right atrial chamber dimension is normal. Aortic Valve The aortic valve is trileaflet. There is mild aortic valve sclerosis. There is no aortic valve stenosis. There is no aortic valve regurgitation. Pulmonic Valve There is no pulmonic regurgitation. Mitral Valve The mitral valve has a moderately calcified annulus. There is no mitral valve stenosis. There is no mitral valve regurgitation. Tricuspid Valve There is no tricuspid valve regurgitation. No pulmonary hypertension, estimated pulmonary arterial systolic pressure is 17 mmHg. Pericardium/Pleural There is no pericardial effusion. Inferior Vena Cava Normal inferior vena cava with >50% collapse upon inspiration consistent with normal right atrial pressure, 5 mmHg. Aorta The aortic root size at the sinus of Valsalva is normal. Left Ventricular Outflow Tract Name Value Normal LVOT 2D LVOT Diameter 2.0 cm LVOT Doppler LVOT Peak Velocity 126 cm/s LVOT Peak Gradient 6 mmHg LVOT Mean Gradient 2 mmHg LVOT VTI 17 cm LVOT VTI/AV VTI Ratio 0.7 LVOT Stroke Volume 51 ml LVOT CO 5.0 l/min LVOT CI 2.0 l/min/m2 Pulmonic Valve Name Value Normal RVOT Doppler RVOT Peak Velocity 71 cm/s RVOT Peak Gradient 2 mmHg PV Doppler PV Peak Velocity 125 cm/s PV Peak Gradient 6 mmHg Mitral Valve Name Value Normal MV Diastolic Function MV E Peak Velocity 85 cm/s MV A Peak Velocity 95 cm/s MV E/A 0.9 MV Decel Time (PW) 162 ms MV Annular TDI MV E/e' (Septal) 7.9 MV E/e' (Lateral) 6.6 MV E/e' (Average) 7.3 Tricuspid Valve Name Value Normal TV Regurgitation Doppler TR Peak Velocity 175 cm/s TR Peak Gradient 12 mmHg Estimated PAP/RSVP RA Pressure 5 mmHg <=5 PA Systolic Pressure 17 mmHg <36 RV Systolic Pressure 17 mmHg <36 TV Annular TDI TV Lateral Argelia s' Velocity 9.7 cm/s >=9.5 Aorta Name Value Normal Ascending Aorta Ao Root Diameter (MM) 3.4 cm Ao Root Diam Index (MM) 1.4 cm/m2 Aortic Valve Name Value Normal AV Doppler AV Peak Velocity 190 cm/s AV Peak Gradient 15 mmHg AV Mean Gradient 7 mmHg AV VTI 26 cm AV Area (Cont Eq VTI) 2.0 cm2 >=3.0 AV Area (Cont Eq Feroz) 2.0 cm2 AV DI (Feroz) 0.66 AV Regurgitation 2D LVOT Area 3.0 cm2 Ventricles Name Value Normal LV Dimensions 2D/MM IVS Diastolic Thickness (2D) 1.1 cm 0.6-1.0 LVID Diastole (2D) 5.3 cm 3.8-5.2 LVIW Diastolic Thickness (2D) 1.1 cm 0.6-0.9 LVID Systole (2D) 3.5 cm 2.2-3.5 LVOT Diameter 2.0 cm LV Mass (2D Cubed) 216.25 g 67.00-162.00 LV Mass Index (2D Cubed) 85 g/m2 43-95 Relative Wall Thickness (2D) 0.40 <=0.42 LV Fractional Shortening/Ejection Fraction 2D/MM LV Fractional Shortening (2D) 34 % 27-45 LV EF (2D Teichholz) 63 % LV Diastolic Volume (4C MOD) 47 ml LV EF (4C MOD) 69 % LV Diastolic Volume (2C MOD) 40 ml LV EF (2C MOD) 62 % LV Diastolic Volume (BP MOD) 47 ml 46-106 LV Diastolic Volume Index (BP MOD) 19 ml/m2 29-61 LV Systolic Volume (BP MOD) 16 ml 14-42 LV Systolic Volume Index (BP MOD) 6 ml/m2 8-24 LV EF (BP MOD) 67 % 54-74 LV Diastolic Length (4C) 7.5 cm LV Systolic Length (4C) 5.8 cm LV Stroke Volume (4C MOD) 33 ml Atria Name Value Normal LA Dimensions LA Dimension (MM) 3.8 cm 2.7-3.8 LA Volume (4C A-L) 42 ml RA Dimensions RA Area (4C) 13.5 cm2 <=18.0 Report Signatures
--- NOTE | ~2024-12-01 | XR_ITS ---
XR chest 1V portable Ordering provider: Bret Whittaker MD History: 69 years Female with . SOB . Comparison: None. FINDINGS: MEDIASTINUM: The cardiac silhouette is not enlarged. LUNGS: No effusions or pneumothorax. Minimal opacification in the left lung base medially. Prominent bronchovascular markings bilaterally. OTHER: No free air under the diaphragm. Degenerative changes of the spine IMPRESSION: Left basilar atelectasis versus pneumonia medially. Reviewed, dictated and finalized at location A.
--- NOTE | ~2024-12-01 | US_ITS ---
EXAM: RENAL ULTRASOUND HISTORY: [place] COMPARISON: Reference is made to CT examination of the abdomen and pelvis performed 11/14/2024 and francis ing back to 10/19/2024 FINDINGS: RIGHT KIDNEY: 9.2 x 5.2 x 5.6 cm. The parenchyma of the right kidney is increased in echogenicity and thin in caliber. No hydronephrosis or renal calculi. Multiple rounded anechoic avascular foci detected. The largest within the upper pole measures 14 x 10 x 15 mm, consistent with a simple cyst for which n o further follow-up is needed.. LEFT KIDNEY: 12.6 x 6.4 x 5.3 cm No hydronephrosis or renal calculi. The parenchyma of the left kidney is increased in echogenicity and thin in caliber. BLADDER: Decompressed with a Khoury catheter, limiting its evaluation. IMPRESSION: No hydronephrosis or renal calculi. Findings suggesting medical renal disease. Atrophy of the right kidney in comparison to the left. Reviewed, dictated and finalized at location A.
--- NOTE | ~2024-12-01 | XR_ITS ---
EXAMINATION: XR catheter cholangiogram DATE: 12/03/2024 09:15 INDICATION: Cholecystostomy tube placement for acute cholecystitis TECHNIQUE: Fluoroscopic images were obtained during injection of 50 mL Omnipaque 240 water-soluble co ntrast was injected through the percutaneous cholecystostomy tube. An additional 10 mL sterile saline was injected and then fluid was reaspirated from the gallbladder. The tube was then flushed with add itional 10 mL sterile saline and reattached to gravity drainage. A total of 7 fluoroscopic images of the right upper quadrant were obtained. The amount of fluoroscopy time used during this procedure was 2.5 minutes. Total DAP was 6.7 Gycm^2. COMPARISON: CT dated 11/14/2024 FINDINGS: There are multiple filling defects within the gallbladder consistent with gallstones. There was no ev ident contrast opacification of the cystic duct nor extraluminal contrast extravasation. IMPRESSION: 1. Cholecystostomy tube in expected position with loops formed within the fundus of the gallbladder. 2. Cholelithiasis with likely occluded cystic duct which does not opacify with contrast during the 5 minutes following injection of 50 mL water-soluble contrast. Reviewed, dictated and finalized at location A. IMPRESSION: 1. Cholecystostomy tube in expected position with loops formed within the fundu s of the gallbladder. 2. Cholelithiasis with likely occluded cystic duct which does not opacify with contrast during the 5 minutes following injection of 50 mL water-soluble contra st.
--- NOTE | ~2024-12-01 | XR_ITS ---
MODIFIED ESOPHAGRAM HISTORY: Possible aspiration TECHNIQUE: Modified barium esophagram was performed on 12/03/2024. I administered fluoroscopy and perf ormed the exam with speech pathologist. Patient was seated for lateral fluoroscopic imaging for ronel stion of thin liquids, pudding, solids and quantified amounts, followed by thin liquids in uncontroll ed amounts. This was recorded on tape. A single fluoroscopic spot image was also recorded. The DAP fo r this procedure was 2.234 Gycm2. The amount of fluoroscopy time used during this procedure was 2.4 m inutes. FINDINGS: Oral stage: Adequate function but with slow mastication likely secondary to poor dentition. Pharyngeal stage: Reduced laryngeal elevation. There was laryngeal penetration and aspiration.. Cervical/esophageal stage: Adequate function. IMPRESSION: Pharyngeal dysphagia with laryngeal penetration and aspiration. Please correlate with sp eech pathologist findings and specific feeding recommendations. Reviewed, dictated and finalized at location A. IMPRESSION: Pharyngeal dysphagia with laryngeal penetration and aspiration. Pl ease correlate with speech pathologist findings and specific feeding recommenda tions.
--- NOTE | 2024-12-01 10:35 | ECG_ITS ---
Test Date: 2024-12-01 10:37:40 Measurements Intervals Graham Rate: 113 P: 0 [place]: 0 QRS: -13 QRSD: 93 T: 60 QT: 325 QTc: 447 Interpretive Statements ATRIAL FIBRILLATION WITH RAPID VENTRICULAR RESPONSE INCOMPLETE RIGHT BUNDLE BRANCH BLOCK POSSIBLE ANTERIOR MYOCARDIAL INFARCTION , PROBABLY OLD INFERIOR INFARCT, AGE INDETERMINATE BORDERLINE ST-T WAVE ABNORMALITY- HIGH LATERAL LEADS BASELINE ARTIFACT- I, II, AVR, AVL, AVF, V1-V2 ABNORMAL ECG Compared to ECG 10/23/2024 13:59:48 Sinus rhythm no longer present Electronically Signed On 12-01-2024 11:05:34 CDT by Jason Perkins D.O.
--- NOTE | 2024-12-01 10:36 | ED.GENADULT ---
HPI - General Adult General Chief complaint: Shortness of Breath/Dyspnea Stated complaint: SOB Time Seen by Provider: 12/01/24 10:35 History of Present Illness HPI narrative: 69-year-old female presents to the emergency department from a local [facility] for evaluation for worsening shortness breath increasing cough and congestion. Patient is morbidly obese does have history of chronic kidney disease, type 2 diabetes, peripheral vascular disease. Patient is not normally on oxygen. Upon arrival emergency department by EMS patient was on a non-rebreather. Patient was treated with a DuoNeb EN route. Related Data Home Medications ?Medication ?Instructions ?Recorded ?Confirmed ?Last Taken ?Type Bacillus coagulans-inulin 1 1 cap PO DAILY 10/20/24 12/01/24 Unknown History billion cell-250 mg capsule allopurinol 100 mg tablet 200 mg PO DAILY 10/20/24 12/01/24 Unknown History alprazolam 0.5 mg tablet 0.25 mg PO TID 10/20/24 12/01/24 Unknown History biotin 1 mg capsule 1 mg PO DAILY 10/20/24 12/01/24 Unknown History bisacodyl 10 mg rectal suppository 10 mg RECTAL DAILY PRN constipation 10/20/24 12/01/24 Unknown History cetirizine 10 mg capsule 10 mg PO DAILY 10/20/24 12/01/24 Unknown History cilostazol 100 mg tablet 100 mg PO BID 10/20/24 12/01/24 Unknown History cinnamon bark 500 mg capsule 1,000 mg PO BID 10/20/24 12/01/24 Unknown History (Cinnamon) escitalopram oxalate 20 mg tablet 20 mg PO DAILY 10/20/24 12/01/24 Unknown History ferrous sulfate 324 mg (65 mg 325 mg PO TID 10/20/24 12/01/24 Unknown History iron) tablet,delayed release fluticasone propionate 50 2 spray intranasal DAILY 10/20/24 12/01/24 Unknown History mcg/actuation nasal spray,suspension levothyroxine 50 mcg tablet 50 mcg PO 5XW 10/20/24 12/01/24 Unknown History (Euthyrox) levothyroxine 50 mcg tablet 100 mcg PO .twice a week 10/20/24 12/01/24 Unknown History (Euthyrox) losartan 50 mg tablet 50 mg PO DAILY 10/20/24 12/01/24 Unknown History magnesium citrate 296 ml PO DAILY PRN constipation 10/20/24 12/01/24 Unknown History magnesium hydroxide 400 mg/5 mL 30 ml PO HS PRN constipation 10/20/24 12/01/24 Unknown History oral suspension (Milk of Magnesia) magnesium oxide 400 mg (241.3 mg 400 mg PO TID 10/20/24 12/01/24 Unknown History magnesium) tablet metformin 500 mg tablet 500 mg PO BID 10/20/24 12/01/24 Unknown History metoprolol tartrate 50 mg tablet 50 mg PO BID 10/20/24 12/01/24 Unknown History ondansetron 4 mg disintegrating 4 mg PO Q6H PRN nausea and vomiting 10/20/24 12/01/24 Unknown History tablet oxybutynin chloride 5 mg 5 mg PO DAILY 10/20/24 12/01/24 Unknown History tablet,extended release 24 hr potassium chloride 20 mEq 20 meq PO DAILY 10/20/24 12/01/24 Unknown History tablet,extended release(part/cryst) sodium phosphates 19 gram-7 118 ml RECTAL DAILY PRN 10/20/24 12/01/24 Unknown History gram/118 mL enema constipation lansoprazole 15 mg capsule,delayed 15 mg PO QAM 10/23/24 11/12/24 Unknown History release (Prevacid 24Hr) nystatin 100,000 unit/gram 1 g topical DAILY PRN rash 11/12/24 12/01/24 Unknown History powder-emollient combination no.88 gel pack tramadol 50 mg tablet 50 mg PO HS 12/01/24 12/01/24 Unknown History trazodone 50 mg tablet 50 mg PO HS 12/01/24 12/01/24 Unknown History Allergies Allergy/AdvReac Type Severity Reaction Status Date / Time No Known Allergies Allergy Verified 12/01/24 10:50 Review of Systems Review of Systems: All systems reviewed & are unremarkable except as noted in HPI and below PMFSH Past Medical History Medical History Ulcerative esophagitis Asthma Type 2 diabetes mellitus Fatty liver Overactive bladder Peripheral vascular disease Anemia Chronic kidney disease Spinal stenosis Depression Hypertension Gout Diverticulitis Cognitive communication deficit Anxiety Hyperlipidemia Hypothyroidism C. difficile colitis Surgical History Surgical History History of hysterectomy History of knee replacement, total Right Social History Social History Smoking status: Never smoker Second hand tobacco smoke exposure: No Alcohol intake: never Substance use: never Do You Feel Safe in your Home?: Yes Lack of Transportation: No Lack of Food: Never True Current Housing: I Have Housing Concerned About Future Housing: No Difficulty Paying Gas/Electric Bills: No Difficulty Paying for Meds: No Currently Unemployed: No Education: High School Diploma/GED Difficulty w/ Childcare or Family Care: No Spiritual care concerns: No Exam Narrative: APPEARANCE: Uncomfortable appearing HEAD: normocephalic, atraumatic. EYES: PERRLA/EOMI, conjunctivae clear. NOSE: Normal no drainage EARS:TMS clear with good light reflex. THROAT: Pharynx clear, no exudate. NECK: Supple. No adenopathy, no masses. RESPIRATORY: Decreased lung sounds CARDIOVASCULAR: Tachycardia ABDOMINAL: Soft, nontender, nondistended, normal bowel sounds MUSCULOSKELETAL: Lower extremity edema NEURO: Alert. Cranial nerves II through XII intact. Good gait. Good coordination SKIN: No evidence of cellulitis Course Vital Signs Vital signs: Vital Signs Temperature 98.2 F 12/01/24 10:30 Pulse Rate 123 H 12/01/24 10:30 Respiratory Rate 23 H 12/01/24 10:30 Blood Pressure 88/45 L 12/01/24 10:30 Pulse Oximetry 96 12/01/24 10:30 Oxygen Delivery Nasal Cannula 12/01/24 10:30 Oxygen Flow Rate 4 12/01/24 10:30 Temperature 97.5 F L 12/01/24 16:00 Pulse Rate 91 12/01/24 18:00 Respiratory Rate 22 H 12/01/24 16:00 Blood Pressure 91/64 L 12/01/24 16:00 Pulse Oximetry 100 12/01/24 16:00 Oxygen Delivery Nasal Cannula 12/01/24 16:00 Oxygen Flow Rate 4 12/01/24 16:00 Fraction of Inspired Oxygen 44 12/01/24 15:27 Medical Decision Making MDM Narrative Medical decision making narrative: 69-year-old female presents emergency department for evaluation for increased workup breathing. Patient was placed on 4 L of oxygen by nasal cannula and was saturating well. Patient is afebrile but does have a leukocytosis of 13.4 and hemoglobin of 10.5, this is not too far from her typical baseline. Patient's VBG did have a pH is 7.294 pCO2 30.4 and a PO2 of 57, patient's initial potassium was 6.7 and patient was treated with Lokelma, IV sodium bicarbonate, 7 units of insulin and IV dextrose along with 20 of IV Lasix. Patient was also treated with nebulized albuterol and a L of IV fluids. Patient did have an elevated proBNP of 1010 urine was significant for urinary tract infection. Chest x-ray was concerning for underlying pneumonia, patient was negative for MRSA. Patient was treated with Levaquin to cover both the urinary tract infection and the pneumonia, urine cultures are pending and blood cultures are pending. Case was discussed with hospitalist and patient was accepted to the IMU. Differential Diagnosis Differential Diagnosis: COVID, RSV, influenza, pneumonia, urinary tract infection, anemia, CHF Vital Signs Vital Signs: Vital Signs Temperature 98.2 F 12/01/24 10:30 Pulse Rate 123 H 12/01/24 10:30 Respiratory Rate 23 H 12/01/24 10:30 Blood Pressure 88/45 L 12/01/24 10:30 Pulse Oximetry 96 12/01/24 10:30 Oxygen Delivery Nasal Cannula 12/01/24 10:30 Oxygen Flow Rate 4 12/01/24 10:30 Temperature 97.5 F L 12/01/24 16:00 Pulse Rate 91 12/01/24 18:00 Respiratory Rate 22 H 12/01/24 16:00 Blood Pressure 91/64 L 12/01/24 16:00 Pulse Oximetry 100 12/01/24 16:00 Oxygen Delivery Nasal Cannula 12/01/24 16:00 Oxygen Flow Rate 4 12/01/24 16:00 Fraction of Inspired Oxygen 44 12/01/24 15:27 Lab Data Lab results reviewed: Yes I reviewed the patient's lab results. 12/01/24 11:15 12/01/24 17:03 Labs: Lab Results 12/01/24 12/01/24 12/01/24 Range/Units 10:49 11:08 11:15 WBC 13.4 H (4.5-10.0) K/mm3 RBC 3.21 L (4.2-5.4) M/mm3 Hgb 10.5 L (12.0-15.0) g/dL Hct 34.2 L (37.0-47.0) % MCV 106.5 H (80-100) fl MCH 32.7 (26-34) pg MCHC 30.7 L (32-36) g/dl RDW 15.6 H (11.5-14.5) % Plt Count 189 (150-375) k/mm3 MPV 10.9 H (7.4-10.4) fl Immature Gran % (Auto) 0.6 H (0-0.5) % Neut % (Auto) 82.0 H (45.5-73.1) % Lymph % (Auto) 10.2 L (18.3-44.2) % [place] % (Auto) 6.3 (2.6-8.5) % Eos % (Auto) 0.7 (0-4.4) % Baso % (Auto) 0.2 (0.2-1.2) % Lymph # (Auto) 1.37 (0.9-3.2) K/mm3 [place] # (Auto) 0.8 H (0.1-0.6) K/mm3 Eos # (Auto) 0.1 (0-0.3) K/mm3 Baso # (Auto) 0.0 (0.0-0.1) K/mm3 Abs Immat Gran (auto) 0.08 H (0.00-0.031) K/mm3 Absolute Neuts (auto) 11.0 H (1.3-6.7) K/mm3 Absolute Nucleated RBC 0.000 (0.0-0.012) K/mm3 Band Neutrophils % Not Reportable Nucleated RBC % 0.0 (0.0-0.2) % Platelet Estimate Adequate (Adequate) Hypochromasia 1+ Schistocytes Rare PT 14.2 (11.1-14.7) Seconds INR 1.1 APTT 29.0 (22.3-36.8) Seconds Sodium 134 L (137-145) mmol/L Potassium 6.7 H* (3.4-5.0) mmol/L Chloride 112 H (98-107) mmol/L Carbon Dioxide 17 L (22-30) mmol/L Anion Gap 5 (4-12) mmol/L BUN 40 H D (7-17) mg/dL Creatinine 2.97 H (0.7-1.0) mg/dL Estim Creat Clear Calc 22 ml/min Estimated GFR 16 L (59 - ) Glucose 99 (65-110) mg/dL POC Capillary Glucose 89 (65-105) mg/dl Lactic Acid (0.7-2.0) mmol/L Calcium 9.6 (8.4-10.2) mg/dL Total Bilirubin 0.2 (0.2-1.3) mg/dL AST 16 (14-36) U/L ALT 11 (6-35) U/L Alkaline Phosphatase 112 (38-126) U/L Total Creatine Kinase < 20 L (30-135) U/L NT-Pro-B Natriuret Pep 1010 H (19.9-100) pg/mL Total Protein 5.6 L (6.3-8.2) g/dL Albumin 2.5 L (3.5-5.1) g/dL Urine Color (Yellow) Urine Appearance (Clear) Urine pH (5.0-9.0) Ur Specific Hunter (1.001-1.035) Urine Protein (Negative) mg/dL Urine Glucose (UA) (Negative) mg/dL Urine Ketones (Negative) mg/dL Ur Blood (Man) (Negative) Urine Nitrate (Negative) Urine Bilirubin (Negative) Urine Urobilinogen (<2.0) mg/dL Add Ur Microanalysis Leukocyte Esterase Rfl (Negative) GARRY/UL Urine RBC (0-2) /hpf Urine WBC (0-3) /hpf Urine WBC Clumps (None) /HPF Ur Squamous Epith Cells (Few) /hpf Calcium Oxalate Crystal (None) /hpf Urine Bacteria /hpf Urine Casts U Random Total Protein mg/dL Ur Random Sodium meq/L Ur Random Urea MG/DL Urine Creatinine mg/dL Protein/Creat Ratio 2 (0-0.20) mg/mg Nasal MRSA (PCR) (NOT DETECTE) 12/01/24 12/01/24 12/01/24 Range/Units 11:24 12:15 12:25 WBC (4.5-10.0) K/mm3 RBC (4.2-5.4) M/mm3 Hgb (12.0-15.0) g/dL Hct (37.0-47.0) % MCV (80-100) fl MCH (26-34) pg MCHC (32-36) g/dl RDW (11.5-14.5) % Plt Count (150-375) k/mm3 MPV (7.4-10.4) fl Immature Gran % (Auto) (0-0.5) % Neut % (Auto) (45.5-73.1) % Lymph % (Auto) (18.3-44.2) % [place] % (Auto) (2.6-8.5) % Eos % (Auto) (0-4.4) % Baso % (Auto) (0.2-1.2) % Lymph # (Auto) (0.9-3.2) K/mm3 [place] # (Auto) (0.1-0.6) K/mm3 Eos # (Auto) (0-0.3) K/mm3 Baso # (Auto) (0.0-0.1) K/mm3 Abs Immat Gran (auto) (0.00-0.031) K/mm3 Absolute Neuts (auto) (1.3-6.7) K/mm3 Absolute Nucleated RBC (0.0-0.012) K/mm3 Band Neutrophils % Nucleated RBC % (0.0-0.2) % Platelet Estimate (Adequate) Hypochromasia Schistocytes PT (11.1-14.7) Seconds INR APTT (22.3-36.8) Seconds Sodium (137-145) mmol/L Potassium (3.4-5.0) mmol/L Chloride (98-107) mmol/L Carbon Dioxide (22-30) mmol/L Anion Gap (4-12) mmol/L BUN (7-17) mg/dL Creatinine (0.7-1.0) mg/dL Estim Creat Clear Calc ml/min Estimated GFR (59 - ) Glucose (65-110) mg/dL POC Capillary Glucose 86 (65-105) mg/dl Lactic Acid 1.6 (0.7-2.0) mmol/L Calcium (8.4-10.2) mg/dL Total Bilirubin (0.2-1.3) mg/dL AST (14-36) U/L ALT (6-35) U/L Alkaline Phosphatase (38-126) U/L Total Creatine Kinase (30-135) U/L NT-Pro-B Natriuret Pep (19.9-100) pg/mL Total Protein (6.3-8.2) g/dL Albumin (3.5-5.1) g/dL Urine Color Dark yellow (Yellow) Urine Appearance Turbid H (Clear) Urine pH 5.5 (5.0-9.0) Ur Specific Hunter 1.019 (1.001-1.035) Urine Protein 2+ H (Negative) mg/dL Urine Glucose (UA) Negative (Negative) mg/dL Urine Ketones Trace H (Negative) mg/dL Ur Blood (Man) 2+ H (Negative) Urine Nitrate Negative (Negative) Urine Bilirubin Negative (Negative) Urine Urobilinogen 0.2 (<2.0) mg/dL Add Ur Microanalysis Reviewed Leukocyte Esterase Rfl 3+ H (Negative) GARRY/UL Urine RBC 6-10 H (0-2) /hpf Urine WBC >100 H (0-3) /hpf Urine WBC Clumps Present H (None) /HPF Ur Squamous Epith Cells Moderate (Few) /hpf Calcium Oxalate Crystal Present (None) /hpf Urine Bacteria 4+ H /hpf Urine Casts >20 U Random Total Protein 38 mg/dL Ur Random Sodium 45 meq/L Ur Random Urea 285 MG/DL Urine Creatinine 200.9 mg/dL Protein/Creat Ratio 2 0.19 (0-0.20) mg/mg Nasal MRSA (PCR) (NOT DETECTE) 12/01/24 12/01/24 12/01/24 Range/Units 13:15 13:32 14:33 WBC (4.5-10.0) K/mm3 RBC (4.2-5.4) M/mm3 Hgb (12.0-15.0) g/dL Hct (37.0-47.0) % MCV (80-100) fl MCH (26-34) pg MCHC (32-36) g/dl RDW (11.5-14.5) % Plt Count (150-375) k/mm3 MPV (7.4-10.4) fl Immature Gran % (Auto) (0-0.5) % Neut % (Auto) (45.5-73.1) % Lymph % (Auto) (18.3-44.2) % [place] % (Auto) (2.6-8.5) % Eos % (Auto) (0-4.4) % Baso % (Auto) (0.2-1.2) % Lymph # (Auto) (0.9-3.2) K/mm3 [place] # (Auto) (0.1-0.6) K/mm3 Eos # (Auto) (0-0.3) K/mm3 Baso # (Auto) (0.0-0.1) K/mm3 Abs Immat Gran (auto) (0.00-0.031) K/mm3 Absolute Neuts (auto) (1.3-6.7) K/mm3 Absolute Nucleated RBC (0.0-0.012) K/mm3 Band Neutrophils % Nucleated RBC % (0.0-0.2) % Platelet Estimate (Adequate) Hypochromasia Schistocytes PT (11.1-14.7) Seconds INR APTT (22.3-36.8) Seconds Sodium 137 (137-145) mmol/L Potassium 5.9 H (3.4-5.0) mmol/L Chloride 110 H (98-107) mmol/L Carbon Dioxide 17 L (22-30) mmol/L Anion Gap 10 (4-12) mmol/L BUN 40 H (7-17) mg/dL Creatinine 3.23 H (0.7-1.0) mg/dL Estim Creat Clear Calc 20 ml/min Estimated GFR 14 L (59 - ) Glucose 145 H (65-110) mg/dL POC Capillary Glucose 85 (65-105) mg/dl Lactic Acid (0.7-2.0) mmol/L Calcium 9.9 (8.4-10.2) mg/dL Total Bilirubin (0.2-1.3) mg/dL AST (14-36) U/L ALT (6-35) U/L Alkaline Phosphatase (38-126) U/L Total Creatine Kinase (30-135) U/L NT-Pro-B Natriuret Pep (19.9-100) pg/mL Total Protein (6.3-8.2) g/dL Albumin (3.5-5.1) g/dL Urine Color (Yellow) Urine Appearance (Clear) Urine pH (5.0-9.0) Ur Specific Hunter (1.001-1.035) Urine Protein (Negative) mg/dL Urine Glucose (UA) (Negative) mg/dL Urine Ketones (Negative) mg/dL Ur Blood (Man) (Negative) Urine Nitrate (Negative) Urine Bilirubin (Negative) Urine Urobilinogen (<2.0) mg/dL Add Ur Microanalysis Leukocyte Esterase Rfl (Negative) GARRY/UL Urine RBC (0-2) /hpf Urine WBC (0-3) /hpf Urine WBC Clumps (None) /HPF Ur Squamous Epith Cells (Few) /hpf Calcium Oxalate Crystal (None) /hpf Urine Bacteria /hpf Urine Casts U Random Total Protein mg/dL Ur Random Sodium meq/L Ur Random Urea MG/DL Urine Creatinine mg/dL Protein/Creat Ratio 2 (0-0.20) mg/mg Nasal MRSA (PCR) Not detected (NOT DETECTE) ABG Data ABG results: 12/01/24 11:12 VBG pH 7.294 L VBG pCO2 38.4 L VBG pO2 57.0 H VBG HCO3 18.2 L O2 Delivery Device Nasal cannula O2 Liters/Min 5.0 FiO2 40 Discharge Plan Discharge Clinical Impression: Acute kidney injury superimposed on CKD, Acute hyperkalemia, Pneumonia, Acute UTI Patient Disposition: Still a Patient Condition: Serious
[2024-12-01 10:50] LABS: Glucose Point of Care 89 mg/dl (65-105)
[2024-12-01] MEDS: SODIUM CHLORIDE 0.9% IV 1,000 ML 999 ML IV CONT (10:56)
[2024-12-01] MEDS: ALBUTEROL SULFATE NEB 2.5 MG/3 ML INH 5 MG INHALATION (10:57)
[2024-12-01 11:17] LABS: Fractional Inspired Oxygen 40 %; HCO3 VBG 18.2 mEq/l (24.0-30.0); PCO2 VBG 38.4 mmHg (42.0-48.0); pH VBG 7.294 (7.300-7.400)
[2024-12-01 11:20] LABS: Device NASAL CANNULA
[2024-12-01 11:31] LABS: Basophils Percent Auto 0.2 % (0.2-1.2); Eosinophils Absolute Auto 0.1 K/mm3 (0-0.3); Eosinophils Percent Auto 0.7 % (0-4.4); Hematocrit 34.2 % (37.0-47.0); Hemoglobin 10.5 g/dL (12.0-15.0); Immature Granulocyte Absolute 0.08 K/mm3 (0.00-0.031); Immature Granulocyte Percent A 0.6 % (0-0.5); Lymphocytes Absolute Auto 1.37 K/mm3 (0.9-3.2); Lymphocytes Percent Auto 10.2 % (18.3-44.2); Mean Corpuscular HGB Conc 30.7 g/dl (32-36); Mean Corpuscular Hemoglobin 32.7 pg (26-34); Mean Corpuscular Volume 106.5 fl (80-100); Mean Platelet Volume 10.9 fl (7.4-10.4); Monocytes Absolute Auto 0.8 K/mm3 (0.1-0.6); Monocytes Percent Auto 6.3 % (2.6-8.5); Platelet Count Result 189 k/mm3 (150-375); Red Blood Count 3.21 M/mm3 (4.2-5.4); Red Cell Distribution Width 15.6 % (11.5-14.5); White Blood Count 13.4 K/mm3 (4.5-10.0)
--- OUTSIDE RECORDS SUMMARY | 2024-12-01 11:38 | XMS_ITS | Clinical Summary ---
Author Organization [facility] [employer] Address [address] [place] [address] Care Team Providers Care Hides Inspector Name Role Phone Unavailable Primary Care Provider Unavailabl e Source Comments [facility] [employer],non-owned Affiliates and Associated Physician Practices is amultiple site organization consisting of ambulatory clinics and hospital sitesin [place], [place], [place] and [place]. This disclosure is being madepursuant to the Care Everywhere program and may not contain all information available regarding this patient. 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
--- OUTSIDE RECORDS SUMMARY | 2024-12-01 11:38 | XMS_ITS | Encounter Summary ---
Author Organization [facility] Address [address] [place] [address] Phone Care Team Providers Care Assistant Softball Coach Name Role Phone Lion Feliciano MD Primary Care Provider [phone] Encounter Details Date Type Department Care Team (Late st Contact Info) Description 10/16/2024 Orders Only [facility] [address] [place] [address] July May Social History Tobacco Use Types Packs/Day Years [...] filedocumented in this encounter Care Teams Assistant Softball Coach Relationship Specialty Start Date End Date Lion Feliciano MD [address] [address] PCP - General Internal Medicine 10/01/24 documented as of this encounter
--- OUTSIDE RECORDS SUMMARY | 2024-12-01 11:38 | XMS_ITS | Clinical Summary ---
Author Organization [facility] Address [address] [place] [address] Phone Care Team Providers Care Engineering And Development Director Name Role Phone Lion Feliciano MD Primary Care Provider [phone] Allergies Active Allergy Reactions Criticality Noted Date [...] [facility] [address] [place] [id number] July May 10/07/2024 Telephone [facility] [address] [place] [id number] Pasha Wilhelm MD from Last 3 Months [...] this topic Insurance Medicare Medicare Medicare Medicare [address] [place] [address] [place] [address] Care Teams Engineering And Development Director Relationship Specialty Start Date End Date Lion Feliciano MD [address] [address] PCP - General Internal Medicine 10/01/24
[2024-12-01 11:41] LABS: Lactic Acid Reflex 1.6 mmol/L (0.7-2.0)
[2024-12-01 11:44] LABS: Alanine Aminotransferase 11 U/L (6-35); Albumin Level 2.5 g/dL (3.5-5.1); Alkaline Phosphatase 112 U/L (38-126); Anion Gap 5 mmol/L (4-12); Aspartate Amino Transferase 16 U/L (14-36); Bilirubin,Total 0.2 mg/dL (0.2-1.3); Blood Urea Nitrogen 40 mg/dL (7-17); Calcium 9.6 mg/dL (8.4-10.2); Carbon Dioxide 17 mmol/L (22-30); Chloride 112 mmol/L (98-107); Estimated CRCL calculation 22 ml/min; Estimated Glomerular Filt Rate 16; Glucose 99 mg/dL (65-110); Potassium 6.7 mmol/L (3.4-5.0); Sodium 134 mmol/L (137-145); Total Protein 5.6 g/dL (6.3-8.2)
[2024-12-01 11:47] LABS: INR 1.1; Prothrombin Time 14.2 Seconds (11.1-14.7)
[2024-12-01 11:50] LABS: Platelet Estimate Adequate (Adequate)
[2024-12-01 11:51] LABS: NT Pro B Type Natriuretic Pept 1010 pg/mL (19.9-100)
[2024-12-01 11:55] LABS: Hypochromasia 1+; Schistocytes Rare
--- NOTE | 2024-12-01 12:00 | PC.NURSE ---
Pt states she has drain to upper abd in place for gallbladder issues
[2024-12-01] MEDS: LACTATED RINGERS 1,000 ML 999 ML IV CONT (12:13)
--- NOTE | 2024-12-01 12:27 | PM.IMHP ---
H&P: HPI History of Present Illness Date/Time: 12/01/24 12:27 Chief Complaint: Shortness of Breath Narrative: 69 y/o F with PMH of asthma, diabetes, peripheral vascular disease, chronic kidney disease, anemia, hypertension, hyperlipidemia, and hypothyroidism presents here with shortness of breath and concerns for pneumonia. The patient is are from [facility] via EMS for further evaluation of shortness of breath and for possible pneumonia. She reports onset of shortness of breath approximately 1 week ago. Chief breath accompanied by a nonproductive cough, body aches, nausea, vomiting, and diarrhea. She is seeking care today as her symptoms worsened overnight last night. With upon EMS arrival, they found the patient at 79% on 2L nasal cannula. While in route to the hospital, EMS administered a DuoNeb for which she reports some relief. However post nebulizer she remained hypoxic and arrived to the emergency department at 80% on room air. At baseline the patient does not require supplemental oxygen. She is currently reporting general malaise/fatigue. Denies fever, chills. Patient is a poor historian. Initial VS at presentation: 98.2? F, HR 123, RR 23, 88/45, 96% on L nasal cannula. ED workup showed: WBC 13.4, hemoglobin 10.5 (prev 11.1 on 11/14/24), initial VBG showed a pH of 7.294, CO2 38.4, 08/22/2001, and HC03 18.2, sodium 134, potassium 6.7, creatinine 2.97 and GFR 16 (prev 1.8 and 28 on 11/14), lactic 1.6, BNP 1010, and albumin 2.5. UA equivocal for UTI - moderate epithelial cells. CXR showed left basilar atelectasis versus pneumonia medially. AFib with RVR, rate 113, right bundle branch block, possible anterior AK of old, inferior infarct age indeterminate, borderline ST-T-wave mL high lateral leads. Review of Systems Review of Systems: All systems reviewed & are unremarkable except as noted in HPI and below PMFSH Past Medical History Medical History Ulcerative esophagitis Asthma Type 2 diabetes mellitus Fatty liver Overactive bladder Peripheral vascular disease Anemia Chronic kidney disease Spinal stenosis Depression Hypertension Gout Diverticulitis Cognitive communication deficit Anxiety Hyperlipidemia Hypothyroidism C. difficile colitis Surgical History Surgical History History of hysterectomy History of knee replacement, total Right Social History Social History Smoking status: Never smoker Second hand tobacco smoke exposure: No Alcohol intake: never Substance use: never Do You Feel Safe in your Home?: Yes Lack of Transportation: No Lack of Food: Never True Current Housing: I Have Housing Concerned About Future Housing: No Difficulty Paying Gas/Electric Bills: No Difficulty Paying for Meds: No Currently Unemployed: No Education: High School Diploma/GED Difficulty w/ Childcare or Family Care: No Spiritual care concerns: No Meds Home Medications and Allergies Home Medications ?Medication ?Instructions ?Recorded ?Confirmed ?Type Bacillus coagulans-inulin 1 1 cap PO DAILY 10/20/24 12/01/24 History billion cell-250 mg capsule allopurinol 100 mg tablet 200 mg PO DAILY 10/20/24 12/01/24 History alprazolam 0.5 mg tablet 0.25 mg PO TID 10/20/24 12/01/24 History biotin 1 mg capsule 1 mg PO DAILY 10/20/24 12/01/24 History bisacodyl 10 mg rectal suppository 10 mg RECTAL DAILY PRN constipation 10/20/24 12/01/24 History cetirizine 10 mg capsule 10 mg PO DAILY 10/20/24 12/01/24 History cilostazol 100 mg tablet 100 mg PO BID 10/20/24 12/01/24 History cinnamon bark 500 mg capsule 1,000 mg PO BID 10/20/24 12/01/24 History (Cinnamon) escitalopram oxalate 20 mg tablet 20 mg PO DAILY 10/20/24 12/01/24 History ferrous sulfate 324 mg (65 mg 325 mg PO TID 10/20/24 12/01/24 History iron) tablet,delayed release fluticasone propionate 50 2 spray intranasal DAILY 10/20/24 12/01/24 History mcg/actuation nasal spray,suspension levothyroxine 50 mcg tablet 50 mcg PO 5XW 10/20/24 12/01/24 History (Euthyrox) levothyroxine 50 mcg tablet 100 mcg PO .twice a week 10/20/24 12/01/24 History (Euthyrox) losartan 50 mg tablet 50 mg PO DAILY 10/20/24 12/01/24 History magnesium citrate 296 ml PO DAILY PRN constipation 10/20/24 12/01/24 History magnesium hydroxide 400 mg/5 mL 30 ml PO HS PRN constipation 10/20/24 12/01/24 History oral suspension (Milk of Magnesia) magnesium oxide 400 mg (241.3 mg 400 mg PO TID 10/20/24 12/01/24 History magnesium) tablet metformin 500 mg tablet 500 mg PO BID 10/20/24 12/01/24 History metoprolol tartrate 50 mg tablet 50 mg PO BID 10/20/24 12/01/24 History ondansetron 4 mg disintegrating 4 mg PO Q6H PRN nausea and vomiting 10/20/24 12/01/24 History tablet oxybutynin chloride 5 mg 5 mg PO DAILY 10/20/24 12/01/24 History tablet,extended release 24 hr potassium chloride 20 mEq 20 meq PO DAILY 10/20/24 12/01/24 History tablet,extended release(part/cryst) sodium phosphates 19 gram-7 118 ml RECTAL DAILY PRN 10/20/24 12/01/24 History gram/118 mL enema constipation lansoprazole 15 mg capsule,delayed 15 mg PO QAM 10/23/24 11/12/24 History release (Prevacid 24Hr) pantoprazole 40 mg tablet,delayed 40 mg PO QAM 4 weeks #28 tabs 10/28/24 12/01/24 Rx release (Protonix) nystatin 100,000 unit/gram 1 g topical DAILY PRN rash 11/12/24 12/01/24 History powder-emollient combination no.88 gel pack tramadol 50 mg tablet 50 mg PO HS 12/01/24 12/01/24 History trazodone 50 mg tablet 50 mg PO HS 12/01/24 12/01/24 History Allergies Allergy/AdvReac Type Severity Reaction Status Date / Time No Known Allergies Allergy Verified 12/01/24 10:50 Vital Signs Vital Signs - 24 hr 12/01/24 10:30 12/01/24 10:47 12/01/24 10:49 Temperature 98.2 F Pulse Rate 123 H Respiratory Rate 23 H Blood Pressure 88/45 L Pulse Oximetry 96 97 97 Oxygen Delivery Nasal Cannula Nasal Cannula Nasal Cannula Oxygen Flow Rate 4 4 4 12/01/24 10:55 12/01/24 11:05 12/01/24 11:08 Temperature Pulse Rate 99 101 H 96 Respiratory Rate 20 23 H 20 Blood Pressure 94/70 L Pulse Oximetry 96 Oxygen Delivery Oxygen Flow Rate Exam Const: Other: Chronically ill-appearing, obese, female, appears uncomfortable but in no acute distress. HENMT: Face/Nose/Sinus: Normal nares present Mouth: Yes moist mucous membranes Eyes: General: appearance normal, both eyes and all related structures Sclera: sclerae normal Pupils: Equal, round and reactive pupils present EOM: EOMs intact bilaterally Resp: Effort & Inspection: normal respiratory effort Other: diminished lung sounds bilaterally. + cough Cardio: Rate: regular rate Rhythm: regular rhythm Other: S1-S2 present without murmur, rub, ectopy GI: Other: Abdomen soft, nondistended, nontender. Normoactive bowel sounds in all quadrants. Skin: General skin exam: normal color and no rashes or lesions noted Wounds: no wounds Neuro: Speech: normal speech Sensory Exam: normal sensation Other: Generalized weakness, A&O x1 (self only). moderate, intermittent tremor to BUE. Extrem: Other: 1+ edema to bilateral lower extremities, nonpitting and symmetric. Psych: Mental Status: mental status grossly normal Affect: normal affect Other: Poor insight and judgment H&P: Results Labs Labs: Short CBC 12/01/24 Range/Units 11:15 WBC 13.4 H (4.5-10.0) K/mm3 Hgb 10.5 L (12.0-15.0) g/dL Hct 34.2 L (37.0-47.0) % Plt Count 189 (150-375) k/mm3 [facility] 12/01/24 11:15 Sodium 134 L Potassium 6.7 H* Chloride 112 H Carbon Dioxide 17 L BUN 40 H D Creatinine 2.97 H Glucose 99 Calcium 9.6 Liver Function 12/01/24 Range/Units 11:15 Total Bilirubin 0.2 (0.2-1.3) mg/dL AST 16 (14-36) U/L ALT 11 (6-35) U/L Alkaline Phosphatase 112 (38-126) U/L Albumin 2.5 L (3.5-5.1) g/dL Assessment and Plan Assessment and plan (1) Sepsis: Qualifiers: Acute renal failure type: unspecified Sepsis acute organ dysfunction status: with acute organ dysfunction Sepsis type: sepsis due to unspecified organism Severe sepsis acute organ dysfunction type: acute renal failure Severe sepsis shock status: without septic shock Qualified Code(s): A41.9 - Sepsis, unspecified organism; R65.20 - Severe sepsis without septic shock; N17.9 - Acute kidney failure, unspecified Code(s): A41.9 - Sepsis, unspecified organism Status: Acute Assessment and Plan: - meets SIRS criteria: HR, RR, BP - lactic acid: 1.6 - 30 mL/kg = 3.9L, c/f volume overload/CHF. responded well to 1L bolus. will give second liter at 125 mL/hr, monitor closely. - suspected source: PNA, possible UTI - started on Levaquin pn 12/01, transition to ceftriaxone IV and doxycycline p.o. to avoid QT prolongation - blood cultures drawn on 12/01, follow - UA equivocal for infection -> turbid, 2+ protein, trace ketones, 2+ blood, 3+ leuk esterase, 6-10 RBC, greater than 150 BC, WBC clumps present, moderate epithelial cells, 4 active. - CXR: Left basilar atelectasis versus pneumonia medially. - monitor hemodynamic stability (2) Pneumonia: Qualifiers: Laterality: left Lung location: lower lobe of lung Pneumonia type: due to unspecified organism Qualified Code(s): J18.9 - Pneumonia, unspecified organism Code(s): J18.9 - Pneumonia, unspecified organism Status: Acute Assessment and Plan: - CXR showed possible left basiliar PNA - started on Levaquin on 12/01 -> now on ceftriaxone/doxycycline - check MRSA PCR and sputum culture (if obtainable) - supportive care: TYL prn Mucinex destiney Albuterol neb destiney Tessalon Perles prn - new supplemental O2 requirement -> 4L NC (3) Asthma: Qualifiers: Asthma complication type: with acute exacerbation Asthma persistence: unspecified Asthma severity: unspecified severity Qualified Code(s): J45.901 - Unspecified asthma with (acute) exacerbation Code(s): J45.909 - Unspecified asthma, uncomplicated Status: Acute Assessment and Plan: - albuterol nebulizer p.r.n. (4) Elevated brain natriuretic peptide (BNP) level: Code(s): R79.89 - Other specified abnormal findings of blood chemistry Status: Acute Assessment and Plan: - BNP 1010 - check echo, no previous on file - not on a home diuretic, given 20 of Lasix IV. Will hold on further doses as the patient has been soft to hypertensive. Does not appear volume overloaded on exam. - monitor I&Os and daily weights - trend renal function (5) Acute kidney injury superimposed on CKD: Code(s): N17.9 - Acute kidney failure, unspecified; N18.9 - Chronic kidney disease, unspecified Status: Acute Assessment and Plan: - upon admission creatinine 2.97, GFR 16, BUN 40. previously 1.8, GFR 28, BUN 19 on 11/14/2024 - check renal ultrasound, CK, urine sodium, protein/creatinine, urea - UA showed possible UTI v contaminate (mod epith cells), follow culture. on Levaquin. - check bladder scan for post-void residual x1 - monitor I&Os - hold mike inhibitors and diuretics as appropriate - trial IV fluids x24 hrs, if no improvement consider nephrology consultation (6) Acute hyperkalemia: Code(s): E87.5 - Hyperkalemia Status: Acute Assessment and Plan: - K 6.7 - initiate treated with calcium, dextrose/insulin, albuterol, IV bolus, bicarb. repeat BMP at 1:00 p.m. -> K 5.9. Repeat insulin/dextrose, calcium, add Lasix 20 mg IV. Recheck at 8 p.m. - hold home p.o. potassium - telemetry monitoring - monitor (7) Atrial fibrillation: Qualifiers: Atrial fibrillation type: unspecified Qualified Code(s): I48.91 - Unspecified atrial fibrillation Code(s): I48.91 - Unspecified atrial fibrillation Status: Acute Assessment and Plan: - possible history of AFib, patient unsure. Initial EKG showing AFib RVR. - obtained with 1L bolus of NS, HR now 96 - telemetry monitoring - continue home medications: Metoprolol 50 mg b.i.d. (8) Type 2 diabetes mellitus: Qualifiers: Diabetes mellitus complication status: without complication Diabetes mellitus editorial assistant insulin use: without editorial assistant use Qualified Code(s): E11.9 - Type 2 diabetes mellitus without complications Code(s): E11.9 - Type 2 diabetes mellitus without complications Status: Chronic Assessment and Plan: - hypoglycemia protocol - POC blood glucose ACHS - home medication: hold metformin in case of need for contrast - correct regimen ordered - high dose TIDWM, based off BMI - A1C 4.8% 10/20/24 (9) Anemia: Qualifiers: Anemia type: due to chronic kidney disease Chronic kidney disease stage: unspecified stage Qualified Code(s): N18.9 - Chronic kidney disease, unspecified; D63.1 - Anemia in chronic kidney disease Code(s): D64.9 - Anemia, unspecified Status: Chronic Assessment and Plan: - suspect chronic anemia secondary to CKD - Hgb 10.5, 11.1 on 11/14 - transfuse if <7 - trend H&H Plan Diet: Heart healthy GI Prophylaxis: Not currently indicated DVT Prophylaxis: Lovenox SQ IV fluids: 1L bolus -> 125 mL/hr x1L Lines/Tubes: Peripheral IV Code Status: DNR Quality VTE Prophylaxis VTE prophylaxis: pharmacologic ordered Hospitalist [facility] Advance Care Plan I have confirmed that the patient's Advanced Care Plan is present, code status is documented, or surrogate decision maker is listed in patient medical record.: Yes Medication Reconciliation I have utilized all available resources to obtain, update and review the patients current medications (includes all prescriptions, OTC, herbals, cannabis, and nutritional supplements).: Yes
[2024-12-01 12:28] LABS: Glucose Point of Care 86 mg/dl (65-105)
[2024-12-01 12:34] LABS: Add Urine Microscopic? YES; Appearance Urine Turbid (Clear); Bacteria Urine 4+ /hpf; Bilirubin Urine Negative (Negative); Blood Urine 2+ (Negative); Calcium Oxalate Crystals Urine Present /hpf; Color Urine Dark Yellow (Yellow); Glucose Urine UA Negative (Negative); Ketones Urine Trace mg/dL (Negative); Leukocyte Esterase Ur 3+ LEU/UL (Negative); Need Manual Microscopic Reviewed; Nitrate Urine Negative (Negative); Non Pathogenic Casts >20; Protein Urine 2+ mg/dL (Negative); Specific Grav Ur 1.019 (1.001-1.035); Squamous Epithelial Cell Urine Moderate /hpf (Few); Urobilinogen Urine 0.2 mg/dL (<2.0); WBC Clumps Urine Present /HPF; WBC Urine >100 /hpf (0-3); pH Urine 5.5 (5.0-9.0)
[2024-12-01] MEDS: INSULIN HUMAN REGULAR (*BKC) 100 UNITS/ML 10 UNITS IV PUSH ×2 (12:44→15:53)
[2024-12-01] MEDS: SODIUM BICARBONATE 8.4% 50 MEQ/50 ML SYRINGE IV PUSH ×2 (12:45→18:52)
[2024-12-01] MEDS: DEXTROSE 50% 25 GM/50 ML SYRINGE IV PUSH ×2 (12:45→15:31)
[2024-12-01] MEDS: CALCIUM GLUC 1,000 MG/NS 50 ML 1,000 MG/50 ML BAG 100 MG IVPB ×2 (12:50→15:32)
[2024-12-01] MEDS: guaiFENesin 12 HR 600 MG TABCR PO ×2 (12:51→22:23)
[2024-12-01] MEDS: levoFLOXacin 750 MG/D5W 150 ML 750 MG/150 ML BAG 100 MG IVPB (13:24)
[2024-12-01 13:28] LABS: Creatinine Urine 200.9 mg/dL; Total Protein Urine Random 38 mg/dL; Ur Ttl Prot Creatinine Ratio 0.19 mg/mg (0-0.20)
[2024-12-01 13:32] LABS: Sodium Urine Random 45 meq/L; Urea Random Urine 285 MG/DL
[2024-12-01 13:35] LABS: Glucose Point of Care 85 mg/dl (65-105)
[2024-12-01 13:43] LABS: Creatine Kinase < 20 U/L (30-135)
[2024-12-01 14:34] LABS: MRSA (PCR) NOT DETECTED (NOT DETECTE)
[2024-12-01 14:57] LABS: Anion Gap 10 mmol/L (4-12); Blood Urea Nitrogen 40 mg/dL (7-17); Calcium 9.9 mg/dL (8.4-10.2); Carbon Dioxide 17 mmol/L (22-30); Chloride 110 mmol/L (98-107); Estimated CRCL calculation 20 ml/min; Estimated Glomerular Filt Rate 14; Glucose 145 mg/dL (65-110); Potassium 5.9 mmol/L (3.4-5.0); Sodium 137 mmol/L (137-145)
[2024-12-01] MEDS: ALBUMIN HUMAN 25% 25 GM/100 ML 100 ML IVPB ×3 (15:15→23:39)
[2024-12-01] MEDS: ALBUTEROL SULFATE NEB 2.5 MG/3 ML INH INHALATION ×2 (15:27→21:05)
[2024-12-01] MEDS: FUROSEMIDE INJ 40 MG/4 ML VIAL 20 MG IV PUSH (15:38)
[2024-12-01] MEDS: SODIUM CHLORIDE 0.9% IV 1,000 ML 125 ML IV CONT (15:57)
--- NOTE | 2024-12-01 16:27 | ADMGEN ---
This patient, Ashley Gardner, was admitted to IMU Room 214-01 [id number]. Patient/family oriented to hospital policies and general routines including ID bracelet, bed and alarms, visiting hours, pain management, procedures, bathroom and other care routines, personal items, smoking policy, room service/diet, and visiting hours. Information on how to activate the Rapid Response Team has been discussed. Patient/Family are encouraged to report perceived risks to care and to ask questions if they do not understand what they are told or what they should do.
[2024-12-01 16:30] LABS: Glucose Point of Care 110 mg/dl (65-105)
[2024-12-01] MEDS: PERFLUTREN LIPID MICROSPHERES 1.5 ML VIAL DILUTED TO 10 ML TOTAL VOLUME IV PUSH (16:34)
--- NOTE | 2024-12-01 16:51 | IVDEFINITY ---
Prior to administration of IV Definity the patient was educated on the risks and benefits of the imaging enhancing agent including potential adverse side effects. The patient verbalized understanding. Allergies were verified. No exclusion criteria were identified and at least one of the following inclusion criteria were met: 1) physician request, 2) patient technically difficult to image (per the [place] [employer] guidelines of two or more segments not discernable within the apical view), or 3) questionable left ventricular function. ?
[2024-12-01 17:37] LABS: Anion Gap 7 mmol/L (4-12); Blood Urea Nitrogen 39 mg/dL (7-17); Carbon Dioxide 16 mmol/L (22-30); Chloride 109 mmol/L (98-107); Estimated CRCL calculation 21 ml/min; Estimated Glomerular Filt Rate 15; Glucose 156 mg/dL (65-110); Potassium 5.7 mmol/L (3.4-5.0); Sodium 132 mmol/L (137-145)
[2024-12-01] MEDS: SODIUM POLYSTYRENE SULFONONATE 15 GM/60 ML BTL 30 GM PO (18:52)
[2024-12-01 20:48] LABS: Glucose Point of Care 83 mg/dl (65-105)
--- NOTE | 2024-12-01 22:37 | PC.NURSE ---
Updated Teri Campos staff member ,Nkechi, on patient diagnosis and current treatment plan.
[2024-12-02] VITALS (20 sets, daily range): BP systolic 100–137; BP diastolic 47–62; PULSE 86–120; RESP 14–24; TEMP 36.5–36.6; O2SAT 95–100
[2024-12-02] MEDS: ALBUTEROL SULFATE NEB 2.5 MG/3 ML INH INHALATION ×4 (02:12→20:31)
[2024-12-02 04:43] LABS: Basophils Percent Auto 0.3 % (0.2-1.2); Eosinophils Percent Auto 0.4 % (0-4.4); Hematocrit 29.7 % (37.0-47.0); Hemoglobin 9.1 g/dL (12.0-15.0); Lymphocytes Absolute Auto 1.07 K/mm3 (0.9-3.2); Lymphocytes Percent Auto 10.8 % (18.3-44.2); Mean Corpuscular HGB Conc 30.6 g/dl (32-36); Mean Corpuscular Hemoglobin 32.4 pg (26-34); Mean Corpuscular Volume 105.7 fl (80-100); Mean Platelet Volume 10.8 fl (7.4-10.4); Monocytes Absolute Auto 0.6 K/mm3 (0.1-0.6); Monocytes Percent Auto 5.6 % (2.6-8.5); Neutrophils Absolute Auto 8.1 K/mm3 (1.3-6.7); Neutrophils Percent Auto 81.9 % (45.5-73.1); Platelet Count Result 145 k/mm3 (150-375); Red Blood Count 2.81 M/mm3 (4.2-5.4); Red Cell Distribution Width 15.4 % (11.5-14.5); White Blood Count 9.9 K/mm3 (4.5-10.0)
[2024-12-02 05:03] LABS: Alanine Aminotransferase 11 U/L (6-35); Albumin Level 3.1 g/dL (3.5-5.1); Alkaline Phosphatase 78 U/L (38-126); Anion Gap 4 mmol/L (4-12); Aspartate Amino Transferase 15 U/L (14-36); Bilirubin,Total 0.2 mg/dL (0.2-1.3); Blood Urea Nitrogen 37 mg/dL (7-17); Calcium 9.9 mg/dL (8.4-10.2); Carbon Dioxide 23 mmol/L (22-30); Chloride 109 mmol/L (98-107); Estimated CRCL calculation 22 ml/min; Estimated Glomerular Filt Rate 15; Glucose 90 mg/dL (65-110); Magnesium 2.1 mg/dL (1.6-2.3); Phosphorus 3.5 mg/dL (2.5-4.5); Potassium 5.5 mmol/L (3.4-5.0); Sodium 136 mmol/L (137-145)
[2024-12-02] MEDS: LEVOTHYROXINE SODIUM 50 MCG TABLET PO (06:48)
[2024-12-02] MEDS: ALBUMIN HUMAN 25% 25 GM/100 ML 100 ML IVPB (06:48)
[2024-12-02 07:18] LABS: Glucose Point of Care 79 mg/dl (65-105)
[2024-12-02] MEDS: ENOXAPARIN 30 MG/0.3 ML SYRINGE SUB-Q (08:19)
[2024-12-02] MEDS: DOXYCYCLINE HYCLATE 100 MG TABLET PO ×2 (08:19→20:41)
[2024-12-02] MEDS: SACCHAROMYCES BOULARDII 250 MG CAPSULE PO ×3 (08:20→17:37)
[2024-12-02] MEDS: cilostazoL 100 MG TABLET PO ×2 (08:20→17:37)
[2024-12-02] MEDS: ESCITALOPRAM OXALATE 10 MG TABLET 20 MG PO (08:20)
[2024-12-02] MEDS: LORATADINE 10 MG TABLET PO (08:20)
[2024-12-02] MEDS: METOPROLOL TARTRATE 50 MG TAB PO ×2 (08:20→20:42)
[2024-12-02] MEDS: oxyBUTYnin CHLORIDE XL 5 MG TAB.ER.24 PO (08:20)
[2024-12-02] MEDS: allopurinoL 100 MG TABLET 200 MG PO (08:20)
[2024-12-02] MEDS: MAGNESIUM OXIDE 400 MG TABLET PO ×3 (08:20→17:37)
[2024-12-02] MEDS: FLUTICASONE PROPIONATE 0.05% NA SPR 16 GM BTL (*BKC) 2 SPRAY NASAL (08:21)
[2024-12-02] MEDS: guaiFENesin 12 HR 600 MG TABCR PO ×2 (08:21→20:41)
[2024-12-02] MEDS: ALPRAZolam (*CRX) 0.25 MG TABLET PO ×2 (08:21→12:56)
[2024-12-02] MEDS: PANTOPRAZOLE 40 MG TABLET PO ×2 (08:21→20:41)
--- NOTE | 2024-12-02 08:50 | P.PNIM_ITS ---
Progress Note: A&P Assessment and Plan (1) Sepsis: Qualifiers: Acute renal failure type: unspecified Sepsis acute organ dysfunction status: with acute organ dysfunction Sepsis type: sepsis due to unspecified or ganism Severe sepsis acute organ dysfunction type: acute renal failure Severe sepsis shock status: without septic shock Qualified Code(s): A41.9 - Sepsis, unspecified organism; R65.20 - Severe sepsis without septic shock; N17.9 - Acute kidney failure, unspecified Code(s): A41.9 - Sepsis, unspecified organism Status: Acute Assessment and Plan: - meets SIRS criteria: HR, RR, BP - lactic acid: 1.6 - 30 mL/kg = 3.9L, c/f volume overload/CHF. responded well to 1L bolus. will give second liter at 125 mL/hr, monitor closely. - suspected source: PNA, possible UTI - started on Levaquin pn 12/01, transition to ceftriaxone IV and doxycycline p.o. to avoid QT prolongation - blood cultures drawn on 12/01, follow - UA equivocal for infection -> turbid, 2+ protein, trace ketones, 2+ blood, 3+ leuk esterase, 6-10 RBC, greater than 150 BC, WBC clumps present, moderate epithelial cells, 4 active. - CXR: Left basilar atelectasis versus pneumonia medially. - monitor hemodynamic stability (2) Pneumonia: Qualifiers: Laterality: left Lung location: lower lobe of lung Pneumonia type: due to unspecified organism Qualified Code(s): J18.9 - Pneumonia, unspecified organism Code(s): J18.9 - Pneumonia, unspecified organism Status: Acute Assessment and Plan: - CXR showed possible left basiliar PNA - started on Levaquin on 12/01 -> now on ceftriaxone/doxycycline - check MRSA PCR and sputum culture (if obtainable) - supportive care: TYL prn Mucinex destiney Albuterol neb destiney Tessalon Perles prn - new supplemental O2 requirement -> 4L NC (3) Asthma: Qualifiers: Asthma complication type: with acute exacerbation Asthma persistence: unspecified Asthma severity: unspecified severity Qualified Code(s): J45.901 - Unspecified asthma with (acute) exacerbation Code(s): J45.909 - Unspecified asthma, uncomplicated Status: Acute Assessment and Plan: - albuterol nebulizer p.r.n. (4) Elevated brain natriuretic peptide (BNP) level: Code(s): R79.89 - Other specified abnormal findings of blood chemistry Status: Acute Assessment and Plan: - BNP 1010 - check echo, no previous on file - not on a home diuretic, given 20 of Lasix IV. Will hold on further doses as the patient has been soft to hypertensive. Does not appear volume overloaded on exam. - monitor I&Os and daily weights - trend renal function (5) Acute kidney injury superimposed on CKD: Code(s): N17.9 - Acute kidney failure, unspecified; N18.9 - Chronic kidney disease, unspecified Status: Acute Assessment and Plan: - upon admission creatinine 2.97, GFR 16, BUN 40. previously 1.8, GFR 28, BUN 19 on 11/14/2024 - check renal ultrasound, CK, urine sodium, protein/creatinine, urea - UA showed possible UTI v contaminate (mod epith cells), follow culture. on Levaquin. - check bladder scan for post-void residual x1 - monitor I&Os - hold mike inhibitors and diuretics as appropriate - trial IV fluids x24 hrs, if no improvement consider nephrology consultation (6) Acute hyperkalemia: Code(s): E87.5 - Hyperkalemia Status: Acute Assessment and Plan: - K 5.2 -12/02: Received albuterol and Lokelma - initiate treated with calcium, dextrose/insulin, albuterol, IV bolus, bicarb. repeat BMP at 1:00 p.m. -> K 5.9. Repeat insulin/dextrose, calcium, add Lasix 20 mg IV. Recheck at 8 p.m. - hold home p.o. potassium - telemetry monitoring - monitor (7) Atrial fibrillation: Qualifiers: Atrial fibrillation type: unspecified Qualified Code(s): I48.91 - Unspecified atrial fibrillation Code(s): I48.91 - Unspecified atrial fibrillation Status: Acute Assessment and Plan: - possible history of AFib, patient unsure. Initial EKG showing AFib RVR. - obtained with 1L bolus of NS, HR now 96 - telemetry monitoring - continue home medications: Metoprolol 50 mg b.i.d. (8) Type 2 diabetes mellitus: Qualifiers: Diabetes mellitus complication status: without complication Diabetes mellitus assisted insulin use: without terminal manager use Qualified Code(s): E11.9 - Type 2 diabetes mellitus without complications Code(s): E11.9 - Type 2 diabetes mellitus without complications Status: Chronic Assessment and Plan: - hypoglycemia protocol - POC blood glucose ACHS - home medication: hold metformin in case of need for contrast - correct regimen ordered - high dose TIDWM, based off BMI - A1C 4.8% 10/20/24 (9) Anemia: Qualifiers: Anemia type: due to chronic kidney disease Chronic kidney disease stage: unspecified stage Qualified Code(s): N18.9 - Chronic kidney disease, unspecified; D63.1 - Anemia in chronic kidney disease Code(s): D64.9 - Anemia, unspecified Status: Chronic Assessment and Plan: - suspect chronic anemia secondary to CKD - Hgb 10.5, 11.1 on 11/14 - transfuse if <7 - trend H&H (10) Cholecystostomy care: Code(s): Z43.4 - Encounter for attention to other artificial openings of digestive tract Status: Acute Assessment and Plan: Management As per surgery Plan Diet: Heart healthy GI Prophylaxis: Not currently indicated DVT Prophylaxis: Lovenox SQ IV fluids: 1L bolus -> 125 mL/hr x1L Lines/Tubes: Peripheral IV Code Status: DNR Subjective Date/time seen: 12/02/24 08:50 Interval history: Interval history: 69 y/o F with PMH of asthma, diabetes, peripheral vascular disease, chronic kidney disease, anemia, hypertension, hyperlipidemia, and hypothyroidism presents here with shortness of breath and concerns for pneumonia. Of note patient was admitted last month due to ulcerative esophagitis and status post cholecystostomy 12/02: Patient is not a great historian. Given Lokelma,and received albuterol due to hyperkalemia. Will repeat potassium to monitor hyperkalemia. Surgery is consulted due to cholecystostomy stoma maintenance. Patient had episodes of dark-colored stools and GI consulted. Patient underwent bedside swallow but due to drowsiness unable to participate. Patient takes Xanax 3 times a day and it is been reduced to 1 time and not completely discontinued to avoid benzodiazepine withdrawal seizures Review of Systems Review of Systems: All systems reviewed & are unremarkable except as noted in HPI and below Exam Narrative: obese, chronically ill appearing, diminished lung sounds bilaterally. moderate, intermittent tremor to BUE. A/O to self only. +cough. Const: Other: Chronically ill-appearing, obese, female, appears uncomfortable but in no acute distress. HENMT: Face/Nose/Sinus: Normal nares present Mouth: Yes moist mucous membranes Eyes: General: appearance normal, both eyes and all related structures Sclera: sclerae normal Pupils: Equal, round and reactive pupils present EOM: EOMs intact bilaterally Resp: Effort & Inspection: normal respiratory effort Other: diminished lung sounds bilaterally. + cough Cardio: Rate: regular rate Rhythm: regular rhythm Other: S1-S2 present without murmur, rub, ectopy GI: Other: Abdomen soft, nondistended, nontender. Normoactive bowel sounds in all quadrants. Skin: General skin exam: normal color and no rashes or lesions noted Wounds: no wounds Neuro: Cranial nerves: Yes Equal, round and reactive pupils present Speech: normal speech Sensory Exam: normal sensation Other: Generalized weakness, A&O x1 (self only). moderate, intermittent tremor to BUE. Extrem: Other: 1+ edema to bilateral lower extremities, nonpitting and symmetric. Psych: Mental Status: mental status grossly normal Affect: normal affect Other: Poor insight and judgment Objective Data Vital Signs Vital Signs: Vital Signs - 24 hr 12/01/24 10:30 12/01/24 10:47 12/01/24 10:49 Temperature 98.2 F Pulse Rate 123 H Respiratory Rate 23 H Blood Pressure 88/45 L Pulse Oximetry 96 97 97 Oxygen Delivery Nasal Cannula Nasal Cannula Nasal Cannula Oxygen Flow Rate 4 4 4 Fraction of Inspired Oxygen 12/01/24 10:55 12/01/24 11:05 12/01/24 11:08 Temperature Pulse Rate 99 101 H 96 Respiratory Rate 20 23 H 20 Blood Pressure 94/70 L Pulse Oximetry 96 Oxygen Delivery Oxygen Flow Rate Fraction of Inspired Oxygen 12/01/24 12:53 12/01/24 12:55 12/01/24 13:10 Temperature Pulse Rate 103 H 101 H Respiratory Rate 26 H Blood Pressure 112/71 Pulse Oximetry 95 99 Oxygen Delivery Nasal Cannula Oxygen Flow Rate 4 Fraction of Inspired Oxygen 12/01/24 13:39 12/01/24 15:27 12/01/24 15:27 Temperature 97.6 F Pulse Rate 99 94 Respiratory Rate 22 H 12 Blood Pressure 109/58 L Pulse Oximetry 96 100 Oxygen Delivery Nasal Cannula Oxygen Flow Rate 6 Fraction of Inspired Oxygen 44 12/01/24 15:34 12/01/24 16:00 12/01/24 16:00 Temperature 97.5 F L Pulse Rate 91 67 Respiratory Rate 12 22 H Blood Pressure 91/64 L Pulse Oximetry 93 100 Oxygen Delivery Nasal Cannula Oxygen Flow Rate 4 Fraction of Inspired Oxygen 12/01/24 16:00 12/01/24 18:00 12/01/24 19:30 Temperature 97.7 F Pulse Rate 98 91 94 Respiratory Rate 17 Blood Pressure 100/59 L Pulse Oximetry 100 Oxygen Delivery Oxygen Flow Rate Fraction of Inspired Oxygen 12/01/24 20:00 12/01/24 20:00 12/01/24 21:06 Temperature Pulse Rate 82 Respiratory Rate 16 Blood Pressure Pulse Oximetry 100 100 Oxygen Delivery Nasal Cannula Nasal Cannula Oxygen Flow Rate 4 4 Fraction of Inspired Oxygen 12/01/24 21:06 12/01/24 21:16 12/01/24 22:00 Temperature Pulse Rate 94 96 98 Respiratory Rate 16 16 Blood Pressure Pulse Oximetry Oxygen Delivery Oxygen Flow Rate Fraction of Inspired Oxygen 12/01/24 23:25 12/02/24 00:00 12/02/24 00:00 Temperature 98.0 F Pulse Rate 97 95 Respiratory Rate 17 18 Blood Pressure 110/45 L Pulse Oximetry 99 100 Oxygen Delivery Nasal Cannula Oxygen Flow Rate 4 Fraction of Inspired Oxygen 12/02/24 02:00 12/02/24 02:12 12/02/24 02:20 Temperature Pulse Rate 95 93 94 Respiratory Rate 16 16 Blood Pressure Pulse Oximetry Oxygen Delivery Oxygen Flow Rate Fraction of Inspired Oxygen 12/02/24 03:36 12/02/24 04:00 12/02/24 04:00 Temperature 97.8 F Pulse Rate 94 100 Respiratory Rate 17 20 Blood Pressure 118/51 L Pulse Oximetry 100 100 Oxygen Delivery Nasal Cannula Oxygen Flow Rate 4 Fraction of Inspired Oxygen 12/02/24 06:00 12/02/24 08:00 12/02/24 08:20 Temperature 97.7 F Pulse Rate 100 106 H 101 H Respiratory Rate 22 H Blood Pressure 100/47 L Pulse Oximetry 100 Oxygen Delivery Oxygen Flow Rate Fraction of Inspired Oxygen Intake/Output Intake/Output: Intake & Output 11/29/24 11/30/24 12/01/24 12/02/24 23:59 23:59 23:59 23:59 Intake Total 2809.6 100 Output Total 150 Balance 2659.6 100 Meds/Results Medications: Active Medications Generic Name Dose Route Start Last Admin Trade Name Freq PRN Reason Stop Dose Admin Acetaminophen 650 mg 12/01/24 12:30 Acetaminophen 325 Mg Tablet PO Q4H PRN Mild Pain (1-3) or Fever Albuterol 2.5 mg 12/01/24 14:00 12/02/24 08:44 Albuterol Sulfate Neb 2.5 Mg/3 Ml Inh INHALATION 2.5 mg Q6HRT DESTINEY Administration Allopurinol 200 mg 12/02/24 09:00 12/02/24 08:20 Allopurinol 100 Mg Tablet PO 200 mg DAILY DESTINEY Administration Alprazolam 0.25 mg 12/02/24 09:00 12/02/24 08:21 Alprazolam (*Crx) 0.25 Mg Tablet PO 0.25 mg TID DESTINEY Administration Benzonatate 100 mg 12/01/24 12:30 Benzonatate 100 Mg Capsule PO TID PRN Cough Bisacodyl 10 mg 12/01/24 21:26 Bisacodyl 10 Mg Suppository RECTAL DAILY PRN constipation Cilostazol 100 mg 12/02/24 09:00 12/02/24 08:20 Cilostazol 100 Mg Tablet PO 100 mg BID DESTINEY Administration Dextrose 12.5 gm 12/01/24 11:46 Dextrose 50% 25 Gm/50 Ml Syringe IV PUSH PRN PRN Hypoglycemia Protocol Doxycycline Hyclate 100 mg 12/02/24 09:00 12/02/24 08:19 Doxycycline Hyclate 100 Mg Tablet PO 12/09/24 08:59 100 mg Q12HR DESTINEY Administration Enoxaparin Sodium 30 mg 12/02/24 09:00 12/02/24 08:19 Enoxaparin 30 Mg/0.3 Ml Syringe SUB-Q 30 mg DAILY DESTINEY Administration Escitalopram Oxalate 20 mg 12/02/24 09:00 12/02/24 08:20 Escitalopram Oxalate 10 Mg Tablet PO 20 mg DAILY DESTINEY Administration Ferrous Sulfate 325 mg 12/02/24 12:00 Ferrous Sulfate [address] BY MOUTH [id number] DESTINEY Fluticasone Propionate 2 spray 12/02/24 09:00 12/02/24 08:21 Fluticasone Propionate 0.05% Na Spr 16 Gm Btl (*Bkc) NASAL 2 spray DAILY DESTINEY Administration Glucagon 1 mg 12/01/24 11:46 Glucagon For Inj 1 Mg Vial IM PRN PRN Hypoglycemia Protocol Glucose 15 gm 12/01/24 11:46 Glucose Oral Gel 15 Gm Of Glucse In 37.5 Gm Tube PO PRN PRN Hypoglycemia Protocol Guaifenesin 600 mg 12/01/24 21:00 12/02/24 08:21 Guaifenesin 12 Hr 600 Mg Tabcr PO 600 mg Q12HR DESTINEY Administration Dextrose 1,000 mls @ 100 mls/hr 12/01/24 11:46 Dextrose 5% 1,000 Ml IVPB PRN PRN Hypoglycemia Protocol Ceftriaxone Sodium 1 gm in 50 mls @ 100 mls/hr 12/01/24 22:00 12/01/24 23:00 Rocephin 1 Gm/Ns 50 Ml IVPB Infused Q24H DESTINEY Infusion Insulin Aspart 4 - 8 units 12/01/24 17:00 12/02/24 08:22 Insulin Aspart (*Bkc) 100 Units/Ml SUB-Q Not Given TIDWM [facility] Protocol Levothyroxine Sodium 50 mcg 12/02/24 06:30 12/02/24 06:48 Levothyroxine Sodium 50 Mcg Tablet PO 50 mcg [id number] DESTINEY Administration Levothyroxine Sodium 100 mcg 12/06/24 06:30 Levothyroxine Sodium 100 Mcg Tablet PO SuSa DESTINEY Loratadine 10 mg 12/02/24 09:00 12/02/24 08:20 Loratadine 10 Mg Tablet PO 10 mg QAM DESTINEY Administration Magnesium Citrate 296 ml 12/01/24 21:26 Magnesium Citrate 300 Ml Btl PO DAILY PRN constipation Magnesium Hydroxide 30 ml 12/01/24 21:26 Magnesium Hydroxide Susp 30 Ml Udc PO HS PRN constipation Magnesium Oxide 400 mg 12/02/24 09:00 12/02/24 08:20 Magnesium Oxide 400 Mg Tablet PO 400 mg TID DESTINEY Administration Metoprolol Tartrate 50 mg 12/02/24 09:00 12/02/24 08:20 Metoprolol Tartrate 50 Mg Tab PO 50 mg Q12HR DESTINEY Administration Miscellaneous Information 0 each 12/01/24 00:01 12/02/24 03:20 Nystatin Emollient Combo #88 Nonform Bring From Home Or We Stock Plain Nystatin Cream XX 12/31/24 00:00 Not Given CLARIFY DESTINEY Miscellaneous Information 0 each 12/01/24 22:12 Central Supply Item Nonformulary Drug (Sodium Phosphates 19-7 Gram/118 Ml Enema) XX 12/02/24 22:11 PRN PRN Informational Non-Formulary Medication 1 gm 12/01/24 21:26 Nystatin-Emollient Combo No.88 TOPICAL DAILY PRN rash Nonformulary 0 each 12/01/24 21:58 Nutritional XX 12/02/24 21:57 Supplement PRN PRN Nonformulary Drug ( PROTOCOL Biotin 1 Mg Capsule) Ondansetron HCl 4 mg 12/01/24 21:26 Ondansetron Hcl Odt 4 Mg Tablet PO Q6H PRN nausea and vomiting Oxybutynin Chloride 5 mg 12/02/24 09:00 12/02/24 08:20 Oxybutynin Chloride Xl 5 Mg Tab.Er.24 PO 5 mg DAILY DESTINEY Administration Pantoprazole Sodium 40 mg 12/02/24 09:00 12/02/24 08:21 Pantoprazole 40 Mg Tablet PO 40 mg QAM [facility] Administration Saccharomyces Boulardii 250 mg 12/02/24 09:00 12/02/24 08:20 Saccharomyces Boulardii 250 Mg Capsule PO 250 mg TID [facility] Administration Tramadol HCl 50 mg 12/02/24 21:00 Tramadol Hcl (*Crx) 50 Mg Tablet PO HS [facility] Trazodone HCl 50 mg 12/02/24 21:00 Trazodone Hcl 50 Mg Tablet PO HS [facility] Radiology Results: ITS Impressions Chest X-Ray 12/01/24 11:57 IMPRESSION: Left basilar atelectasis versus pneumonia medially. Renal Ultrasound 12/01/24 18:01 IMPRESSION: No hydronephrosis or renal calculi. Findings suggesting medical renal disease. Atrophy of the right kidney in comparison to the left. Labs Labs: Laboratory Results - last 24 hr 12/01/24 12/01/24 12/01/24 10:49 11:08 11:12 WBC RBC Hgb Hct MCV MCH MCHC RDW Plt Count MPV Immature Gran % (Auto) Neut % (Auto) Lymph % (Auto) [place] % (Auto) Eos % (Auto) Baso % (Auto) Lymph # (Auto) [place] # (Auto) Eos # (Auto) Baso # (Auto) Abs Immat Gran (auto) Absolute Neuts (auto) Absolute Nucleated RBC Band Neutrophils % Nucleated RBC % Platelet Estimate Hypochromasia Schistocytes PT INR APTT VBG pH 7.294 L VBG pCO2 38.4 L VBG pO2 57.0 H VBG HCO3 18.2 L O2 Delivery Device Nasal cannula O2 Liters/Min 5.0 FiO2 40 Sodium Potassium Chloride Carbon Dioxide Anion Gap BUN Creatinine Estim Creat Clear Calc Estimated GFR Glucose POC Capillary Glucose 89 Lactic Acid Calcium Phosphorus Magnesium Total Bilirubin AST ALT Alkaline Phosphatase Total Creatine Kinase < 20 L NT-Pro-B Natriuret Pep Total Protein Albumin Urine Color Urine Appearance Urine pH Ur Specific Purdy Urine Protein Urine Glucose (UA) Urine Ketones Ur Blood (Man) Urine Nitrate Urine Bilirubin Urine Urobilinogen Add Ur Microanalysis Leukocyte Esterase Rfl Urine RBC Urine WBC Urine WBC Clumps Ur Squamous Epith Cells Calcium Oxalate Crystal Urine Bacteria Urine Casts U Random Total Protein Ur Random Sodium Ur Random Urea Urine Creatinine Protein/Creat Ratio 2 Nasal MRSA (PCR) 12/01/24 12/01/24 12/01/24 11:15 11:24 12:15 WBC 13.4 H RBC 3.21 L Hgb 10.5 L Hct 34.2 L MCV 106.5 H MCH 32.7 MCHC 30.7 L RDW 15.6 H Plt Count 189 MPV 10.9 H Immature Gran % (Auto) 0.6 H Neut % (Auto) 82.0 H Lymph % (Auto) 10.2 L [place] % (Auto) 6.3 Eos % (Auto) 0.7 Baso % (Auto) 0.2 Lymph # (Auto) 1.37 [place] # (Auto) 0.8 H Eos # (Auto) 0.1 Baso # (Auto) 0.0 Abs Immat Gran (auto) 0.08 H Absolute Neuts (auto) 11.0 H Absolute Nucleated RBC 0.000 Band Neutrophils % Not Reportable Nucleated RBC % 0.0 Platelet Estimate Adequate Hypochromasia 1+ Schistocytes Rare PT 14.2 INR 1.1 APTT 29.0 VBG pH VBG pCO2 VBG pO2 VBG HCO3 O2 Delivery Device O2 Liters/Min FiO2 Sodium 134 L Potassium 6.7 H* Chloride 112 H Carbon Dioxide 17 L Anion Gap 5 BUN 40 H D Creatinine 2.97 H Estim Creat Clear Calc 22 Estimated GFR 16 L Glucose 99 POC Capillary Glucose Lactic Acid 1.6 Calcium 9.6 Phosphorus Magnesium Total Bilirubin 0.2 AST 16 ALT 11 Alkaline Phosphatase 112 Total Creatine Kinase NT-Pro-B Natriuret Pep 1010 H Total Protein 5.6 L Albumin 2.5 L Urine Color Dark yellow Urine Appearance Turbid H Urine pH 5.5 Ur Specific Purdy 1.019 Urine Protein 2+ H Urine Glucose (UA) Negative Urine Ketones Trace H Ur Blood (Man) 2+ H Urine Nitrate Negative Urine Bilirubin Negative Urine Urobilinogen 0.2 Add Ur Microanalysis Reviewed Leukocyte Esterase Rfl 3+ H Urine RBC 6-10 H Urine WBC >100 H Urine WBC Clumps Present H Ur Squamous Epith Cells Moderate Calcium Oxalate Crystal Present Urine Bacteria 4+ H Urine Casts >20 U Random Total Protein 38 Ur Random Sodium 45 Ur Random Urea 285 Urine Creatinine 200.9 Protein/Creat Ratio 2 0.19 Nasal MRSA (PCR) 12/01/24 12/01/24 12/01/24 12:25 13:15 13:32 WBC RBC Hgb Hct MCV MCH MCHC RDW Plt Count MPV Immature Gran % (Auto) Neut % (Auto) Lymph % (Auto) [place] % (Auto) Eos % (Auto) Baso % (Auto) Lymph # (Auto) [place] # (Auto) Eos # (Auto) Baso # (Auto) Abs Immat Gran (auto) Absolute Neuts (auto) Absolute Nucleated RBC Band Neutrophils % Nucleated RBC % Platelet Estimate Hypochromasia Schistocytes PT INR APTT VBG pH VBG pCO2 VBG pO2 VBG HCO3 O2 Delivery Device O2 Liters/Min FiO2 Sodium Potassium Chloride Carbon Dioxide Anion Gap BUN Creatinine Estim Creat Clear Calc Estimated GFR Glucose POC Capillary Glucose 86 85 Lactic Acid Calcium Phosphorus Magnesium Total Bilirubin AST ALT Alkaline Phosphatase Total Creatine Kinase NT-Pro-B Natriuret Pep Total Protein Albumin Urine Color Urine Appearance Urine pH Ur Specific Purdy Urine Protein Urine Glucose (UA) Urine Ketones Ur Blood (Man) Urine Nitrate Urine Bilirubin Urine Urobilinogen Add Ur Microanalysis Leukocyte Esterase Rfl Urine RBC Urine WBC Urine WBC Clumps Ur Squamous Epith Cells Calcium Oxalate Crystal Urine Bacteria Urine Casts U Random Total Protein Ur Random Sodium Ur Random Urea Urine Creatinine Protein/Creat Ratio 2 Nasal MRSA (PCR) Not detected 12/01/24 12/01/24 12/01/24 14:33 16:09 17:03 WBC RBC Hgb Hct MCV MCH MCHC RDW Plt Count MPV Immature Gran % (Auto) Neut % (Auto) Lymph % (Auto) [place] % (Auto) Eos % (Auto) Baso % (Auto) Lymph # (Auto) [place] # (Auto) Eos # (Auto) Baso # (Auto) Abs Immat Gran (auto) Absolute Neuts (auto) Absolute Nucleated RBC Band Neutrophils % Nucleated RBC % Platelet Estimate Hypochromasia Schistocytes PT INR APTT VBG pH VBG pCO2 VBG pO2 VBG HCO3 O2 Delivery Device O2 Liters/Min FiO2 Sodium 137 132 L Potassium 5.9 H 5.7 H Chloride 110 H 109 H Carbon Dioxide 17 L 16 L Anion Gap 10 7 BUN 40 H 39 H Creatinine 3.23 H 3.10 H Estim Creat Clear Calc 20 21 Estimated GFR 14 L 15 L Glucose 145 H 156 H POC Capillary Glucose 110 H Lactic Acid Calcium 9.9 10.0 Phosphorus Magnesium Total Bilirubin AST ALT Alkaline Phosphatase Total Creatine Kinase NT-Pro-B Natriuret Pep Total Protein Albumin Urine Color Urine Appearance Urine pH Ur Specific Purdy Urine Protein Urine Glucose (UA) Urine Ketones Ur Blood (Man) Urine Nitrate Urine Bilirubin Urine Urobilinogen Add Ur Microanalysis Leukocyte Esterase Rfl Urine RBC Urine WBC Urine WBC Clumps Ur Squamous Epith Cells Calcium Oxalate Crystal Urine Bacteria Urine Casts U Random Total Protein Ur Random Sodium Ur Random Urea Urine Creatinine Protein/Creat Ratio 2 Nasal MRSA (PCR) 12/01/24 12/02/24 12/02/24 20:44 04:26 07:13 WBC 9.9 RBC 2.81 L Hgb 9.1 L Hct 29.7 L MCV 105.7 H MCH 32.4 MCHC 30.6 L RDW 15.4 H Plt Count 145 L MPV 10.8 H Immature Gran % (Auto) 1.0 H Neut % (Auto) 81.9 H Lymph % (Auto) 10.8 L [place] % (Auto) 5.6 Eos % (Auto) 0.4 Baso % (Auto) 0.3 Lymph # (Auto) 1.07 [place] # (Auto) 0.6 Eos # (Auto) 0.0 Baso # (Auto) 0.0 Abs Immat Gran (auto) 0.10 H Absolute Neuts (auto) 8.1 H Absolute Nucleated RBC 0.000 Band Neutrophils % Nucleated RBC % 0.0 Platelet Estimate Hypochromasia Schistocytes PT INR APTT VBG pH VBG pCO2 VBG pO2 VBG HCO3 O2 Delivery Device O2 Liters/Min FiO2 Sodium 136 L Potassium 5.5 H Chloride 109 H Carbon Dioxide 23 Anion Gap 4 BUN 37 H Creatinine 2.99 H Estim Creat Clear Calc 22 Estimated GFR 15 L Glucose 90 POC Capillary Glucose 83 79 Lactic Acid Calcium 9.9 Phosphorus 3.5 Magnesium 2.1 Total Bilirubin 0.2 AST 15 ALT 11 Alkaline Phosphatase 78 Total Creatine Kinase NT-Pro-B Natriuret Pep Total Protein 6.0 L Albumin 3.1 L Urine Color Urine Appearance Urine pH Ur Specific Purdy Urine Protein Urine Glucose (UA) Urine Ketones Ur Blood (Man) Urine Nitrate Urine Bilirubin Urine Urobilinogen Add Ur Microanalysis Leukocyte Esterase Rfl Urine RBC Urine WBC Urine WBC Clumps Ur Squamous Epith Cells Calcium Oxalate Crystal Urine Bacteria Urine Casts U Random Total Protein Ur Random Sodium Ur Random Urea Urine Creatinine Protein/Creat Ratio 2 Nasal MRSA (PCR) Quality VTE Prophylaxis VTE prophylaxis: pharmacologic ordered Hospitalist MIPS Advance Care Plan I have confirmed that the patient's Advanced Care Plan is present, code status is documented, or surrogate decision maker is listed in patient medical record.: Yes Medication Reconciliation I have utilized all available resources to obtain, update and review the patients current medications (includes all prescriptions, OTC, herbals, cannabis, and nutritional supplements).: Yes
[2024-12-02] MEDS: SODIUM POLYSTYRENE SULFONONATE 15 GM/60 ML BTL 30 GM PO (08:55)
[2024-12-02 11:35] LABS: IFOB Positive Control Positive; Immunochemical Fecal Occult Bl Positive (N)
[2024-12-02 11:47] LABS: Glucose Point of Care 100 mg/dl (65-105)
[2024-12-02 12:12] LABS: Toxigenic C. Diff NEGATIVE (NEGATIVE)
[2024-12-02 12:47] LABS: Potassium 5.2 mmol/L (3.4-5.0)
[2024-12-02] MEDS: FERROUS SULFATE 325 MG TABLET DR BY MOUTH ×3 (12:56→20:56)
[2024-12-02] MEDS: SODIUM CHLORIDE 0.9% IV 1,000 ML 100 ML IV CONT (15:38)
--- NOTE | 2024-12-02 15:39 | P.CONGS_ITS ---
Assessment and Plan Assessment and plan (1) Sepsis: Qualifiers: Sepsis type: sepsis due to unspecified organism Sepsis acute organ dysfunction status: with acute organ dysfunction Severe sepsis acute organ dysfunction type: acute renal failure Acute renal failure type: unspecified S evere sepsis shock status: without septic shock Qualified Code(s): A41.9 - Sepsis, unspecified organism; R65.20 - Severe sepsis without septic shock; N17.9 - Acute kidney failure, unspecified Code(s): A41.9 - Sepsis, unspecified organism Status: Acute Assessment and Plan: likely secondary to pneumonia versus UTI, continue broad-spectrum antibiotics for now, management per primary team (2) Pneumonia: Qualifiers: Pneumonia type: due to unspecified organism Laterality: left Lung location: lower lobe of lung Qualified Code(s): J18.9 - Pneumonia, unspecified organism Code(s): J18.9 - Pneumonia, unspecified organism Status: Acute Assessment and Plan: see above (3) Cholelithiasis with acute cholecystitis: Qualifiers: Biliary obstruction: with biliary obstruction Qualified Code(s): K80.01 - Calculus of gallbladder with acute cholecystitis with obstruction Code(s): K80.00 - Calculus of gallbladder with acute cholecystitis without obstruction Status: Acute Assessment and Plan: abdominal exam completely benign, okay to continue diet for now, will get cholangiogram through the cholecystostomy tube for further evaluation History of Present Illness Consult details Consult date: 12/02/24 Reason for consult: other (Previous cholecystostomy tube) Requesting physician: Ismael Melendrez MD Narrative: The patient is a 69-year-old female with multiple medical issues, well known to the surgical service from previous perc cholecystostomy for acute cholecystitis, presenting to the hospital with sepsis likely secondary to pneumonia. The patient is also found to have CHF exacerbation. The patient was previously admitted in the past for acute cholecystitis and had a perc cholecystostomy tube placed at that time. The patient denies any abdominal pain at this time and was previously tolerating low-fat diet without issue. Review of Systems 2 Review of Systems: ROS unobtainable: Yes unobtainable due to mental status PMFSH Past Medical History Medical History Ulcerative esophagitis Asthma Type 2 diabetes mellitus Fatty liver Overactive bladder Peripheral vascular disease Anemia Chronic kidney disease Spinal stenosis Depression Hypertension Gout Diverticulitis Cognitive communication deficit Anxiety Hyperlipidemia Hypothyroidism C. difficile colitis Surgical History Surgical History History of hysterectomy History of knee replacement, total Right Social History Social History Smoking status: Never smoker Second hand tobacco smoke exposure: No Alcohol intake: never Substance use: never Do You Feel Safe in your Home?: Yes Lack of Transportation: No Lack of Food: Never True Current Housing: I Have Housing Concerned About Future Housing: No Difficulty Paying Gas/Electric Bills: No Difficulty Paying for Meds: No Currently Unemployed: No Education: High School Diploma/GED Difficulty w/ Childcare or Family Care: No Spiritual care concerns: No Meds Home Medications and Allergies Home Medications ?Medication ?Instructions ?Recorded ?Confirmed ?Type Bacillus coagulans-inulin 1 1 cap PO DAILY 10/20/24 12/01/24 History billion cell-250 mg capsule allopurinol 100 mg tablet 200 mg PO DAILY 10/20/24 12/01/24 History alprazolam 0.5 mg tablet 0.25 mg PO TID 10/20/24 12/01/24 History biotin 1 mg capsule 1 mg PO DAILY 10/20/24 12/01/24 History bisacodyl 10 mg rectal suppository 10 mg RECTAL DAILY PRN constipation 10/20/24 12/01/24 History cetirizine 10 mg capsule 10 mg PO DAILY 10/20/24 12/01/24 History cilostazol 100 mg tablet 100 mg PO BID 10/20/24 12/01/24 History cinnamon bark 500 mg capsule 1,000 mg PO BID 10/20/24 12/01/24 History (Cinnamon) escitalopram oxalate 20 mg tablet 20 mg PO DAILY 10/20/24 12/01/24 History ferrous sulfate 324 mg (65 mg 325 mg PO TID 10/20/24 12/01/24 History iron) tablet,delayed release fluticasone propionate 50 2 spray intranasal DAILY 10/20/24 12/01/24 History mcg/actuation nasal spray,suspension levothyroxine 50 mcg tablet 50 mcg PO 5XW 10/20/24 12/01/24 History (Euthyrox) levothyroxine 50 mcg tablet 100 mcg PO .twice a week 10/20/24 12/01/24 History (Euthyrox) losartan 50 mg tablet 50 mg PO DAILY 10/20/24 12/01/24 History magnesium citrate 296 ml PO DAILY PRN constipation 10/20/24 12/01/24 History magnesium hydroxide 400 mg/5 mL 30 ml PO HS PRN constipation 10/20/24 12/01/24 History oral suspension (Milk of Magnesia) magnesium oxide 400 mg (241.3 mg 400 mg PO TID 10/20/24 12/01/24 History magnesium) tablet metformin 500 mg tablet 500 mg PO BID 10/20/24 12/01/24 History metoprolol tartrate 50 mg tablet 50 mg PO BID 10/20/24 12/01/24 History ondansetron 4 mg disintegrating 4 mg PO Q6H PRN nausea and vomiting 10/20/24 12/01/24 History tablet oxybutynin chloride 5 mg 5 mg PO DAILY 10/20/24 12/01/24 History tablet,extended release 24 hr potassium chloride 20 mEq 20 meq PO DAILY 10/20/24 12/01/24 History tablet,extended release(part/cryst) sodium phosphates 19 gram-7 118 ml RECTAL DAILY PRN 10/20/24 12/01/24 History gram/118 mL enema constipation pantoprazole 40 mg tablet,delayed 40 mg PO QAM 4 weeks #28 tabs 10/28/24 12/01/24 Rx release (Protonix) nystatin 100,000 unit/gram 1 g topical DAILY PRN rash 11/12/24 12/01/24 History powder-emollient combination no.88 gel pack tramadol 50 mg tablet 50 mg PO HS 12/01/24 12/01/24 History trazodone 50 mg tablet 50 mg PO HS 12/01/24 12/01/24 History Allergies Allergy/AdvReac Type Severity Reaction Status Date / Time No Known Allergies Allergy Verified 12/01/24 10:50 Vital Signs Vital Signs - 24 hr 12/01/24 16:00 12/01/24 16:00 12/01/24 16:00 Temperature 36.4 C L Pulse Rate 67 98 Respiratory Rate 22 H Blood Pressure 91/64 L Pulse Oximetry 93 100 Oxygen Delivery Nasal Cannula Oxygen Flow Rate 4 12/01/24 18:00 12/01/24 19:30 12/01/24 20:00 Temperature 36.5 C Pulse Rate 91 94 Respiratory Rate 17 16 Blood Pressure 100/59 L Pulse Oximetry 100 100 Oxygen Delivery Nasal Cannula Oxygen Flow Rate 4 12/01/24 20:00 12/01/24 21:06 12/01/24 21:06 Temperature Pulse Rate 82 94 Respiratory Rate 16 Blood Pressure Pulse Oximetry 100 Oxygen Delivery Nasal Cannula Oxygen Flow Rate 4 12/01/24 21:16 12/01/24 22:00 12/01/24 23:25 Temperature 36.7 C Pulse Rate 96 98 97 Respiratory Rate 16 17 Blood Pressure 110/45 L Pulse Oximetry 99 Oxygen Delivery Oxygen Flow Rate 12/02/24 00:00 12/02/24 00:00 12/02/24 02:00 Temperature Pulse Rate 95 95 Respiratory Rate 18 Blood Pressure Pulse Oximetry 100 Oxygen Delivery Nasal Cannula Oxygen Flow Rate 4 12/02/24 02:12 12/02/24 02:20 12/02/24 03:36 Temperature 36.6 C Pulse Rate 93 94 94 Respiratory Rate 16 16 17 Blood Pressure 118/51 L Pulse Oximetry 100 Oxygen Delivery Oxygen Flow Rate 12/02/24 04:00 12/02/24 04:00 12/02/24 06:00 Temperature Pulse Rate 100 100 Respiratory Rate 20 Blood Pressure Pulse Oximetry 100 Oxygen Delivery Nasal Cannula Oxygen Flow Rate 4 12/02/24 08:00 12/02/24 08:00 12/02/24 08:20 Temperature 36.5 C Pulse Rate 106 H 101 H Respiratory Rate 22 H Blood Pressure 100/47 L Pulse Oximetry 100 100 Oxygen Delivery Nasal Cannula Oxygen Flow Rate 4 12/02/24 08:44 12/02/24 08:44 12/02/24 08:57 Temperature Pulse Rate 98 97 Respiratory Rate 16 16 Blood Pressure Pulse Oximetry 100 Oxygen Delivery Nasal Cannula Oxygen Flow Rate 4 12/02/24 09:40 12/02/24 10:00 12/02/24 10:32 Temperature Pulse Rate 88 Respiratory Rate Blood Pressure Pulse Oximetry 100 95 Oxygen Delivery Nasal Cannula Room Air Oxygen Flow Rate 2 12/02/24 14:52 12/02/24 15:03 Temperature Pulse Rate 88 87 Respiratory Rate 16 16 Blood Pressure Pulse Oximetry Oxygen Delivery Oxygen Flow Rate Exam 2 Const: General: acute distress mild, ill appearing, tired appearing and obese HENMT: Head: normal to inspection, normocephalic and atraumatic Eyes: General: appearance normal, both eyes and all related structures Neck: Neck: normal visual inspection, full ROM and no lymphadenopathy Resp: Auscultation: diminished lung sounds Cardio: Rate: regular rate Rhythm: regular rhythm GI: Inspection: normal to inspection and non-distended GI Palp: No abdominal tenderness and Yes Soft to palpation Other: Perc cholecystostomy tube with bilious drainage Skin: General skin exam: normal color and no rashes or lesions noted Neuro: General: patient oriented x3 and CN's II-XI intact bilaterally Extrem: General: normal to inspection and full ROM Results Labs 12/02/24 04:26 12/02/24 12:35 Labs: Abnormal lab results 12/01/24 12/01/24 12/02/24 Range/Units 16:09 17:03 04:26 RBC 2.81 L (4.2-5.4) M/mm3 Hgb 9.1 L (12.0-15.0) g/dL Hct 29.7 L (37.0-47.0) % MCV 105.7 H (80-100) fl MCHC 30.6 L (32-36) g/dl RDW 15.4 H (11.5-14.5) % Plt Count 145 L (150-375) k/mm3 MPV 10.8 H (7.4-10.4) fl Immature Gran % (Auto) 1.0 H (0-0.5) % Neut % (Auto) 81.9 H (45.5-73.1) % Lymph % (Auto) 10.8 L (18.3-44.2) % Abs Immat Gran (auto) 0.10 H (0.00-0.031) K/mm3 Absolute Neuts (auto) 8.1 H (1.3-6.7) K/mm3 Sodium 132 L 136 L (137-145) mmol/L Potassium 5.7 H 5.5 H (3.4-5.0) mmol/L Chloride 109 H 109 H (98-107) mmol/L Carbon Dioxide 16 L (22-30) mmol/L BUN 39 H 37 H (7-17) mg/dL Creatinine 3.10 H 2.99 H (0.7-1.0) mg/dL Estimated GFR 15 L 15 L (59 - ) Glucose 156 H (65-110) mg/dL POC Capillary Glucose 110 H (65-105) mg/dl Total Protein 6.0 L (6.3-8.2) g/dL Albumin 3.1 L (3.5-5.1) g/dL Stl Occult Blood (IFOB) (N) 12/02/24 12/02/24 Range/Units 11:06 12:35 RBC (4.2-5.4) M/mm3 Hgb (12.0-15.0) g/dL Hct (37.0-47.0) % MCV (80-100) fl MCHC (32-36) g/dl RDW (11.5-14.5) % Plt Count (150-375) k/mm3 MPV (7.4-10.4) fl Immature Gran % (Auto) (0-0.5) % Neut % (Auto) (45.5-73.1) % Lymph % (Auto) (18.3-44.2) % Abs Immat Gran (auto) (0.00-0.031) K/mm3 Absolute Neuts (auto) (1.3-6.7) K/mm3 Sodium (137-145) mmol/L Potassium 5.2 H (3.4-5.0) mmol/L Chloride (98-107) mmol/L Carbon Dioxide (22-30) mmol/L BUN (7-17) mg/dL Creatinine (0.7-1.0) mg/dL Estimated GFR (59 - ) Glucose (65-110) mg/dL POC Capillary Glucose (65-105) mg/dl Total Protein (6.3-8.2) g/dL Albumin (3.5-5.1) g/dL Stl Occult Blood (IFOB) Positive H (N) Diabetes panel 12/01/24 12/02/24 12/02/24 Range/Units 17:03 04:26 12:35 Sodium 132 L 136 L (137-145) mmol/L Potassium 5.7 H 5.5 H 5.2 H (3.4-5.0) mmol/L Chloride 109 H 109 H (98-107) mmol/L Carbon Dioxide 16 L 23 (22-30) mmol/L BUN 39 H 37 H (7-17) mg/dL Creatinine 3.10 H 2.99 H (0.7-1.0) mg/dL Glucose 156 H 90 (65-110) mg/dL Calcium 10.0 9.9 (8.4-10.2) mg/dL AST 15 (14-36) U/L ALT 11 (6-35) U/L Alkaline Phosphatase 78 (38-126) U/L Total Protein 6.0 L (6.3-8.2) g/dL Albumin 3.1 L (3.5-5.1) g/dL Calcium panel 12/01/24 12/02/24 Range/Units 17:03 04:26 Calcium 10.0 9.9 (8.4-10.2) mg/dL Phosphorus 3.5 (2.5-4.5) mg/dL Albumin 3.1 L (3.5-5.1) g/dL Pituitary panel 12/01/24 12/02/24 12/02/24 Range/Units 17:03 04:26 12:35 Sodium 132 L 136 L (137-145) mmol/L Potassium 5.7 H 5.5 H 5.2 H (3.4-5.0) mmol/L Chloride 109 H 109 H (98-107) mmol/L Carbon Dioxide 16 L 23 (22-30) mmol/L BUN 39 H 37 H (7-17) mg/dL Creatinine 3.10 H 2.99 H (0.7-1.0) mg/dL Glucose 156 H 90 (65-110) mg/dL Calcium 10.0 9.9 (8.4-10.2) mg/dL Adrenal panel 12/01/24 12/02/24 12/02/24 Range/Units 17:03 04:26 12:35 Sodium 132 L 136 L (137-145) mmol/L Potassium 5.7 H 5.5 H 5.2 H (3.4-5.0) mmol/L Chloride 109 H 109 H (98-107) mmol/L Carbon Dioxide 16 L 23 (22-30) mmol/L BUN 39 H 37 H (7-17) mg/dL Creatinine 3.10 H 2.99 H (0.7-1.0) mg/dL Glucose 156 H 90 (65-110) mg/dL Calcium 10.0 9.9 (8.4-10.2) mg/dL Total Bilirubin 0.2 (0.2-1.3) mg/dL AST 15 (14-36) U/L ALT 11 (6-35) U/L Alkaline Phosphatase 78 (38-126) U/L Total Protein 6.0 L (6.3-8.2) g/dL Albumin 3.1 L (3.5-5.1) g/dL All other labs normal.
[2024-12-02 16:20] LABS: Glucose Point of Care 97 mg/dl (65-105)
--- NOTE | 2024-12-02 17:34 | P.CONGI_ITS ---
Assessment and Plan Assessment and plan (1) Anemia: Qualifiers: Anemia type: due to chronic kidney disease Chronic kidney disease stage: unspecified stage Qualified Code(s): N18.9 - Chronic kidney disease, unspecified; D63.1 - Anemia in chronic kidney disease Code(s): D64.9 - Anemia, unspecified Status: Chronic Assessment and Plan: chronic anemia, hgb near baseline no acute indication of egd- recent one showed severe esophagitis but no overt gib now fobt could be from esophagitis, egd only if drop h/h or more melena protonix bid surgery on board to manage cholecystostomy tube and decide next plan (2) Occult blood in stools: Code(s): R19.5 - Other fecal abnormalities Status: Acute Assessment and Plan: monitor (3) Acute kidney injury superimposed on CKD: Code(s): N17.9 - Acute kidney failure, unspecified; N18.9 - Chronic kidney disease, unspecified Status: Acute (4) Sepsis: Qualifiers: Sepsis type: sepsis due to unspecified organism Sepsis acute organ dysfunction status: with acute organ dysfunction Severe sepsis acute organ dysfunction type: acute renal failure Acute renal failure type: unspecified S evere sepsis shock status: without septic shock Qualified Code(s): A41.9 - Sepsis, unspecified organism; R65.20 - Severe sepsis without septic shock; N17.9 - Acute kidney failure, unspecified Code(s): A41.9 - Sepsis, unspecified organism Status: Acute Assessment and Plan: possible pneumonia cholecystostomy in place but no obvious pain surgery to order cholangiogram (5) Pneumonia: Qualifiers: Pneumonia type: due to unspecified organism Laterality: left Lung location: lower lobe of lung Qualified Code(s): J18.9 - Pneumonia, unspecified organism Code(s): J18.9 - Pneumonia, unspecified organism Status: Acute Assessment and Plan: on abx (6) Chronic cholecystitis: Code(s): K81.1 - Chronic cholecystitis Status: Acute (7) Cholecystostomy care: Code(s): Z43.4 - Encounter for attention to other artificial openings of digestive tract Status: Acute (8) Ulcerative esophagitis: Code(s): K22.10 - Ulcer of esophagus without bleeding Status: Acute GI Consult Note Consult date/time: 12/02/24 17:34 Reason for consult: occult blood in stool, anemia HPI: Ashley Gardner is a 69 year old female who was in the hospital last month after cholecystitis treated with antibiotics and cholecystostomy tube then EGD showed ulcerative esophagitis (it was done because epigastric pain). She is not best historian and she was brought from [facility] via EMS for further evaluation of shortness of breath and for possible pneumonia. She mentioned nonproductive cough, body aches, nausea, vomiting, and diarrhea. upon EMS arrival, they found the patient at 79% on 2L nasal cannula, CXR showed possible pneumonia. Also acute on chronic renal failure, chronic anemia hgb 9. Report of occult blood in stool. She is on protonix daily. Cholecystostomy tube in place and surgery on board. Review of Systems 2 Review of Systems: ROS unobtainable: Yes unobtainable due to mental status [facility] [place] Past Medical History Medical History (Updated 12/02/24 @ 17:40 by Yakov Ragsdale MD) Occult blood in stools Ulcerative esophagitis Asthma Type 2 diabetes mellitus Fatty liver Overactive bladder Peripheral vascular disease Anemia Chronic kidney disease Spinal stenosis Depression Hypertension Gout Diverticulitis Cognitive communication deficit Anxiety Hyperlipidemia Hypothyroidism C. difficile colitis Surgical History Surgical History History of hysterectomy History of knee replacement, total Right Social History Social History Smoking status: Never smoker Second hand tobacco smoke exposure: No Alcohol intake: never Substance use: never Do You Feel Safe in your Home?: Yes Lack of Transportation: No Lack of Food: Never True Current Housing: I Have Housing Concerned About Future Housing: No Difficulty Paying Gas/Electric Bills: No Difficulty Paying for Meds: No Currently Unemployed: No Education: High School Diploma/GED Difficulty w/ Childcare or Family Care: No Spiritual care concerns: No Meds Home Medications and Allergies Home Medications ?Medication ?Instructions ?Recorded ?Confirmed ?Type Bacillus coagulans-inulin 1 1 cap PO DAILY 10/20/24 12/01/24 History billion cell-250 mg capsule allopurinol 100 mg tablet 200 mg PO DAILY 10/20/24 12/01/24 History alprazolam 0.5 mg tablet 0.25 mg PO TID 10/20/24 12/01/24 History biotin 1 mg capsule 1 mg PO DAILY 10/20/24 12/01/24 History bisacodyl 10 mg rectal suppository 10 mg RECTAL DAILY PRN constipation 10/20/24 12/01/24 History cetirizine 10 mg capsule 10 mg PO DAILY 10/20/24 12/01/24 History cilostazol 100 mg tablet 100 mg PO BID 10/20/24 12/01/24 History cinnamon bark 500 mg capsule 1,000 mg PO BID 10/20/24 12/01/24 History (Cinnamon) escitalopram oxalate 20 mg tablet 20 mg PO DAILY 10/20/24 12/01/24 History ferrous sulfate 324 mg (65 mg 325 mg PO TID 10/20/24 12/01/24 History iron) tablet,delayed release fluticasone propionate 50 2 spray intranasal DAILY 10/20/24 12/01/24 History mcg/actuation nasal spray,suspension levothyroxine 50 mcg tablet 50 mcg PO 5XW 10/20/24 12/01/24 History (Euthyrox) levothyroxine 50 mcg tablet 100 mcg PO .twice a week 10/20/24 12/01/24 History (Euthyrox) losartan 50 mg tablet 50 mg PO DAILY 10/20/24 12/01/24 History magnesium citrate 296 ml PO DAILY PRN constipation 10/20/24 12/01/24 History magnesium hydroxide 400 mg/5 mL 30 ml PO HS PRN constipation 10/20/24 12/01/24 History oral suspension (Milk of Magnesia) magnesium oxide 400 mg (241.3 mg 400 mg PO TID 10/20/24 12/01/24 History magnesium) tablet metformin 500 mg tablet 500 mg PO BID 10/20/24 12/01/24 History metoprolol tartrate 50 mg tablet 50 mg PO BID 10/20/24 12/01/24 History ondansetron 4 mg disintegrating 4 mg PO Q6H PRN nausea and vomiting 10/20/24 12/01/24 History tablet oxybutynin chloride 5 mg 5 mg PO DAILY 10/20/24 12/01/24 History tablet,extended release 24 hr potassium chloride 20 mEq 20 meq PO DAILY 10/20/24 12/01/24 History tablet,extended release(part/cryst) sodium phosphates 19 gram-7 118 ml RECTAL DAILY PRN 10/20/24 12/01/24 History gram/118 mL enema constipation pantoprazole 40 mg tablet,delayed 40 mg PO QAM 4 weeks #28 tabs 10/28/24 12/01/24 Rx release (Protonix) nystatin 100,000 unit/gram 1 g topical DAILY PRN rash 11/12/24 12/01/24 History powder-emollient combination no.88 gel pack tramadol 50 mg tablet 50 mg PO HS 12/01/24 12/01/24 History trazodone 50 mg tablet 50 mg PO HS 12/01/24 12/01/24 History Allergies Allergy/AdvReac Type Severity Reaction Status Date / Time No Known Allergies Allergy Verified 12/01/24 10:50 Vital Signs Vital Signs - 24 hr 12/01/24 18:00 12/01/24 19:30 12/01/24 20:00 Temperature 97.7 F Pulse Rate 91 94 Respiratory Rate 17 16 Blood Pressure 100/59 L Pulse Oximetry 100 100 Oxygen Delivery Nasal Cannula Oxygen Flow Rate 4 12/01/24 20:00 12/01/24 21:06 12/01/24 21:06 Temperature Pulse Rate 82 94 Respiratory Rate 16 Blood Pressure Pulse Oximetry 100 Oxygen Delivery Nasal Cannula Oxygen Flow Rate 4 12/01/24 21:16 12/01/24 22:00 12/01/24 23:25 Temperature 98.0 F Pulse Rate 96 98 97 Respiratory Rate 16 17 Blood Pressure 110/45 L Pulse Oximetry 99 Oxygen Delivery Oxygen Flow Rate 12/02/24 00:00 12/02/24 00:00 12/02/24 02:00 Temperature Pulse Rate 95 95 Respiratory Rate 18 Blood Pressure Pulse Oximetry 100 Oxygen Delivery Nasal Cannula Oxygen Flow Rate 4 12/02/24 02:12 12/02/24 02:20 12/02/24 03:36 Temperature 97.8 F Pulse Rate 93 94 94 Respiratory Rate 16 16 17 Blood Pressure 118/51 L Pulse Oximetry 100 Oxygen Delivery Oxygen Flow Rate 12/02/24 04:00 12/02/24 04:00 12/02/24 06:00 Temperature Pulse Rate 100 100 Respiratory Rate 20 Blood Pressure Pulse Oximetry 100 Oxygen Delivery Nasal Cannula Oxygen Flow Rate 4 12/02/24 08:00 12/02/24 08:00 12/02/24 08:20 Temperature 97.7 F Pulse Rate 106 H 101 H Respiratory Rate 22 H Blood Pressure 100/47 L Pulse Oximetry 100 100 Oxygen Delivery Nasal Cannula Oxygen Flow Rate 4 12/02/24 08:44 12/02/24 08:44 12/02/24 08:57 Temperature Pulse Rate 98 97 Respiratory Rate 16 16 Blood Pressure Pulse Oximetry 100 Oxygen Delivery Nasal Cannula Oxygen Flow Rate 4 12/02/24 09:40 12/02/24 10:00 12/02/24 10:32 Temperature Pulse Rate 88 Respiratory Rate Blood Pressure Pulse Oximetry 100 95 Oxygen Delivery Nasal Cannula Room Air Oxygen Flow Rate 2 12/02/24 14:52 12/02/24 15:03 12/02/24 16:00 Temperature Pulse Rate 88 87 93 Respiratory Rate 16 16 Blood Pressure Pulse Oximetry Oxygen Delivery Oxygen Flow Rate 12/02/24 16:00 Temperature 97.7 F Pulse Rate 102 H Respiratory Rate 24 H Blood Pressure 137/62 Pulse Oximetry 98 Oxygen Delivery Oxygen Flow Rate Exam 2 Const: General: acute distress mild, ill appearing, tired appearing and obese HENMT: Head: normal to inspection, normocephalic and atraumatic Eyes: General: appearance normal, both eyes and all related structures Neck: Neck: normal visual inspection Resp: Auscultation: diminished lung sounds Cardio: Rate: regular rate Rhythm: regular rhythm GI: Inspection: normal to inspection and non-distended GI Palp: No abdominal tenderness and Yes Soft to palpation Other: Perc cholecystostomy tube with bilious drainage Skin: General skin exam: normal color and no rashes or lesions noted Neuro: Other: awake and alert Extrem: General: normal to inspection and full ROM Results Labs 12/02/24 04:26 12/02/24 12:35 Labs: Short CBC 12/02/24 Range/Units 04:26 WBC 9.9 (4.5-10.0) K/mm3 Hgb 9.1 L (12.0-15.0) g/dL Hct 29.7 L (37.0-47.0) % Plt Count 145 L (150-375) k/mm3 BMP 12/01/24 12/02/24 12/02/24 17:03 04:26 12:35 Sodium 132 L 136 L Potassium 5.7 H 5.5 H 5.2 H Chloride 109 H 109 H Carbon Dioxide 16 L 23 BUN 39 H 37 H Creatinine 3.10 H 2.99 H Glucose 156 H 90 Calcium 10.0 9.9 Liver Function 12/02/24 Range/Units 04:26 Total Bilirubin 0.2 (0.2-1.3) mg/dL AST 15 (14-36) U/L ALT 11 (6-35) U/L Alkaline Phosphatase 78 (38-126) U/L Albumin 3.1 L (3.5-5.1) g/dL
[2024-12-02 20:04] LABS: Glucose Point of Care 104 mg/dl (65-105)
[2024-12-02] MEDS: traZODone HCL 50 MG TABLET PO (20:42)
[2024-12-02] MEDS: traMADol HCL (*CRX) 50 MG TABLET PO (20:42)
[2024-12-03] VITALS (19 sets, daily range): BP systolic 103–123; BP diastolic 44–59; PULSE 75–103; RESP 12–20; TEMP 36.3–36.9; O2SAT 90–100
[2024-12-03] MEDS: SODIUM CHLORIDE 0.9% IV 1,000 ML 100 ML IV CONT (02:10)
[2024-12-03] MEDS: ALBUTEROL SULFATE NEB 2.5 MG/3 ML INH INHALATION ×4 (02:55→20:54)
[2024-12-03] MEDS: LEVOTHYROXINE SODIUM 50 MCG TABLET PO (06:00)
[2024-12-03 07:14] LABS: Glucose Point of Care 61 mg/dl (65-105)
[2024-12-03] MEDS: DEXTROSE 50% 25 GM/50 ML SYRINGE IV PUSH (07:35)
[2024-12-03 07:55] LABS: Glucose Point of Care 114 mg/dl (65-105)
--- NOTE | 2024-12-03 08:14 | PC.NURSE ---
To radiology dept for test via bed accompanied by staff
[2024-12-03] MEDS: oxyBUTYnin CHLORIDE XL 5 MG TAB.ER.24 PO (10:13)
[2024-12-03] MEDS: allopurinoL 100 MG TABLET 200 MG PO (10:13)
[2024-12-03] MEDS: METOPROLOL TARTRATE 50 MG TAB PO ×2 (10:14→20:26)
[2024-12-03] MEDS: ALPRAZolam (*CRX) 0.25 MG TABLET PO (10:14)
[2024-12-03] MEDS: cilostazoL 100 MG TABLET PO ×2 (10:16→17:19)
[2024-12-03] MEDS: LORATADINE 10 MG TABLET PO (10:16)
[2024-12-03] MEDS: PANTOPRAZOLE 40 MG TABLET PO ×2 (10:16→20:26)
[2024-12-03] MEDS: ESCITALOPRAM OXALATE 10 MG TABLET 20 MG PO (10:17)
[2024-12-03] MEDS: MAGNESIUM OXIDE 400 MG TABLET PO ×2 (10:17→17:19)
[2024-12-03] MEDS: DOXYCYCLINE HYCLATE 100 MG TABLET PO ×2 (10:17→20:26)
[2024-12-03] MEDS: FLUTICASONE PROPIONATE 0.05% NA SPR 16 GM BTL (*BKC) 2 SPRAY NASAL (10:18)
[2024-12-03] MEDS: SACCHAROMYCES BOULARDII 250 MG CAPSULE PO ×2 (10:18→17:18)
[2024-12-03] MEDS: guaiFENesin 12 HR 600 MG TABCR PO ×2 (10:19→20:26)
[2024-12-03] MEDS: ACETAMINOPHEN 325 MG TABLET 650 MG PO (10:23)
[2024-12-03] MEDS: ENOXAPARIN 30 MG/0.3 ML SYRINGE SUB-Q (11:53)
--- NOTE | 2024-12-03 12:13 | P.PNGS_ITS ---
Progress Note: A&P Assessment and Plan (1) Chronic cholecystitis: Code(s): K81.1 - Chronic cholecystitis Status: Acute Assessment and Plan: cont drain and abx, exam benign, WBC normalized Subjective Subjective Date/Time Seen: 12/03/24 12:13 Interval history: no abd pain, patel diet Review of Systems Review of Systems: All systems reviewed & are unremarkable except as noted in HPI and below Exam Const: General: cooperative, ill appearing and obese Resp: Auscultation: clear to auscultation bilaterally Cardio: Rate: regular rate Rhythm: regular rhythm GI: Inspection: normal to inspection, non-distended, Pannus present and obesity GI Palp: No abdominal tenderness and Yes Soft to palpation Other: perc salma c bilious drainage Objective Data Vital Signs Vital Signs: Vital Signs - 24 hr 12/02/24 14:52 12/02/24 15:03 12/02/24 16:00 Temperature Pulse Rate 88 87 93 Respiratory Rate 16 16 Blood Pressure Pulse Oximetry Oxygen Delivery 12/02/24 16:00 12/02/24 20:00 12/02/24 20:00 Temperature 36.5 C Pulse Rate 102 H 120 H Respiratory Rate 24 H Blood Pressure 137/62 Pulse Oximetry 98 100 Oxygen Delivery Room Air 12/02/24 20:31 12/02/24 20:42 12/03/24 00:00 Temperature 36.6 C Pulse Rate 86 90 97 Respiratory Rate 14 18 Blood Pressure 103/56 L Pulse Oximetry 100 Oxygen Delivery 12/03/24 01:00 12/03/24 03:07 12/03/24 03:35 Temperature Pulse Rate 81 81 85 Respiratory Rate 20 Blood Pressure Pulse Oximetry Oxygen Delivery 12/03/24 07:44 12/03/24 07:44 12/03/24 07:51 Temperature Pulse Rate 89 89 89 Respiratory Rate 14 14 14 Blood Pressure Pulse Oximetry 90 Oxygen Delivery Room Air 12/03/24 07:56 12/03/24 08:30 12/03/24 08:30 Temperature 36.8 C Pulse Rate 103 H 96 89 Respiratory Rate 12 Blood Pressure 117/44 L Pulse Oximetry 100 100 Oxygen Delivery Room Air 12/03/24 10:14 Temperature Pulse Rate 93 Respiratory Rate Blood Pressure Pulse Oximetry Oxygen Delivery Intake/Output Intake/Output: Intake & Output 11/30/24 12/01/24 12/02/24 12/03/24 23:59 23:59 23:59 23:59 Intake Total 2809.6 100 1050 Output Total 150 478 350 Balance 2659.6 -378 700 Meds/Results Medications: Active Medications Generic Name Dose Route Start Last Admin Trade Name Freq PRN Reason Stop Dose Admin Acetaminophen 650 mg 12/01/24 12:30 12/03/24 10:23 Acetaminophen 325 Mg Tablet PO 650 mg Q4H PRN Administration Mild Pain (1-3) or Fever Albuterol 2.5 mg 12/01/24 14:00 12/03/24 07:43 Albuterol Sulfate Neb 2.5 Mg/3 Ml Inh INHALATION 2.5 mg Q6HRT CYNDI Administration Allopurinol 200 mg 12/02/24 09:00 12/03/24 10:13 Allopurinol 100 Mg Tablet PO 200 mg DAILY CYNDI Administration Alprazolam 0.25 mg 12/03/24 09:00 12/03/24 10:14 Alprazolam (*Crx) 0.25 Mg Tablet PO 0.25 mg DAILY CYNDI Administration Benzonatate 100 mg 12/01/24 12:30 Benzonatate 100 Mg Capsule PO TID PRN Cough Bisacodyl 10 mg 12/01/24 21:26 Bisacodyl 10 Mg Suppository RECTAL DAILY PRN constipation Cilostazol 100 mg 12/02/24 09:00 12/03/24 10:16 Cilostazol 100 Mg Tablet PO 100 mg BID CYNDI Administration Dextrose 12.5 gm 12/01/24 11:46 12/03/24 07:35 Dextrose 50% 25 Gm/50 Ml Syringe IV PUSH 12.5 gm PRN PRN Administration Hypoglycemia Protocol Doxycycline Hyclate 100 mg 12/02/24 09:00 12/03/24 10:17 Doxycycline Hyclate 100 Mg Tablet PO 12/09/24 08:59 100 mg Q12HR CYNDI Administration Enoxaparin Sodium 30 mg 12/02/24 09:00 12/03/24 11:53 Enoxaparin 30 Mg/0.3 Ml Syringe SUB-Q 30 mg DAILY CYNDI Administration Escitalopram Oxalate 20 mg 12/02/24 09:00 12/03/24 10:17 Escitalopram Oxalate 10 Mg Tablet PO 20 mg DAILY CYNDI Administration Ferrous Sulfate 325 mg 12/02/24 12:00 12/02/24 20:56 Ferrous Sulfate [address] BY MOUTH 325 mg 1200,1700,2100 CYNDI Administration Fluticasone Propionate 2 spray 12/02/24 09:00 12/03/24 10:18 Fluticasone Propionate 0.05% Na Spr 16 Gm Btl (*Bkc) NASAL 2 spray DAILY CYNDI Administration Glucagon 1 mg 12/01/24 11:46 Glucagon For Inj 1 Mg Vial IM PRN PRN Hypoglycemia Protocol Glucose 15 gm 12/01/24 11:46 Glucose Oral Gel 15 Gm Of Glucse In 37.5 Gm Tube PO PRN PRN Hypoglycemia Protocol Guaifenesin 600 mg 12/01/24 21:00 12/03/24 10:19 Guaifenesin 12 Hr 600 Mg Tabcr PO 600 mg Q12HR CYNDI Administration Dextrose 1,000 mls @ 100 mls/hr 12/01/24 11:46 Dextrose 5% 1,000 Ml IVPB PRN PRN Hypoglycemia Protocol Ceftriaxone Sodium 1 gm in 50 mls @ 100 mls/hr 12/01/24 22:00 12/03/24 07:26 Rocephin 1 Gm/Ns 50 Ml IVPB Infused Q24H CYNDI Infusion Sodium Chloride 1,000 mls @ 100 mls/hr 12/02/24 15:30 12/03/24 02:10 Normal Saline Iv IV CONT 100 mls/hr .Q10H CYNDI Administration Insulin Aspart 4 - 8 units 12/01/24 17:00 12/03/24 11:53 Insulin Aspart (*Bkc) 100 Units/Ml SUB-Q Not Given TIDWM [facility] Protocol Levothyroxine Sodium 50 mcg 12/02/24 06:30 12/03/24 06:00 Levothyroxine Sodium 50 Mcg Tablet PO 50 mcg [id number] CYNDI Administration Levothyroxine Sodium 100 mcg 12/06/24 06:30 Levothyroxine Sodium 100 Mcg Tablet PO SuSa CYNDI Loratadine 10 mg 12/02/24 09:00 12/03/24 10:16 Loratadine 10 Mg Tablet PO 10 mg QAM CYNDI Administration Magnesium Citrate 296 ml 12/01/24 21:26 Magnesium Citrate 300 Ml Btl PO DAILY PRN constipation Magnesium Hydroxide 30 ml 12/01/24 21:26 Magnesium Hydroxide Susp 30 Ml Udc PO HS PRN constipation Magnesium Oxide 400 mg 12/02/24 09:00 12/03/24 10:17 Magnesium Oxide 400 Mg Tablet PO 400 mg TID CYNDI Administration Metoprolol Tartrate 50 mg 12/02/24 09:00 12/03/24 10:14 Metoprolol Tartrate 50 Mg Tab PO 50 mg Q12HR CYNDI Administration Miconazole Nitrate 1 applic 12/02/24 09:26 Miconazole Nitrate 2% Cream 30 Gm Tube TOPICAL DAILY PRN rash Ondansetron HCl 4 mg 12/01/24 21:26 Ondansetron Hcl Odt 4 Mg Tablet PO Q6H PRN nausea and vomiting Oxybutynin Chloride 5 mg 12/02/24 09:00 12/03/24 10:13 Oxybutynin Chloride Xl 5 Mg Tab.Er.24 PO 5 mg DAILY CYNDI Administration Pantoprazole Sodium 40 mg 12/02/24 21:00 12/03/24 10:16 Pantoprazole 40 Mg Tablet PO 40 mg Q12HR CYNDI Administration Saccharomyces Boulardii 250 mg 12/02/24 09:00 12/03/24 10:18 Saccharomyces Boulardii 250 Mg Capsule PO 250 mg TID CYNDI Administration Tramadol HCl 50 mg 12/02/24 21:00 12/02/24 20:42 Tramadol Hcl (*Crx) 50 Mg Tablet PO 50 mg HS CYNDI Administration Trazodone HCl 50 mg 12/02/24 21:00 12/02/24 20:42 Trazodone Hcl 50 Mg Tablet PO 50 mg HS CYNDI Administration Radiology Results: ITS Impressions Chest X-Ray 12/01/24 11:57 IMPRESSION: Left basilar atelectasis versus pneumonia medially. Renal Ultrasound 12/01/24 18:01 IMPRESSION: No hydronephrosis or renal calculi. Findings suggesting medical renal disease. Atrophy of the right kidney in comparison to the left. Cholangiogram 12/03/24 10:16 IMPRESSION: 1. Cholecystostomy tube in expected position with loops formed within the fundus of the gallbladder. 2. Cholelithiasis with likely occluded cystic duct which does not opacify with contrast during the 5 minutes following injection of 50 mL water-soluble contrast. Labs Labs: Laboratory Results - last 24 hr 12/02/24 12/02/24 12/02/24 11:06 12:35 16:16 Potassium 5.2 H POC Capillary Glucose 97 C. difficile (PCR) Negative 12/02/24 12/03/24 12/03/24 19:58 07:07 07:51 Potassium POC Capillary Glucose 104 61 L 114 H C. difficile (PCR)
--- NOTE | 2024-12-03 13:19 | PM.IMPN ---
Progress Note: A&P Assessment and Plan (1) Sepsis: Qualifiers: Acute renal failure type: unspecified Sepsis acute organ dysfunction status: with acute organ dysfunction Sepsis type: sepsis due to unspecified organism Severe sepsis acute organ dysfunction type: acute renal failure Severe sepsis shock status: without septic shock Qualified Code(s): A41.9 - Sepsis, unspecified organism; R65.20 - Severe sepsis without septic shock; N17.9 - Acute kidney failure, unspecified Code(s): A41.9 - Sepsis, unspecified organism Status: Acute Assessment and Plan: - meets SIRS criteria: HR, RR, BP - lactic acid: 1.6 - 30 mL/kg = 3.9L, c/f volume overload/CHF. responded well to 1L bolus. will give second liter at 125 mL/hr, monitor closely. - suspected source: PNA, possible UTI - started on Levaquin pn 12/01, transition to ceftriaxone IV and doxycycline p.o. to avoid QT prolongation - blood cultures drawn on 12/01, follow - UA equivocal for infection -> turbid, 2+ protein, trace ketones, 2+ blood, 3+ leuk esterase, 6-10 RBC, greater than 150 BC, WBC clumps present, moderate epithelial cells, 4 active. - CXR: Left basilar atelectasis versus pneumonia medially. - monitor hemodynamic stability (2) Pneumonia: Qualifiers: Laterality: left Lung location: lower lobe of lung Pneumonia type: due to unspecified organism Qualified Code(s): J18.9 - Pneumonia, unspecified organism Code(s): J18.9 - Pneumonia, unspecified organism Status: Acute Assessment and Plan: - CXR showed possible left basiliar PNA - started on Levaquin on 12/01 -> now on ceftriaxone/doxycycline - check MRSA PCR and sputum culture (if obtainable) - supportive care: TYL prn Mucinex destiney Albuterol neb destiney Tessalon Perles prn - new supplemental O2 requirement -> 4L NC (3) Asthma: Qualifiers: Asthma complication type: with acute exacerbation Asthma persistence: unspecified Asthma severity: unspecified severity Qualified Code(s): J45.901 - Unspecified asthma with (acute) exacerbation Code(s): J45.909 - Unspecified asthma, uncomplicated Status: Acute Assessment and Plan: - albuterol nebulizer p.r.n. (4) Elevated brain natriuretic peptide (BNP) level: Code(s): R79.89 - Other specified abnormal findings of blood chemistry Status: Acute Assessment and Plan: - BNP 1010 - check echo, no previous on file - not on a home diuretic, given 20 of Lasix IV. Will hold on further doses as the patient has been soft to hypertensive. Does not appear volume overloaded on exam. - monitor I&Os and daily weights - trend renal function (5) Acute kidney injury superimposed on CKD: Code(s): N17.9 - Acute kidney failure, unspecified; N18.9 - Chronic kidney disease, unspecified Status: Acute Assessment and Plan: - upon admission creatinine 2.97, GFR 16, BUN 40. previously 1.8, GFR 28, BUN 19 on 11/14/2024 - check renal ultrasound, CK, urine sodium, protein/creatinine, urea - UA showed possible UTI v contaminate (mod epith cells), follow culture. on Levaquin. - check bladder scan for post-void residual x1 - monitor I&Os - hold mike inhibitors and diuretics as appropriate - trial IV fluids x24 hrs, if no improvement consider nephrology consultation (6) Acute hyperkalemia: Code(s): E87.5 - Hyperkalemia Status: Acute Assessment and Plan: - K 5.2 -12/02: Received albuterol and Lokelma - initiate treated with calcium, dextrose/insulin, albuterol, IV bolus, bicarb. repeat BMP at 1:00 p.m. -> K 5.9. Repeat insulin/dextrose, calcium, add Lasix 20 mg IV. Recheck at 8 p.m. - hold home p.o. potassium - telemetry monitoring - monitor (7) Atrial fibrillation: Qualifiers: Atrial fibrillation type: unspecified Qualified Code(s): I48.91 - Unspecified atrial fibrillation Code(s): I48.91 - Unspecified atrial fibrillation Status: Acute Assessment and Plan: - possible history of AFib, patient unsure. Initial EKG showing AFib RVR. - obtained with 1L bolus of NS, HR now 96 - telemetry monitoring - continue home medications: Metoprolol 50 mg b.i.d. 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 truck driver use Qualified Code(s): E11.9 - Type 2 diabetes mellitus without complications Code(s): E11.9 - Type 2 diabetes mellitus without complications Status: Chronic Assessment and Plan: - hypoglycemia protocol - POC blood glucose ACHS - home medication: hold metformin in case of need for contrast - correct regimen ordered - high dose TIDWM, based off BMI - A1C 4.8% 10/20/24 (9) Anemia: Qualifiers: Anemia type: due to chronic kidney disease Chronic kidney disease stage: unspecified stage Qualified Code(s): N18.9 - Chronic kidney disease, unspecified; D63.1 - Anemia in chronic kidney disease Code(s): D64.9 - Anemia, unspecified Status: Chronic Assessment and Plan: - suspect chronic anemia secondary to CKD - Hgb 10.5, 11.1 on 11/14 - transfuse if <7 - trend H&H (10) Cholecystostomy care: Code(s): Z43.4 - Encounter for attention to other artificial openings of digestive tract Status: Acute Assessment and Plan: Management As per surgery Surgery evaluated the patient and will get a cholangiogram through the cholecystostomy tube for further evaluation. Plan Diet: Heart healthy GI Prophylaxis: Not currently indicated DVT Prophylaxis: Lovenox SQ IV fluids: 1L bolus -> 125 mL/hr x1L Lines/Tubes: Peripheral IV Code Status: DNR Subjective Date/time seen: 12/03/24 13:19 Interval history: Patient is more oriented today. Patient will undergo barium swallow study. GI evaluated the patient and no acute intervention. Surgery evaluated the patient and will get a cholangiogram through the cholecystostomy tube for further evaluation. Review of Systems Review of Systems: All systems reviewed & are unremarkable except as noted in HPI and below Exam Narrative: obese, chronically ill appearing, diminished lung sounds bilaterally. moderate, intermittent tremor to BUE. A/O to self only. +cough. Const: Other: Chronically ill-appearing, obese, female, appears uncomfortable but in no acute distress. HENMT: Face/Nose/Sinus: Normal nares present Mouth: Yes moist mucous membranes Eyes: General: appearance normal, both eyes and all related structures Sclera: sclerae normal Pupils: Equal, round and reactive pupils present EOM: EOMs intact bilaterally Resp: Effort & Inspection: normal respiratory effort Other: diminished lung sounds bilaterally. + cough Cardio: Rate: regular rate Rhythm: regular rhythm Other: S1-S2 present without murmur, rub, ectopy GI: Other: Abdomen soft, nondistended, nontender. Normoactive bowel sounds in all quadrants. Skin: General skin exam: normal color and no rashes or lesions noted Wounds: no wounds Neuro: Cranial nerves: Yes Equal, round and reactive pupils present Speech: normal speech Sensory Exam: normal sensation Other: Generalized weakness, A&O x1 (self only). moderate, intermittent tremor to BUE. Extrem: Other: 1+ edema to bilateral lower extremities, nonpitting and symmetric. Psych: Mental Status: mental status grossly normal Affect: normal affect Other: Poor insight and judgment Objective Data Vital Signs Vital Signs: Vital Signs - 24 hr 12/02/24 14:52 12/02/24 15:03 12/02/24 16:00 Temperature Pulse Rate 88 87 93 Respiratory Rate 16 16 Blood Pressure Pulse Oximetry Oxygen Delivery 12/02/24 16:00 12/02/24 20:00 12/02/24 20:00 Temperature 97.7 F Pulse Rate 102 H 120 H Respiratory Rate 24 H Blood Pressure 137/62 Pulse Oximetry 98 100 Oxygen Delivery Room Air 12/02/24 20:31 12/02/24 20:42 12/03/24 00:00 Temperature 97.9 F Pulse Rate 86 90 97 Respiratory Rate 14 18 Blood Pressure 103/56 L Pulse Oximetry 100 Oxygen Delivery 12/03/24 01:00 12/03/24 03:07 12/03/24 03:35 Temperature Pulse Rate 81 81 85 Respiratory Rate 20 Blood Pressure Pulse Oximetry Oxygen Delivery 12/03/24 07:44 12/03/24 07:44 12/03/24 07:51 Temperature Pulse Rate 89 89 89 Respiratory Rate 14 14 14 Blood Pressure Pulse Oximetry 90 Oxygen Delivery Room Air 12/03/24 07:56 12/03/24 08:30 12/03/24 08:30 Temperature 98.2 F Pulse Rate 103 H 96 89 Respiratory Rate 12 Blood Pressure 117/44 L Pulse Oximetry 100 100 Oxygen Delivery Room Air 12/03/24 10:14 Temperature Pulse Rate 93 Respiratory Rate Blood Pressure Pulse Oximetry Oxygen Delivery Intake/Output Intake/Output: Intake & Output 11/30/24 12/01/24 12/02/24 12/03/24 23:59 23:59 23:59 23:59 Intake Total 2809.6 100 1050 Output Total 150 478 350 Balance 2659.6 -469 700 Meds/Results Medications: Active Medications Generic Name Dose Route Start Last Admin Trade Name Freq PRN Reason Stop Dose Admin Acetaminophen 650 mg 12/01/24 12:30 12/03/24 10:23 Acetaminophen 325 Mg Tablet PO 650 mg Q4H PRN Administration Mild Pain (1-3) or Fever Albuterol 2.5 mg 12/01/24 14:00 12/03/24 07:43 Albuterol Sulfate Neb 2.5 Mg/3 Ml Inh INHALATION 2.5 mg Q6HRT DESTINEY Administration Allopurinol 200 mg 12/02/24 09:00 12/03/24 10:13 Allopurinol 100 Mg Tablet PO 200 mg DAILY DESTINEY Administration Alprazolam 0.25 mg 12/03/24 09:00 12/03/24 10:14 Alprazolam (*Crx) 0.25 Mg Tablet PO 0.25 mg DAILY DESTINEY Administration Benzonatate 100 mg 12/01/24 12:30 Benzonatate 100 Mg Capsule PO TID PRN Cough Bisacodyl 10 mg 12/01/24 21:26 Bisacodyl 10 Mg Suppository RECTAL DAILY PRN constipation Cilostazol 100 mg 12/02/24 09:00 12/03/24 10:16 Cilostazol 100 Mg Tablet PO 100 mg BID DESTINEY Administration Dextrose 12.5 gm 12/01/24 11:46 12/03/24 07:35 Dextrose 50% 25 Gm/50 Ml Syringe IV PUSH 12.5 gm PRN PRN Administration Hypoglycemia Protocol Doxycycline Hyclate 100 mg 12/02/24 09:00 12/03/24 10:17 Doxycycline Hyclate 100 Mg Tablet PO 12/09/24 08:59 100 mg Q12HR DESTINEY Administration Enoxaparin Sodium 30 mg 12/02/24 09:00 12/03/24 11:53 Enoxaparin 30 Mg/0.3 Ml Syringe SUB-Q 30 mg DAILY DESTINEY Administration Escitalopram Oxalate 20 mg 12/02/24 09:00 12/03/24 10:17 Escitalopram Oxalate 10 Mg Tablet PO 20 mg DAILY DESTINEY Administration Ferrous Sulfate 325 mg 12/02/24 12:00 12/02/24 20:56 Ferrous Sulfate [address] BY MOUTH 325 mg 1200,1700,2100 DESTINEY Administration Fluticasone Propionate 2 spray 12/02/24 09:00 12/03/24 10:18 Fluticasone Propionate 0.05% Na Spr 16 Gm Btl (*Bkc) NASAL 2 spray DAILY DESTINEY Administration Glucagon 1 mg 12/01/24 11:46 Glucagon For Inj 1 Mg Vial IM PRN PRN Hypoglycemia Protocol Glucose 15 gm 12/01/24 11:46 Glucose Oral Gel 15 Gm Of Glucse In 37.5 Gm Tube PO PRN PRN Hypoglycemia Protocol Guaifenesin 600 mg 12/01/24 21:00 12/03/24 10:19 Guaifenesin 12 Hr 600 Mg Tabcr PO 600 mg Q12HR DESTINEY Administration Dextrose 1,000 mls @ 100 mls/hr 12/01/24 11:46 Dextrose 5% 1,000 Ml IVPB PRN PRN Hypoglycemia Protocol Ceftriaxone Sodium 1 gm in 50 mls @ 100 mls/hr 12/01/24 22:00 12/03/24 07:26 Rocephin 1 Gm/Ns 50 Ml IVPB Infused Q24H DESTINEY Infusion Sodium Chloride 1,000 mls @ 100 mls/hr 12/02/24 15:30 12/03/24 02:10 Normal Saline Iv IV CONT 100 mls/hr .Q10H DESTINEY Administration Insulin Aspart 4 - 8 units 12/01/24 17:00 12/03/24 11:53 Insulin Aspart (*Bkc) 100 Units/Ml SUB-Q Not Given TIDWM DESTINEY Protocol Levothyroxine Sodium 50 mcg 12/02/24 06:30 12/03/24 06:00 Levothyroxine Sodium 50 Mcg Tablet PO 50 mcg MoTuWeThFr DESTINEY Administration Levothyroxine Sodium 100 mcg 12/06/24 06:30 Levothyroxine Sodium 100 Mcg Tablet PO SuSa DESTINEY Loratadine 10 mg 12/02/24 09:00 12/03/24 10:16 Loratadine 10 Mg Tablet PO 10 mg QAM DESTINEY Administration Magnesium Citrate 296 ml 12/01/24 21:26 Magnesium Citrate 300 Ml Btl PO DAILY PRN constipation Magnesium Hydroxide 30 ml 12/01/24 21:26 Magnesium Hydroxide Susp 30 Ml Udc PO HS PRN constipation Magnesium Oxide 400 mg 12/02/24 09:00 12/03/24 10:17 Magnesium Oxide 400 Mg Tablet PO 400 mg TID DESTINEY Administration Metoprolol Tartrate 50 mg 12/02/24 09:00 12/03/24 10:14 Metoprolol Tartrate 50 Mg Tab PO 50 mg Q12HR DESTINEY Administration Miconazole Nitrate 1 applic 12/02/24 09:26 Miconazole Nitrate 2% Cream 30 Gm Tube TOPICAL DAILY PRN rash Ondansetron HCl 4 mg 12/01/24 21:26 Ondansetron Hcl Odt 4 Mg Tablet PO Q6H PRN nausea and vomiting Oxybutynin Chloride 5 mg 12/02/24 09:00 12/03/24 10:13 Oxybutynin Chloride Xl 5 Mg Tab.Er.24 PO 5 mg DAILY DESTINEY Administration Pantoprazole Sodium 40 mg 12/02/24 21:00 12/03/24 10:16 Pantoprazole 40 Mg Tablet PO 40 mg Q12HR DESTINEY Administration Saccharomyces Boulardii 250 mg 12/02/24 09:00 12/03/24 10:18 Saccharomyces Boulardii 250 Mg Capsule PO 250 mg TID DESTINEY Administration Tramadol HCl 50 mg 12/02/24 21:00 12/02/24 20:42 Tramadol Hcl (*Crx) 50 Mg Tablet PO 50 mg HS DESTINEY Administration Trazodone HCl 50 mg 12/02/24 21:00 12/02/24 20:42 Trazodone Hcl 50 Mg Tablet PO 50 mg HS DESTINEY Administration Radiology Results: ITS Impressions Chest X-Ray 12/01/24 11:57 IMPRESSION: Left basilar atelectasis versus pneumonia medially. Renal Ultrasound 12/01/24 18:01 IMPRESSION: No hydronephrosis or renal calculi. Findings suggesting medical renal disease. Atrophy of the right kidney in comparison to the left. Cholangiogram 12/03/24 10:16 IMPRESSION: 1. Cholecystostomy tube in expected position with loops formed within the fundus of the gallbladder. 2. Cholelithiasis with likely occluded cystic duct which does not opacify with contrast during the 5 minutes following injection of 50 mL water-soluble contrast. Labs Labs: Laboratory Results - last 24 hr 12/02/24 12/02/24 12/03/24 16:16 19:58 07:07 POC Capillary Glucose 97 104 61 L 12/03/24 07:51 POC Capillary Glucose 114 H Quality VTE Prophylaxis VTE prophylaxis: pharmacologic ordered Hospitalist [facility] Advance Care Plan I have confirmed that the patient's Advanced Care Plan is present, code status is documented, or surrogate decision maker is listed in patient medical record.: Yes Medication Reconciliation I have utilized all available resources to obtain, update and review the patients current medications (includes all prescriptions, OTC, herbals, cannabis, and nutritional supplements).: Yes
[2024-12-03 13:59] LABS: Mean Corpuscular Hemoglobin 32.1 pg (26-34); Mean Corpuscular Volume 103.6 fl (80-100); Mean Platelet Volume 10.5 fl (7.4-10.4); Platelet Count Result 154 k/mm3 (150-375); Red Cell Distribution Width 15.5 % (11.5-14.5); White Blood Count 9.2 K/mm3 (4.5-10.0)
[2024-12-03 14:16] LABS: Glucose Point of Care 101 mg/dl (65-105)
[2024-12-03 14:18] LABS: Alanine Aminotransferase 10 U/L (6-35); Albumin Level 3.2 g/dL (3.5-5.1); Alkaline Phosphatase 78 U/L (38-126); Anion Gap 8 mmol/L (4-12); Aspartate Amino Transferase 17 U/L (14-36); Bilirubin,Total 0.3 mg/dL (0.2-1.3); Blood Urea Nitrogen 31 mg/dL (7-17); Calcium 9.3 mg/dL (8.4-10.2); Carbon Dioxide 23 mmol/L (22-30); Chloride 110 mmol/L (98-107); Estimated CRCL calculation 26 ml/min; Estimated Glomerular Filt Rate 18; Glucose 99 mg/dL (65-110); Potassium 3.9 mmol/L (3.4-5.0); Sodium 141 mmol/L (137-145); Total Protein 5.9 g/dL (6.3-8.2)
--- NOTE | 2024-12-03 15:46 | PCSTNOTE ---
Please refer to the Modified Barium Swallow (MBS) Evaluation in the EMR. The above pt with PMH of asthma, diabetes, peripheral vascular disease, chronic kidney disease, anemia, hypertension, hyperlipidemia, and hypothyroidism presents here from ID with shortness of breath and concerns for pneumonia. Pt was seen for an MBS after a bedside swallow evaluation revealed overt s/s of aspiration. Pt was positioned for a lateral view; view was at times was altered due to her large size. Pt was also emotional and crying throughout testing. She was presented with 5 ml thin liquids via a spoon, pudding consistency barium via a spoon, cracker pieces coated with barium pudding, and uncontrolled thin liquids presented via a cup and a straw. The oral stages were WFL; mastication was slow but she is missing back teeth. During the pharyngeal stage,reduced laryngeal penetration was exhibited as evidenced by laryngeal penetration during the swallow of thin liquids. Actual transglottic aspiration could not be determined due to the challenges of the positioning (due to her size); however, with the chin tuck posture, only shallow and trace laryngeal penetration occurred. Impressions and recommendations: Moderate dysphagia as evidenced by deep laryngeal penetration (when without the chin tuck) but improved to trace and shallow with the chin tuck; level 6 soft and bite size diet with regular level 0 liquids. Pt should have 1:1 supervision during all oral intake to ensure the chin tuck is performed. She also should be readjusted in the bed so to achieve an adequate and effective chin tuck. ST for laryngeal elevation exercises.
[2024-12-03 16:15] LABS: Glucose Point of Care 90 mg/dl (65-105)
--- NOTE | 2024-12-03 17:16 | PC.NURSE ---
1704- report given to Rony RN-pt transferred to room 256 via bed accompanied by staff
[2024-12-03] MEDS: FERROUS SULFATE 325 MG TABLET DR BY MOUTH ×2 (17:19→20:29)
--- NOTE | 2024-12-03 17:56 | PC.NURSE ---
called contact number on chart x2 - to informed of transfer to [facility]- but went to voice mail- [address] [place] [address] notified unable to contact Jessica
--- NOTE | 2024-12-03 18:30 | P.PNGI_ITS ---
Progress Note: A&P Assessment and Plan (1) Anemia: Qualifiers: Anemia type: due to chronic kidney disease Chronic kidney disease stage: unspecified stage Qualified Code(s): N18.9 - Chronic kidney disease, unspecified; D63.1 - Anemia in chronic kidney disease Code(s): D64.9 - Anemia, unspecified Status: Chronic Assessment and Plan: chronic and stable no need to repeat another egd, last time noted ulcerative esophagitis continue with ppi daily stool dark green, no obvious blood will follow only as needed diet as tolerated with aspiration precaution (2) Ulcerative esophagitis: Code(s): K22.10 - Ulcer of esophagus without bleeding Status: Acute (3) Cholelithiasis with acute cholecystitis: Qualifiers: Biliary obstruction: with biliary obstruction Qualified Code(s): K80.01 - Calculus of gallbladder with acute cholecystitis with obstruction Code(s): K80.00 - Calculus of gallbladder with acute cholecystitis without obstruction Status: Acute Assessment and Plan: s/p cholangiogram, in position management per surgery (4) Cholecystostomy care: Code(s): Z43.4 - Encounter for attention to other artificial openings of digestive tract Status: Acute (5) Occult blood in stools: Code(s): R19.5 - Other fecal abnormalities Status: Acute Assessment and Plan: no need of scopes now (6) Pneumonia: Qualifiers: Pneumonia type: due to unspecified organism Laterality: left Lung location: lower lobe of lung Qualified Code(s): J18.9 - Pneumonia, unspecified organism Code(s): J18.9 - Pneumonia, unspecified organism Status: Acute Assessment and Plan: on treatment Subjective Date/time seen: 12/03/24 18:30 Interval history: no changes, she has fecal device- dark green stool without blood abdomen is benign she passed speech evaluation (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) Review of Systems Review of Systems: All systems reviewed & are unremarkable except as noted in HPI and below Exam Const: General: acute distress mild, ill appearing, tired appearing and obese HENMT: Head: normal to inspection, normocephalic and atraumatic Eyes: General: appearance normal, both eyes and all related structures Neck: Neck: normal visual inspection Resp: Auscultation: diminished lung sounds Cardio: Rate: regular rate Rhythm: regular rhythm GI: Inspection: normal to inspection and non-distended GI Palp: No abdominal tenderness and Yes Soft to palpation Other: Perc cholecystostomy tube with bilious drainage Skin: General skin exam: normal color and no rashes or lesions noted Neuro: Other: awake and alert but baseline confusion Extrem: General: normal to inspection Objective Data Vital Signs Vital Signs: Vital Signs - 24 hr 12/02/24 20:00 12/02/24 20:00 12/02/24 20:31 Temperature Pulse Rate 120 H 86 Respiratory Rate 14 Blood Pressure Pulse Oximetry 100 Oxygen Delivery Room Air 12/02/24 20:42 12/03/24 00:00 12/03/24 01:00 Temperature 97.9 F Pulse Rate 90 97 81 Respiratory Rate 18 Blood Pressure 103/56 L Pulse Oximetry 100 Oxygen Delivery 12/03/24 03:07 12/03/24 03:35 12/03/24 07:44 Temperature Pulse Rate 81 85 89 Respiratory Rate 20 14 Blood Pressure Pulse Oximetry 90 Oxygen Delivery Room Air 12/03/24 07:44 12/03/24 07:51 12/03/24 07:56 Temperature 98.2 F Pulse Rate 89 89 103 H Respiratory Rate 14 14 12 Blood Pressure 117/44 L Pulse Oximetry 100 Oxygen Delivery 12/03/24 08:30 12/03/24 08:30 12/03/24 10:14 Temperature Pulse Rate 96 89 93 Respiratory Rate Blood Pressure Pulse Oximetry 100 Oxygen Delivery Room Air 12/03/24 12:00 12/03/24 14:00 12/03/24 16:00 Temperature 98.5 F Pulse Rate 86 75 88 Respiratory Rate 14 16 Blood Pressure 123/59 L Pulse Oximetry 100 Oxygen Delivery 12/03/24 17:28 Temperature 97.7 F Pulse Rate 88 Respiratory Rate 20 Blood Pressure 120/57 L Pulse Oximetry 96 Oxygen Delivery Intake/Output Intake/Output: Intake & Output 11/30/24 12/01/24 12/02/24 12/03/24 23:59 23:59 23:59 23:59 Intake Total 2809.6 100 1950 Output Total 908 710 4691 Balance 2659.6 -378 940 Meds/Results Medications: Active Medications Generic Name Dose Route Start Last Admin Trade Name Freq PRN Reason Stop Dose Admin Acetaminophen 650 mg 12/01/24 12:30 12/03/24 10:23 Acetaminophen 325 Mg Tablet PO 650 mg Q4H PRN Administration Mild Pain (1-3) or Fever Albuterol 2.5 mg 12/01/24 14:00 12/03/24 14:03 Albuterol Sulfate Neb 2.5 Mg/3 Ml Inh INHALATION 2.5 mg Q6HRT CYNDI Administration Allopurinol 200 mg 12/02/24 09:00 12/03/24 10:13 Allopurinol 100 Mg Tablet PO 200 mg DAILY CYNDI Administration Alprazolam 0.25 mg 12/03/24 09:00 12/03/24 10:14 Alprazolam (*Crx) 0.25 Mg Tablet PO 0.25 mg DAILY CYNDI Administration Benzonatate 100 mg 12/01/24 12:30 Benzonatate 100 Mg Capsule PO TID PRN Cough Bisacodyl 10 mg 12/01/24 21:26 Bisacodyl 10 Mg Suppository RECTAL DAILY PRN constipation Cilostazol 100 mg 12/02/24 09:00 12/03/24 17:19 Cilostazol 100 Mg Tablet PO 100 mg BID CYNDI Administration Dextrose 12.5 gm 12/01/24 11:46 12/03/24 07:35 Dextrose 50% 25 Gm/50 Ml Syringe IV PUSH 12.5 gm PRN PRN Administration Hypoglycemia Protocol Doxycycline Hyclate 100 mg 12/02/24 09:00 12/03/24 10:17 Doxycycline Hyclate 100 Mg Tablet PO 12/09/24 08:59 100 mg Q12HR CYNDI Administration Enoxaparin Sodium 30 mg 12/02/24 09:00 12/03/24 11:53 Enoxaparin 30 Mg/0.3 Ml Syringe SUB-Q 30 mg DAILY CYNDI Administration Escitalopram Oxalate 20 mg 12/02/24 09:00 12/03/24 10:17 Escitalopram Oxalate 10 Mg Tablet PO 20 mg DAILY CYNDI Administration Ferrous Sulfate 325 mg 12/02/24 12:00 12/03/24 17:19 Ferrous Sulfate [address] BY MOUTH 325 mg 1200,1700,2100 CYNDI Administration Fluticasone Propionate 2 spray 12/02/24 09:00 12/03/24 10:18 Fluticasone Propionate 0.05% Na Spr 16 Gm Btl (*Bkc) NASAL 2 spray DAILY CYNDI Administration Glucagon 1 mg 12/01/24 11:46 Glucagon For Inj 1 Mg Vial IM PRN PRN Hypoglycemia Protocol Glucose 15 gm 12/01/24 11:46 Glucose Oral Gel 15 Gm Of Glucse In 37.5 Gm Tube PO PRN PRN Hypoglycemia Protocol Guaifenesin 600 mg 12/01/24 21:00 12/03/24 10:19 Guaifenesin 12 Hr 600 Mg Tabcr PO 600 mg Q12HR CYNDI Administration Dextrose 1,000 mls @ 100 mls/hr 12/01/24 11:46 Dextrose 5% 1,000 Ml IVPB PRN PRN Hypoglycemia Protocol Ceftriaxone Sodium 1 gm in 50 mls @ 100 mls/hr 12/01/24 22:00 12/03/24 07:26 Rocephin 1 Gm/Ns 50 Ml IVPB Infused Q24H [facility] Infusion Insulin Aspart 4 - 8 units 12/01/24 17:00 12/03/24 17:18 Insulin Aspart (*Bkc) 100 Units/Ml SUB-Q Not Given TIDWM [facility] Protocol Levothyroxine Sodium 50 mcg 12/02/24 06:30 12/03/24 06:00 Levothyroxine Sodium 50 Mcg Tablet PO 50 mcg [id number] [facility] Administration Levothyroxine Sodium 100 mcg 12/06/24 06:30 Levothyroxine Sodium 100 Mcg Tablet PO SuSa [facility] Loperamide HCl 2 mg 12/03/24 13:43 Loperamide Hcl 2 Mg Capsule PO PRN PRN Diarrhea Loratadine 10 mg 12/02/24 09:00 12/03/24 10:16 Loratadine 10 Mg Tablet PO 10 mg QAM [facility] Administration Magnesium Citrate 296 ml 12/01/24 21:26 Magnesium Citrate 300 Ml Btl PO DAILY PRN constipation Magnesium Hydroxide 30 ml 12/01/24 21:26 Magnesium Hydroxide Susp 30 Ml Udc PO HS PRN constipation Magnesium Oxide 400 mg 12/02/24 09:00 12/03/24 17:19 Magnesium Oxide 400 Mg Tablet PO 400 mg TID [facility] Administration Metoprolol Tartrate 50 mg 12/02/24 09:00 12/03/24 10:14 Metoprolol Tartrate 50 Mg Tab PO 50 mg Q12HR CYNDI Administration Miconazole Nitrate 1 applic 12/02/24 09:26 Miconazole Nitrate 2% Cream 30 Gm Tube TOPICAL DAILY PRN rash Ondansetron HCl 4 mg 12/01/24 21:26 Ondansetron Hcl Odt 4 Mg Tablet PO Q6H PRN nausea and vomiting Oxybutynin Chloride 5 mg 12/02/24 09:00 12/03/24 10:13 Oxybutynin Chloride Xl 5 Mg Tab.Er.24 PO 5 mg DAILY CYNDI Administration Pantoprazole Sodium 40 mg 12/02/24 21:00 12/03/24 10:16 Pantoprazole 40 Mg Tablet PO 40 mg Q12HR CYNDI Administration Saccharomyces Boulardii 250 mg 12/02/24 09:00 12/03/24 17:18 Saccharomyces Boulardii 250 Mg Capsule PO 250 mg TID CYNDI Administration Tramadol HCl 50 mg 12/02/24 21:00 12/02/24 20:42 Tramadol Hcl (*Crx) 50 Mg Tablet PO 50 mg HS CYNDI Administration Trazodone HCl 50 mg 12/02/24 21:00 12/02/24 20:42 Trazodone Hcl 50 Mg Tablet PO 50 mg HS CYNDI Administration Radiology Results: ITS Impressions Chest X-Ray 12/01/24 11:57 IMPRESSION: Left basilar atelectasis versus pneumonia medially. Renal Ultrasound 12/01/24 18:01 IMPRESSION: No hydronephrosis or renal calculi. Findings suggesting medical renal disease. Atrophy of the right kidney in comparison to the left. Cholangiogram 12/03/24 10:16 IMPRESSION: 1. Cholecystostomy tube in expected position with loops formed within the fundus of the gallbladder. 2. Cholelithiasis with likely occluded cystic duct which does not opacify with contrast during the 5 minutes following injection of 50 mL water-soluble contrast. Modified Barium Swallow 12/03/24 13:53 IMPRESSION: Pharyngeal dysphagia with laryngeal penetration and aspiration. Please correlate with speech pathologist findings and specific feeding recommendations. Labs Labs: Laboratory Results - last 24 hr 12/02/24 12/03/24 12/03/24 19:58 07:07 07:51 WBC RBC Hgb Hct MCV MCH MCHC RDW Plt Count MPV Sodium Potassium Chloride Carbon Dioxide Anion Gap BUN Creatinine Estim Creat Clear Calc Estimated GFR Glucose POC Capillary Glucose 104 61 L 114 H Calcium Total Bilirubin AST ALT Alkaline Phosphatase Total Protein Albumin 12/03/24 12/03/24 12/03/24 11:12 13:50 16:05 WBC 9.2 RBC 2.80 L Hgb 9.0 L Hct 29.0 L MCV 103.6 H MCH 32.1 MCHC 31.0 L RDW 15.5 H Plt Count 154 MPV 10.5 H Sodium 141 Potassium 3.9 Chloride 110 H Carbon Dioxide 23 Anion Gap 8 BUN 31 H Creatinine 2.56 H Estim Creat Clear Calc 26 Estimated GFR 18 L Glucose 99 POC Capillary Glucose 101 90 Calcium 9.3 Total Bilirubin 0.3 AST 17 ALT 10 Alkaline Phosphatase 78 Total Protein 5.9 L Albumin 3.2 L
[2024-12-03 19:59] LABS: Glucose Point of Care 106 mg/dl (65-105)
[2024-12-03] MEDS: traMADol HCL (*CRX) 50 MG TABLET PO (20:26)
[2024-12-03] MEDS: traZODone HCL 50 MG TABLET PO (20:27)
[2024-12-04] VITALS (16 sets, daily range): BP systolic 96–114; BP diastolic 54–62; PULSE 73–92; RESP 16–20; TEMP 36–36.6; O2SAT 92–100
[2024-12-04] MEDS: ALBUTEROL SULFATE NEB 2.5 MG/3 ML INH INHALATION ×3 (01:26→20:32)
[2024-12-04 05:30] LABS: Hematocrit 27.8 % (37.0-47.0); Hemoglobin 8.6 g/dL (12.0-15.0); Mean Corpuscular HGB Conc 30.9 g/dl (32-36); Mean Corpuscular Hemoglobin 32.3 pg (26-34); Mean Corpuscular Volume 104.5 fl (80-100); Mean Platelet Volume 10.7 fl (7.4-10.4); Platelet Count Result 145 k/mm3 (150-375); Red Blood Count 2.66 M/mm3 (4.2-5.4); Red Cell Distribution Width 15.5 % (11.5-14.5); White Blood Count 8.3 K/mm3 (4.5-10.0)
[2024-12-04 05:47] LABS: Alanine Aminotransferase 8 U/L (6-35); Albumin Level 2.8 g/dL (3.5-5.1); Alkaline Phosphatase 79 U/L (38-126); Anion Gap 6 mmol/L (4-12); Aspartate Amino Transferase 16 U/L (14-36); Bilirubin,Total 0.2 mg/dL (0.2-1.3); Blood Urea Nitrogen 28 mg/dL (7-17); Calcium 9.2 mg/dL (8.4-10.2); Carbon Dioxide 23 mmol/L (22-30); Chloride 110 mmol/L (98-107); Estimated CRCL calculation 28 ml/min; Estimated Glomerular Filt Rate 20; Glucose 75 mg/dL (65-110); Potassium 3.6 mmol/L (3.4-5.0); Sodium 139 mmol/L (137-145); Total Protein 5.5 g/dL (6.3-8.2)
[2024-12-04] MEDS: LEVOTHYROXINE SODIUM 50 MCG TABLET PO (06:21)
[2024-12-04 08:49] LABS: Glucose Point of Care 70 mg/dl (65-105)
[2024-12-04] MEDS: DOXYCYCLINE HYCLATE 100 MG TABLET PO ×2 (09:06→22:22)
[2024-12-04] MEDS: PANTOPRAZOLE 40 MG TABLET PO ×2 (09:06→22:22)
[2024-12-04] MEDS: ESCITALOPRAM OXALATE 10 MG TABLET 20 MG PO (09:06)
[2024-12-04] MEDS: guaiFENesin 12 HR 600 MG TABCR PO ×2 (09:06→22:22)
[2024-12-04] MEDS: oxyBUTYnin CHLORIDE XL 5 MG TAB.ER.24 PO (09:06)
[2024-12-04] MEDS: MAGNESIUM OXIDE 400 MG TABLET PO ×3 (09:06→17:29)
[2024-12-04] MEDS: cilostazoL 100 MG TABLET PO ×2 (09:06→17:29)
[2024-12-04] MEDS: ALPRAZolam (*CRX) 0.25 MG TABLET PO (09:06)
[2024-12-04] MEDS: LORATADINE 10 MG TABLET PO (09:06)
[2024-12-04] MEDS: allopurinoL 100 MG TABLET 200 MG PO (09:06)
[2024-12-04] MEDS: ENOXAPARIN 30 MG/0.3 ML SYRINGE SUB-Q (09:06)
[2024-12-04] MEDS: METOPROLOL TARTRATE 50 MG TAB PO ×2 (09:06→22:22)
[2024-12-04] MEDS: SACCHAROMYCES BOULARDII 250 MG CAPSULE PO ×3 (09:06→17:29)
[2024-12-04] MEDS: FLUTICASONE PROPIONATE 0.05% NA SPR 16 GM BTL (*BKC) 2 SPRAY NASAL (09:07)
[2024-12-04 10:47] LABS: Glucose Point of Care 95 mg/dl (65-105)
--- NOTE | 2024-12-04 12:31 | PM.PNGS ---
Progress Note: A&P Assessment and Plan (1) Chronic cholecystitis: Code(s): K81.1 - Chronic cholecystitis Status: Acute Assessment and Plan: WBC normal. Afebrile. Continue salma drain and oral antibiotics. Subjective Subjective Date/Time Seen: 12/04/24 12:31 Interval history: Patient is doing well today. Tolerating diet. No abdominal pain. WBC normal. Afebrile. Cholecystostomy tube draining appropriately. Exam Const: General: ill appearing and obese GI: Inspection: normal to inspection, non-distended, Pannus present and obesity Other: perc salma c bilious drainage. Roughly 50 mL green bilious fluid in bag. Objective Data Vital Signs Vital Signs: Vital Signs - 24 hr 12/03/24 14:00 12/03/24 16:00 12/03/24 17:28 Temperature 98.5 F 97.7 F Pulse Rate 75 88 88 Respiratory Rate 14 16 20 Blood Pressure 123/59 L 120/57 L Pulse Oximetry 100 96 Oxygen Delivery Fraction of Inspired Oxygen 12/03/24 20:00 12/03/24 20:00 12/03/24 20:13 Temperature 97.4 F L Pulse Rate 89 87 Respiratory Rate 16 Blood Pressure 115/46 L Pulse Oximetry 97 Oxygen Delivery Room Air Fraction of Inspired Oxygen 12/03/24 20:26 12/03/24 20:54 12/03/24 20:57 Temperature Pulse Rate 86 82 80 Respiratory Rate 20 20 Blood Pressure Pulse Oximetry 99 Oxygen Delivery Room Air Fraction of Inspired Oxygen 21 12/03/24 21:06 12/04/24 00:00 12/04/24 01:26 Temperature Pulse Rate 80 89 87 Respiratory Rate 20 20 Blood Pressure Pulse Oximetry Oxygen Delivery Fraction of Inspired Oxygen 12/04/24 01:35 12/04/24 04:00 12/04/24 05:40 Temperature 97.9 F Pulse Rate 85 88 85 Respiratory Rate 20 16 Blood Pressure 114/62 Pulse Oximetry 97 Oxygen Delivery Fraction of Inspired Oxygen 12/04/24 08:00 12/04/24 09:05 12/04/24 09:06 Temperature Pulse Rate 88 85 Respiratory Rate Blood Pressure Pulse Oximetry Oxygen Delivery Room Air Fraction of Inspired Oxygen 12/04/24 09:51 12/04/24 09:51 12/04/24 09:59 Temperature Pulse Rate 86 82 Respiratory Rate 20 20 Blood Pressure Pulse Oximetry 95 Oxygen Delivery Room Air Fraction of Inspired Oxygen 12/04/24 12:00 Temperature Pulse Rate 92 Respiratory Rate Blood Pressure Pulse Oximetry Oxygen Delivery Fraction of Inspired Oxygen Intake/Output Intake/Output: Intake & Output 12/01/24 12/02/24 12/03/24 12/04/24 23:59 23:59 23:59 23:59 Intake Total 2809.6 100 2070 240 Output Total 961 596 3024 400 Balance 2659.6 -378 1060 -160 Meds/Results Medications: Active Medications Generic Name Dose Route Start Last Admin Trade Name Freq PRN Reason Stop Dose Admin Acetaminophen 650 mg 12/01/24 12:30 12/03/24 10:23 Acetaminophen 325 Mg Tablet PO 650 mg Q4H PRN Administration Mild Pain (1-3) or Fever Albuterol 2.5 mg 12/01/24 14:00 12/04/24 09:49 Albuterol Sulfate Neb 2.5 Mg/3 Ml Inh INHALATION 2.5 mg Q6HRT CYNDI Administration Allopurinol 200 mg 12/02/24 09:00 12/04/24 09:06 Allopurinol 100 Mg Tablet PO 200 mg DAILY YCNDI Administration Alprazolam 0.25 mg 12/03/24 09:00 12/04/24 09:06 Alprazolam (*Crx) 0.25 Mg Tablet PO 0.25 mg DAILY CYNDI Administration Amoxicillin/Clavulanate Potassium 1 tablet 12/04/24 21:00 Amoxicillin/Clavulanate K 500-125 Mg Tab PO 12/08/24 09:01 Q12HR CYNDI Benzonatate 100 mg 12/01/24 12:30 Benzonatate 100 Mg Capsule PO TID PRN Cough Bisacodyl 10 mg 12/01/24 21:26 Bisacodyl 10 Mg Suppository RECTAL DAILY PRN constipation Cilostazol 100 mg 12/02/24 09:00 12/04/24 09:06 Cilostazol 100 Mg Tablet PO 100 mg BID CYNDI Administration Dextrose 12.5 gm 12/01/24 11:46 12/03/24 07:35 Dextrose 50% 25 Gm/50 Ml Syringe IV PUSH 12.5 gm PRN PRN Administration Hypoglycemia Protocol Doxycycline Hyclate 100 mg 12/02/24 09:00 12/04/24 09:06 Doxycycline Hyclate 100 Mg Tablet PO 12/06/24 21:01 100 mg Q12HR CYNDI Administration Enoxaparin Sodium 30 mg 12/02/24 09:00 12/04/24 09:06 Enoxaparin 30 Mg/0.3 Ml Syringe SUB-Q 30 mg DAILY CYNDI Administration Escitalopram Oxalate 20 mg 12/02/24 09:00 12/04/24 09:06 Escitalopram Oxalate 10 Mg Tablet PO 20 mg DAILY CYNDI Administration Ferrous Sulfate 325 mg 12/02/24 12:00 12/03/24 20:29 Ferrous Sulfate [address] BY MOUTH 325 mg 1200,1700,2100 CYNDI Administration Fluticasone Propionate 2 spray 12/02/24 09:00 12/04/24 09:07 Fluticasone Propionate 0.05% Na Spr 16 Gm Btl (*Bkc) NASAL 2 spray DAILY CYNDI Administration Glucagon 1 mg 12/01/24 11:46 Glucagon For Inj 1 Mg Vial IM PRN PRN Hypoglycemia Protocol Glucose 15 gm 12/01/24 11:46 Glucose Oral Gel 15 Gm Of Glucse In 37.5 Gm Tube PO PRN PRN Hypoglycemia Protocol Guaifenesin 600 mg 12/01/24 21:00 12/04/24 09:06 Guaifenesin 12 Hr 600 Mg Tabcr PO 600 mg Q12HR CYNDI Administration Dextrose 1,000 mls @ 100 mls/hr 12/01/24 11:46 Dextrose 5% 1,000 Ml IVPB PRN PRN Hypoglycemia Protocol Insulin Aspart 4 - 8 units 12/01/24 17:00 12/04/24 12:30 Insulin Aspart (*Bkc) 100 Units/Ml SUB-Q Not Given TIDWM [facility] Protocol Levothyroxine Sodium 50 mcg 12/02/24 06:30 12/04/24 06:21 Levothyroxine Sodium 50 Mcg Tablet PO 50 mcg [id number] [facility] Administration Levothyroxine Sodium 100 mcg 12/06/24 06:30 Levothyroxine Sodium 100 Mcg Tablet PO SuSa [facility] Loperamide HCl 2 mg 12/03/24 13:43 Loperamide Hcl 2 Mg Capsule PO PRN PRN Diarrhea Loratadine 10 mg 12/02/24 09:00 12/04/24 09:06 Loratadine 10 Mg Tablet PO 10 mg QAM [facility] Administration Magnesium Citrate 296 ml 12/01/24 21:26 Magnesium Citrate 300 Ml Btl PO DAILY PRN constipation Magnesium Hydroxide 30 ml 12/01/24 21:26 Magnesium Hydroxide Susp 30 Ml Udc PO HS PRN constipation Magnesium Oxide 400 mg 12/02/24 09:00 12/04/24 09:06 Magnesium Oxide 400 Mg Tablet PO 400 mg TID CYNDI Administration Metoprolol Tartrate 50 mg 12/02/24 09:00 12/04/24 09:06 Metoprolol Tartrate 50 Mg Tab PO 50 mg Q12HR CYNDI Administration Miconazole Nitrate 1 applic 12/02/24 09:26 Miconazole Nitrate 2% Cream 30 Gm Tube TOPICAL DAILY PRN rash Ondansetron HCl 4 mg 12/01/24 21:26 Ondansetron Hcl Odt 4 Mg Tablet PO Q6H PRN nausea and vomiting Oxybutynin Chloride 5 mg 12/02/24 09:00 12/04/24 09:06 Oxybutynin Chloride Xl 5 Mg Tab.Er.24 PO 5 mg DAILY CYNDI Administration Pantoprazole Sodium 40 mg 12/02/24 21:00 12/04/24 09:06 Pantoprazole 40 Mg Tablet PO 40 mg Q12HR CYNDI Administration Saccharomyces Boulardii 250 mg 12/02/24 09:00 12/04/24 09:06 Saccharomyces Boulardii 250 Mg Capsule PO 250 mg TID CYNDI Administration Tramadol HCl 50 mg 12/02/24 21:00 12/03/24 20:26 Tramadol Hcl (*Crx) 50 Mg Tablet PO 50 mg HS CYNDI Administration Trazodone HCl 50 mg 12/02/24 21:00 12/03/24 20:27 Trazodone Hcl 50 Mg Tablet PO 50 mg HS CYNDI Administration Radiology Results: ITS Impressions Chest X-Ray 12/01/24 11:57 IMPRESSION: Left basilar atelectasis versus pneumonia medially. Renal Ultrasound 12/01/24 18:01 IMPRESSION: No hydronephrosis or renal calculi. Findings suggesting medical renal disease. Atrophy of the right kidney in comparison to the left. Cholangiogram 12/03/24 10:16 IMPRESSION: 1. Cholecystostomy tube in expected position with loops formed within the fundus of the gallbladder. 2. Cholelithiasis with likely occluded cystic duct which does not opacify with contrast during the 5 minutes following injection of 50 mL water-soluble contrast. Modified Barium Swallow 12/03/24 13:53 IMPRESSION: Pharyngeal dysphagia with laryngeal penetration and aspiration. Please correlate with speech pathologist findings and specific feeding recommendations. Labs Labs: Laboratory Results - last 24 hr 12/03/24 12/03/24 12/03/24 11:12 13:50 16:05 WBC 9.2 RBC 2.80 L Hgb 9.0 L Hct 29.0 L MCV 103.6 H MCH 32.1 MCHC 31.0 L RDW 15.5 H Plt Count 154 MPV 10.5 H Sodium 141 Potassium 3.9 Chloride 110 H Carbon Dioxide 23 Anion Gap 8 BUN 31 H Creatinine 2.56 H Estim Creat Clear Calc 26 Estimated GFR 18 L Glucose 99 POC Capillary Glucose 101 90 Calcium 9.3 Total Bilirubin 0.3 AST 17 ALT 10 Alkaline Phosphatase 78 Total Protein 5.9 L Albumin 3.2 L 12/03/24 12/04/24 12/04/24 19:52 05:02 08:09 WBC 8.3 RBC 2.66 L Hgb 8.6 L Hct 27.8 L MCV 104.5 H MCH 32.3 MCHC 30.9 L RDW 15.5 H Plt Count 145 L MPV 10.7 H Sodium 139 Potassium 3.6 Chloride 110 H Carbon Dioxide 23 Anion Gap 6 BUN 28 H Creatinine 2.42 H Estim Creat Clear Calc 28 Estimated GFR 20 L Glucose 75 POC Capillary Glucose 106 H 70 Calcium 9.2 Total Bilirubin 0.2 AST 16 ALT 8 Alkaline Phosphatase 79 Total Protein 5.5 L Albumin 2.8 L 12/04/24 10:43 WBC RBC Hgb Hct MCV MCH MCHC RDW Plt Count MPV Sodium Potassium Chloride Carbon Dioxide Anion Gap BUN Creatinine Estim Creat Clear Calc Estimated GFR Glucose POC Capillary Glucose 95 Calcium Total Bilirubin AST ALT Alkaline Phosphatase Total Protein Albumin
[2024-12-04] MEDS: FERROUS SULFATE 325 MG TABLET DR BY MOUTH ×3 (12:41→22:25)
[2024-12-04 13:00] LABS: Glucose Point of Care 85 mg/dl (65-105)
--- NOTE | 2024-12-04 16:22 | PM.IMPN ---
Progress Note: A&P Assessment and Plan (1) Sepsis: Qualifiers: Sepsis type: sepsis due to unspecified organism Sepsis acute organ dysfunction status: with acute organ dysfunction Severe sepsis acute organ dysfunction type: acute renal failure Acute renal failure type: unspecified Severe sepsis shock status: without septic shock Qualified Code(s): A41.9 - Sepsis, unspecified organism; R65.20 - Severe sepsis without septic shock; N17.9 - Acute kidney failure, unspecified Code(s): A41.9 - Sepsis, unspecified organism Status: Acute Assessment and Plan: - meets SIRS criteria: HR, RR, BP - lactic acid: 1.6 - 30 mL/kg = 3.9L, c/f volume overload/CHF. responded well to 1L bolus. will give second liter at 125 mL/hr, monitor closely. - suspected source: PNA, possible UTI - started on Levaquin pn 12/01, transition to ceftriaxone IV and doxycycline p.o. to avoid QT prolongation - blood cultures drawn on 12/01, follow - UA equivocal for infection -> turbid, 2+ protein, trace ketones, 2+ blood, 3+ leuk esterase, 6-10 RBC, greater than 150 BC, WBC clumps present, moderate epithelial cells, 4 active. - CXR: Left basilar atelectasis versus pneumonia medially. - monitor hemodynamic stability (2) Pneumonia: Qualifiers: Pneumonia type: due to unspecified organism Laterality: left Lung location: lower lobe of lung Qualified Code(s): J18.9 - Pneumonia, unspecified organism Code(s): J18.9 - Pneumonia, unspecified organism Status: Acute Assessment and Plan: - CXR showed possible left basiliar PNA - started on Levaquin on 12/01 -> s/p ceftriaxone/doxycycline -started amoxicillin/clavulanic acid and doxycycline - check MRSA PCR and sputum culture (if obtainable) - supportive care: TYL prn Mucinex destiney Albuterol neb destiney Tessalon Perles prn - new supplemental O2 requirement -> 4L NC (3) Asthma: Qualifiers: Asthma severity: unspecified severity Asthma persistence: unspecified Asthma complication type: with acute exacerbation Qualified Code(s): J45.901 - Unspecified asthma with (acute) exacerbation Code(s): J45.909 - Unspecified asthma, uncomplicated Status: Acute Assessment and Plan: - albuterol nebulizer p.r.n. (4) Elevated brain natriuretic peptide (BNP) level: Code(s): R79.89 - Other specified abnormal findings of blood chemistry Status: Acute Assessment and Plan: - BNP 1010 -echocardiogram shows left ventricular systolic function 60-65% - not on a home diuretic, given 20 of Lasix IV. Will hold on further doses as the patient has been soft to hypertensive. Does not appear volume overloaded on exam. - monitor I&Os and daily weights - trend renal function (5) Acute kidney injury superimposed on CKD: Code(s): N17.9 - Acute kidney failure, unspecified; N18.9 - Chronic kidney disease, unspecified Status: Acute Assessment and Plan: - upon admission creatinine 2.97, GFR 16, BUN 40. previously 1.8, GFR 28, BUN 19 on 11/14/2024 - check renal ultrasound, CK, urine sodium, protein/creatinine, urea - UA showed possible UTI v contaminate (mod epith cells), follow culture. on Levaquin. - check bladder scan for post-void residual x1 - monitor I&Os - hold mike inhibitors and diuretics as appropriate - trial IV fluids x24 hrs, if no improvement consider nephrology consultation (6) Acute hyperkalemia: Code(s): E87.5 - Hyperkalemia Status: Acute Assessment and Plan: - K 5.2 -12/02: Received albuterol and Lokelma - initiate treated with calcium, dextrose/insulin, albuterol, IV bolus, bicarb. repeat BMP at 1:00 p.m. -> K 5.9. Repeat insulin/dextrose, calcium, add Lasix 20 mg IV. Recheck at 8 p.m. - hold home p.o. potassium - telemetry monitoring - monitor (7) Atrial fibrillation: Qualifiers: Atrial fibrillation type: unspecified Qualified Code(s): I48.91 - Unspecified atrial fibrillation Code(s): I48.91 - Unspecified atrial fibrillation Status: Acute Assessment and Plan: - possible history of AFib, patient unsure. Initial EKG showing AFib RVR. - obtained with 1L bolus of NS, HR now 96 - telemetry monitoring - continue home medications: Metoprolol 50 mg b.i.d. (8) Type 2 diabetes mellitus: Qualifiers: Diabetes mellitus penitentiary insulin use: without penitentiary use Diabetes mellitus complication status: without complication Qualified Code(s): E11.9 - Type 2 diabetes mellitus without complications Code(s): E11.9 - Type 2 diabetes mellitus without complications Status: Chronic Assessment and Plan: - hypoglycemia protocol - POC blood glucose ACHS - home medication: hold metformin in case of need for contrast - correct regimen ordered - high dose TIDWM, based off BMI - A1C 4.8% 10/20/24 (9) Anemia: Qualifiers: Anemia type: due to chronic kidney disease Chronic kidney disease stage: unspecified stage Qualified Code(s): N18.9 - Chronic kidney disease, unspecified; D63.1 - Anemia in chronic kidney disease Code(s): D64.9 - Anemia, unspecified Status: Chronic Assessment and Plan: - suspect chronic anemia secondary to CKD - Hgb 10.5, 11.1 on 11/14 - transfuse if <7 - trend H&H (10) Cholecystostomy care: Code(s): Z43.4 - Encounter for attention to other artificial openings of digestive tract Status: Acute Assessment and Plan: Management As per surgery Surgery evaluated the patient and will get a cholangiogram through the cholecystostomy tube for further evaluation. Plan Diet: Heart healthy GI Prophylaxis: Not currently indicated DVT Prophylaxis: Lovenox SQ IV fluids: 1L bolus -> 125 mL/hr x1L Lines/Tubes: Peripheral IV Code Status: DNR Subjective Date/time seen: 12/04/24 16:22 Interval history: No evidence of diarrhea. Discussed with GI and surgery. No acute intervention from GI and possible outpatient cholecystectomy by surgery team Review of Systems Review of Systems: All systems reviewed & are unremarkable except as noted in HPI and below Exam Narrative: obese, chronically ill appearing, diminished lung sounds bilaterally. moderate, intermittent tremor to BUE. A/O to self only. +cough. Const: Other: Chronically ill-appearing, obese, female, appears uncomfortable but in no acute distress. HENMT: Face/Nose/Sinus: Normal nares present Mouth: Yes moist mucous membranes Eyes: General: appearance normal, both eyes and all related structures Sclera: sclerae normal Pupils: Equal, round and reactive pupils present EOM: EOMs intact bilaterally Resp: Effort & Inspection: normal respiratory effort Other: diminished lung sounds bilaterally. + cough Cardio: Rate: regular rate Rhythm: regular rhythm Other: S1-S2 present without murmur, rub, ectopy GI: Other: Abdomen soft, nondistended, nontender. Normoactive bowel sounds in all quadrants. Skin: General skin exam: normal color and no rashes or lesions noted Wounds: no wounds Neuro: Cranial nerves: Yes Equal, round and reactive pupils present Speech: normal speech Sensory Exam: normal sensation Other: Generalized weakness, A&O x1 (self only). moderate, intermittent tremor to BUE. Extrem: Other: 1+ edema to bilateral lower extremities, nonpitting and symmetric. Psych: Mental Status: mental status grossly normal Affect: normal affect Other: Poor insight and judgment Objective Data Vital Signs Vital Signs: Vital Signs - 24 hr 12/03/24 17:28 12/03/24 20:00 12/03/24 20:00 Temperature 97.7 F Pulse Rate 88 89 Respiratory Rate 20 Blood Pressure 120/57 L Pulse Oximetry 96 Oxygen Delivery Room Air Fraction of Inspired Oxygen 12/03/24 20:13 12/03/24 20:26 12/03/24 20:54 Temperature 97.4 F L Pulse Rate 87 86 82 Respiratory Rate 16 20 Blood Pressure 115/46 L Pulse Oximetry 97 Oxygen Delivery Fraction of Inspired Oxygen 12/03/24 20:57 12/03/24 21:06 12/04/24 00:00 Temperature Pulse Rate 80 80 89 Respiratory Rate 20 20 Blood Pressure Pulse Oximetry 99 Oxygen Delivery Room Air Fraction of Inspired Oxygen 21 12/04/24 01:26 12/04/24 01:35 12/04/24 04:00 Temperature Pulse Rate 87 85 88 Respiratory Rate 20 20 Blood Pressure Pulse Oximetry Oxygen Delivery Fraction of Inspired Oxygen 12/04/24 05:40 12/04/24 08:00 12/04/24 09:05 Temperature 97.9 F Pulse Rate 85 88 Respiratory Rate 16 Blood Pressure 114/62 Pulse Oximetry 97 Oxygen Delivery Room Air Fraction of Inspired Oxygen 12/04/24 09:06 12/04/24 09:51 12/04/24 09:51 Temperature Pulse Rate 85 86 Respiratory Rate 20 Blood Pressure Pulse Oximetry 95 Oxygen Delivery Room Air Fraction of Inspired Oxygen 12/04/24 09:59 12/04/24 12:00 Temperature Pulse Rate 82 92 Respiratory Rate 20 Blood Pressure Pulse Oximetry Oxygen Delivery Fraction of Inspired Oxygen Intake/Output Intake/Output: Intake & Output 12/01/24 12/02/24 12/03/24 12/04/24 23:59 23:59 23:59 23:59 Intake Total 2809.6 100 2070 240 Output Total 306 207 4069 400 Balance 2659.6 -378 1060 -160 Meds/Results Medications: Active Medications Generic Name Dose Route Start Last Admin Trade Name Freq PRN Reason Stop Dose Admin Acetaminophen 650 mg 12/01/24 12:30 12/03/24 10:23 Acetaminophen 325 Mg Tablet PO 650 mg Q4H PRN Administration Mild Pain (1-3) or Fever Albuterol 2.5 mg 12/01/24 14:00 12/04/24 09:49 Albuterol Sulfate Neb 2.5 Mg/3 Ml Inh INHALATION 2.5 mg Q6HRT DESTINEY Administration Allopurinol 200 mg 12/02/24 09:00 12/04/24 09:06 Allopurinol 100 Mg Tablet PO 200 mg DAILY DESTINEY Administration Alprazolam 0.25 mg 12/03/24 09:00 12/04/24 09:06 Alprazolam (*Crx) 0.25 Mg Tablet PO 0.25 mg DAILY DESTINEY Administration Amoxicillin/Clavulanate Potassium 1 tablet 12/04/24 21:00 Amoxicillin/Clavulanate K 500-125 Mg Tab PO 12/08/24 09:01 Q12HR DESTINEY Benzonatate 100 mg 12/01/24 12:30 Benzonatate 100 Mg Capsule PO TID PRN Cough Bisacodyl 10 mg 12/01/24 21:26 Bisacodyl 10 Mg Suppository RECTAL DAILY PRN constipation Cilostazol 100 mg 12/02/24 09:00 12/04/24 09:06 Cilostazol 100 Mg Tablet PO 100 mg BID DESTINEY Administration Dextrose 12.5 gm 12/01/24 11:46 12/03/24 07:35 Dextrose 50% 25 Gm/50 Ml Syringe IV PUSH 12.5 gm PRN PRN Administration Hypoglycemia Protocol Doxycycline Hyclate 100 mg 12/02/24 09:00 12/04/24 09:06 Doxycycline Hyclate 100 Mg Tablet PO 12/06/24 21:01 100 mg Q12HR DESTINEY Administration Enoxaparin Sodium 30 mg 12/02/24 09:00 12/04/24 09:06 Enoxaparin 30 Mg/0.3 Ml Syringe SUB-Q 30 mg DAILY DESTINEY Administration Escitalopram Oxalate 20 mg 12/02/24 09:00 12/04/24 09:06 Escitalopram Oxalate 10 Mg Tablet PO 20 mg DAILY DESTINEY Administration Ferrous Sulfate 325 mg 12/02/24 12:00 12/04/24 12:41 Ferrous Sulfate [address] BY MOUTH 325 mg 1200,1700,2100 DESTINEY Administration Fluticasone Propionate 2 spray 12/02/24 09:00 12/04/24 09:07 Fluticasone Propionate 0.05% Na Spr 16 Gm Btl (*Bkc) NASAL 2 spray DAILY DESTINEY Administration Glucagon 1 mg 12/01/24 11:46 Glucagon For Inj 1 Mg Vial IM PRN PRN Hypoglycemia Protocol Glucose 15 gm 12/01/24 11:46 Glucose Oral Gel 15 Gm Of Glucse In 37.5 Gm Tube PO PRN PRN Hypoglycemia Protocol Guaifenesin 600 mg 12/01/24 21:00 12/04/24 09:06 Guaifenesin 12 Hr 600 Mg Tabcr PO 600 mg Q12HR DESTINEY Administration Dextrose 1,000 mls @ 100 mls/hr 12/01/24 11:46 Dextrose 5% 1,000 Ml IVPB PRN PRN Hypoglycemia Protocol Insulin Aspart 4 - 8 units 12/01/24 17:00 12/04/24 12:30 Insulin Aspart (*Bkc) 100 Units/Ml SUB-Q Not Given [facility] Protocol Levothyroxine Sodium 50 mcg 12/02/24 06:30 12/04/24 06:21 Levothyroxine Sodium 50 Mcg Tablet PO 50 mcg [id number] [facility] Administration Levothyroxine Sodium 100 mcg 12/06/24 06:30 Levothyroxine Sodium 100 Mcg Tablet PO SuSa [facility] Loperamide HCl 2 mg 12/03/24 13:43 Loperamide Hcl 2 Mg Capsule PO PRN PRN Diarrhea Loratadine 10 mg 12/02/24 09:00 12/04/24 09:06 Loratadine 10 Mg Tablet PO 10 mg QAM [facility] Administration Magnesium Citrate 296 ml 12/01/24 21:26 Magnesium Citrate 300 Ml Btl PO DAILY PRN constipation Magnesium Hydroxide 30 ml 12/01/24 21:26 Magnesium Hydroxide Susp 30 Ml Udc PO HS PRN constipation Magnesium Oxide 400 mg 12/02/24 09:00 12/04/24 12:41 Magnesium Oxide 400 Mg Tablet PO 400 mg TID DESTINEY Administration Metoprolol Tartrate 50 mg 12/02/24 09:00 12/04/24 09:06 Metoprolol Tartrate 50 Mg Tab PO 50 mg Q12HR DESTINEY Administration Miconazole Nitrate 1 applic 12/02/24 09:26 Miconazole Nitrate 2% Cream 30 Gm Tube TOPICAL DAILY PRN rash Ondansetron HCl 4 mg 12/01/24 21:26 Ondansetron Hcl Odt 4 Mg Tablet PO Q6H PRN nausea and vomiting Oxybutynin Chloride 5 mg 12/02/24 09:00 12/04/24 09:06 Oxybutynin Chloride Xl 5 Mg Tab.Er.24 PO 5 mg DAILY DESTINEY Administration Pantoprazole Sodium 40 mg 12/02/24 21:00 12/04/24 09:06 Pantoprazole 40 Mg Tablet PO 40 mg Q12HR DESTINEY Administration Saccharomyces Boulardii 250 mg 12/02/24 09:00 12/04/24 12:41 Saccharomyces Boulardii 250 Mg Capsule PO 250 mg TID DESTINEY Administration Tramadol HCl 50 mg 12/02/24 21:00 12/03/24 20:26 Tramadol Hcl (*Crx) 50 Mg Tablet PO 50 mg HS DESTINEY Administration Trazodone HCl 50 mg 12/02/24 21:00 12/03/24 20:27 Trazodone Hcl 50 Mg Tablet PO 50 mg HS DESTINEY Administration Radiology Results: ITS Impressions Chest X-Ray 12/01/24 11:57 IMPRESSION: Left basilar atelectasis versus pneumonia medially. Renal Ultrasound 12/01/24 18:01 IMPRESSION: No hydronephrosis or renal calculi. Findings suggesting medical renal disease. Atrophy of the right kidney in comparison to the left. Cholangiogram 12/03/24 10:16 IMPRESSION: 1. Cholecystostomy tube in expected position with loops formed within the fundus of the gallbladder. 2. Cholelithiasis with likely occluded cystic duct which does not opacify with contrast during the 5 minutes following injection of 50 mL water-soluble contrast. Modified Barium Swallow 12/03/24 13:53 IMPRESSION: Pharyngeal dysphagia with laryngeal penetration and aspiration. Please correlate with speech pathologist findings and specific feeding recommendations. Labs Labs: Laboratory Results - last 24 hr 12/03/24 12/04/24 12/04/24 19:52 05:02 08:09 WBC 8.3 RBC 2.66 L Hgb 8.6 L Hct 27.8 L MCV 104.5 H MCH 32.3 MCHC 30.9 L RDW 15.5 H Plt Count 145 L MPV 10.7 H Sodium 139 Potassium 3.6 Chloride 110 H Carbon Dioxide 23 Anion Gap 6 BUN 28 H Creatinine 2.42 H Estim Creat Clear Calc 28 Estimated GFR 20 L Glucose 75 POC Capillary Glucose 106 H 70 Calcium 9.2 Total Bilirubin 0.2 AST 16 ALT 8 Alkaline Phosphatase 79 Total Protein 5.5 L Albumin 2.8 L 12/04/24 12/04/24 10:43 12:20 WBC RBC Hgb Hct MCV MCH MCHC RDW Plt Count MPV Sodium Potassium Chloride Carbon Dioxide Anion Gap BUN Creatinine Estim Creat Clear Calc Estimated GFR Glucose POC Capillary Glucose 95 85 Calcium Total Bilirubin AST ALT Alkaline Phosphatase Total Protein Albumin Quality VTE Prophylaxis VTE prophylaxis: pharmacologic ordered Hospitalist MIPS Advance Care Plan I have confirmed that the patient's Advanced Care Plan is present, code status is documented, or surrogate decision maker is listed in patient medical record.: Yes Medication Reconciliation I have utilized all available resources to obtain, update and review the patients current medications (includes all prescriptions, OTC, herbals, cannabis, and nutritional supplements).: Yes
[2024-12-04 17:00] LABS: Glucose Point of Care 89 mg/dl (65-105)
--- NOTE | 2024-12-04 21:25 | ECG_ITS ---
Test Date: 2024-12-04 21:50:48 Measurements Intervals [place] Rate: 95 P: 0 CO: 0 QRS: -5 QRSD: 96 T: 56 QT: 357 QTc: 450 Interpretive Statements ATRIAL FIBRILLATION INCOMPLETE RIGHT BUNDLE BRANCH BLOCK BORDERLINE R WAVE PROGRESSION, ANTERIOR LEADS NONSPECIFIC ST & T-WAVE ABNORMALITY- DIFFUSE LEADS BASELINE ARTIFACT- I, II, III, AVR, AVL, AVF, V1-V6 ABNORMAL ECG Compared to ECG 12/01/2024 10:37:40 HEART RATE HAS DECREASED Electronically Signed On 12-05-2024 07:13:45 CDT by Jason Perkins D.O.
[2024-12-04 22:15] LABS: Glucose Point of Care 125 mg/dl (65-105)
[2024-12-04] MEDS: AMOXICILLIN/CLAVULANATE K 500-125 MG TAB 1 TABLET PO (22:21)
[2024-12-04] MEDS: traZODone HCL 50 MG TABLET PO (22:22)
[2024-12-04] MEDS: ACETAMINOPHEN 325 MG TABLET 650 MG PO (22:22)
[2024-12-04] MEDS: traMADol HCL (*CRX) 50 MG TABLET PO (22:22)
[2024-12-05] VITALS (16 sets, daily range): BP systolic 109–125; BP diastolic 45–70; PULSE 77–86; RESP 12–20; TEMP 35.6–36.5; O2SAT 93–100
[2024-12-05] MEDS: ALBUTEROL SULFATE NEB 2.5 MG/3 ML INH INHALATION ×4 (01:20→20:03)
[2024-12-05 05:38] LABS: Hematocrit 30.9 % (37.0-47.0); Hemoglobin 9.6 g/dL (12.0-15.0); Mean Corpuscular HGB Conc 31.1 g/dl (32-36); Mean Corpuscular Hemoglobin 32.2 pg (26-34); Mean Corpuscular Volume 103.7 fl (80-100); Mean Platelet Volume 10.5 fl (7.4-10.4); Platelet Count Result 144 k/mm3 (150-375); Red Blood Count 2.98 M/mm3 (4.2-5.4); Red Cell Distribution Width 15.5 % (11.5-14.5); White Blood Count 8.2 K/mm3 (4.5-10.0)
[2024-12-05] MEDS: LEVOTHYROXINE SODIUM 50 MCG TABLET PO (05:46)
[2024-12-05 05:51] LABS: Alanine Aminotransferase 15 U/L (6-35); Albumin Level 3.2 g/dL (3.5-5.1); Alkaline Phosphatase 80 U/L (38-126); Anion Gap 5 mmol/L (4-12); Aspartate Amino Transferase 25 U/L (14-36); Bilirubin,Total 0.2 mg/dL (0.2-1.3); Blood Urea Nitrogen 29 mg/dL (7-17); Calcium 9.3 mg/dL (8.4-10.2); Carbon Dioxide 26 mmol/L (22-30); Chloride 106 mmol/L (98-107); Estimated CRCL calculation 27 ml/min; Estimated Glomerular Filt Rate 19; Glucose 91 mg/dL (65-110); Potassium 3.6 mmol/L (3.4-5.0); Sodium 137 mmol/L (137-145); Total Protein 6.1 g/dL (6.3-8.2)
[2024-12-05 08:25] LABS: Glucose Point of Care 84 mg/dl (65-105)
[2024-12-05] MEDS: MAGNESIUM OXIDE 400 MG TABLET PO ×3 (08:28→17:25)
[2024-12-05] MEDS: PANTOPRAZOLE 40 MG TABLET PO ×2 (08:28→21:21)
[2024-12-05] MEDS: oxyBUTYnin CHLORIDE XL 5 MG TAB.ER.24 PO (08:28)
[2024-12-05] MEDS: BENZONATATE 100 MG CAPSULE PO ×2 (08:28→17:25)
[2024-12-05] MEDS: ALPRAZolam (*CRX) 0.25 MG TABLET PO (08:28)
[2024-12-05] MEDS: SACCHAROMYCES BOULARDII 250 MG CAPSULE PO ×3 (08:28→17:26)
[2024-12-05] MEDS: DOXYCYCLINE HYCLATE 100 MG TABLET PO ×2 (08:28→21:21)
[2024-12-05] MEDS: cilostazoL 100 MG TABLET PO ×2 (08:28→17:25)
[2024-12-05] MEDS: allopurinoL 100 MG TABLET 200 MG PO (08:28)
[2024-12-05] MEDS: guaiFENesin 12 HR 600 MG TABCR PO ×2 (08:28→21:21)
[2024-12-05] MEDS: METOPROLOL TARTRATE 50 MG TAB PO ×2 (08:29→21:21)
[2024-12-05] MEDS: AMOXICILLIN/CLAVULANATE K 500-125 MG TAB 1 TABLET PO ×2 (08:29→21:21)
[2024-12-05] MEDS: LORATADINE 10 MG TABLET PO (08:29)
[2024-12-05] MEDS: FLUTICASONE PROPIONATE 0.05% NA SPR 16 GM BTL (*BKC) 2 SPRAY NASAL (08:29)
[2024-12-05] MEDS: ESCITALOPRAM OXALATE 10 MG TABLET 20 MG PO (08:29)
[2024-12-05] MEDS: ENOXAPARIN 30 MG/0.3 ML SYRINGE SUB-Q (08:29)
--- NOTE | 2024-12-05 10:38 | PM.DS ---
DS: Admitting Diagnosis Discharge Date 12/05/2024 Admitting Diagnosis Shortness of breath DS: Discharge Diagnosis Discharge Diagnosis (1) Sepsis: Qualifiers: Acute renal failure type: unspecified Sepsis acute organ dysfunction status: with acute organ dysfunction Sepsis type: sepsis due to unspecified organism Severe sepsis acute organ dysfunction type: acute renal failure Severe sepsis shock status: without septic shock Qualified Code(s): A41.9 - Sepsis, unspecified organism; R65.20 - Severe sepsis without septic shock; N17.9 - Acute kidney failure, unspecified Code(s): A41.9 - Sepsis, unspecified organism Status: Acute Assessment and Plan: Please refer to hospital summary for brief course - meets SIRS criteria: HR, RR, BP - lactic acid: 1.6 - 30 mL/kg = 3.9L, c/f volume overload/CHF. responded well to 1L bolus. will give second liter at 125 mL/hr, monitor closely. - suspected source: PNA, possible UTI - started on Levaquin pn 12/01, transition to ceftriaxone IV and doxycycline p.o. to avoid QT prolongation - blood cultures drawn on 12/01, follow - UA equivocal for infection -> turbid, 2+ protein, trace ketones, 2+ blood, 3+ leuk esterase, 6-10 RBC, greater than 150 BC, WBC clumps present, moderate epithelial cells, 4 active. - CXR: Left basilar atelectasis versus pneumonia medially. - monitor hemodynamic stability (2) Pneumonia: Qualifiers: Laterality: left Lung location: lower lobe of lung Pneumonia type: due to unspecified organism Qualified Code(s): J18.9 - Pneumonia, unspecified organism Code(s): J18.9 - Pneumonia, unspecified organism Status: Acute Assessment and Plan: - CXR showed possible left basiliar PNA - started on Levaquin on 12/01 -> s/p ceftriaxone/doxycycline -started amoxicillin/clavulanic acid and doxycycline - check MRSA PCR and sputum culture (if obtainable) - supportive care: TYL prn Mucinex destiney Albuterol neb destiney Tessalon Perles prn - new supplemental O2 requirement -> 4L NC (3) Asthma: Qualifiers: Asthma complication type: with acute exacerbation Asthma persistence: unspecified Asthma severity: unspecified severity Qualified Code(s): J45.901 - Unspecified asthma with (acute) exacerbation Code(s): J45.909 - Unspecified asthma, uncomplicated Status: Acute Assessment and Plan: - albuterol nebulizer p.r.n. (4) Elevated brain natriuretic peptide (BNP) level: Code(s): R79.89 - Other specified abnormal findings of blood chemistry Status: Acute Assessment and Plan: - BNP 1010 -echocardiogram shows left ventricular systolic function 60-65% - not on a home diuretic, given 20 of Lasix IV. Will hold on further doses as the patient has been soft to hypertensive. Does not appear volume overloaded on exam. - monitor I&Os and daily weights - trend renal function (5) Acute kidney injury superimposed on CKD: Code(s): N17.9 - Acute kidney failure, unspecified; N18.9 - Chronic kidney disease, unspecified Status: Acute Assessment and Plan: - upon admission creatinine 2.97, GFR 16, BUN 40. previously 1.8, GFR 28, BUN 19 on 11/14/2024 - check renal ultrasound, CK, urine sodium, protein/creatinine, urea - UA showed possible UTI v contaminate (mod epith cells), follow culture. on Levaquin. - check bladder scan for post-void residual x1 - monitor I&Os - hold mike inhibitors and diuretics as appropriate - trial IV fluids x24 hrs, if no improvement consider nephrology consultation (6) Acute hyperkalemia: Code(s): E87.5 - Hyperkalemia Status: Acute Assessment and Plan: - K 5.2 -12/02: Received albuterol and Lokelma - initiate treated with calcium, dextrose/insulin, albuterol, IV bolus, bicarb. repeat BMP at 1:00 p.m. -> K 5.9. Repeat insulin/dextrose, calcium, add Lasix 20 mg IV. Recheck at 8 p.m. - hold home p.o. potassium - telemetry monitoring - monitor (7) Atrial fibrillation: Qualifiers: Atrial fibrillation type: unspecified Qualified Code(s): I48.91 - Unspecified atrial fibrillation Code(s): I48.91 - Unspecified atrial fibrillation Status: Acute Assessment and Plan: - possible history of AFib, patient unsure. Initial EKG showing AFib RVR. - obtained with 1L bolus of NS, HR now 96 - telemetry monitoring - continue home medications: Metoprolol 50 mg b.i.d. (8) Type 2 diabetes mellitus: Qualifiers: Diabetes mellitus complication status: without complication Diabetes mellitus intermediate insulin use: without intermediate use Qualified Code(s): E11.9 - Type 2 diabetes mellitus without complications Code(s): E11.9 - Type 2 diabetes mellitus without complications Status: Chronic Assessment and Plan: - hypoglycemia protocol - POC blood glucose ACHS - home medication: hold metformin in case of need for contrast - correct regimen ordered - high dose TIDWM, based off BMI - A1C 4.8% 10/20/24 (9) Anemia: Qualifiers: Anemia type: due to chronic kidney disease Chronic kidney disease stage: unspecified stage Qualified Code(s): N18.9 - Chronic kidney disease, unspecified; D63.1 - Anemia in chronic kidney disease Code(s): D64.9 - Anemia, unspecified Status: Chronic Assessment and Plan: - suspect chronic anemia secondary to CKD - Hgb 10.5, 11.1 on 11/14 - transfuse if <7 - trend H&H (10) Cholecystostomy care: Code(s): Z43.4 - Encounter for attention to other artificial openings of digestive tract Status: Acute Assessment and Plan: Management As per surgery Surgery evaluated the patient and will get a cholangiogram through the cholecystostomy tube for further evaluation. DS: Summary Hospital Course Hospital Course: 69 y/o F with PMH of asthma, diabetes, peripheral vascular disease, chronic kidney disease, anemia, hypertension, hyperlipidemia, and hypothyroidism presents here with shortness of breath and concerns for pneumonia. The patient is are from [facility] via EMS for further evaluation of shortness of breath and for possible pneumonia. She reports onset of shortness of breath approximately 1 week ago. Chief breath accompanied by a nonproductive cough, body aches, nausea, vomiting, and diarrhea. She is seeking care today as her symptoms worsened overnight last night. With upon EMS arrival, they found the patient at 79% on 2L nasal cannula. While in route to the hospital, EMS administered a DuoNeb for which she reports some relief. However post nebulizer she remained hypoxic and arrived to the emergency department at 80% on room air. At baseline the patient does not require supplemental oxygen. She is currently reporting general malaise/fatigue. Denies fever, chills. Patient is a poor historian. Initial VS at presentation: 98.2? F, HR 123, RR 23, 88/45, 96% on L nasal cannula. ED workup showed: WBC 13.4, hemoglobin 10.5 (prev 11.1 on 11/14/24), initial VBG showed a pH of 7.294, CO2 38.4, 08/22/2001, and HC03 18.2, sodium 134, potassium 6.7, creatinine 2.97 and GFR 16 (prev 1.8 and 28 on 11/14), lactic 1.6, BNP 1010, and albumin 2.5. UA equivocal for UTI - moderate epithelial cells. CXR showed left basilar atelectasis versus pneumonia medially. AFib with RVR, rate 113, right bundle branch block, possible anterior WI of old, inferior infarct age indeterminate, borderline ST-T-wave mL high lateral leads. Patient was treated for pneumonia during the hospitalization. Patient will be discharged with amoxicillin/clavulanic acid and doxycycline until 12/08. In regards to cholecystostomy drain, patient underwent cholangiogram which shows1. Cholecystostomy tube in expected position with loops formed within the fundus of the gallbladder. 2. Cholelithiasis with likely occluded cystic duct which does not opacify with contrast during the 5 minutes following injection of 50 mL water-soluble contrast. Discussed with surgery reported patient can be followed up as an outpatient. Patient need cholecystectomy but unfortunately patient is a high risk candidate for surgery. As per surgery okay to DC with cholecystostomy drainage. Patient to follow-up with surgery in 2 weeks. GI was consulted due to recent EGD showed severe esophagitis and anemia. No acute intervention and can be followed as a outpatient. Patient underwent barium swallow study and has a pharyngeal dysphagia with laryngeal penetration and aspiration. As per speech therapy moderate dysphagia as evidenced by deep laryngeal penetration but improved to trace and shallow with chin tuck. Level 6 soft and bite size diet with regular level 0 liquids. Patient needs to have 1 on 1 supervision during all oral intake to ensure the chin-tuck is performed. Patient also should be readjusted in the bed so to achieve an adequate and effective chin tuck. Speech therapy for laryngeal elevation exercise. On the day of discharge, the patient was seen and examined. Vital signs were stable. Physical exam were stable and labs were reviewed at length. Discharge instructions, medications, and follow-up appointments were discussed with the patient at length and all day questions were answered. ER warnings were given. Status at Discharge Cognitive/behavioral status at discharge: Stable Time Spent with Patient Time attestation: Total time spent providing and/or coordinating discharge services: 45 minutes Exam Narrative: obese, chronically ill appearing, diminished lung sounds bilaterally. moderate, intermittent tremor to BUE. A/O to self only. +cough. Const: Other: Chronically ill-appearing, obese, female, appears uncomfortable but in no acute distress. HENMT: Face/Nose/Sinus: Normal nares present Mouth: Yes moist mucous membranes Eyes: General: appearance normal, both eyes and all related structures Sclera: sclerae normal Pupils: Equal, round and reactive pupils present EOM: EOMs intact bilaterally Resp: Effort & Inspection: normal respiratory effort Other: diminished lung sounds bilaterally. + cough Cardio: Rate: regular rate Rhythm: regular rhythm Other: S1-S2 present without murmur, rub, ectopy GI: Other: Abdomen soft, nondistended, nontender. Normoactive bowel sounds in all quadrants. Skin: General skin exam: normal color and no rashes or lesions noted Wounds: no wounds Neuro: Cranial nerves: Yes Equal, round and reactive pupils present Speech: normal speech Sensory Exam: normal sensation Other: Generalized weakness, A&O x1 (self only). moderate, intermittent tremor to BUE. Extrem: Other: 1+ edema to bilateral lower extremities, nonpitting and symmetric. Psych: Mental Status: mental status grossly normal Affect: normal affect Other: Poor insight and judgment DS: Data Data Completed and Pending Labs on day of discharge: Labs from last 24 hours 12/05/24 12/05/24 12/04/24 07:49 05:10 20:51 WBC 8.2 RBC 2.98 L Hgb 9.6 L Hct 30.9 L MCV 103.7 H MCH 32.2 MCHC 31.1 L RDW 15.5 H Plt Count 144 L MPV 10.5 H Sodium 137 Potassium 3.6 Chloride 106 Carbon Dioxide 26 Anion Gap 5 BUN 29 H Creatinine 2.48 H Estim Creat Clear Calc 27 Estimated GFR 19 L Glucose 91 POC Capillary Glucose 84 125 H Calcium 9.3 Total Bilirubin 0.2 AST 25 ALT 15 Alkaline Phosphatase 80 Total Protein 6.1 L Albumin 3.2 L 12/04/24 12/04/24 12/04/24 16:57 12:20 10:43 WBC RBC Hgb Hct MCV MCH MCHC RDW Plt Count MPV Sodium Potassium Chloride Carbon Dioxide Anion Gap BUN Creatinine Estim Creat Clear Calc Estimated GFR Glucose POC Capillary Glucose 89 85 95 Calcium Total Bilirubin AST ALT Alkaline Phosphatase Total Protein Albumin Preliminary micro results at discharge 12/01/24 11:24 Blood Culture - Preliminary Blood 12/01/24 11:16 Blood Culture - Preliminary Blood Discharge Plan Discharge Attending physician on discharge: Ismael Melendrez Consulting providers: Haider Matsers; Yakov Ragsdale Discharging Clinician: Ismael Melendrez Anticipated Discharge Date/Time: 12/05/24 10:51 Patient Disposition: NH Fpc/Asst Living Activity: as tolerated Diet: other - see discharge instructions Discharge Instructions: Diet: Level 6 soft and bite size diet with regular level 0 liquids. Patient needs to have 1 on 1 supervision during all oral intake to ensure the chin-tuck is performed. Patient also should be readjusted in the bed so to achieve an adequate and effective chin tuck. Speech therapy for laryngeal elevation exercise. Patient needs to follow-up with surgery in 2 weeks for further management. Patient is to follow-up with the Gastroenterology within 2 weeks upon discharge Patient needs to follow-up with the Nephrology for CKD Check blood pressure 1 to 2 times a day. Record and bring into your doctor for review. Call your doctor if your blood pressure is greater than 180/110 or less than 90/45. Walk with cane or other assist device. Take precautions to avoid falls. Rise slowly from a lying or sitting position. Pause before standing or walking. Contact your doctor or call 911 and come to the Emergency Room if you have any type of trauma, lightheadedness with standing or other worrisome symptoms. Avoid NSAIDs (ibuprofen, naproxen, Aleve). Tylenol is safe to take. Follow-up with your primary care provider in 1-2 weeks. Please call for appointment. Follow-up with Cardiology in 2-4 weeks. Please call for an appointment. Thank you for using [facility] for your health care needs. Patient Instructions: Antibiotic Form Patient Language: Upper Sorbian Stand Alone Forms: General Discharge Information Follow-up/Referrals: usman rodriguez [Other] Alexandra Marquez MD [Physician] - Call for Appointment (F/u with Dr. Marquez in 2 weeks.) Scott Rascon MD [Physician] - Yakov Ragsdale MD [Physician] - Discharge Medications: New benzonatate 100 mg Capsule 100 mg PO TID PRN (Reason: Cough) Qty: 15 0RF doxycycline hyclate 100 mg Tablet 100 mg PO Q12HR Qty: 10 0RF amoxicillin-pot clavulanate [Augmentin] 500-125 mg Tablet 1 tablet PO Q12HR Qty: 10 0RF Continued nystatin-emollient combo no.88 100,000 unit/gram combo pack,gel and powder 1 g topical DAILY PRN (Reason: rash) ferrous sulfate 324 mg (65 mg iron) tablet,delayed release (DR/EC) 325 mg PO TID magnesium oxide 400 mg (241.3 mg magnesium) tablet 400 mg PO TID metformin 500 mg tablet 500 mg PO BID cilostazol 100 mg tablet 100 mg PO BID alprazolam 0.5 mg tablet 0.25 mg PO TID metoprolol tartrate 50 mg tablet 50 mg PO BID cinnamon bark [Cinnamon] 500 mg capsule 1,000 mg PO BID biotin 1 mg capsule 1 mg PO DAILY cetirizine 10 mg capsule 10 mg PO DAILY Bacillus coagulans-inulin 1 billion-250 cell-mg capsule 1 cap PO DAILY allopurinol 100 mg tablet 200 mg PO DAILY oxybutynin chloride 5 mg tablet extended release 24hr 5 mg PO DAILY escitalopram oxalate 20 mg tablet 20 mg PO DAILY potassium chloride 20 mEq tablet,ER particles/crystals 20 meq PO DAILY ondansetron 4 mg tablet,disintegrating 4 mg PO Q6H PRN (Reason: nausea and vomiting) levothyroxine [Euthyrox] 50 mcg tablet 100 mcg PO .twice a week Rx Instructions: give only on Sunday and Sunday fluticasone propionate 50 mcg/actuation spray,suspension 2 spray intranasal DAILY Rx Instructions: administer into each nostril levothyroxine [Euthyrox] 50 mcg tablet 50 mcg PO 5XW Rx Instructions: give on Sunday, Sunday, Sunday, and Sunday magnesium hydroxide [Milk of Magnesia] 400 mg/5 mL suspension 30 ml PO HS PRN (Reason: constipation) Rx Instructions: if no BM in 3 days bisacodyl 10 mg suppository 10 mg RECTAL DAILY PRN (Reason: constipation) Rx Instructions: if no results from Milk of Magnesia sodium phosphates 19-7 gram/118 mL enema 118 ml RECTAL DAILY PRN (Reason: constipation) Rx Instructions: if no results 1 day after suppository magnesium citrate Solution 296 ml PO DAILY PRN (Reason: constipation) Rx Instructions: if no results after enema pantoprazole [Protonix] 40 mg tablet,delayed release (DR/EC) 40 mg PO QAM 28 Days Qty: 28 0RF tramadol 50 mg tablet 50 mg PO HS Patient Comments: Ordered for 14 days, day order completes is 12/06 trazodone 50 mg tablet 50 mg PO HS Held losartan 50 mg tablet 50 mg PO DAILY Hold Instructions: Resume on 12/19/24. Please discuss with your leak inspector/PCP before continuing Date of admission: 12/01/24 14:41 Primary Care Provider: usman rodriguez Admitting Provider: Jose Arauz Attending physician on admission: Jose Arauz Condition: Stable
--- NOTE | 2024-12-05 11:29 | PM.PNGS ---
Progress Note: A&P Assessment and Plan (1) Chronic cholecystitis: Code(s): K81.1 - Chronic cholecystitis Status: Acute Assessment and Plan: WBC normal. Afebrile. Continue salma drain and oral antibiotics. Subjective Subjective Date/Time Seen: 12/05/24 11:29 Interval history: Patient is doing well today and tolerating diet with no nausea or vomiting. No abdominal pain. Drain is functioning well, however, bag was unhooked from tubing upon visit today. No drainage had spilled and bag was reattached. Afebrile. WBC normal. Exam GI: Inspection: normal to inspection, non-distended, Pannus present and obesity Other: perc salma drain with minimal bilious fluid. Objective Data Vital Signs Vital Signs: Vital Signs - 24 hr 12/04/24 12:00 12/04/24 16:00 12/04/24 16:00 Temperature 97.8 F Pulse Rate 92 91 73 Respiratory Rate 20 Blood Pressure 96/54 L Pulse Oximetry 97 Oxygen Delivery Fraction of Inspired Oxygen 12/04/24 20:00 12/04/24 20:32 12/04/24 20:36 Temperature Pulse Rate 88 84 73 Respiratory Rate 20 Blood Pressure Pulse Oximetry 92 Oxygen Delivery Room Air Fraction of Inspired Oxygen 21 12/04/24 20:56 12/04/24 22:08 12/04/24 22:22 Temperature 96.8 F L Pulse Rate 83 83 Respiratory Rate 16 Blood Pressure 112/57 L Pulse Oximetry 100 Oxygen Delivery Room Air Fraction of Inspired Oxygen 12/05/24 00:00 12/05/24 01:20 12/05/24 04:00 Temperature Pulse Rate 83 85 81 Respiratory Rate 20 Blood Pressure Pulse Oximetry Oxygen Delivery Fraction of Inspired Oxygen 12/05/24 04:48 12/05/24 08:29 12/05/24 08:30 Temperature 96.1 F L Pulse Rate 78 80 Respiratory Rate 16 Blood Pressure 109/45 L Pulse Oximetry 99 Oxygen Delivery Room Air Fraction of Inspired Oxygen 12/05/24 08:30 12/05/24 08:42 12/05/24 08:42 Temperature Pulse Rate 80 80 Respiratory Rate 18 Blood Pressure Pulse Oximetry 94 Oxygen Delivery Room Air Fraction of Inspired Oxygen 21 12/05/24 08:49 Temperature Pulse Rate 86 Respiratory Rate 18 Blood Pressure Pulse Oximetry Oxygen Delivery Fraction of Inspired Oxygen Intake/Output Intake/Output: Intake & Output 06/17/25 06/18/25 06/19/25 06/20/25 23:59 23:59 23:59 23:59 Intake Total 100 2070 960 530 Output Total 478 1010 650 105 Balance -378 1060 310 425 Meds/Results Medications: Active Medications Generic Name Dose Route Start Last Admin Trade Name Freq PRN Reason Stop Dose Admin Acetaminophen 650 mg 12/01/24 12:30 12/04/24 22:22 Acetaminophen 325 Mg Tablet PO 650 mg Q4H PRN Administration Mild Pain (1-3) or Fever Albuterol 2.5 mg 12/01/24 14:00 12/05/24 08:42 Albuterol Sulfate Neb 2.5 Mg/3 Ml Inh INHALATION 2.5 mg Q6HRT CYNDI Administration Allopurinol 200 mg 12/02/24 09:00 12/05/24 08:28 Allopurinol 100 Mg Tablet PO 200 mg DAILY CYNDI Administration Alprazolam 0.25 mg 12/03/24 09:00 12/05/24 08:28 Alprazolam (*Crx) 0.25 Mg Tablet PO 0.25 mg DAILY CYNDI Administration Amoxicillin/Clavulanate Potassium 1 tablet 12/04/24 21:00 12/05/24 08:29 Amoxicillin/Clavulanate K 500-125 Mg Tab PO 12/08/24 09:01 1 tablet Q12HR CYNDI Administration Benzonatate 100 mg 12/01/24 12:30 12/05/24 08:28 Benzonatate 100 Mg Capsule PO 100 mg TID PRN Administration Cough Bisacodyl 10 mg 12/01/24 21:26 Bisacodyl 10 Mg Suppository RECTAL DAILY PRN constipation Cilostazol 100 mg 12/02/24 09:00 12/05/24 08:28 Cilostazol 100 Mg Tablet PO 100 mg BID CYNDI Administration Dextrose 12.5 gm 12/01/24 11:46 12/03/24 07:35 Dextrose 50% 25 Gm/50 Ml Syringe IV PUSH 12.5 gm PRN PRN Administration Hypoglycemia Protocol Doxycycline Hyclate 100 mg 12/02/24 09:00 12/05/24 08:28 Doxycycline Hyclate 100 Mg Tablet PO 12/06/24 21:01 100 mg Q12HR CYNDI Administration Enoxaparin Sodium 30 mg 12/02/24 09:00 12/05/24 08:29 Enoxaparin 30 Mg/0.3 Ml Syringe SUB-Q 30 mg DAILY CYNDI Administration Escitalopram Oxalate 20 mg 12/02/24 09:00 12/05/24 08:29 Escitalopram Oxalate 10 Mg Tablet PO 20 mg DAILY CYNDI Administration Ferrous Sulfate 325 mg 12/02/24 12:00 12/04/24 22:25 Ferrous Sulfate [address] BY MOUTH 325 mg 1200,1700,2100 CYNDI Administration Fluticasone Propionate 2 spray 12/02/24 09:00 12/05/24 08:29 Fluticasone Propionate 0.05% Na Spr 16 Gm Btl (*Bkc) NASAL 2 spray DAILY CYNDI Administration Glucagon 1 mg 12/01/24 11:46 Glucagon For Inj 1 Mg Vial IM PRN PRN Hypoglycemia Protocol Glucose 15 gm 12/01/24 11:46 Glucose Oral Gel 15 Gm Of Glucse In 37.5 Gm Tube PO PRN PRN Hypoglycemia Protocol Guaifenesin 600 mg 12/01/24 21:00 12/05/24 08:28 Guaifenesin 12 Hr 600 Mg Tabcr PO 600 mg Q12HR CYNDI Administration Dextrose 1,000 mls @ 100 mls/hr 12/01/24 11:46 Dextrose 5% 1,000 Ml IVPB PRN PRN Hypoglycemia Protocol Insulin Aspart 4 - 8 units 12/01/24 17:00 12/05/24 08:03 Insulin Aspart (*Bkc) 100 Units/Ml SUB-Q Not Given TIDWM [facility] Protocol Levothyroxine Sodium 50 mcg 12/02/24 06:30 12/05/24 05:46 Levothyroxine Sodium 50 Mcg Tablet PO 50 mcg [id number] [facility] Administration Levothyroxine Sodium 100 mcg 12/06/24 06:30 Levothyroxine Sodium 100 Mcg Tablet PO SuSa [facility] Loperamide HCl 2 mg 12/03/24 13:43 Loperamide Hcl 2 Mg Capsule PO PRN PRN Diarrhea Loratadine 10 mg 12/02/24 09:00 12/05/24 08:29 Loratadine 10 Mg Tablet PO 10 mg QAM [facility] Administration Magnesium Citrate 296 ml 12/01/24 21:26 Magnesium Citrate 300 Ml Btl PO DAILY PRN constipation Magnesium Hydroxide 30 ml 12/01/24 21:26 Magnesium Hydroxide Susp 30 Ml Udc PO HS PRN constipation Magnesium Oxide 400 mg 12/02/24 09:00 12/05/24 08:28 Magnesium Oxide 400 Mg Tablet PO 400 mg TID CYNDI Administration Metoprolol Tartrate 50 mg 12/02/24 09:00 12/05/24 08:29 Metoprolol Tartrate 50 Mg Tab PO 50 mg Q12HR CYNDI Administration Miconazole Nitrate 1 applic 12/02/24 09:26 Miconazole Nitrate 2% Cream 30 Gm Tube TOPICAL DAILY PRN rash Ondansetron HCl 4 mg 12/01/24 21:26 Ondansetron Hcl Odt 4 Mg Tablet PO Q6H PRN nausea and vomiting Oxybutynin Chloride 5 mg 12/02/24 09:00 12/05/24 08:28 Oxybutynin Chloride Xl 5 Mg Tab.Er.24 PO 5 mg DAILY CYNDI Administration Pantoprazole Sodium 40 mg 12/02/24 21:00 12/05/24 08:28 Pantoprazole 40 Mg Tablet PO 40 mg Q12HR CYNDI Administration Saccharomyces Boulardii 250 mg 12/02/24 09:00 12/05/24 08:28 Saccharomyces Boulardii 250 Mg Capsule PO 250 mg TID CYNDI Administration Tramadol HCl 50 mg 12/02/24 21:00 12/04/24 22:22 Tramadol Hcl (*Crx) 50 Mg Tablet PO 50 mg HS CYNDI Administration Trazodone HCl 50 mg 12/02/24 21:00 12/04/24 22:22 Trazodone Hcl 50 Mg Tablet PO 50 mg HS CYNDI Administration Radiology Results: ITS Impressions Chest X-Ray 12/01/24 11:57 IMPRESSION: Left basilar atelectasis versus pneumonia medially. Renal Ultrasound 12/01/24 18:01 IMPRESSION: No hydronephrosis or renal calculi. Findings suggesting medical renal disease. Atrophy of the right kidney in comparison to the left. Cholangiogram 12/03/24 10:16 IMPRESSION: 1. Cholecystostomy tube in expected position with loops formed within the fundus of the gallbladder. 2. Cholelithiasis with likely occluded cystic duct which does not opacify with contrast during the 5 minutes following injection of 50 mL water-soluble contrast. Modified Barium Swallow 12/03/24 13:53 IMPRESSION: Pharyngeal dysphagia with laryngeal penetration and aspiration. Please correlate with speech pathologist findings and specific feeding recommendations. Labs Labs: Laboratory Results - last 24 hr 12/04/24 12/04/24 12/04/24 12:20 16:57 20:51 WBC RBC Hgb Hct MCV MCH MCHC RDW Plt Count MPV Sodium Potassium Chloride Carbon Dioxide Anion Gap BUN Creatinine Estim Creat Clear Calc Estimated GFR Glucose POC Capillary Glucose 85 89 125 H Calcium Total Bilirubin AST ALT Alkaline Phosphatase Total Protein Albumin 12/05/24 12/05/24 05:10 07:49 WBC 8.2 RBC 2.98 L Hgb 9.6 L Hct 30.9 L MCV 103.7 H MCH 32.2 MCHC 31.1 L RDW 15.5 H Plt Count 144 L MPV 10.5 H Sodium 137 Potassium 3.6 Chloride 106 Carbon Dioxide 26 Anion Gap 5 BUN 29 H Creatinine 2.48 H Estim Creat Clear Calc 27 Estimated GFR 19 L Glucose 91 POC Capillary Glucose 84 Calcium 9.3 Total Bilirubin 0.2 AST 25 ALT 15 Alkaline Phosphatase 80 Total Protein 6.1 L Albumin 3.2 L
[2024-12-05 12:22] LABS: Glucose Point of Care 121 mg/dl (65-105)
[2024-12-05] MEDS: FERROUS SULFATE 325 MG TABLET DR BY MOUTH ×3 (12:59→21:21)
[2024-12-05 17:33] LABS: Glucose Point of Care 97 mg/dl (65-105)
[2024-12-05 21:19] LABS: Glucose Point of Care 98 mg/dl (65-105)
[2024-12-05] MEDS: traZODone HCL 50 MG TABLET PO (21:21)
[2024-12-05] MEDS: traMADol HCL (*CRX) 50 MG TABLET PO (21:21)
[2024-12-06] VITALS (9 sets, daily range): BP systolic 110–117; BP diastolic 59; PULSE 76–100; RESP 12–20; TEMP 36.1–36.3; O2SAT 92–100
[2024-12-06] MEDS: ALBUTEROL SULFATE NEB 2.5 MG/3 ML INH INHALATION ×3 (02:02→13:17)
[2024-12-06] MEDS: LEVOTHYROXINE SODIUM 100 MCG TABLET PO (05:39)
--- NOTE | 2024-12-06 08:02 | P.PNIM_ITS ---
Progress Note: A&P Assessment and Plan (1) Sepsis: Qualifiers: Sepsis type: sepsis due to unspecified organism Sepsis acute organ dysfunction status: with acute organ dysfunction Severe sepsis acute organ dysfunction type: acute renal failure Acute renal failure type: unspecified Severe sepsis shock status: without septic shock Qualified Code(s): A41.9 - Sepsis, unspecified organism; R65.20 - Severe sepsis without septic shock; N17.9 - Acute kidney failure, unspecified Code(s): A41.9 - Sepsis, unspecified organism Status: Acute Assessment and Plan: - meets SIRS criteria: HR, RR, BP - lactic acid: 1.6 - 30 mL/kg = 3.9L, c/f volume overload/CHF. responded well to 1L bolus. will give second liter at 125 mL/hr, monitor closely. - suspected source: PNA, possible UTI - started on Levaquin pn 12/01, transition to ceftriaxone IV and doxycycline p.o. to avoid QT prolongation - blood cultures drawn on 12/01, follow - UA equivocal for infection -> turbid, 2+ protein, trace ketones, 2+ blood, 3+ leuk esterase, 6-10 RBC, greater than 150 BC, WBC clumps present, moderate epithelial cells, 4 active. - CXR: Left basilar atelectasis versus pneumonia medially. - monitor hemodynamic stability (2) Pneumonia: Qualifiers: Pneumonia type: due to unspecified organism Laterality: left Lung location: lower lobe of lung Qualified Code(s): J18.9 - Pneumonia, unspecified organism Code(s): J18.9 - Pneumonia, unspecified organism Status: Acute Assessment and Plan: - CXR showed possible left basiliar PNA - started on Levaquin on 12/01 -> s/p ceftriaxone/doxycycline -started amoxicillin/clavulanic acid and doxycycline - check MRSA PCR and sputum culture (if obtainable) - supportive care: TYL prn Mucinex destiney Albuterol neb destiney Tessalon Perles prn - new supplemental O2 requirement -> 4L NC (3) Asthma: Qualifiers: Asthma severity: unspecified severity Asthma persistence: unspecified Asthma complication type: with acute exacerbation Qualified Code(s): J45.901 - Unspecified asthma with (acute) exacerbation Code(s): J45.909 - Unspecified asthma, uncomplicated Status: Acute Assessment and Plan: - albuterol nebulizer p.r.n. (4) Elevated brain natriuretic peptide (BNP) level: Code(s): R79.89 - Other specified abnormal findings of blood chemistry Status: Acute Assessment and Plan: - BNP 1010 -echocardiogram shows left ventricular systolic function 60-65% - not on a home diuretic, given 20 of Lasix IV. Will hold on further doses as the patient has been soft to hypertensive. Does not appear volume overloaded on exam. - monitor I&Os and daily weights - trend renal function (5) Acute kidney injury superimposed on CKD: Code(s): N17.9 - Acute kidney failure, unspecified; N18.9 - Chronic kidney disease, unspecified Status: Acute Assessment and Plan: - upon admission creatinine 2.97, GFR 16, BUN 40. previously 1.8, GFR 28, BUN 19 on 11/14/2024 - check renal ultrasound, CK, urine sodium, protein/creatinine, urea - UA showed possible UTI v contaminate (mod epith cells), follow culture. on Levaquin. - check bladder scan for post-void residual x1 - monitor I&Os - hold mike inhibitors and diuretics as appropriate - trial IV fluids x24 hrs, if no improvement consider nephrology consultation (6) Acute hyperkalemia: Code(s): E87.5 - Hyperkalemia Status: Acute Assessment and Plan: - K 5.2 -12/02: Received albuterol and Lokelma - initiate treated with calcium, dextrose/insulin, albuterol, IV bolus, bicarb. repeat BMP at 1:00 p.m. -> K 5.9. Repeat insulin/dextrose, calcium, add Lasix 20 mg IV. Recheck at 8 p.m. - hold home p.o. potassium - telemetry monitoring - monitor (7) Atrial fibrillation: Qualifiers: Atrial fibrillation type: unspecified Qualified Code(s): I48.91 - Unspecified atrial fibrillation Code(s): I48.91 - Unspecified atrial fibrillation Status: Acute Assessment and Plan: - possible history of AFib, patient unsure. Initial EKG showing AFib RVR. - obtained with 1L bolus of NS, HR now 96 - telemetry monitoring - continue home medications: Metoprolol 50 mg b.i.d. (8) Type 2 diabetes mellitus: Qualifiers: Diabetes mellitus penitentiary insulin use: without penitentiary use Diabetes mellitus complication status: without complication Qualified Code(s): E11.9 - Type 2 diabetes mellitus without complications Code(s): E11.9 - Type 2 diabetes mellitus without complications Status: Chronic Assessment and Plan: - hypoglycemia protocol - POC blood glucose ACHS - home medication: hold metformin in case of need for contrast - correct regimen ordered - high dose TIDWM, based off BMI - A1C 4.8% 10/20/24 (9) Anemia: Qualifiers: Anemia type: due to chronic kidney disease Chronic kidney disease stage: unspecified stage Qualified Code(s): N18.9 - Chronic kidney disease, unspecified; D63.1 - Anemia in chronic kidney disease Code(s): D64.9 - Anemia, unspecified Status: Chronic Assessment and Plan: - suspect chronic anemia secondary to CKD - Hgb 10.5, 11.1 on 11/14 - transfuse if <7 - trend H&H (10) Cholecystostomy care: Code(s): Z43.4 - Encounter for attention to other artificial openings of digestive tract Status: Acute Assessment and Plan: Management As per surgery Surgery evaluated the patient and will get a cholangiogram through the cholecystostomy tube for further evaluation. Subjective Date/time seen: 12/06/24 08:02 Interval history: Pt resting comfortable. Dc today Review of Systems Review of Systems: All systems reviewed & are unremarkable except as noted in HPI and below Exam Narrative: obese, chronically ill appearing, diminished lung sounds bilaterally. moderate, intermittent tremor to BUE. A/O to self only. +cough. Const: Other: Chronically ill-appearing, obese, female, appears uncomfortable but in no acute distress. HENMT: Face/Nose/Sinus: Normal nares present Mouth: Yes moist mucous membranes Eyes: General: appearance normal, both eyes and all related structures Sclera: sclerae normal Pupils: Equal, round and reactive pupils present EOM: EOMs intact bilaterally Resp: Effort & Inspection: normal respiratory effort Other: diminished lung sounds bilaterally. + cough Cardio: Rate: regular rate Rhythm: regular rhythm Other: S1-S2 present without murmur, rub, ectopy GI: Other: Abdomen soft, nondistended, nontender. Normoactive bowel sounds in all quadrants. Skin: General skin exam: normal color and no rashes or lesions noted Wounds: no wounds Neuro: Cranial nerves: Yes Equal, round and reactive pupils present Speech: normal speech Sensory Exam: normal sensation Other: Generalized weakness, A&O x1 (self only). moderate, intermittent tremor to BUE. Extrem: Other: 1+ edema to bilateral lower extremities, nonpitting and symmetric. Psych: Mental Status: mental status grossly normal Affect: normal affect Other: Poor insight and judgment Objective Data Vital Signs Vital Signs: Vital Signs - 24 hr 12/05/24 08:29 12/05/24 08:30 12/05/24 08:30 Temperature Pulse Rate 80 80 Respiratory Rate Blood Pressure Pulse Oximetry Oxygen Delivery Room Air Fraction of Inspired Oxygen 12/05/24 08:42 12/05/24 08:42 12/05/24 08:49 Temperature Pulse Rate 80 86 Respiratory Rate 18 18 Blood Pressure Pulse Oximetry 94 Oxygen Delivery Room Air Fraction of Inspired Oxygen 21 12/05/24 13:32 12/05/24 14:00 12/05/24 14:05 Temperature 97.7 F Pulse Rate 82 81 77 Respiratory Rate 18 16 16 Blood Pressure 125/51 L Pulse Oximetry 93 Oxygen Delivery Fraction of Inspired Oxygen 12/05/24 20:00 12/05/24 20:04 12/05/24 20:04 Temperature Pulse Rate 77 79 Respiratory Rate 12 16 Blood Pressure Pulse Oximetry 100 94 Oxygen Delivery Room Air Room Air Fraction of Inspired Oxygen 21 21 12/05/24 20:14 12/05/24 20:39 12/05/24 21:21 Temperature 96.7 F L Pulse Rate 80 77 77 Respiratory Rate 16 12 Blood Pressure 117/70 Pulse Oximetry 100 Oxygen Delivery Fraction of Inspired Oxygen 12/06/24 02:04 12/06/24 02:10 12/06/24 04:44 Temperature 96.9 F L Pulse Rate 77 80 80 Respiratory Rate 18 18 12 Blood Pressure 117/59 L Pulse Oximetry 100 Oxygen Delivery Fraction of Inspired Oxygen 12/06/24 07:55 12/06/24 07:55 Temperature Pulse Rate 80 Respiratory Rate 16 Blood Pressure Pulse Oximetry 97 Oxygen Delivery Room Air Fraction of Inspired Oxygen 21 Intake/Output Intake/Output: Intake & Output 12/03/24 12/04/24 12/05/24 12/06/24 23:59 23:59 23:59 23:59 Intake Total 2070 960 770 200 Output Total 1010 650 305 155 Balance 1060 310 465 45 Meds/Results Medications: Active Medications Generic Name Dose Route Start Last Admin Trade Name Freq PRN Reason Stop Dose Admin Acetaminophen 650 mg 12/01/24 12:30 12/04/24 22:22 Acetaminophen 325 Mg Tablet PO 650 mg Q4H PRN Administration Mild Pain (1-3) or Fever Albuterol 2.5 mg 12/01/24 14:00 12/06/24 07:55 Albuterol Sulfate Neb 2.5 Mg/3 Ml Inh INHALATION 2.5 mg Q6HRT DESTINEY Administration Allopurinol 200 mg 12/02/24 09:00 12/05/24 08:28 Allopurinol 100 Mg Tablet PO 200 mg DAILY DESTINEY Administration Alprazolam 0.25 mg 12/03/24 09:00 12/05/24 08:28 Alprazolam (*Crx) 0.25 Mg Tablet PO 0.25 mg DAILY DESTINEY Administration Amoxicillin/Clavulanate Potassium 1 tablet 12/04/24 21:00 12/05/24 21:21 Amoxicillin/Clavulanate K 500-125 Mg Tab PO 12/08/24 09:01 1 tablet Q12HR DESTINEY Administration Benzonatate 100 mg 12/01/24 12:30 12/05/24 17:25 Benzonatate 100 Mg Capsule PO 100 mg TID PRN Administration Cough Bisacodyl 10 mg 12/01/24 21:26 Bisacodyl 10 Mg Suppository RECTAL DAILY PRN constipation Cilostazol 100 mg 12/02/24 09:00 12/05/24 17:25 Cilostazol 100 Mg Tablet PO 100 mg BID DESTINEY Administration Dextrose 12.5 gm 12/01/24 11:46 12/03/24 07:35 Dextrose 50% 25 Gm/50 Ml Syringe IV PUSH 12.5 gm PRN PRN Administration Hypoglycemia Protocol Doxycycline Hyclate 100 mg 12/02/24 09:00 12/05/24 21:21 Doxycycline Hyclate 100 Mg Tablet PO 12/06/24 21:01 100 mg Q12HR DESTINEY Administration Enoxaparin Sodium 30 mg 12/02/24 09:00 12/05/24 08:29 Enoxaparin 30 Mg/0.3 Ml Syringe SUB-Q 30 mg DAILY DESTINEY Administration Escitalopram Oxalate 20 mg 12/02/24 09:00 12/05/24 08:29 Escitalopram Oxalate 10 Mg Tablet PO 20 mg DAILY DESTINEY Administration Ferrous Sulfate 325 mg 12/02/24 12:00 12/05/24 21:21 Ferrous Sulfate [address] BY MOUTH 325 mg 1200,1700,2100 DESTINEY Administration Fluticasone Propionate 2 spray 12/02/24 09:00 12/05/24 08:29 Fluticasone Propionate 0.05% Na Spr 16 Gm Btl (*Bkc) NASAL 2 spray DAILY DESTINEY Administration Glucagon 1 mg 12/01/24 11:46 Glucagon For Inj 1 Mg Vial IM PRN PRN Hypoglycemia Protocol Glucose 15 gm 12/01/24 11:46 Glucose Oral Gel 15 Gm Of Glucse In 37.5 Gm Tube PO PRN PRN Hypoglycemia Protocol Guaifenesin 600 mg 12/01/24 21:00 12/05/24 21:21 Guaifenesin 12 Hr 600 Mg Tabcr PO 600 mg Q12HR DESTINEY Administration Dextrose 1,000 mls @ 100 mls/hr 12/01/24 11:46 Dextrose 5% 1,000 Ml IVPB PRN PRN Hypoglycemia Protocol Insulin Aspart 4 - 8 units 12/01/24 17:00 12/05/24 17:24 Insulin Aspart (*Bkc) 100 Units/Ml SUB-Q Not Given TIDWM [facility] Protocol Levothyroxine Sodium 50 mcg 12/02/24 06:30 12/05/24 05:46 Levothyroxine Sodium 50 Mcg Tablet PO 50 mcg MoTuWeThFr DESTINEY Administration Levothyroxine Sodium 100 mcg 12/06/24 06:30 12/06/24 05:39 Levothyroxine Sodium 100 Mcg Tablet PO 100 mcg SuSa DESTINEY Administration Loperamide HCl 2 mg 12/03/24 13:43 Loperamide Hcl 2 Mg Capsule PO PRN PRN Diarrhea Loratadine 10 mg 12/02/24 09:00 12/05/24 08:29 Loratadine 10 Mg Tablet PO 10 mg QAM DESTINEY Administration Magnesium Citrate 296 ml 12/01/24 21:26 Magnesium Citrate 300 Ml Btl PO DAILY PRN constipation Magnesium Hydroxide 30 ml 12/01/24 21:26 Magnesium Hydroxide Susp 30 Ml Udc PO HS PRN constipation Magnesium Oxide 400 mg 12/02/24 09:00 12/05/24 17:25 Magnesium Oxide 400 Mg Tablet PO 400 mg TID DESTINEY Administration Metoprolol Tartrate 50 mg 12/02/24 09:00 12/05/24 21:21 Metoprolol Tartrate 50 Mg Tab PO 50 mg Q12HR DESTINEY Administration Miconazole Nitrate 1 applic 12/02/24 09:26 Miconazole Nitrate 2% Cream 30 Gm Tube TOPICAL DAILY PRN rash Ondansetron HCl 4 mg 12/01/24 21:26 Ondansetron Hcl Odt 4 Mg Tablet PO Q6H PRN nausea and vomiting Oxybutynin Chloride 5 mg 12/02/24 09:00 12/05/24 08:28 Oxybutynin Chloride Xl 5 Mg Tab.Er.24 PO 5 mg DAILY DESTINYE Administration Pantoprazole Sodium 40 mg 12/02/24 21:00 12/05/24 21:21 Pantoprazole 40 Mg Tablet PO 40 mg Q12HR DESTINEY Administration Saccharomyces Boulardii 250 mg 12/02/24 09:00 12/05/24 17:26 Saccharomyces Boulardii 250 Mg Capsule PO 250 mg TID DESTINEY Administration Tramadol HCl 50 mg 12/02/24 21:00 12/05/24 21:21 Tramadol Hcl (*Crx) 50 Mg Tablet PO 50 mg HS DESTINEY Administration Trazodone HCl 50 mg 12/02/24 21:00 12/05/24 21:21 Trazodone Hcl 50 Mg Tablet PO 50 mg HS DESTINEY Administration Radiology Results: ITS Impressions Chest X-Ray 12/01/24 11:57 IMPRESSION: Left basilar atelectasis versus pneumonia medially. Renal Ultrasound 12/01/24 18:01 IMPRESSION: No hydronephrosis or renal calculi. Findings suggesting medical renal disease. Atrophy of the right kidney in comparison to the left. Cholangiogram 12/03/24 10:16 IMPRESSION: 1. Cholecystostomy tube in expected position with loops formed within the fundus of the gallbladder. 2. Cholelithiasis with likely occluded cystic duct which does not opacify with contrast during the 5 minutes following injection of 50 mL water-soluble contrast. Modified Barium Swallow 12/03/24 13:53 IMPRESSION: Pharyngeal dysphagia with laryngeal penetration and aspiration. P lease correlate with speech pathologist findings and specific feeding recommendations. Labs Labs: Laboratory Results - last 24 hr 12/05/24 12/05/24 12/05/24 07:49 12:14 17:23 POC Capillary Glucose 84 121 H 97 12/05/24 20:48 POC Capillary Glucose 98 Quality VTE Prophylaxis VTE prophylaxis: pharmacologic ordered Hospitalist MIPS Advance Care Plan I have confirmed that the patient's Advanced Care Plan is present, code status is documented, or surrogate decision maker is listed in patient medical record.: Yes Medication Reconciliation I have utilized all available resources to obtain, update and review the patients current medications (includes all prescriptions, OTC, herbals, cannabis, and nutritional supplements).: Yes
[2024-12-06 08:03] LABS: Glucose Point of Care 82 mg/dl (65-105)
[2024-12-06] MEDS: METOPROLOL TARTRATE 50 MG TAB PO (09:29)
[2024-12-06] MEDS: MAGNESIUM OXIDE 400 MG TABLET PO ×3 (09:29→17:08)
[2024-12-06] MEDS: guaiFENesin 12 HR 600 MG TABCR PO (09:29)
[2024-12-06] MEDS: SACCHAROMYCES BOULARDII 250 MG CAPSULE PO ×3 (09:30→17:09)
[2024-12-06] MEDS: AMOXICILLIN/CLAVULANATE K 500-125 MG TAB 1 TABLET PO (09:30)
[2024-12-06] MEDS: ESCITALOPRAM OXALATE 10 MG TABLET 20 MG PO (09:31)
[2024-12-06] MEDS: LORATADINE 10 MG TABLET PO (09:31)
[2024-12-06] MEDS: cilostazoL 100 MG TABLET PO ×2 (09:31→17:09)
[2024-12-06] MEDS: oxyBUTYnin CHLORIDE XL 5 MG TAB.ER.24 PO (09:31)
[2024-12-06] MEDS: ALPRAZolam (*CRX) 0.25 MG TABLET PO (09:31)
[2024-12-06] MEDS: allopurinoL 100 MG TABLET 200 MG PO (09:31)
[2024-12-06] MEDS: DOXYCYCLINE HYCLATE 100 MG TABLET PO (09:31)
[2024-12-06] MEDS: PANTOPRAZOLE 40 MG TABLET PO (09:31)
[2024-12-06] MEDS: ENOXAPARIN 30 MG/0.3 ML SYRINGE SUB-Q (09:33)
[2024-12-06] MEDS: FLUTICASONE PROPIONATE 0.05% NA SPR 16 GM BTL (*BKC) 2 SPRAY NASAL (09:33)
[2024-12-06 12:00] LABS: Glucose Point of Care 110 mg/dl (65-105)
--- NOTE | 2024-12-06 12:22 | P.PN_ITS ---
Progress Note: A&P Assessment and Plan (1) Cholelithiasis with acute cholecystitis: Qualifiers: Biliary obstruction: with biliary obstruction Qualified Code(s): K80.01 - Calculus of gallbladder with acute cholecystitis with obstruction Code(s): K80.00 - Calculus of gallbladder with acute cholecystitis without obstruction Status: Acute Assessment and Plan: Acute cholecystitis secondary to cholelithiasis. Status post placement of IR directed percutaneous cholecystostomy tube. The drain output was 2 in 50cc of bile overnight. Appears the drain may have pulled back up into the gallbladder a little bit but still is within the gallbladder since there is output through the drain now. I resecured the drain at the skin level with a secure gauze and tape dressing. I think she can go ahead be [facility]. Follow-up Dr. Marquez as an outpatient as per his instructions. Subjective Date/time seen: 12/06/24 12:22 Interval history: Patient with percutaneous cholecystostomy tube in place. Yesterday the tube seemed to have pulled out a little bit and there was no output for [id number]. However nurses say today that overnight there was 250cc of output through the cholecystostomy tube typical thin appearing bile. She has no complaints of any increasing abdominal pain or any nausea. Exam GI: Other: Abdomen is obese but soft. Cholecystostomy tube in place in the right upper quadrant. The itself was no longer sutured to the skin however there is bile output out the drain so the drain appears to still be within the gallbladder. Some minimal amount of drainage around the tube. Objective Data Vital Signs Vital Signs: Vital Signs - 24 hr 12/05/24 13:32 12/05/24 14:00 12/05/24 14:05 Temperature 36.5 C Pulse Rate 82 81 77 Respiratory Rate 18 16 16 Blood Pressure 125/51 L Pulse Oximetry 93 Oxygen Delivery Fraction of Inspired Oxygen 12/05/24 20:00 12/05/24 20:04 12/05/24 20:04 Temperature Pulse Rate 77 79 Respiratory Rate 12 16 Blood Pressure Pulse Oximetry 100 94 Oxygen Delivery Room Air Room Air Fraction of Inspired Oxygen 21 21 12/05/24 20:14 12/05/24 20:39 12/05/24 21:21 Temperature 35.9 C L Pulse Rate 80 77 77 Respiratory Rate 16 12 Blood Pressure 117/70 Pulse Oximetry 100 Oxygen Delivery Fraction of Inspired Oxygen 12/06/24 02:04 12/06/24 02:10 12/06/24 04:44 Temperature 36.1 C L Pulse Rate 77 80 80 Respiratory Rate 18 18 12 Blood Pressure 117/59 L Pulse Oximetry 100 Oxygen Delivery Fraction of Inspired Oxygen 12/06/24 07:55 12/06/24 07:55 12/06/24 08:07 Temperature Pulse Rate 80 76 Respiratory Rate 16 16 Blood Pressure Pulse Oximetry 97 Oxygen Delivery Room Air Fraction of Inspired Oxygen 12/06/24 09:29 12/06/24 09:30 Temperature Pulse Rate 82 Respiratory Rate Blood Pressure Pulse Oximetry Oxygen Delivery Room Air Fraction of Inspired Oxygen Intake/Output Intake/Output: Intake & Output 12/03/24 12/04/24 12/05/24 12/06/24 23:59 23:59 23:59 23:59 Intake Total 2070 960 770 440 Output Total 1010 650 305 405 Balance 1060 310 465 35 Meds/Results Medications: Active Medications Generic Name Dose Route Start Last Admin Trade Name Freq PRN Reason Stop Dose Admin Acetaminophen 650 mg 12/01/24 12:30 12/04/24 22:22 Acetaminophen 325 Mg Tablet PO 650 mg Q4H PRN Administration Mild Pain (1-3) or Fever Albuterol 2.5 mg 12/01/24 14:00 12/06/24 07:55 Albuterol Sulfate Neb 2.5 Mg/3 Ml Inh INHALATION 2.5 mg Q6HRT CYNDI Administration Allopurinol 200 mg 12/02/24 09:00 12/06/24 09:31 Allopurinol 100 Mg Tablet PO 200 mg DAILY CYNDI Administration Alprazolam 0.25 mg 12/03/24 09:00 12/06/24 09:31 Alprazolam (*Crx) 0.25 Mg Tablet PO 0.25 mg DAILY CYNDI Administration Amoxicillin/Clavulanate Potassium 1 tablet 12/04/24 21:00 12/06/24 09:30 Amoxicillin/Clavulanate K 500-125 Mg Tab PO 12/08/24 09:01 1 tablet Q12HR CYNDI Administration Benzonatate 100 mg 12/01/24 12:30 12/05/24 17:25 Benzonatate 100 Mg Capsule PO 100 mg TID PRN Administration Cough Bisacodyl 10 mg 12/01/24 21:26 Bisacodyl 10 Mg Suppository RECTAL DAILY PRN constipation Cilostazol 100 mg 12/02/24 09:00 12/06/24 09:31 Cilostazol 100 Mg Tablet PO 100 mg BID CYNDI Administration Dextrose 12.5 gm 12/01/24 11:46 12/03/24 07:35 Dextrose 50% 25 Gm/50 Ml Syringe IV PUSH 12.5 gm PRN PRN Administration Hypoglycemia Protocol Doxycycline Hyclate 100 mg 12/02/24 09:00 12/06/24 09:31 Doxycycline Hyclate 100 Mg Tablet PO 12/06/24 21:01 100 mg Q12HR CYNDI Administration Enoxaparin Sodium 30 mg 12/02/24 09:00 12/06/24 09:33 Enoxaparin 30 Mg/0.3 Ml Syringe SUB-Q 30 mg DAILY CYNDI Administration Escitalopram Oxalate 20 mg 12/02/24 09:00 12/06/24 09:31 Escitalopram Oxalate 10 Mg Tablet PO 20 mg DAILY CYNDI Administration Ferrous Sulfate 325 mg 12/02/24 12:00 12/05/24 21:21 Ferrous Sulfate [address] BY MOUTH 325 mg 1200,1700,2100 CYNDI Administration Fluticasone Propionate 2 spray 12/02/24 09:00 12/06/24 09:33 Fluticasone Propionate 0.05% Na Spr 16 Gm Btl (*Bkc) NASAL 2 spray DAILY CYNDI Administration Glucagon 1 mg 12/01/24 11:46 Glucagon For Inj 1 Mg Vial IM PRN PRN Hypoglycemia Protocol Glucose 15 gm 12/01/24 11:46 Glucose Oral Gel 15 Gm Of Glucse In 37.5 Gm Tube PO PRN PRN Hypoglycemia Protocol Guaifenesin 600 mg 12/01/24 21:00 12/06/24 09:29 Guaifenesin 12 Hr 600 Mg Tabcr PO 600 mg Q12HR CYNDI Administration Dextrose 1,000 mls @ 100 mls/hr 12/01/24 11:46 Dextrose 5% 1,000 Ml IVPB PRN PRN Hypoglycemia Protocol Insulin Aspart 4 - 8 units 12/01/24 17:00 12/06/24 11:57 Insulin Aspart (*Bkc) 100 Units/Ml SUB-Q Not Given TIDWM CYNDI Protocol Levothyroxine Sodium 50 mcg 12/02/24 06:30 12/05/24 05:46 Levothyroxine Sodium 50 Mcg Tablet PO 50 mcg MoTuWeThFr [facility] Administration Levothyroxine Sodium 100 mcg 12/06/24 06:30 12/06/24 05:39 Levothyroxine Sodium 100 Mcg Tablet PO 100 mcg SuSa [facility] Administration Loperamide HCl 2 mg 12/03/24 13:43 Loperamide Hcl 2 Mg Capsule PO PRN PRN Diarrhea Loratadine 10 mg 12/02/24 09:00 12/06/24 09:31 Loratadine 10 Mg Tablet PO 10 mg QAM [facility] Administration Magnesium Citrate 296 ml 12/01/24 21:26 Magnesium Citrate 300 Ml Btl PO DAILY PRN constipation Magnesium Hydroxide 30 ml 12/01/24 21:26 Magnesium Hydroxide Susp 30 Ml Udc PO HS PRN constipation Magnesium Oxide 400 mg 12/02/24 09:00 12/06/24 09:29 Magnesium Oxide 400 Mg Tablet PO 400 mg TID [facility] Administration Metoprolol Tartrate 50 mg 12/02/24 09:00 12/06/24 09:29 Metoprolol Tartrate 50 Mg Tab PO 50 mg Q12HR [facility] Administration Miconazole Nitrate 1 applic 12/02/24 09:26 Miconazole Nitrate 2% Cream 30 Gm Tube TOPICAL DAILY PRN rash Ondansetron HCl 4 mg 12/01/24 21:26 Ondansetron Hcl Odt 4 Mg Tablet PO Q6H PRN nausea and vomiting Oxybutynin Chloride 5 mg 12/02/24 09:00 12/06/24 09:31 Oxybutynin Chloride Xl 5 Mg Tab.Er.24 PO 5 mg DAILY [facility] Administration Pantoprazole Sodium 40 mg 12/02/24 21:00 12/06/24 09:31 Pantoprazole 40 Mg Tablet PO 40 mg Q12HR [facility] Administration Saccharomyces Boulardii 250 mg 12/02/24 09:00 12/06/24 09:30 Saccharomyces Boulardii 250 Mg Capsule PO 250 mg TID [facility] Administration Tramadol HCl 50 mg 12/02/24 21:00 12/05/24 21:21 Tramadol Hcl (*Crx) 50 Mg Tablet PO 50 mg HS [facility] Administration Trazodone HCl 50 mg 12/02/24 21:00 12/05/24 21:21 Trazodone Hcl 50 Mg Tablet PO 50 mg HS [facility] Administration Radiology Results: ITS Impressions Chest X-Ray 12/01/24 11:57 IMPRESSION: Left basilar atelectasis versus pneumonia medially. Renal Ultrasound 12/01/24 18:01 IMPRESSION: No hydronephrosis or renal calculi. Findings suggesting medical renal disease. Atrophy of the right kidney in comparison to the left. Cholangiogram 12/03/24 10:16 IMPRESSION: 1. Cholecystostomy tube in expected position with loops formed within the fundus of the gallbladder. 2. Cholelithiasis with likely occluded cystic duct which does not opacify with contrast during the 5 minutes following injection of 50 mL water-soluble contrast. Modified Barium Swallow 12/03/24 13:53 IMPRESSION: Pharyngeal dysphagia with laryngeal penetration and aspiration. Please correlate with speech pathologist findings and specific feeding r ecommendations. Labs Labs: Laboratory Results - last 24 hr 12/05/24 12/05/24 12/05/24 12:14 17:23 20:48 POC Capillary Glucose 121 H 97 98 12/06/24 12/06/24 07:57 11:48 POC Capillary Glucose 82 110 H
[2024-12-06] MEDS: FERROUS SULFATE 325 MG TABLET DR BY MOUTH ×2 (12:48→17:10)
--- NOTE | 2024-12-06 15:44 | PC.NURSE ---
ATTEMPTED TO CALL REPORT TO NURSE AT [facility]. NO ANSWER. AWAITING CALL BACK
--- NOTE | 2024-12-06 15:49 | PC.NURSE ---
CALLED REPORT TO NURSE AT [facility]. NO QUESTIONS OR CONCERNS AT THIS TIME. PATIENT TO BE PICKED UP VIA EMS. TIME TBD
[2024-12-06 17:13] LABS: Glucose Point of Care 119 mg/dl (65-105)
--- NOTE | 2024-12-06 18:37 | PC.NURSE ---
IV REMOVED. PATIENT PICKED UP VIA EMS
--- NOTE | 2024-12-08 08:41 | WPDCDIQUERY2 ---
CDI Query Clarification Request Please clarify if sepsis has been ruled in or ruled out The medical chart reflects the following: The patient is are from [facility] via EMS for further evaluation of shortness of breath and for possible pneumonia. She reports onset of shortness of breath approximately 1 week ago. Chief breath accompanied by a nonproductive cough, body aches, nausea, vomiting, and diarrhea. She is seeking care today as her symptoms worsened overnight last night. With upon EMS arrival, they found the patient at 79% on 2L nasal cannula. While in route to the hospital, EMS administered a DuoNeb for which she reports some relief. However post nebulizer she remained hypoxic and arrived to the emergency department at 80% on room air. At baseline the patient does not require supplemental oxygen. She is currently reporting general malaise/fatigue. Denies fever, chills. Patient is a poor historian. Initial VS at presentation: 98.2? F, HR 123, RR 23, 88/45, 96% on L nasal cannula. ED workup showed: WBC 13.4, hemoglobin 10.5 (prev 11.1 on 11/14/24), initial VBG showed a pH of 7.294, CO2 38.4, 08/22/2001, and HC03 18.2, sodium 134, potassium 6.7, creatinine 2.97 and GFR 16 (prev 1.8 and 28 on 11/14), lactic 1.6, BNP 1010, and albumin 2.5. UA equivocal for UTI - moderate epithelial cells. CXR showed left basilar atelectasis versus pneumonia medially. AFib with RVR, rate 113, right bundle branch block, possible anterior IN of old, inferior infarct age indeterminate, borderline ST-T-wave mL high lateral leads. (1) Sepsis: Qualifiers: Sepsis type: sepsis due to unspecified organism Sepsis acute organ dysfunction status: with acute organ dysfunction Severe sepsis acute organ dysfunction type: acute renal failure Acute renal failure type: unspecified Severe sepsis shock status: without septic shock Qualified Code(s): A41.9 - Sepsis, unspecified organism; R65.20 - Severe sepsis without septic shock; N17.9 - Acute kidney failure, unspecified Code(s): A41.9 - Sepsis, unspecified organism Status: Acute Assessment and Plan: - meets SIRS criteria: HR, RR, BP - lactic acid: 1.6 - 30 mL/kg = 3.9L, c/f volume overload/CHF. responded well to 1L bolus. will give second liter at 125 mL/hr, monitor closely. - suspected source: PNA, possible UTI - started on Levaquin pn 12/01, transition to ceftriaxone IV and doxycycline p.o. to avoid QT prolongation - blood cultures drawn on 12/01, follow - UA equivocal for infection -> turbid, 2+ protein, trace ketones, 2+ blood, 3+ leuk esterase, 6-10 RBC, greater than 150 BC, WBC clumps present, moderate epithelial cells, 4 active. - CXR: Left basilar atelectasis versus pneumonia medially. - monitor hemodynamic stability Blood Culture Final 12/06/24-2359 Q SOURCE: BLOOD STATUS: FINAL RESULT: No growth after 5 days Aerobic bottle only received. <Iraida Dupree RN - Last Filed: 12/08/24 08:44> Clarified Diagnosis Clarified Diagnosis: ruled in due to pna <Ismael Melendrez MD - Last Filed: 12/08/24 14:27>
== END 2024-12-06 18:40 | DRG 871 ==
LOC: ANHED 10:39 → ANHIMU 13:04 → ANH2MED 12-04 12:41 → ANHIMU 12-09 12:57
PROVIDERS: Student in an Organized Health Care Education/Training Program; Admitting Provider Internal Medicine; Emergency Provider Emergency Medicine; Visit Provider General Practice
DX: A41.9 Sepsis, unspecified organism (principal); J18.9 Pneumonia, unspecified organism; N17.9 Acute kidney failure, unspecified; N39.0 Urinary tract infection, site not specified; J45.901 Unspecified asthma with (acute) exacerbation; K80.00 Calculus of gallbladder with acute cholecystitis without obstruction; I12.9 Hypertensive chronic kidney disease with stage 1 through stage 4 chronic kidney disease, or unspecified chronic kidney disease; N18.9 Chronic kidney disease, unspecified; E11.22 Type 2 diabetes mellitus with diabetic chronic kidney disease; E11.51 Type 2 diabetes mellitus with diabetic peripheral angiopathy without gangrene; E66.01 Morbid (severe) obesity due to excess calories; E87.5 Hyperkalemia; E03.9 Hypothyroidism, unspecified; E78.5 Hyperlipidemia, unspecified; K76.0 Fatty (change of) liver, not elsewhere classified; K57.30 Diverticulosis of large intestine without perforation or abscess without bleeding; K20.90 Esophagitis, unspecified without bleeding; R13.13 Dysphagia, pharyngeal phase; T17.308A Unspecified foreign body in larynx causing other injury, initial encounter; N32.81 Overactive bladder; M48.00 Spinal stenosis, site unspecified; M10.9 Gout, unspecified; F41.9 Anxiety disorder, unspecified; F32.A Depression, unspecified; F80.89 Other developmental disorders of speech and language; Z96.651 Presence of right artificial knee joint; D63.1 Anemia in chronic kidney disease; Z93.4 Other artificial openings of gastrointestinal tract status
CPT/HCPCS: 36415; 47531; 71045; 74230; 76775; 80048; 80053; 81001; 82274; 82550; 82570; 82803; 82948; 83605; 83735; 83880; 84100; 84132; 84156; 84300; 84540; 85025; 85027; 85610; 85730; 87040; 87493; 87641; 92526; 92610; 92611; 93005; 94640; 96361; 96365; 96367; 96375; 99285; A9270; C8929; G0378; J0612; J0696; J1650; J1815; J1938; J1956; J7030; J7120; P9047; Q9957

== ENCOUNTER 2024-12-09 13:40 | Outpatient (CLI) | payer MEDICARE, MEDICAID, SELFPAY ==
--- NOTE | ~2024-12-09 | XR_ITS ---
EXAMINATION: XR catheter cholangiogram DATE: 12/09/2024 15:01 INDICATION: Calculus of gallbladder with acute cholecystitis TECHNIQUE: 5 fluoroscopic images of the right upper quadrant were obtained during injection of 100 mL of Omnipaque 240 water-soluble contrast into patient's existing percutaneous cholecystostomy tube. A dditional 10 mL sterile saline was injected into the catheter at which point the injection was termin ated due to patient discomfort. 130 mL of fluid was aspirated from the gallbladder at the conclusion of the procedure. Total DAP was 13.788 Gycm^2. COMPARISON: 12/03/2024 FINDINGS: Loop of the cholecystostomy tube remains within the fundus of the gallbladder. There are multiple sepideh ent filling defects consistent with gallstones which are outlined by the injected contrast. Contrast extends into the neck of the gallbladder. No filling of the cystic duct or common bile duct was ident ified. IMPRESSION: 1. Cholecystostomy tube in expected position with loops formed within the fundus of the gallbladder. 2. Cholelithiasis with likely occluded cystic duct which does not opacify with contrast during the 10 minutes following injection of 100 mL water-soluble contrast. Reviewed, dictated and finalized at location A. IMPRESSION: 1. Cholecystostomy tube in expected position with loops formed within the fundu s of the gallbladder. 2. Cholelithiasis with likely occluded cystic duct which does not opacify with contrast during the 10 minutes following injection of 100 mL water-soluble cont rast.
== END 2024-12-09 13:41 | disposition home or self-care (01) ==
PROVIDERS: Visit Provider Surgery
DX: K80.01 Calculus of gallbladder with acute cholecystitis with obstruction (principal)
CPT/HCPCS: 47531